=== PATIENT | female | born 1980 | race Caucasian/White ===

== ENCOUNTER 2024-02-18 16:31 | Emergency (ER) | payer OTHER ==
--- OUTSIDE RECORDS SUMMARY | 2024-02-18 16:44 | XMS REPORT | Continuity of Care Document ---
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 TAKE 1 TABLET BY MOUTH IN THE MORNING AND IN THE EVENING [facility] PANTOPRAZOL E 40 mg EC tablet 2022-11 00:00: 00 Yes [id number] 40mg TAKE 1 TABLET BY MOUTH IN THE MORNING AND IN THE EVENING [facility] PANTOPRAZOL E 40 mg EC tablet 2022-11 00:00: 00 Yes [id number] 40mg TAKE 1 TABLET BY MOUTH IN THE MORNING AND IN THE EVENING [facility] PANTOPRAZOL E 40 mg EC tablet 2022-11 00:00: 00 Yes [id number] 40mg TAKE 1 TABLET BY MOUTH IN THE MORNING AND IN THE EVENING [facility] PANTOPRAZOL E 40 mg EC tablet 2022-11 00:00: 00 Yes [id number] 40mg TAKE 1 TABLET BY MOUTH IN THE MORNING AND IN THE EVENING [facility] PANTOPRAZOL E 40 mg EC tablet 2022-11 00:00: 00 Yes [id number] 40mg TAKE 1 TABLET BY MOUTH IN THE MORNING AND IN THE EVENING [facility] PANTOPRAZOL E 40 mg EC tablet 2022-11 00:00: 00 Yes [id number] 40mg TAKE 1 TABLET BY MOUTH IN THE MORNING AND IN THE EVENING [facility] PANTOPRAZOL E 40 mg EC tablet 2022-11 00:00: 00 Yes [id number] 40mg TAKE 1 TABLET BY MOUTH IN THE MORNING AND IN THE EVENING [facility] PANTOPRAZOL E 40 mg EC tablet 2022-11 00:00: 00 Yes [id number] 40mg TAKE 1 TABLET BY MOUTH IN THE MORNING AND IN THE EVENING [facility] PANTOPRAZOL E 40 mg EC tablet 2022-11 00:00: 00 Yes [id number] 40mg TAKE 1 TABLET BY MOUTH IN THE MORNING AND IN THE EVENING [facility] PANTOPRAZOL E 40 mg EC tablet 2022-11 00:00: 00 Yes [id number] 40mg TAKE 1 TABLET BY MOUTH IN THE MORNING AND IN THE EVENING [facility] PANTOPRAZOL E 40 mg EC tablet 2022-11 00:00: 00 Yes [id number] 40mg TAKE 1 TABLET BY MOUTH IN THE MORNING AND IN THE EVENING [facility] PANTOPRAZOL E 40 mg EC tablet 2022-11 00:00: 00 02-16 00:00 :00 No [id number] 40mg TAKE 1 TABLET BY MOUTH IN THE MORNING AND IN THE EVENING [facility] cloNIDine 0.2 mg tablet 2022-11 00:00: 00 Yes TAKE 1 TABLET BY MOUTH EVERY DAY AT NIGHT [facility] cloNIDine 0.2 mg tablet 2022-11 00:00: 00 Yes TAKE 1 TABLET BY MOUTH EVERY DAY AT NIGHT [facility] cloNIDine 0.2 mg tablet 2022-11 00:00: 00 Yes TAKE 1 TABLET BY MOUTH EVERY DAY AT NIGHT [facility] cloNIDine 0.2 mg tablet 2022-11 00:00: 00 Yes TAKE 1 TABLET BY MOUTH EVERY DAY AT NIGHT [facility] cloNIDine 0.2 mg tablet 2022-11 00:00: 00 Yes TAKE 1 TABLET BY MOUTH EVERY DAY AT NIGHT [facility] cloNIDine 0.2 mg tablet 2022-11 00:00: 00 Yes TAKE 1 TABLET BY MOUTH EVERY DAY AT NIGHT [facility] cloNIDine 0.2 mg tablet 2022-11 00:00: 00 Yes TAKE 1 TABLET BY MOUTH EVERY DAY AT NIGHT [facility] cloNIDine 0.2 mg tablet 2022-11 00:00: 00 Yes TAKE 1 TABLET BY MOUTH EVERY DAY AT NIGHT [facility] cloNIDine 0.2 mg tablet 2022-11 00:00: 00 Yes TAKE 1 TABLET BY MOUTH EVERY DAY AT NIGHT [facility] KCL (KLOR-CON M20) tablet 40 mEq 2022-11 15:15: 00 Yes 40meq 40 mEq, Oral, DAILY, First dose on 10/08/23 at 0915, Until Discontinu ed, Routine [facility] KCL (KLOR-CON M20) tablet 40 mEq 2022-11 13:45: 00 10-08 14:41 :00 No 40meq 40 mEq, Oral, ONCE, 1 dose, On 10/08/23 at 0745, Routine [facility] cloNIDine 0.3 mg tablet 2022-11 11:13: 29 10-08 00:00 :00 No 1 tab(s) [facility] proCHLORper azine 10 mg tablet 2022-11 00:00: 00 11-08 05:59 :00 No [id number] 10mg Take 1 tablet by mouth every 6 (six) hours as needed for Nausea and Vomiting (N/V) for up to 30 days. [facility] proCHLORper azine 10 mg tablet 2022-11 00:00: 00 11-08 05:59 :00 No [id number] 10mg Take 1 tablet by mouth every 6 (six) hours as needed for Nausea and Vomiting (N/V) for up to 30 days. [facility] proCHLORper azine 10 mg tablet 2022-11 00:00: 00 11-08 05:59 :00 No [id number] 10mg Take 1 tablet by mouth every 6 (six) hours as needed for Nausea and Vomiting (N/V) for up to 30 days. [facility] proCHLORper azine 10 mg tablet 2022-11 00:00: 00 11-08 05:59 :00 No [id number] 10mg Take 1 tablet by mouth every 6 (six) hours as needed for Nausea and Vomiting (N/V) for up to 30 days. [facility] proCHLORper azine 10 mg tablet 2022-11 00:00: 00 11-08 05:59 :00 No [id number] 10mg Take 1 tablet by mouth every 6 (six) hours as needed for Nausea and Vomiting (N/V) for up to 30 days. [facility] proCHLORper azine 10 mg tablet 2022-11 00:00: 00 11-08 05:59 :00 No [id number] 10mg Take 1 tablet by mouth every 6 (six) hours as needed for Nausea and Vomiting (N/V) for up to 30 days. [facility] tiZANidine (ZANAFLEX) tablet 4 mg 2022-11 17:54: 00 Yes 4mg 4 mg, Oral, BIDPRN, Starting on Tue10/07/23 at 1154, Until Discontinu ed, Routine, Muscle Spasms [facility] KCL (KLOR-CON M20) tablet 40 mEq 2022-11 16:45: 00 10-07 17:18 :00 No 40meq 40 mEq, Oral, ONCE, 1 dose, On Tue10/07/23 at 1045, Routine [facility] peg-electro lyte soln (GOLYTELY) 236-22.74-6 .74 -5.86 gram solution 4,000 mL 2022-11 15:52: 42 Yes 4000mL 4,000 mL, Oral, PRN, Starting on Tue10/07/23 at 0952, Until Discontinu ed, Routine, Constipati on [facility] metoprolol succinate XL (TOPROL XL) tablet 25 mg 2022-11 15:00: 00 Yes 25mg 25 mg, Oral, DAILY, First dose (after last modificati on) on Tue10/07/23 at 0900, Until Discontinu ed, Routine [facility] amLODIPine (NORVASC) tablet 5 mg 2022-11 15:00: 00 Yes 5mg 5 mg, Oral, DAILY, First dose on Tue10/07/23 at 0900, Until Discontinu ed, CARL [facility] lactulose (CEPHULAC) solution 30 mL 2022-11 14:00: 00 10-08 00:42 :00 No 30mL 30 mL, Oral, TID, First dose on Tue10/07/23 at 0800, Until Discontinu ed, Routine [facility] midodrine (PROAMATINE ) tablet 5 mg 2022-11 08:30: 00 10-07 08:05 :00 No 5mg 5 mg, Oral, ONCE, 1 dose, On Tue10/07/23 at 0230, Routine [facility] NaCl 0.9% (NS) bolus infusion 1,000 mL 2022-11 06:00: 00 10-07 05:02 :32 No 1000mL at 999 mL/hr, 1,000 mL, IV Piggyback, ONCE, 1 dose, On Tue10/07/23 at 0000, STAT [facility] hydralAZINE (APRESOLINE ) injection 10 mg 2022-11 05:18: 19 Yes 10mg 10 mg, Slow IV Push, Q6HPRN, Starting on Tue10/06/23 at 2318, Until Discontinu ed, Routine, DBP=>100; SBP=>180 [facility] metoprolol succinate XL (TOPROL XL) tablet 100 mg 2022-11 03:30: 00 10-07 04:52 :53 No 100mg 100 mg, Oral, DAILY, First dose on Tue10/06/23 at 2130, Until Discontinu ed, [facility]ine [facility] mor[facility] (2 mg/mL) injection 4 mg 2022-11 00:30: 00 Yes 4mg 4 mg, Slow IV Push, Q4HPRN, Starting on Tue10/06/23 at 1830, Until Discontinu ed, Routine, Pain (scale 7-10) [facility] proCHLORper azine (COMPAZINE) 10 mg in NaCl 0.9% (NS) piggyback 2022-11 23:50: 42 Yes 10mg 10 mg, IV Piggyback, at 100 mL/hr Administer over 30 Minutes, Q6HPRN, Starting on Tue10/06/23 at 1750, Until Discontinu ed, Routine, Nausea and Vomiting (N/V) [facility] diazePAM (VALIUM) injection 10 mg 2022-11 21:48: 00 Yes 10mg 10 mg, Slow IV Push, TIDPRN, Starting on Tue10/06/23 at 1548, Until Discontinu ed, Routine, Agitation [facility] proCHLORper azine (COMPAZINE) 10 mg in NaCl 0.9% (NS) piggyback 2022-11 21:45: 00 10-06 22:22 :00 No 10mg 10 mg, IV Piggyback, at 100 mL/hr Administer over 30 Minutes, ONCE, 1 dose, On Tue10/06/23 at 1545, Routine [facility] lactulose (CEPHULAC) solution 30 mL 2022-11 21:00: 00 10-06 20:57 :00 No 30mL 30 mL, Oral, ONCE, 1 dose, On Tue10/06/23 at 1500, Routine [facility] butalbital- acetaminoph en-caff (ESGIC) 50-325-40 mg tablet 1 tablet 2022-11 16:42: 47 Yes 1{tbl} 1 tablet, Oral, Q6HPRN, Starting on Tue10/06/23 at 1042, Until Discontinu ed, Routine, for headache [facility] NaCl 0.9% (NS) bolus infusion 500 mL 2022-11 13:47: 00 10-06 13:56 :37 No 500mL at 999 mL/hr, 500 mL, IV Infusion, ONCE, 1 dose, On Tue10/06/23 at 0800, STAT [facility] sodium phosphates (READY-TO-U SE ENEMA) 19-7 gram/118 mL enema 1 Enema 2022-11 23:51: 00 10-06 00:03 :00 No 1{enema } 1 Enema, Rectal, ONCE, 1 dose, On Tue10/05/23 at 1800, Routine [facility] proMETHazin e (PHENERGAN) 25 mg in NaCl 0.9% (NS) 50 mL IV piggyback 2022-11 21:45: 10 10-06 23:51 :59 No 25mg 25 mg, IV Piggyback, at 200 mL/hr Administer over 15 Minutes, Q6HPRN, Starting on Tue10/05/23 at 1545, Until Tue10/06/23 at 1751, Routine, Nausea and Vomiting (N/V) [facility] KCL (KLOR-CON M20) tablet 20 mEq 2022-11 16:30: 00 10-05 16:14 :00 No 20meq 20 mEq, Oral, ONCE, 1 dose, On Tue10/05/23 at 1030, Routine [facility] NaCl 0.9% (NS) bolus infusion 1,000 mL 2022-11 14:00: 00 10-05 15:15 :59 No 1000mL at 999 mL/hr, 1,000 mL, IV Piggyback, ONCE, 1 dose, On Tue10/05/23 at 0800, STAT [facility] midodrine (PROAMATINE ) tablet 5 mg 2022-11 13:45: 00 10-05 12:51 :00 No 5mg 5 mg, Oral, ONCE, 1 dose, On Tue10/05/23 at 0745, Routine [facility] NaCl 0.9% (NS) bolus infusion 1,000 mL 2022-11 11:00: 00 10-05 09:53 :00 No 1000mL at 999 mL/hr, 1,000 mL, IV Piggyback, ONCE, 1 dose, On Tue10/05/23 at 0500, STAT [facility] aspirin tablet 325 mg 2022-11 05:15: 00 10-05 05:08 :00 No 325mg 325 mg, Oral, ONCE, 1 dose, On Tue10/04/23 at 2315, Routine [facility] potassium chloride in water (KCL) 20 mEq/100 mL RTU IVPB 20 mEq 2022-11 05:15: 00 10-05 08:39 :00 No 20meq 20 mEq, IV Piggyback, ONCE, 1 dose, On Tue10/04/23 at 2315, 100 mL [facility] HEPARIN SODIUM (PORCINE) 1,000 UNIT/ML BOLUS ACS ORDER SET 2022-11 04:30: 00 10-05 05:24 :00 No 4000U 4,000 Units, IV Push, ONCE, 1 dose, On Tue10/04/23 at 2230, CARL [facility] heparin 25,000 Units/250 mL (Premixed Bag) in 0.45 % NS 2022-11 04:29: 06 10-05 15:28 :45 No 0U/h 0-2,750 Units/hr (0-27.5 mL/hr), IV Infusion, TITRATE, Parameters in Admin. Instr., Starting on Tue10/04/23 at 2229
In itiate dosing:&nb sp; & nbsp;&nbsp ; -Patient 83 kg or under: 1,000 Units/hr (Calculate d dose at 12 units/kg/h r) &n bsp; &nbs p; -Patient over 83 k,000 units/hr&n bsp;DO NOT Exceed the MAXIMUM 1,000 units/hr for initiation of heparin drip.&nbsp ; CAU TION - If LMWH given in ER, AVOID bolus and start next dose/drip 12 hrs after ER dosage.&nb sp; M ust program rate using programmab le infusion pump.&nbsp ; Karen ck with the ordering provider first prior to any administra tion should the patient be on existing/a dditional anticoagul ant therapy. Rang e, Dosing and Testing: &nbs p;FOR [facility], [facility], AND [facility] ONLY &nbs p; - aPTT < 35: & nbsp;Bolus 5000 units, increase rate 300 units/hr&n bsp; - aPTT 35-44:&nbs p; Mamadou myranda 3000 units, increase rate 200 units/hr&n bsp; - aPTT 45-54:&nbs p; In crease rate 100 units/hr&n bsp; - aPTT 55-85:&nbs p; NO CHANGE&nbs p; - aPTT 86-95:&nbs p; De crease rate 100 units/hr&n bsp; - aPTT 96-120:&nb sp; H old 30 minutes, decrease rate 150 units/hr&n bsp; - aPTT > 120: Hold 60 minutes, decrease rate 200 units/hr&n bsp; Check aPTT 6 hours after initiation , then Q6H after every change, aPTT Q12H once therapeuti c levels are reached.&n bsp; &nbs p; __ &n bsp;FOR [facility] ONLY - aPTT < 40: & nbsp;Bolus 5000 units, increase rate 300 units/hr&n bsp; - aPTT 40-49:&nbs p; Mamadou myranda 3000 units, increase rate 200 units/hr&n bsp; - aPTT 50-59:&nbs p; In crease rate 100 units/hr&n bsp; - aPTT 60-85:&nbs p; NO CHANGE&nbs p; - aPTT 86-95:&nbs p; De crease rate 100 units/hr&n bsp; - aPTT 96-120:&nb sp; H old 30 minutes, decrease rate 150 units/hr&n bsp; - aPTT > 120: Hold 60 minutes, decrease rate 200 units/hr&n bsp; Check aPTT 6 hours after initiation , then Q6H after every change, aPTT Q12H once therapeuti c levels are reached.&n bsp; DO NOT ADJUST INITIAL BOLUS OR INITIAL INFUSION RATE.
[facility] hydralAZINE (APRESOLINE ) injection 10 mg 2022-11 03:15: 00 10-05 02:18 :00 No 10mg 10 mg, Slow IV Push, ONCE, 1 dose, On Tue10/04/23 at 2115, STAT [facility] atorvastati n (LIPITOR) tablet 40 mg 2022-11 03:00: 00 Yes 40mg 40 mg, Oral, QHS, First dose on Tue10/04/23 at 2100, Until Discontinu ed, Routine [facility] hydrALAZINE (APRESOLINE ) tablet 10 mg 2022-11 02:09: 49 10-07 04:19 :56 No 10mg 10 mg, Oral, Q6HPRN, Starting on Tue10/04/23 at 2008, Until Tamie 10/06/23 at 2219, Routine, SBP>160, DBP>100 [facility] morpHINE (2 mg/mL) injection 4 mg 2022-11 02:09: 35 10-07 00:16 :30 No 4mg 4 mg, Slow IV Push, Q6HPRN, Starting on Tue10/04/23 at 2008, Until Tue10/06/23 at 1816, Routine, Pain (scale 7-10) [facility] metoprolol (LOPRESSOR) injection 5 mg 2022-11 00:04: 32 Yes 5mg 5 mg, Slow IV Push, Q8HPRN, Starting on Tue10/04/23 at 1804, Until Discontinu ed, Routine, SYS BP over 170 hold for HR less than 60 [facility] morpHINE (2 mg/mL) injection 2 mg 2022-11 00:03: 39 10-05 02:10 :11 No 2mg 2 mg, Slow IV Push, Q6HPRN, Starting on Tue10/04/23 at 1803, Until Tue10/04/23 at 2010, Routine, Pain (scale 7-10) [facility] bisacodyL (DULCOLAX) suppository 10 mg 2022-11 00:03: 04 Yes 10mg 10 mg, Rectal, QHSPRN, Starting on Tue10/04/23 at 1803, Until Discontinu ed, Routine, Constipati on [facility] enoxaparin (LOVENOX) injection 40 mg 2022-11 23:00: 00 10-05 04:29 :29 No 40mg 40 mg, Subcutaneo us, DAILY, First dose on Tue10/04/23 at 1700, Until Discontinu ed, Routine [facility] diazePAM (VALIUM) tablet 10 mg 2022-11 22:01: 31 10-06 21:50 :05 No 10mg 10 mg, Oral, TIDPRN, Starting on Tue10/04/23 at 1601, Until Tamie 10/06/23 at 1550, Routine, anxiety [facility] labetaloL (NORMODYNE) injection 20 mg 2022-11 21:30: 00 10-04 20:34 :00 No 20mg 20 mg, Slow IV Push, ONCE, 1 dose, On Tue10/04/23 at 1530, Routine [facility] pantoprazol e (PROTONIX) EC tablet 40 mg 2022-11 21:00: 00 Yes 40mg 40 mg, Oral, DAILY, First dose on Tue10/04/23 at 1500, Until Discontinu ed, Routine [facility] NaCl 0.9% (NS) IV infusion 1,000 mL 2022-11 21:00: 00 Yes 1000mL at 125 mL/hr, IV Infusion, CONTINUOUS , Starting on Tue10/04/23 at 1500, Until Discontinu ed, Routine [facility] cloNIDine (CATAPRES) tablet 0.3 mg 2022-11 21:00: 00 10-05 12:45 :21 No .3mg 0.3 mg, Oral, DAILY, First dose on Tue10/04/23 at 1500, Until Discontinu ed, Routine [facility] ondansetron (ZOFRAN (PF)) injection 4 mg 2022-11 20:51: 50 Yes 4mg 4 mg, Slow IV Push, Q6HPRN, Starting on Tue10/04/23 at 1451, Until Discontinu ed, Routine, Nausea and Vomiting (N/V) [facility] traMADoL (ULTRAM) tablet 50 mg 2022-11 20:51: 41 10-06 20:50 :41 No 50mg 50 mg, Oral, Q8HPRN, Starting on Tue10/04/23 at 1451, Until Tamie 10/06/23 at 1450, Routine, Pain (scale 4-6) [facility] acetaminoph en (TYLENOL) tablet 650 mg 2022-11 20:51: 35 Yes 650mg 650 mg, Oral, Q6HPRN, Starting on Tue10/04/23 at 1451, Until Discontinu ed, Routine, Pain (scale 1-3) [facility] metoprolol succinate XL (TOPROL XL) tablet 100 mg 2022-11 20:45: 00 10-05 12:45 :21 No 100mg 100 mg, Oral, DAILY, First dose on Tue10/04/23 at 1445, Until Discontinu ed, Routine [facility] amLODIPine (NORVASC) tablet 5 mg 2022-11 20:45: 00 10-05 12:45 :21 No 5mg 5 mg, Oral, QNOON, First dose on Tue10/04/23 at 1445, Until Discontinu ed, Routine [facility] morpHINE (4 mg/mL) injection 4 mg 2022-11 20:45: 00 10-04 20:32 :00 No 4mg 4 mg, Slow IV Push, ONCE, 1 dose, On Tue10/04/23 at 1445, STAT [facility] cloNIDine 0.3 mg tablet 2022-11 20:37: 17 Yes 1 tab(s) [facility] NaCl 0.9% (NS) bolus infusion 1,000 mL 2022-11 17:15: 00 10-04 16:16 :00 No 1000mL at 999 mL/hr, 1,000 mL, IV Infusion, ONCE, 1 dose, On Tue10/04/23 at 1115, STAT [facility] morpHINE (4 mg/mL) injection 4 mg 2022-11 17:15: 00 10-04 17:04 :00 No 4mg 4 mg, Slow IV Push, ONCE, 1 dose, On Tue10/04/23 at 1115, STAT [facility] NaCl 0.9% (NS) IV infusion 1,000 mL 2022-11 17:00: 00 10-04 18:00 :00 No 1000mL at 999 mL/hr, IV Infusion, ONCE, 1 dose, On Tue10/04/23 at 1100, Routine [facility] ondansetron (ZOFRAN (PF)) injection 4 mg 2022-11 16:15: 00 10-04 16:15 :00 No 4mg 4 mg, Slow IV Push, ONCE, 1 dose, On Tue10/04/23 at 1015, CARL [facility] proMETHazin e (PHENERGAN) 25 mg in NaCl 0.9% (NS) 50 mL IV piggyback 2022-11 16:15: 00 10-04 16:58 :00 No 25mg 25 mg, IV Piggyback, at 200 mL/hr Administer over 15 Minutes, ONCE, 1 dose, On Tue10/04/23 at 1015, [facility] labetaloL (NORMODYNE) injection 20 mg 2022-11 16:15: 00 10-04 16:16 :00 No 20mg 20 mg, Slow IV Push, ONCE, 1 dose, On Tue10/04/23 at 1015, [facility] morpHINE (2 mg/mL) injection 2 mg 2022-11 15:45: 00 10-04 15:01 :00 No 2mg 2 mg, Slow IV Push, ONCE, 1 dose, On Tue10/04/23 at 0945, Routine [facility] NaCl 0.9% (NS) bolus infusion 1,000 mL 2022-11 14:30: 00 10-04 15:00 :00 No 1000mL at 999 mL/hr, 1,000 mL, IV Infusion, ONCE, 1 dose, On Tue10/04/23 at 0830, [facility] ondansetron (ZOFRAN (PF)) injection 4 mg 2022-11 13:45: 00 10-04 14:51 :00 No 4mg 4 mg, Slow IV Push, ONCE, 1 dose, On Tue10/04/23 at 0745, [facility] semaglutide , weight loss, (WEGOVY) 1 mg/0.5 mL PnIj SC injection 2022-11 00:00: 00 Yes [id number] 1mg inject 1 mg under the skin weekly. [facility] semaglutide , weight loss, (WEGOVY) 1 mg/0.5 mL PnIj SC injection 2022-11 00:00: 00 Yes [id number] 1mg inject 1 mg under the skin weekly. [facility] semaglutide , weight loss, (WEGOVY) 1 mg/0.5 mL PnIj SC injection 2022-11 00:00: 00 Yes [id number] 1mg inject 1 mg under the skin weekly. [facility] semaglutide , weight loss, (WEGOVY) 1 mg/0.5 mL PnIj SC injection 2022-11 00:00: 00 Yes [id number] 1mg inject 1 mg under the skin weekly. [facility] semaglutide , weight loss, (WEGOVY) 1 mg/0.5 mL PnIj SC injection 2022-11 00:00: 00 Yes [id number] 1mg inject 1 mg under the skin weekly. [facility] semaglutide , weight loss, (WEGOVY) 1 mg/0.5 mL PnIj SC injection 2022-11 00:00: 00 Yes [id number] 1mg inject 1 mg under the skin weekly. [facility] semaglutide , weight loss, (WEGOVY) 1 mg/0.5 mL PnIj SC injection 2022-11 00:00: 00 Yes [id number] 1mg inject 1 mg under the skin weekly. [facility] semaglutide , weight loss, (WEGOVY) 1 mg/0.5 mL PnIj SC injection 2022-11 00:00: 00 10-08 00:00 :00 No [id number] 1mg inject 1 mg under the skin weekly. [facility] AMLODIPINE 5 mg tablet 2022-11 00:00: 00 Yes [id number] 5mg TAKE 1 TABLET BY MOUTH EVERY DAY AT 1200 (NOON). [facility] AMLODIPINE 5 mg tablet 2022-11 00:00: 00 Yes [id number] 5mg TAKE 1 TABLET BY MOUTH EVERY DAY AT 1200 (NOON). [facility] AMLODIPINE 5 mg tablet 2022-11 00:00: 00 Yes [id number] 5mg TAKE 1 TABLET BY MOUTH EVERY DAY AT 1200 (NOON). [facility] AMLODIPINE 5 mg tablet 2022-11 00:00: 00 Yes [id number] 5mg TAKE 1 TABLET BY MOUTH EVERY DAY AT 1200 (NOON). [facility] AMLODIPINE 5 mg tablet 2022-11 00:00: 00 Yes [id number] 5mg TAKE 1 TABLET BY MOUTH EVERY DAY AT 1200 (NOON). [facility] AMLODIPINE 5 mg tablet 2022-11 00:00: 00 Yes [id number] 5mg TAKE 1 TABLET BY MOUTH EVERY DAY AT 1200 (NOON). [facility] AMLODIPINE 5 mg tablet 2022-11 00:00: 00 Yes [id number] 5mg TAKE 1 TABLET BY MOUTH EVERY DAY AT 1200 (NOON). [facility] AMLODIPINE 5 mg tablet 2022-11 00:00: 00 Yes [id number] 5mg TAKE 1 TABLET BY MOUTH EVERY DAY AT 1200 (NOON). [facility] AMLODIPINE 5 mg tablet 2022-11 00:00: 00 Yes [id number] 5mg TAKE 1 TABLET BY MOUTH EVERY DAY AT 1200 (NOON). [facility] AMLODIPINE 5 mg tablet 2022-11 00:00: 00 Yes [id number] 5mg TAKE 1 TABLET BY MOUTH EVERY DAY AT 1200 (NOON). [facility] AMLODIPINE 5 mg tablet 2022-11 00:00: 00 Yes [id number] 5mg TAKE 1 TABLET BY MOUTH EVERY DAY AT 1200 (NOON). [facility] AMLODIPINE 5 mg tablet 2022-11 00:00: 00 Yes [id number] 5mg TAKE 1 TABLET BY MOUTH EVERY DAY AT 1200 (NOON). [facility] AMLODIPINE 5 mg tablet 2022-11 00:00: 00 Yes [id number] 5mg TAKE 1 TABLET BY MOUTH EVERY DAY AT 1200 (NOON). [facility] AMLODIPINE 5 mg tablet 2022-11 00:00: 00 Yes [id number] 5mg TAKE 1 TABLET BY MOUTH EVERY DAY AT 1200 (NOON). [facility] AMLODIPINE 5 mg tablet 2022-11 00:00: 00 Yes [id number] 5mg TAKE 1 TABLET BY MOUTH EVERY DAY AT 1200 (NOON). [facility] AMLODIPINE 5 mg tablet 2022-11 00:00: 00 Yes [id number] 5mg TAKE 1 TABLET BY MOUTH EVERY DAY AT 1200 (NOON). [facility] ATORVASTATI N 40 mg tablet 2022-11 00:00: 00 Yes [id number] 40mg TAKE 1 TABLET BY MOUTH EVERYDAY AT BEDTIME [facility] ATORVASTATI N 40 mg tablet 2022-11 00:00: 00 Yes [id number] 40mg TAKE 1 TABLET BY MOUTH EVERYDAY AT BEDTIME [facility] ATORVASTATI N 40 mg tablet 2022-11 00:00: 00 Yes [id number] 40mg TAKE 1 TABLET BY MOUTH EVERYDAY AT BEDTIME [facility] ATORVASTATI N 40 mg tablet 2022-11 00:00: 00 Yes [id number] 40mg TAKE 1 TABLET BY MOUTH EVERYDAY AT BEDTIME [facility] ATORVASTATI N 40 mg tablet 2022-11 00:00: 00 Yes [id number] 40mg TAKE 1 TABLET BY MOUTH EVERYDAY AT BEDTIME [facility] ATORVASTATI N 40 mg tablet 2022-11 00:00: 00 Yes [id number] 40mg TAKE 1 TABLET BY MOUTH EVERYDAY AT BEDTIME [facility] ATORVASTATI N 40 mg tablet 2022-11 00:00: 00 Yes [id number] 40mg TAKE 1 TABLET BY MOUTH EVERYDAY AT BEDTIME [facility] ATORVASTATI N 40 mg tablet 2022-11 00:00: 00 Yes [id number] 40mg TAKE 1 TABLET BY MOUTH EVERYDAY AT BEDTIME [facility] ATORVASTATI N 40 mg tablet 2022-11 00:00: 00 Yes [id number] 40mg TAKE 1 TABLET BY MOUTH EVERYDAY AT BEDTIME [facility] ATORVASTATI N 40 mg tablet 2022-11 00:00: 00 Yes [id number] 40mg TAKE 1 TABLET BY MOUTH EVERYDAY AT BEDTIME [facility] ATORVASTATI N 40 mg tablet 2022-11 00:00: 00 Yes [id number] 40mg TAKE 1 TABLET BY MOUTH EVERYDAY AT BEDTIME [facility] ATORVASTATI N 40 mg tablet 2022-11 00:00: 00 Yes [id number] 40mg TAKE 1 TABLET BY MOUTH EVERYDAY AT BEDTIME [facility] ATORVASTATI N 40 mg tablet 2022-11 00:00: 00 Yes [id number] 40mg TAKE 1 TABLET BY MOUTH EVERYDAY AT BEDTIME [facility] ATORVASTATI N 40 mg tablet 2022-11 00:00: 00 Yes [id number] 40mg TAKE 1 TABLET BY MOUTH EVERYDAY AT BEDTIME [facility] ATORVASTATI N 40 mg tablet 2022-11 00:00: 00 Yes [id number] 40mg TAKE 1 TABLET BY MOUTH EVERYDAY AT BEDTIME [facility] ATORVASTATI N 40 mg tablet 2022-11 00:00: 00 Yes [id number] 40mg TAKE 1 TABLET BY MOUTH EVERYDAY AT BEDTIME [facility] ATORVASTATI N 40 mg tablet 2022-11 00:00: 00 Yes [id number] 40mg TAKE 1 TABLET BY MOUTH EVERYDAY AT BEDTIME [facility] ATORVASTATI N 40 mg tablet 2022-11 00:00: 00 Yes [id number] 40mg TAKE 1 TABLET BY MOUTH EVERYDAY AT BEDTIME [facility] ATORVASTATI N 40 mg tablet 2022-11 00:00: 00 Yes [id number] 40mg TAKE 1 TABLET BY MOUTH EVERYDAY AT BEDTIME [facility] ATORVASTATI N 40 mg tablet 2022-11 00:00: 00 Yes [id number] 40mg TAKE 1 TABLET BY MOUTH EVERYDAY AT BEDTIME [facility] proMETHazin e 12.5 mg tablet 2022-11 00:00: 00 Yes [id number] 12.5mg Take 1 tablet by mouth every 6 (six) hours as needed for Nausea and Vomiting (N/V). [facility] ezetimibe 10 mg tablet 2022-11 00:00: 00 Yes [id number] 10mg Take 1 tablet by mouth in the morning. [facility] semaglutide , weight loss, (WEGOVY) 0.5 mg/0.5 mL PnIj SC injection 2022-11 00:00: 00 Yes [id number] .5mg inject 0.5 mg under the skin weekly. [facility] proMETHazin e 12.5 mg tablet 2022-11 0 00:00: 00 Yes [id number] 12.5mg Take 1 tablet by mouth every 6 (six) hours as needed for Nausea and Vomiting (N/V). [facility] ezetimibe 10 mg tablet 2022-11 0 00:00: 00 Yes [id number] 10mg Take 1 tablet by mouth in the morning. [facility] proMETHazin e 12.5 mg tablet 2022-11 00:00: 00 Yes [id number] 12.5mg Take 1 tablet by mouth every 6 (six) hours as needed for Nausea and Vomiting (N/V). [facility] ezetimibe 10 mg tablet 2022-11 00:00: 00 Yes [id number] 10mg Take 1 tablet by mouth in the morning. [facility] proMETHazin e 12.5 mg tablet 2022-11 00:00: 00 Yes [id number] 12.5mg Take 1 tablet by mouth every 6 (six) hours as needed for Nausea and Vomiting (N/V). [facility] ezetimibe 10 mg tablet 2022-11 00:00: 00 Yes [id number] 10mg Take 1 tablet by mouth in the morning. [facility] proMETHazin e 12.5 mg tablet 2022-11 0 00:00: 00 Yes [id number] 12.5mg Take 1 tablet by mouth every 6 (six) hours as needed for Nausea and Vomiting (N/V). [facility] ezetimibe 10 mg tablet 2022-11 0 00:00: 00 Yes [id number] 10mg Take 1 tablet by mouth in the morning. [facility] semaglutide , weight loss, (WEGOVY) 0.5 mg/0.5 mL PnIj SC injection 2022-11 00:00: 00 Yes [id number] .5mg inject 0.5 mg under the skin weekly. [facility] proMETHazin e 12.5 mg tablet 2022-11 0- 00:00: 00 Yes [id number] 12.5mg Take 1 tablet by mouth every 6 (six) hours as needed for Nausea and Vomiting (N/V). [facility] ezetimibe 10 mg tablet 2022-11 0- 00:00: 00 Yes [id number] 10mg Take 1 tablet by mouth in the morning. [facility] semaglutide , weight loss, (WEGOVY) 0.5 mg/0.5 mL PnIj SC injection 2022-11 0 00:00: 00 Yes [id number] .5mg inject 0.5 mg under the skin weekly. [facility] proMETHazin e 12.5 mg tablet 2022-11 00:00: 00 Yes [id number] 12.5mg Take 1 tablet by mouth every 6 (six) hours as needed for Nausea and Vomiting (N/V). [facility] ezetimibe 10 mg tablet 2022-11 00:00: 00 Yes [id number] 10mg Take 1 tablet by mouth in the morning. [facility] semaglutide , weight loss, (WEGOVY) 0.5 mg/0.5 mL PnIj SC injection 2022-11 0 00:00: 00 Yes [id number] .5mg inject 0.5 mg under the skin weekly. [facility] proMETHazin e 12.5 mg tablet 2022-11 0- 00:00: 00 Yes [id number] 12.5mg Take 1 tablet by mouth every 6 (six) hours as needed for Nausea and Vomiting (N/V). [facility] ezetimibe 10 mg tablet 2022-11 0- 00:00: 00 Yes [id number] 10mg Take 1 tablet by mouth in the morning. [facility] proMETHazin e 12.5 mg tablet 2022-11 0- 00:00: 00 Yes [id number] 12.5mg Take 1 tablet by mouth every 6 (six) hours as needed for Nausea and Vomiting (N/V). [facility] ezetimibe 10 mg tablet 2022- 0-17 00:00: 00 Yes [id number] 10mg Take 1 tablet by mouth in the morning. [facility] proMETHazin e 12.5 mg tablet 2022-11 0-17 00:00: 00 Yes [id number] 12.5mg Take 1 tablet by mouth every 6 (six) hours as needed for Nausea and Vomiting (N/V). [facility] ezetimibe 10 mg tablet 2022- 0-17 00:00: 00 Yes [id number] 10mg Take 1 tablet by mouth in the morning. [facility] proMETHazin e 12.5 mg tablet 2022-11 0-17 00:00: 00 Yes [id number] 12.5mg Take 1 tablet by mouth every 6 (six) hours as needed for Nausea and Vomiting (N/V). [facility] ezetimibe 10 mg tablet 2022-11 0-17 00:00: 00 Yes [id number] 10mg Take 1 tablet by mouth in the morning. [facility] proMETHazin e 12.5 mg tablet 2022-11 0-17 00:00: 00 Yes [id number] 12.5mg Take 1 tablet by mouth every 6 (six) hours as needed for Nausea and Vomiting (N/V). [facility] ezetimibe 10 mg tablet 2022-11 0-17 00:00: 00 Yes [id number] 10mg Take 1 tablet by mouth in the morning. [facility] proMETHazin e 12.5 mg tablet 2022-11 0-17 00:00: 00 Yes [id number] 12.5mg Take 1 tablet by mouth every 6 (six) hours as needed for Nausea and Vomiting (N/V). [facility] ezetimibe 10 mg tablet 2022-11 0-17 00:00: 00 Yes [id number] 10mg Take 1 tablet by mouth in the morning. [facility] proMETHazin e 12.5 mg tablet 2022- 0-17 00:00: 00 Yes [id number] 12.5mg Take 1 tablet by mouth every 6 (six) hours as needed for Nausea and Vomiting (N/V). [facility] ezetimibe 10 mg tablet 2022-11 0-17 00:00: 00 Yes [id number] 10mg Take 1 tablet by mouth in the morning. [facility] proMETHazin e 12.5 mg tablet 2022-11 0-17 00:00: 00 Yes [id number] 12.5mg Take 1 tablet by mouth every 6 (six) hours as needed for Nausea and Vomiting (N/V). [facility] ezetimibe 10 mg tablet 2022-11 0-17 00:00: 00 Yes [id number] 10mg Take 1 tablet by mouth in the morning. [facility] proMETHazin e 12.5 mg tablet 2022-11 0- 00:00: 00 Yes [id number] 12.5mg Take 1 tablet by mouth every 6 (six) hours as needed for Nausea and Vomiting (N/V). [facility] ezetimibe 10 mg tablet 2022-11 0- 00:00: 00 Yes [id number] 10mg Take 1 tablet by mouth in the morning. [facility] proMETHazin e 12.5 mg tablet 2022-11 0- 00:00: 00 Yes [id number] 12.5mg Take 1 tablet by mouth every 6 (six) hours as needed for Nausea and Vomiting (N/V). [facility] ezetimibe 10 mg tablet 2022-11 0-17 00:00: 00 Yes [id number] 10mg Take 1 tablet by mouth in the morning. [facility] proMETHazin e 12.5 mg tablet 2022-11 0-17 00:00: 00 Yes [id number] 12.5mg Take 1 tablet by mouth every 6 (six) hours as needed for Nausea and Vomiting (N/V). [facility] ezetimibe 10 mg tablet 2022-11 0-17 00:00: 00 Yes [id number] 10mg Take 1 tablet by mouth in the morning. [facility] proMETHazin e 12.5 mg tablet 2022-11 0-17 00:00: 00 Yes [id number] 12.5mg Take 1 tablet by mouth every 6 (six) hours as needed for Nausea and Vomiting (N/V). [facility] ezetimibe 10 mg tablet 2022-11 0-17 00:00: 00 Yes [id number] 10mg Take 1 tablet by mouth in the morning. [facility] proMETHazin e 12.5 mg tablet 2022-11 0-17 00:00: 00 Yes [id number] 12.5mg Take 1 tablet by mouth every 6 (six) hours as needed for Nausea and Vomiting (N/V). [facility] ezetimibe 10 mg tablet 2022-11 0-17 00:00: 00 Yes [id number] 10mg Take 1 tablet by mouth in the morning. [facility] proMETHazin e 12.5 mg tablet 2022-11 0- 00:00: 00 Yes [id number] 12.5mg Take 1 tablet by mouth every 6 (six) hours as needed for Nausea and Vomiting (N/V). [facility] ezetimibe 10 mg tablet 2022-11 0-17 00:00: 00 Yes [id number] 10mg Take 1 tablet by mouth in the morning. [facility] proMETHazin e 12.5 mg tablet 2022-11 0- 00:00: 00 Yes [id number] 12.5mg Take 1 tablet by mouth every 6 (six) hours as needed for Nausea and Vomiting (N/V). [facility] ezetimibe 10 mg tablet 2022-11 0-17 00:00: 00 Yes [id number] 10mg Take 1 tablet by mouth in the morning. [facility] proMETHazin e 12.5 mg tablet 2022-11 0-17 00:00: 00 Yes [id number] 12.5mg Take 1 tablet by mouth every 6 (six) hours as needed for Nausea and Vomiting (N/V). [facility] ezetimibe 10 mg tablet 2022-11 0-17 00:00: 00 Yes [id number] 10mg Take 1 tablet by mouth in the morning. [facility] proMETHazin e 12.5 mg tablet 2022-11 0-17 00:00: 00 Yes [id number] 12.5mg Take 1 tablet by mouth every 6 (six) hours as needed for Nausea and Vomiting (N/V). [facility] ezetimibe 10 mg tablet 2022-11 0- 00:00: 00 Yes [id number] 10mg Take 1 tablet by mouth in the morning. [facility] ezetimibe 10 mg tablet 2022-11 0 00:00: 00 Yes [id number] 10mg Take 1 tablet by mouth in the morning. [facility] proMETHazin e 12.5 mg tablet 2022-11 0 00:00: 00 02-16 00:00 :00 No [id number] 12.5mg Take 1 tablet by mouth every 6 (six) hours as needed for Nausea and Vomiting (N/V). [facility] semaglutide , weight loss, (WEGOVY) 0.5 mg/0.5 mL PnIj SC injection 2022-11 00:00: 00 10-08 00:00 :00 No [id number] .5mg inject 0.5 mg under the skin weekly. [facility] semaglutide , weight loss, (WEGOVY) 0.5 mg/0.5 mL PnIj SC injection 2022-11 00:00: 00 09-06 00:00 :00 No [id number] .5mg inject 0.5 mg under the skin weekly. [facility] semaglutide , weight loss, (WEGOVY) 0.5 mg/0.5 mL PnIj SC injection 2022-11 0 00:00: 00 09-06 00:00 :00 No [id number] .5mg inject 0.5 mg under the skin weekly. [facility] semaglutide , weight loss, (WEGOVY) 0.5 mg/0.5 mL PnIj SC injection 2022-11 0 00:00: 00 09-06 00:00 :00 No [id number] .5mg inject 0.5 mg under the skin weekly. [facility] pantoprazol e 40 mg EC tablet 08-12 00:00: 00 Yes [id number] 40mg Take 1 tablet by mouth in the morning and 1 tablet in the evening. [facility] pantoprazol e 40 mg EC tablet 2022-0 08-12 00:00: 00 Yes [id number] 40mg Take 1 tablet by mouth in the morning and 1 tablet in the evening. [facility] pantoprazol e 40 mg EC tablet 0 08-12 00:00: 00 Yes [id number] 40mg Take 1 tablet by mouth in the morning and 1 tablet in the evening. [facility] pantoprazol e 40 mg EC tablet 0 08-12 00:00: 00 Yes [id number] 40mg Take 1 tablet by mouth in the morning and 1 tablet in the evening. [facility] pantoprazol e 40 mg EC tablet 2022-0 08-12 00:00: 00 Yes [id number] 40mg Take 1 tablet by mouth in the morning and 1 tablet in the evening. [facility] pantoprazol e 40 mg EC tablet 0 08-12 00:00: 00 Yes [id number] 40mg Take 1 tablet by mouth in the morning and 1 tablet in the evening. [facility] pantoprazol e 40 mg EC tablet 0 08-12 00:00: 00 Yes [id number] 40mg Take 1 tablet by mouth in the morning and 1 tablet in the evening. [facility] pantoprazol e 40 mg EC tablet 0 08-12 00:00: 00 Yes [id number] 40mg Take 1 tablet by mouth in the morning and 1 tablet in the evening. [facility] pantoprazol e 40 mg EC tablet 2022-0 08-12 00:00: 00 Yes [id number] 40mg Take 1 tablet by mouth in the morning and 1 tablet in the evening. [facility] pantoprazol e 40 mg EC tablet 2022-0 08-12 00:00: 00 Yes [id number] 40mg Take 1 tablet by mouth in the morning and 1 tablet in the evening. [facility] pantoprazol e 40 mg EC tablet 0 08-12 00:00: 00 10-18 00:00 :00 No [id number] 40mg Take 1 tablet by mouth in the morning and 1 tablet in the evening. [facility] pantoprazol e 40 mg EC tablet 08-12 00:00: 00 10-18 00:00 :00 No [id number] 40mg Take 1 tablet by mouth in the morning and 1 tablet in the evening. [facility] pantoprazol e 40 mg EC tablet 08-12 00:00: 00 10-18 00:00 :00 No [id number] 40mg Take 1 tablet by mouth in the morning and 1 tablet in the evening. [facility] pantoprazol e 40 mg EC tablet 08-12 00:00: 00 10-18 00:00 :00 No [id number] 40mg Take 1 tablet by mouth in the morning and 1 tablet in the evening. [facility] oxymetazoli ne HCl (AFRIN NASAL) 08-04 09:10: 08 08-04 00:00 :00 No 2 spray(s) [facility] oxymetazoli ne HCl (AFRIN NASAL) 08-04 09:10: 08-04 00:00 :00 No 2 spray(s) [facility] oxymetazoli ne HCl (AFRIN NASAL) 08-04 09:10: 08-04 00:00 :00 No 2 [facility]AFRIN NASAL[facility]-04 09:10: 08 08-04 00:00 :00 No 2 spray[facility]) [facility] loss, (WEGOVY) 0.25 mg/0.5 mL PnIj SC injection 07-26 00:00: 00 Yes [id number] .25mg inject 0.25 mg under the skin weekly. [facility] semaglutide , weight loss, (WEGOVY) 0.25 mg/0.5 mL PnIj SC injection 07-26 00:00: 00 Yes [id number] .25mg inject 0.25 mg under the skin weekly. [facility] semaglutide , weight loss, (WEGOVY) 0.25 mg/0.5 mL PnIj SC injection 07-26 00:00: 00 Yes [id number] .25mg inject 0.25 mg under the skin weekly. [facility] semaglutide , weight loss, (WEGOVY) 0.25 mg/0.5 mL PnIj SC injection 07-26 00:00: 00 Yes [id number] .25mg inject 0.25 mg under the skin weekly. [facility] semaglutide , weight loss, (WEGOVY) 0.25 mg/0.5 mL PnIj SC injection 07-26 00:00: 00 Yes [id number] .25mg inject 0.25 mg under the skin weekly. [facility] semaglutide , weight loss, (WEGOVY) 0.25 mg/0.5 mL PnIj SC injection 07-26 00:00: 00 Yes [id number] .25mg inject 0.25 mg under the skin weekly. [facility] semaglutide , weight loss, (WEGOVY) 0.25 mg/0.5 mL PnIj SC injection 07-26 00:00: 00 Yes [id number] .25mg inject 0.25 mg under the skin weekly. [facility] semaglutide , weight loss, (WEGOVY) 0.25 mg/0.5 mL PnIj SC injection 07-26 00:00: 00 Yes [id number] .25mg inject 0.25 mg under the skin weekly. [facility] semaglutide , weight loss, (WEGOVY) 0.25 mg/0.5 mL PnIj SC injection 07-26 00:00: 00 Yes [id number] .25mg inject 0.25 mg under the skin weekly. [facility] semaglutide , weight loss, (WEGOVY) 0.25 mg/0.5 mL PnIj SC injection 07-26 00:00: 00 Yes [id number] .25mg inject 0.25 mg under the skin weekly. [facility] semaglutide , weight loss, (WEGOVY) 0.25 mg/0.5 mL PnIj SC injection 07-26 00:00: 00 Yes [id number] .25mg inject 0.25 mg under the skin weekly. [facility] semaglutide , weight loss, (WEGOVY) 0.25 mg/0.5 mL PnIj SC injection 07-26 00:00: 00 10-08 00:00 :00 No [id number] .25mg inject 0.25 mg under the skin weekly. [facility] cloNIDine 0.3 mg tablet 07-14 08:10: 23 Yes 1 tab(s) [facility] cloNIDine 0.3 mg tablet 2022-0 07-14 08:10: 23 Yes 1 tab(s) [facility] cloNIDine 0.3 mg tablet 2022-0 07-14 08:10: 23 Yes 1 tab(s) [facility] cloNIDine 0.3 mg tablet 2022-0 07-14 08:10: 23 Yes 1 tab(s) [facility] cloNIDine 0.3 mg tablet 0 07-14 08:10: 23 Yes 1 tab(s) [facility] cloNIDine 0.3 mg tablet 2022-0 07-14 08:10: 23 Yes 1 tab(s) [facility] cloNIDine 0.3 mg tablet 2022-0 07-14 08:10: 23 Yes 1 tab(s) [facility] cloNIDine 0.3 mg tablet 2022-0 24 08:10: 23 Yes 1 tab(s) [facility] cloNIDine 0.3 mg tablet 2022-0 07-14 08:10: 23 Yes 1 tab(s) [facility] cloNIDine 0.3 mg tablet 2022-0 24 08:10: 23 Yes 1 tab(s) [facility] cloNIDine 0.3 mg tablet 2022-0 8-24 08:10: 23 Yes 1 tab(s) [facility] cloNIDine 0.3 mg tablet 2022-0 07-14 08:10: 23 Yes 1 tab(s) [facility] cloNIDine 0.3 mg tablet 2022-0 07-14 08:10: 23 Yes 1 tab(s) [facility] cloNIDine 0.3 mg tablet 2022-0 07-14 08:10: 23 Yes 1 tab(s) [facility] cloNIDine 0.3 mg tablet 2022-0 07-14 08:10: 23 Yes 1 tab(s) [facility] cloNIDine 0.3 mg tablet 2022-0 24 08:10: 23 Yes 1 tab(s) [facility] cloNIDine 0.3 mg tablet 2022-0 07-14 08:10: 23 Yes 1 tab(s) [facility] cloNIDine 0.3 mg tablet 2022-0 07-14 08:10: 23 Yes 1 tab(s) [facility] cloNIDine 0.3 mg tablet 2022-0 07-14 08:10: 23 Yes 1 tab(s) [facility] pantoprazol e 40 mg EC tablet 2022-0 07-14 00:00: 00 Yes [id number] 40mg Take 1 tablet by mouth in the morning and 1 tablet in the evening. [facility] pantoprazol e 40 mg EC tablet 2022-0 07-14 00:00: 00 Yes [id number] 40mg Take 1 tablet by mouth in the morning and 1 tablet in the evening. [facility] pantoprazol e 40 mg EC tablet 2022-0 07-14 00:00: 00 Yes [id number] 40mg Take 1 tablet by mouth in the morning and 1 tablet in the evening. [facility] pantoprazol e 40 mg EC tablet 2022-0 07-14 00:00: 00 Yes [id number] 40mg Take 1 tablet by mouth in the morning and 1 tablet in the evening. [facility] pantoprazol e 40 mg EC tablet 3-0 07-14 00:00: 00 Yes [id number] 40mg Take 1 tablet by mouth in the morning and 1 tablet in the evening. [facility] pantoprazol e 40 mg EC tablet 2022-0 824 00:00: 00 Yes [id number] 40mg Take 1 tablet by mouth in the morning and 1 tablet in the evening. [facility] pantoprazol e 40 mg EC tablet 2022-0 824 00:00: 00 Yes [id number] 40mg Take 1 tablet by mouth in the morning and 1 tablet in the evening. [facility] pantoprazol e 40 mg EC tablet 2022-0 824 00:00: 00 Yes [id number] 40mg Take 1 tablet by mouth in the morning and 1 tablet in the evening. [facility] pantoprazol e 40 mg EC tablet 2022-0 824 00:00: 00 Yes [id number] 40mg Take 1 tablet by mouth in the morning and 1 tablet in the evening. [facility] pantoprazol e 40 mg EC tablet 2022-0 24 00:00: 00 Yes [id number] 40mg Take 1 tablet by mouth in the morning and 1 tablet in the evening. [facility] pantoprazol e 40 mg EC tablet 2022-0 24 00:00: 00 08-12 00:00 :00 No [id number] 40mg Take 1 tablet by mouth in the morning and 1 tablet in the evening. [facility] pantoprazol e 40 mg EC tablet 2022-0 24 00:00: 00 08-12 00:00 :00 No [id number] 40mg Take 1 tablet by mouth in the morning and 1 tablet in the evening. [facility] [facility] PROMETHAZIN E 25 mg tablet 3-0 8-10 00:00: 00 Yes [id number] TAKE 1 TABLET BY MOUTH EVERY 6 HOURS NEEDED FOR NAUSEA AND VOMITING . [facility] PROMETHAZIN E 25 mg tablet 3-0 8-10 00:00: 00 Yes [id number] TAKE 1 TABLET BY MOUTH EVERY 6 HOURS NEEDED FOR NAUSEA AND VOMITING . [facility] PROMETHAZIN E 25 mg tablet 3-0 8-10 00:00: 00 Yes [id number] TAKE 1 TABLET BY MOUTH EVERY 6 HOURS NEEDED FOR NAUSEA AND VOMITING . [facility] PROMETHAZIN E 25 mg tablet 3-0 8-10 00:00: 00 Yes [id number] TAKE 1 TABLET BY MOUTH EVERY 6 HOURS NEEDED FOR NAUSEA AND VOMITING . [facility] mg tablet 3-0 8-10 00:00: 00 Yes [id number] TAKE 1 TABLET BY MOUTH EVERY 6 HOURS NEEDED FOR NAUSEA AND VOMITING . [facility] 25 mg tablet 3-0 8-10 00:00: 00 Yes [id number] TAKE 1 TABLET BY MOUTH EVERY 6 HOURS NEEDED FOR NAUSEA AND VOMITING . [facility] PROMETHAZIN E 25 mg tablet 3-0 8-10 00:00: 00 Yes [id number] TAKE 1 TABLET BY MOUTH EVERY 6 HOURS NEEDED FOR NAUSEA AND VOMITING . [facility] PROMETHAZIN E 25 mg tablet 3-0 8-10 00:00: 00 Yes [id number] TAKE 1 TABLET BY MOUTH EVERY 6 HOURS NEEDED FOR NAUSEA AND VOMITING . [facility] PROMETHAZIN E 25 mg tablet 3-0 8-10 00:00: 00 Yes [id number] TAKE 1 TABLET BY MOUTH EVERY 6 HOURS NEEDED FOR NAUSEA AND VOMITING . [facility] PROMETHAZIN E 25 mg tablet 3-0 8-10 00:00: 00 Yes [id number] TAKE 1 TABLET BY MOUTH EVERY 6 HOURS NEEDED FOR NAUSEA AND VOMITING . [facility] PROMETHAZIN E 25 mg tablet 3-0 8-10 00:00: 00 Yes [id number] TAKE 1 TABLET BY MOUTH EVERY 6 HOURS NEEDED FOR NAUSEA AND VOMITING . [facility] SUCRALFATE 1 gram tablet 3-0 8-10 00:00: 00 Yes [id number] 1g TAKE 1 TABLET BY MOUTH BEFORE MEALS AND AT BEDTIME [facility] PROMETHAZIN E 25 mg tablet 3-0 8-10 00:00: 00 Yes [id number] TAKE 1 TABLET BY MOUTH EVERY 6 HOURS NEEDED FOR NAUSEA AND VOMITING . [facility] PROMETHAZIN E 25 mg tablet 3-0 8-10 00:00: 00 Yes [id number] TAKE 1 TABLET BY MOUTH EVERY 6 HOURS NEEDED FOR NAUSEA AND VOMITING . [facility] PROMETHAZIN E 25 mg tablet 2022-0 8-10 00:00: 00 09-06 00:00 :00 No [id number] TAKE 1 TABLET BY MOUTH EVERY 6 HOURS NEEDED FOR NAUSEA AND VOMITING . [facility] PROMETHAZIN E 25 mg tablet 2022-0 8-10 00:00: 00 09-06 00:00 :00 No [id number] TAKE 1 TABLET BY MOUTH EVERY 6 HOURS NEEDED FOR NAUSEA AND VOMITING . [facility] SUCRALFATE 1 gram tablet 2022-0 8-10 00:00: 00 07-14 00:00 :00 No [id number] 1g TAKE 1 TABLET BY MOUTH BEFORE MEALS AND AT BEDTIME [facility] SUCRALFATE 1 gram tablet 2022-0 8-10 00:00: 00 07-14 00:00 :00 No [id number] 1g TAKE 1 TABLET BY MOUTH BEFORE MEALS AND AT BEDTIME [facility] SUCRALFATE 1 gram tablet 2022-0 8-10 00:00: 00 07-14 00:00 :00 No [id number] 1g TAKE 1 TABLET BY MOUTH BEFORE MEALS AND AT BEDTIME [facility] atorvastati n 40 mg tablet 2022-0 18 00:00: 00 Yes [id number] 40mg Take 1 tablet by mouth at bedtime. [facility] amLODIPine 5 mg tablet 2022-0 18 00:00: 00 Yes [id number] 5mg Take 1 tablet by mouth every day at 1200 (noon). [facility] atorvastati n 40 mg tablet 2022-0 -18 00:00: 00 Yes [id number] 40mg Take 1 tablet by mouth at bedtime. [facility] amLODIPine 5 mg tablet 2022-0 -18 00:00: 00 Yes [id number] 5mg Take 1 tablet by mouth every day at 1200 (noon). [facility] atorvastati n 40 mg tablet 2022-0 7-18 00:00: 00 Yes [id number] 40mg Take 1 tablet by mouth at bedtime. [facility] amLODIPine 5 mg tablet 3-0 7-18 00:00: 00 Yes [id number] 5mg Take 1 tablet by mouth every day at 1200 (noon). [facility] atorvastati n 40 mg tablet 3-0 7-18 00:00: 00 Yes [id number] 40mg Take 1 tablet by mouth at bedtime. [facility] amLODIPine 5 mg tablet 3-0 7-18 00:00: 00 Yes [id number] 5mg Take 1 tablet by mouth every day at 1200 (noon). [facility] atorvastati n 40 mg tablet 3-0 7-18 00:00: 00 Yes [id number] 40mg Take 1 tablet by mouth at bedtime. [facility] amLODIPine 5 mg tablet 3-0 7-18 00:00: 00 Yes [id number] 5mg Take 1 tablet by mouth every day at 1200 (noon). [facility] atorvastati n 40 mg tablet 3-0 7-18 00:00: 00 Yes [id number] 40mg Take 1 tablet by mouth at bedtime. [facility] amLODIPine 5 mg tablet 3-0 7-18 00:00: 00 Yes [id number] 5mg Take 1 tablet by mouth every day at 1200 (noon). [facility] atorvastati n 40 mg tablet 3-0 7-18 00:00: 00 Yes [id number] 40mg Take 1 tablet by mouth at bedtime. [facility] amLODIPine 5 mg tablet 3-0 7-18 00:00: 00 Yes [id number] 5mg Take 1 tablet by mouth every day at 1200 (noon). [facility] atorvastati n 40 mg tablet 3-0 7-18 00:00: 00 Yes [id number] 40mg Take 1 tablet by mouth at bedtime. [facility] amLODIPine 5 mg tablet 2023-0 7-18 00:00: 00 Yes [id number] 5mg Take 1 tablet by mouth every day at 1200 (noon). [facility] atorvastati n 40 mg tablet 2023-0 7-18 00:00: 00 Yes [id number] 40mg Take 1 tablet by mouth at bedtime. [facility] amLODIPine 5 mg tablet 3-0 7-18 00:00: 00 Yes [id number] 5mg Take 1 tablet by mouth every day at 1200 (noon). [facility] atorvastati n 40 mg tablet 3-0 7-18 00:00: 00 Yes [id number] 40mg Take 1 tablet by mouth at bedtime. [facility] amLODIPine 5 mg tablet 3-0 7-18 00:00: 00 Yes [id number] 5mg Take 1 tablet by mouth every day at 1200 (noon). [facility] atorvastati n 40 mg tablet 3-0 7-18 00:00: 00 Yes [id number] 40mg Take 1 tablet by mouth at bedtime. [facility] amLODIPine 5 mg tablet 3-0 7-18 00:00: 00 Yes [id number] 5mg Take 1 tablet by mouth every day at 1200 (noon). [facility] atorvastati n 40 mg tablet 3-0 7-18 00:00: 00 Yes [id number] 40mg Take 1 tablet by mouth at bedtime. [facility] amLODIPine 5 mg tablet 3-0 7-18 00:00: 00 Yes [id number] 5mg Take 1 tablet by mouth every day at 1200 (noon). [facility] atorvastati n 40 mg tablet 3-0 7-18 00:00: 00 Yes [id number] 40mg Take 1 tablet by mouth at bedtime. [facility] amLODIPine 5 mg tablet 3-0 7-18 00:00: 00 Yes [id number] 5mg Take 1 tablet by mouth every day at 1200 (noon). [facility] atorvastati n 40 mg tablet 2023-0 7-18 00:00: 00 Yes [id number] 40mg Take 1 tablet by mouth at bedtime. [facility] amLODIPine 5 mg tablet 2023-0 7-18 00:00: 00 Yes [id number] 5mg Take 1 tablet by mouth every day at 1200 (noon). [facility] atorvastati n 40 mg tablet 3-0 7-18 00:00: 00 Yes [id number] 40mg Take 1 tablet by mouth at bedtime. [facility] amLODIPine 5 mg tablet 2022-0 7-18 00:00: 00 Yes [id number] 5mg Take 1 tablet by mouth every day at 1200 (noon). [facility] amLODIPine 5 mg tablet 3-0 7-18 00:00: 00 Yes [id number] 5mg Take 1 tablet by mouth every day at 1200 (noon). [facility] proMETHazin e 25 mg tablet 2022-0 7-18 00:00: 00 Yes [id number] 25mg Take 1 tablet by mouth every 6 (six) hours as needed for Nausea and Vomiting (N/V). [facility] sucralfate 1 gram tablet 2022-0 7-18 00:00: 00 Yes [id number] 1g Take 1 tablet by mouth before meals and at bedtime. [facility] atorvastati n 40 mg tablet 2022-0 -18 00:00: 00 Yes [id number] 40mg Take 1 tablet by mouth at bedtime. [facility] amLODIPine 5 mg tablet 2022-0 -18 00:00: 00 Yes [id number] 5mg Take 1 tablet by mouth every day at 1200 (noon). [facility] proMETHazin e 25 mg tablet 3-0 7-18 00:00: 00 Yes [id number] 25mg Take 1 tablet by mouth every 6 (six) hours as needed for Nausea and Vomiting (N/V). [facility] sucralfate 1 gram tablet 3-0 7-18 00:00: 00 Yes [id number] 1g Take 1 tablet by mouth before meals and at bedtime. [facility] atorvastati n 40 mg tablet 3-0 7-18 00:00: 00 Yes [id number] 40mg Take 1 tablet by mouth at bedtime. [facility] amLODIPine 5 mg tablet 3-0 7-18 00:00: 00 Yes [id number] 5mg Take 1 tablet by mouth every day at 1200 (noon). [facility] proMETHazin e 25 mg tablet 2022-0 -18 00:00: 00 Yes [id number] 25mg Take 1 tablet by mouth every 6 (six) hours as needed for Nausea and Vomiting (N/V). [facility] sucralfate 1 gram tablet 2022-0 -18 00:00: 00 Yes [id number] 1g Take 1 tablet by mouth before meals and at bedtime. [facility] atorvastati n 40 mg tablet 0 18 00:00: 00 Yes [id number] 40mg Take 1 tablet by mouth at bedtime. [facility] amLODIPine 5 mg tablet 0 18 00:00: 00 Yes [id number] 5mg Take 1 tablet by mouth every day at 1200 (noon). [facility] atorvastati n 40 mg tablet 2022-0 18 00:00: 00 Yes [id number] 40mg Take 1 tablet by mouth at bedtime. [facility] amLODIPine 5 mg tablet 0 18 00:00: 00 Yes [id number] 5mg Take 1 tablet by mouth every day at 1200 (noon). [facility] atorvastati n 40 mg tablet 0 18 00:00: 00 Yes [id number] 40mg Take 1 tablet by mouth at bedtime. [facility] amLODIPine 5 mg tablet 2022-0 18 00:00: 00 Yes [id number] 5mg Take 1 tablet by mouth every day at 1200 (noon). [facility] amLODIPine 5 mg tablet 0 18 00:00: 00 09-29 00:00 :00 No [id number] 5mg Take 1 tablet by mouth every day at 1200 (noon). [facility] atorvastati n 40 mg tablet 2022-0 -18 00:00: 00 09-23 00:00 :00 No [id number] 40mg Take 1 tablet by mouth at bedtime. [facility] proMETHazin e 25 mg tablet 0 7-18 00:00: 00 06-30 00:00 :00 No [id number] 25mg Take 1 tablet by mouth every 6 (six) hours as needed for Nausea and Vomiting (N/V). [facility] sucralfate 1 gram tablet 06-07 00:00: 00 06-30 00:00 :00 No [id number] 1g Take 1 tablet by mouth before meals and at bedtime. [facility] amLODIPine 5 mg tablet 06-07 00:00: 00 06-07 00:00 :00 No [id number] 5mg Take 1 tablet by mouth every day at 1200 (noon). [facility] amLODIPine 5 mg tablet 06-07 00:00: 00 06-07 00:00 :00 No [id number] 5mg Take 1 tablet by mouth every day at 1200 (noon). [facility] ATORVASTATI N 40 mg tablet 05-30 00:00: 00 Yes [id number] TAKE 1 TABLET BY MOUTH EVERYDAY AT BEDTIME [facility] ATORVASTATI N 40 mg tablet 05-30 00:00: 00 06-07 00:00 :00 No [id number] TAKE 1 TABLET BY MOUTH EVERYDAY AT BEDTIME [facility] ATORVASTATI N 40 mg tablet 05-30 00:00: 00 06-07 00:00 :00 No [id number] TAKE 1 TABLET BY MOUTH EVERYDAY AT BEDTIME [facility] cloNIDine (CATAPRES) tablet 0.2 mg 05-28 00:15: 00 05-28 00:14 :00 No .2mg 0.2 mg, Oral, ONCE, 1 dose, On Tue05/27/23 at 1915, STAT [facility] iopamidol (ISOVUE 370-500 mL) injection 50 mL 05-27 23:45: 00 05-27 23:08 :00 No [id number] 50mL 50 mL, Intravenou s, ONCE, 1 dose, On Tue05/27/23 at 1845, Routine [facility] morpHINE (4 mg/mL) injection 4 mg 05-27 23:00: 00 05-27 22:13 :00 No 4mg 4 mg, Slow IV Push, ONCE, 1 dose, On Tue05/27/23 at 1800, [facility] NaCl 0.9% (NS) bolus infusion 1,000 mL 05-27 22:00: 00 05-27 23:45 :00 No 1000mL at 999 mL/hr, 1,000 mL, IV Piggyback, ONCE, 1 dose, On Tue05/27/23 at 1700, [facility] metoclopram kieran HCl (REGLAN) injection 10 mg 05-27 22:00: 00 05-27 22:12 :00 No 10mg 10 mg, Slow IV Push, ONCE, 1 dose, On Tue05/27/23 at 1700, [facility] FENTanyl PF (SUBLIMAZE (PF)) injection 50 mcg 05-27 21:00: 00 05-27 20:43 :00 No 50ug 50 mcg, Slow IV Push, ONCE, 1 dose, On Tue05/27/23 at 1600, [facility] ondansetron (ZOFRAN (PF)) injection 4 mg 05-27 21:00: 00 05-27 20:43 :00 No 4mg 4 mg, Slow IV Push, ONCE, 1 dose, On Tue05/27/23 at 1600, [facility] NaCl 0.9% (NS) bolus infusion 1,000 mL 05-27 20:45: 00 05-27 22:13 :00 No 1000mL at 999 mL/hr, 1,000 mL, IV Piggyback, ONCE, 1 dose, On Tue05/27/23 at 1545, [facility] maalox:diph enhydrAMINE :lidocaine 2 % viscous 1:1:1 (FIRST-MOUT HWASH BLM) oral suspension 15 mL 05-27 20:00: 00 05-27 20:43 :00 No 15mL 15 mL, Oral, ONCE, 1 dose, On Tue05/27/23 at 1500, Routine [facility] pantoprazol e 40 mg EC tablet 05-27 00:00: 00 Yes [id number] 40mg Take 1 tablet by mouth in the morning. [facility] sucralfate 1 gram tablet 05-27 00:00: 00 Yes [id number] 1g Take 1 tablet by mouth before meals and at bedtime. [facility] proMETHazin e 25 mg tablet 05-27 00:00: 00 Yes [id number] 25mg Take 1 tablet by mouth every 6 (six) hours as needed for Nausea and Vomiting (N/V). [facility] pantoprazol e 40 mg EC tablet 05-27 00:00: 00 Yes [id number] 40mg Take 1 tablet by mouth in the morning. [facility] sucralfate 1 gram tablet 05-27 00:00: 00 Yes [id number] 1g Take 1 tablet by mouth before meals and at bedtime. [facility] proMETHazin e 25 mg tablet 05-27 00:00: 00 Yes [id number] 25mg Take 1 tablet by mouth every 6 (six) hours as needed for Nausea and Vomiting (N/V). [facility] pantoprazol e 40 mg EC tablet 05-27 00:00: 00 Yes [id number] 40mg Take 1 tablet by mouth in the morning. [facility] pantoprazol e 40 mg EC tablet 05-27 00:00: 00 Yes [id number] 40mg Take 1 tablet by mouth in the morning. [facility] pantoprazol e 40 mg EC tablet 05-27 00:00: 00 Yes [id number] 40mg Take 1 tablet by mouth in the morning. [facility] pantoprazol e 40 mg EC tablet 05-27 00:00: 00 Yes [id number] 40mg Take 1 tablet by mouth in the morning. [facility] pantoprazol e 40 mg EC tablet 05-27 00:00: 00 07-14 00:00 :00 No [id number] 40mg Take 1 tablet by mouth in the morning. [facility] pantoprazol e 40 mg EC tablet 05-27 00:00: 00 07-14 00:00 :00 No [id number] 40mg Take 1 tablet by mouth in the morning. [facility] pantoprazol e 40 mg EC tablet 05-27 00:00: 00 07-14 00:00 :00 No [id number] 40mg Take 1 tablet by mouth in the morning. [facility] sucralfate 1 gram tablet 05-27 00:00: 00 06-07 00:00 :00 No [id number] 1g Take 1 tablet by mouth before meals and at bedtime. [facility] proMETHazin e 25 mg tablet 05-27 00:00: 00 06-07 00:00 :00 No [id number] 25mg Take 1 tablet by mouth every 6 (six) hours as needed for Nausea and Vomiting (N/V). [facility] sucralfate 1 gram tablet 05-27 00:00: 00 06-07 00:00 :00 No [id number] 1g Take 1 tablet by mouth before meals and at bedtime. [facility] proMETHazin e 25 mg tablet 05-27 00:00: 00 06-07 00:00 :00 No [id number] 25mg Take 1 tablet by mouth every 6 (six) hours as needed for Nausea and Vomiting (N/V). [facility] acetaminoph en-codeine 300-30 mg tablet 05-27 00:00: 00 06-04 04:59 :00 No [id number] 2{tbl} Take 2 tablets by mouth every 4 (four) hours as needed for Pain (scale 1-3) for up to 7 days. Indication s: acute pain [facility] acetaminoph en-codeine 300-30 mg tablet 05-27 00:00: 00 06-04 04:59 :00 No [id number] 2{tbl} Take 2 tablets by mouth every 4 (four) hours as needed for Pain (scale 1-3) for up to 7 days. Indication s: acute pain [facility] fexofenadin e (GABE ALLERGY) 180 mg tablet 05-10 15:05: 09 05-10 00:00 :00 No 1 tab(s) [facility] fexofenadin e (GABE ALLERGY) 180 mg tablet 05-10 15:05: 09 05-10 00:00 :00 No 1 tab(s) [facility] Nitrofurant oin&Nit. Macrocryst (MACROBID) 100 mg capsule 05-10 00:00: 00 Yes [id number] 100mg Take 1 capsule by mouth in the morning and 1 capsule in the evening. [facility] Nitrofurant oin&Nit. Macrocryst (MACROBID) 100 mg capsule 05-10 00:00: 00 Yes [id number] 100mg Take 1 capsule by mouth in the morning and 1 capsule in the evening. [facility] Nitrofurant oin&Nit. Macrocryst (MACROBID) 100 mg capsule 05-10 00:00: 00 Yes [id number] 100mg Take 1 capsule by mouth in the morning and 1 capsule in the evening. [facility] Nitrofurant oin&Nit. Macrocryst (MACROBID) 100 mg capsule 05-10 00:00: 00 Yes [id number] 100mg Take 1 capsule by mouth in the morning and 1 capsule in the evening. [facility] Nitrofurant oin&Nit. Macrocryst (MACROBID) 100 mg capsule 05-10 00:00: 00 Yes [id number] 100mg Take 1 capsule by mouth in the morning and 1 capsule in the evening. [facility] Nitrofurant oin&Nit. Macrocryst (MACROBID) 100 mg capsule 05-10 00:00: 00 Yes [id number] 100mg Take 1 capsule by mouth in the morning and 1 capsule in the evening. [facility] Nitrofurant oin&Nit. Macrocryst (MACROBID) 100 mg capsule 3-0 6-20 00:00: 00 Yes [id number] 100mg Take 1 capsule by mouth in the morning and 1 capsule in the evening. [facility] Nitrofurant oin&Nit. Macrocryst (MACROBID) 100 mg capsule 3-0 6-20 00:00: 00 Yes [id number] 100mg Take 1 capsule by mouth in the morning and 1 capsule in the evening. [facility] Nitrofurant oin&Nit. Macrocryst (MACROBID) 100 mg capsule 3-0 6-20 00:00: 00 Yes [id number] 100mg Take 1 capsule by mouth in the morning and 1 capsule in the evening. [facility] Nitrofurant oin&Nit. Macrocryst (MACROBID) 100 mg capsule 3-0 6-20 00:00: 00 Yes [id number] 100mg Take 1 capsule by mouth in the morning and 1 capsule in the evening. [facility] Nitrofurant oin&Nit. Macrocryst (MACROBID) 100 mg capsule 3-0 6-20 00:00: 00 Yes [id number] 100mg Take 1 capsule by mouth in the morning and 1 capsule in the evening. [facility] Nitrofurant oin&Nit. Macrocryst (MACROBID) 100 mg capsule 3-0 6-20 00:00: 00 Yes [id number] 100mg Take 1 capsule by mouth in the morning and 1 capsule in the evening. [facility] Nitrofurant oin&Nit. Macrocryst (MACROBID) 100 mg capsule 3-0 6-20 00:00: 00 Yes [id number] 100mg Take 1 capsule by mouth in the morning and 1 capsule in the evening. [facility] Nitrofurant oin&Nit. Macrocryst (MACROBID) 100 mg capsule 3-0 6-20 00:00: 00 Yes [id number] 100mg Take 1 capsule by mouth in the morning and 1 capsule in the evening. [facility] Nitrofurant oin&Nit. Macrocryst (MACROBID) 100 mg capsule 2023-0 6-20 00:00: 00 Yes [id number] 100mg Take 1 capsule by mouth in the morning and 1 capsule in the evening. [facility] Nitrofurant oin&Nit. Macrocryst (MACROBID) 100 mg capsule 2022-0 6-20 00:00: 00 Yes [id number] 100mg Take 1 capsule by mouth in the morning and 1 capsule in the evening. [facility] Nitrofurant oin&Nit. Macrocryst (MACROBID) 100 mg capsule 2022-0 6-20 00:00: 00 08-04 00:00 :00 No [id number] 100mg Take 1 capsule by mouth in the morning and 1 capsule in the evening. [facility] Nitrofurant oin&Nit. Macrocryst (MACROBID) 100 mg capsule 2022-0 -20 00:00: 00 08-04 00:00 :00 No [id number] 100mg Take 1 capsule by mouth in the morning and 1 capsule in the evening. [facility] Nitrofurant oin&Nit. Macrocryst (MACROBID) 100 mg capsule 2022-0 6-20 00:00: 00 08-04 00:00 :00 No [id number] 100mg Take 1 capsule by mouth in the morning and 1 capsule in the evening. [facility] Nitrofurant oin&Nit. Macrocryst (MACROBID) 100 mg capsule 2022-0 20 00:00: 00 08-04 00:00 :00 No [id number] 100mg Take 1 capsule by mouth in the morning and 1 capsule in the evening. [facility] atorvastati n 40 mg tablet 2022-0 -15 00:00: 00 Yes [id number] 40mg Take 1 tablet by mouth at bedtime. [facility] ezetimibe 10 mg tablet 2022-0 6-15 00:00: 00 Yes [id number] 10mg Take 1 tablet by mouth in the morning. [facility] atorvastati n 40 mg tablet 2022-0 6-15 00:00: 00 Yes [id number] 40mg Take 1 tablet by mouth at bedtime. [facility] ezetimibe 10 mg tablet 3-0 6-15 00:00: 00 Yes [id number] 10mg Take 1 tablet by mouth in the morning. [facility] atorvastati n 40 mg tablet 3-0 6-15 00:00: 00 Yes [id number] 40mg Take 1 tablet by mouth at bedtime. [facility] ezetimibe 10 mg tablet 3-0 6-15 00:00: 00 Yes [id number] 10mg Take 1 tablet by mouth in the morning. [facility] atorvastati n 40 mg tablet 3-0 6-15 00:00: 00 Yes [id number] 40mg Take 1 tablet by mouth at bedtime. [facility] ezetimibe 10 mg tablet 3-0 6-15 00:00: 00 Yes [id number] 10mg Take 1 tablet by mouth in the morning. [facility] ezetimibe 10 mg tablet 3-0 6-15 00:00: 00 Yes [id number] 10mg Take 1 tablet by mouth in the morning. [facility] ezetimibe 10 mg tablet 3-0 6-15 00:00: 00 06-07 00:00 :00 No [id number] 10mg Take 1 tablet by mouth in the morning. [facility] ezetimibe 10 mg tablet 3-0 6-15 00:00: 00 06-07 00:00 :00 No [id number] 10mg Take 1 tablet by mouth in the morning. [facility] atorvastati n 40 mg tablet 3-0 6-15 00:00: 00 05-30 00:00 :00 No [id number] 40mg Take 1 tablet by mouth at bedtime. [facility] cloNIDine 0.3 mg tablet 2022-0 6-14 10:38: 15 Yes 1 tab(s) [facility] cloNIDine 0.3 mg tablet 2022-0 6-14 10:38: 15 Yes 1 tab(s) [facility] cloNIDine 0.3 mg tablet 2022-0 6-14 10:38: 15 Yes 1 tab(s) [facility] cloNIDine 0.3 mg tablet 05-04 10:38: 15 Yes 1 tab(s) [facility] cloNIDine 0.3 mg tablet 05-04 10:38: 15 Yes 1 tab(s) [facility] cloNIDine 0.3 mg tablet 05-04 10:38: 15 Yes 1 tab(s) [facility] cloNIDine 0.3 mg tablet 05-04 10:38: 15 Yes 1 tab(s) [facility] cloNIDine 0.3 mg tablet 05-04 10:38: 15 Yes 1 tab(s) [facility] cloNIDine 0.3 mg tablet 05-04 10:38: 15 Yes 1 tab(s) [facility] cloNIDine 0.3 mg tablet 05-04 10:38: 15 Yes 1 tab(s) [facility] oxymetazoli ne HCl (AFRIN NASAL) 05-04 10:38: 14 Yes 2 spray(s) [facility] oxymetazoli ne HCl (AFRIN NASAL) 05-04 10:38: 14 Yes 2 [facility] oxymetazoli ne HCl (AFRIN NASAL) 05-04 10:38: 14 Yes 2 spray(s) [facility] oxymetazoli ne HCl (AFRIN NASAL) 05-04 10:38: 14 Yes 2 spray(s) [facility] oxymetazoli ne HCl (AFRIN NASAL) 05-04 10:38: 14 Yes 2 spray(s) [facility] oxymetazoli ne HCl (AFRIN NASAL) 05-04 10:38: 14 Yes 2 spray(s) [facility] oxymetazoli ne HCl (AFRIN NASAL) 05-04 10:38: 14 Yes 2 spray(s) [facility] oxymetazoli ne HCl (AFRIN NASAL) 05-04 10:38: 14 Yes 2 spray(s) [facility] [facility] oxymetazoli ne HCl (AFRIN NASAL) 05-04 10:38: 14 Yes 2 spray(s) [facility]y of [facility] oxymetazoli ne HCl (AFRIN NASAL) 05-04 10:38: 14 Yes 2 spray(s) [facility] s ity of [facility] oxymetazoli ne HCl (AFRIN NASAL) 05-04 10:38: 14 Yes 2 spray(s) [facility] oxymetazoli ne HCl (AFRIN NASAL) 05-04 10:38: 14 Yes 2 spray(s) [facility] of [facility] oxymetazoli ne HCl (AFRIN NASAL) 05-04 10:38: 14 Yes 2 spray(s) [facility] oxymetazoli ne HCl (AFRIN NASAL) 05-04 10:38: 14 Yes 2 spray(s) [facility] of [facility] oxymetazoli ne HCl (AFRIN NASAL) 05-04 10:38: 14 Yes 2 spray(s) [facility] of [facility] oxymetazoli ne HCl (AFRIN NASAL) 05-04 10:38: 14 Yes 2 spray(s) [facility]y of [facility] XANAX ORAL 0 05-02 10:28: 57 05-02 00:00 :00 No None Entered [facility] XANAX ORAL 0 05-02 10:28: 57 05-02 00:00 :00 No None Entered [facility] XANAX ORAL 2022-0 05-02 10:28: 57 05-02 00:00 :00 No None Entered [facility] AMBIEN ORAL 0 05-02 10:28: 51 05-02 00:00 :00 No None Entered [facility] AMBIEN ORAL 0 05-02 10:28: 51 05-02 00:00 :00 No None Entered [facility] AMBIEN ORAL 2022-0 05-02 10:28: 51 05-02 00:00 :00 No None Entered [facility] DEPAKOTE ORAL 2022-0 12 10:28: 48 05-02 00:00 :00 No None Entered [facility] ity [facility] DEPAKOTE ORAL 2022-0 05-02 10:28: 48 05-02 00:00 :00 No None Entered [facility] DEPAKOTE ORAL 2022-0 05-02 10:28: 48 05-02 00:00 :00 No None Entered [facility] amLODIPine 5 mg tablet 2022-0 05-02 00:00: 00 Yes [id number] 5mg Take 1 tablet by mouth every day at 1200 (noon). [facility] amLODIPine 5 mg tablet 3-0 12 00:00: 00 Yes [id number] 5mg Take 1 tablet by mouth every day at 1200 (noon). [facility] amLODIPine 5 mg tablet 3-0 12 00:00: 00 Yes [id number] 5mg Take 1 tablet by mouth every day at 1200 (noon). [facility] amLODIPine 5 mg tablet 3-0 12 00:00: 00 Yes [id number] 5mg Take 1 tablet by mouth every day at 1200 (noon). [facility] amLODIPine 5 mg tablet 2022-0 12 00:00: 00 Yes [id number] 5mg Take 1 tablet by mouth every day at 1200 (noon). [facility] amLODIPine 5 mg tablet 3-0 12 00:00: 00 Yes [id number] 5mg Take 1 tablet by mouth every day at 1200 (noon). [facility] amLODIPine 5 mg tablet 3-0 12 00:00: 00 Yes [id number] 5mg Take 1 tablet by mouth every day at 1200 (noon). [facility] amLODIPine 5 mg tablet 3-0 12 00:00: 00 Yes [id number] 5mg Take 1 tablet by mouth every day at 1200 (noon). [facility] 3-0 6-12 00:00: 00 Yes [id number] 5mg Take 1 tablet by mouth every day at 1200 (noon). [facility] amLODIPine 5 mg tablet 3-0 6-12 00:00: 00 Yes [id number] 5mg Take 1 tablet by mouth every day at 1200 (noon). [facility] amLODIPine 5 mg tablet 3-0 6-12 00:00: 00 Yes [id number] 5mg Take 1 tablet by mouth every day at 1200 (noon). [facility] amLODIPine 5 mg tablet 3-0 6-12 00:00: 00 Yes [id number] 5mg Take 1 tablet by mouth every day at 1200 (noon). [facility] amLODIPine 5 mg tablet 3-0 6-12 00:00: 00 18 00:00 :00 No [id number] 5mg Take 1 tablet by mouth every day at 1200 (noon). [facility] amLODIPine 5 mg tablet 3-0 6-12 00:00: 00 18 00:00 :00 No [id number] 5mg Take 1 tablet by mouth every day at 1200 (noon). [facility] tiZANidine 4 mg tablet 3-0 5-23 00:00: 00 Yes TAKE 1 TABLET BY MOUTH TWICE A DAY NEEDED FOR 90 DAYS [facility] tiZANidine 4 mg tablet 3-0 5-23 00:00: 00 Yes TAKE 1 TABLET BY MOUTH TWICE A DAY NEEDED FOR 90 DAYS [facility] tiZANidine 4 mg tablet 3-0 5-23 00:00: 00 Yes TAKE 1 TABLET BY MOUTH TWICE A DAY NEEDED FOR 90 DAYS [facility] tiZANidine 4 mg tablet 3-0 5-23 00:00: 00 Yes TAKE 1 TABLET BY MOUTH TWICE A DAY NEEDED FOR 90 DAYS [facility] tiZANidine 4 mg tablet 3-0 5-23 00:00: 00 Yes TAKE 1 TABLET BY MOUTH TWICE A DAY NEEDED FOR [address] [facility] tiZANidine 4 mg tablet 3-0 04-12 00:00: 00 Yes TAKE 1 TABLET BY MOUTH TWICE A DAY NEEDED FOR [address] [facility] tiZANidine 4 mg tablet 3-0 04-12 00:00: 00 Yes TAKE 1 TABLET BY MOUTH TWICE A DAY NEEDED FOR 90 DAYS [facility] tiZANidine 4 mg tablet 3-0 04-12 00:00: 00 Yes TAKE 1 TABLET BY MOUTH TWICE A DAY NEEDED FOR 90 DAYS [facility] tiZANidine 4 mg tablet 3-0 04-12 00:00: 00 Yes TAKE 1 TABLET BY MOUTH TWICE A DAY NEEDED FOR 90 DAYS [facility] tiZANidine 4 mg tablet 3-0 04-12 00:00: 00 Yes TAKE 1 TABLET BY MOUTH TWICE A DAY NEEDED FOR 90 DAYS [facility] tiZANidine 4 mg tablet 3-0 04-12 00:00: 00 Yes TAKE 1 TABLET BY MOUTH TWICE A DAY NEEDED FOR 90 DAYS [facility] tiZANidine 4 mg tablet 3-0 04-12 00:00: 00 Yes TAKE 1 TABLET BY MOUTH TWICE A DAY NEEDED FOR 90 DAYS [facility] tiZANidine 4 mg tablet 3-0 04-12 00:00: 00 Yes TAKE 1 TABLET BY MOUTH TWICE A DAY NEEDED FOR [address] [facility] tiZANidine 4 mg tablet 3-0 04-12 00:00: 00 Yes TAKE 1 TABLET BY MOUTH TWICE A DAY NEEDED FOR [address] [facility] tiZANidine 4 mg tablet 3-0 04-12 00:00: 00 Yes TAKE 1 TABLET BY MOUTH TWICE A DAY NEEDED FOR 90 DAYS [facility] tiZANidine 4 mg tablet 3-0 04-12 00:00: 00 Yes TAKE 1 TABLET BY MOUTH TWICE A DAY NEEDED FOR 90 DAYS [facility] tiZANidine 4 mg tablet 3-0 - 00:00: 00 Yes TAKE 1 TABLET BY MOUTH TWICE A DAY NEEDED FOR 90 DAYS [facility] tiZANidine 4 mg tablet 3-0 04-12 00:00: 00 Yes TAKE 1 TABLET BY MOUTH TWICE A DAY NEEDED FOR 90 DAYS [facility] tiZANidine 4 mg tablet 3-0 5 00:00: 00 Yes TAKE 1 TABLET BY MOUTH TWICE A DAY NEEDED FOR 90 DAYS [facility] tiZANidine 4 mg tablet 3-0 04-12 00:00: 00 Yes TAKE 1 TABLET BY MOUTH TWICE A DAY NEEDED FOR 90 DAYS [facility] tiZANidine 4 mg tablet 3-0 04-12 00:00: 00 Yes TAKE 1 TABLET BY MOUTH TWICE A DAY NEEDED FOR 90 DAYS [facility] tiZANidine 4 mg tablet 3-0 04-12 00:00: 00 Yes TAKE 1 TABLET BY MOUTH TWICE A DAY NEEDED FOR 90 DAYS [facility] tiZANidine 4 mg tablet 3-0 04-12 00:00: 00 Yes TAKE 1 TABLET BY MOUTH TWICE A DAY NEEDED FOR 90 DAYS Univers it[facility] tiZANidine 4 mg tablet 3-0 04-12 00:00: 00 Yes TAKE 1 TABLET BY MOUTH TWICE A DAY NEEDED FOR 90 DAYS [facility] tiZANidine 4 mg tablet 3-0 04-12 00:00: 00 Yes TAKE 1 TABLET BY MOUTH TWICE A DAY NEEDED FOR 90 DAYS [facility] tiZANidine 4 mg tablet 3-0 04-12 00:00: 00 Yes TAKE 1 TABLET BY MOUTH TWICE A DAY NEEDED FOR 90 DAYS [facility] tiZANidine 4 mg tablet 3-0 04-12 00:00: 00 Yes TAKE 1 TABLET BY MOUTH TWICE A DAY NEEDED FOR 90 DAYS [facility] tiZANidine 4 mg tablet 3-0 04-12 00:00: 00 Yes TAKE 1 TABLET BY MOUTH TWICE A DAY NEEDED FOR 90 DAYS [facility] tiZANidine 4 mg tablet 3-0 - 00:00: 00 Yes TAKE 1 TABLET BY MOUTH TWICE A DAY NEEDED FOR 90 DAYS Univers it[facility] tiZANidine 4 mg tablet 3-0 04-12 00:00: 00 Yes TAKE 1 TABLET BY MOUTH TWICE A DAY NEEDED FOR [address] [facility] tiZANidine 4 mg tablet 3-0 04-12 00:00: 00 Yes TAKE 1 TABLET BY MOUTH TWICE A DAY NEEDED FOR [address] [facility] tiZANidine 4 mg tablet 3-0 04-12 00:00: 00 Yes TAKE 1 TABLET BY MOUTH TWICE A DAY NEEDED FOR 90 DAYS [facility] tiZANidine 4 mg tablet 3-0 04-12 00:00: 00 Yes TAKE 1 TABLET BY MOUTH TWICE A DAY NEEDED FOR 90 DAYS [facility] tiZANidine 4 mg tablet 3-0 04-12 00:00: 00 Yes TAKE 1 TABLET BY MOUTH TWICE A DAY NEEDED FOR 90 DAYS [facility] tiZANidine 4 mg tablet 3-0 04-12 00:00: 00 Yes TAKE 1 TABLET BY MOUTH TWICE A DAY NEEDED FOR 90 DAYS [facility] tiZANidine 4 mg tablet 3-0 04-12 00:00: 00 Yes TAKE 1 TABLET BY MOUTH TWICE A DAY NEEDED FOR 90 DAYS [facility] tiZANidine 4 mg tablet 3-0 04-12 00:00: 00 Yes TAKE 1 TABLET BY MOUTH TWICE A DAY NEEDED FOR 90 DAYS [facility] tiZANidine 4 mg tablet 3-0 04-12 00:00: 00 Yes TAKE 1 TABLET BY MOUTH TWICE A DAY NEEDED FOR [address] [facility] tiZANidine 4 mg tablet 3-0 04-12 00:00: 00 Yes TAKE 1 TABLET BY MOUTH TWICE A DAY NEEDED FOR [address] [facility] tiZANidine 4 mg tablet 3-0 04-12 00:00: 00 Yes TAKE 1 TABLET BY MOUTH TWICE A DAY NEEDED FOR 90 DAYS [facility] tiZANidine 4 mg tablet 3-0 04-12 00:00: 00 Yes TAKE 1 TABLET BY MOUTH TWICE A DAY NEEDED FOR 90 DAYS [facility] tiZANidine 4 mg tablet 3-0 - 00:00: 00 Yes TAKE 1 TABLET BY MOUTH TWICE A DAY NEEDED FOR 90 DAYS [facility] tiZANidine 4 mg tablet 3-0 5-23 00:00: 00 Yes TAKE 1 TABLET BY MOUTH TWICE A DAY NEEDED FOR 90 DAYS [facility] tiZANidine 4 mg tablet 3-0 5-23 00:00: 00 Yes TAKE 1 TABLET BY MOUTH TWICE A DAY NEEDED FOR 90 DAYS [facility] tiZANidine 4 mg tablet 3-0 5-23 00:00: 00 Yes TAKE 1 TABLET BY MOUTH TWICE A DAY NEEDED FOR 90 DAYS [facility] tiZANidine 4 mg tablet 2022-0 5-23 00:00: 00 Yes TAKE 1 TABLET BY MOUTH TWICE A DAY NEEDED FOR 90 DAYS [facility] tiZANidine 4 mg tablet 2022-0 523 00:00: 00 Yes TAKE 1 TABLET BY MOUTH TWICE A DAY NEEDED FOR 90 DAYS [facility] tiZANidine 4 mg tablet 2022-0 04-12 00:00: 00 02-16 00:00 :00 No TAKE 1 TABLET BY MOUTH TWICE A DAY NEEDED FOR 90 DAYS [facility] ibuprofen 600 mg tablet 2022-0 -20 00:00: 00 05-10 00:00 :00 No 600mg Take 1 tablet by mouth every 6 (six) hours as needed. [facility] ibuprofen 600 mg tablet 2022-0 4-20 00:00: 00 05-10 00:00 :00 No 600mg Take 1 tablet by mouth every 6 (six) hours as needed. [facility] amLODIPine 10 mg tablet 2021-0 8-05 00:00: 00 07-26 04:59 :00 No [id number] 10mg Take 1 tablet by mouth in the morning for 30 days. [facility] amLODIPine 10 mg tablet 2021-0 8-05 00:00: 00 07-26 04:59 :00 No [id number] 10mg Take 1 tablet by mouth in the morning for 30 days. [facility] amLODIPine 10 mg tablet 2021-0 8-05 00:00: 00 07-26 04:59 :00 No [id number] 10mg Take 1 tablet by mouth in the morning for 30 days. [facility] amLODIPine 10 mg tablet 2021-0 8 00:00: 00 07-26 04:59 :00 No [id number] 10mg Take 1 tablet by mouth in the morning for 30 days. [facility] amLODIPine 10 mg tablet 2021-0 805 00:00: 00 07-26 04:59 :00 No [id number] 10mg Take 1 tablet by mouth in the morning for 30 days. [facility] DEPAKOTE ORAL 2-0 8-04 14:16: 54 Yes None Entered [facility] AMBIEN ORAL 2022-0 8-04 14:16: 54 Yes None Entered [facility] XANAX ORAL 2-0 8-04 14:16: 54 Yes None Entered [facility] DEPAKOTE ORAL 2022-0 8-04 14:16: 54 Yes None Entered [facility] AMBIEN ORAL 2022-0 8-04 14:16: 54 Yes None Entered [facility] XANAX ORAL 2022-0 8-04 14:16: 54 Yes None Entered [facility] DEPAKOTE ORAL 2022-0 8-04 14:16: 54 Yes None Entered [facility] AMBIEN ORAL 2-0 8-04 14:16: 54 Yes None Entered [facility] XANAX ORAL 2-0 804 14:16: 54 Yes None Entered [facility] DEPAKOTE ORAL 2022-0 8-04 14:16: 54 Yes None Entered [facility] AMBIEN ORAL 2022-0 8-04 14:16: 54 Yes None Entered [facility] XANAX ORAL 2022-0 8-04 14:16: 54 Yes None Entered [facility] DEPAKOTE ORAL 2022-0 8-04 14:16: 54 Yes None Entered [facility] AMBIEN ORAL 2022-0 8-04 14:16: 54 Yes None Entered [facility] XANAX ORAL 2022-0 8-04 14:16: 54 Yes None Entered [facility] DEPAKOTE ORAL 2022-0 8-04 14:16: 54 Yes None Entered [facility] AMBIEN ORAL 06-24 14:16: 54 Yes None Entered [facility] XANAX ORAL 06-24 14:16: 54 Yes None Entered [facility] famotidine 20 mg tablet 06-24 00:00: 00 07-25 04:59 :00 No [id number] 20mg Take 1 tablet by mouth in the morning and 1 tablet in the evening. Do all this for 30 days. [facility] famotidine 20 mg tablet 06-24 00:00: 00 07-25 04:59 :00 No [id number] 20mg Take 1 tablet by mouth in the morning and 1 tablet in the evening. Do all this for 30 days. [facility] famotidine 20 mg tablet 06-24 00:00: 00 07-25 04:59 :00 No [id number] 20mg Take 1 tablet by mouth in the morning and 1 tablet in the evening. Do all this for 30 days. [facility] famotidine 20 mg tablet 06-24 00:00: 00 07-25 04:59 :00 No [id number] 20mg Take 1 tablet by mouth in the morning and 1 tablet in the evening. Do all this for 30 days. [facility] famotidine 20 mg tablet 06-24 00:00: 00 07-25 04:59 :00 No [id number] 20mg Take 1 tablet by mouth in the morning and 1 tablet in the evening. Do all this for 30 days. [facility] insulin glargine (LANTUS U-100) injection 13 Units 06-23 19:00: 37 Yes .15U/kg /d 13 Units (rounded from 12.825 Units = 0.15 Units/kg/d ay ?85.5 kg), Subcutaneo us, Q24H, First dose on Tue06/23/22 at 1401, Until Discontinu ed, Routine [facility] famotidine (PEPCID AC) tablet 20 mg 06-23 01:00: 00 Yes 20mg 20 mg, Oral, BID, First dose on Tue06/22/22 at 2000, Until Discontinu ed, Routine [facility] morpHINE (2 mg/mL) injection 2 mg 06-22 23:37: 00 06-22 23:41 :00 No 2mg 2 mg, Slow IV Push, ONCE, 1 dose, On Tue06/22/22 at 1845, Routine [facility] Sliding Scale Insulin - lispro (humaLOG) + Fsbg Testing 06-22 21:00: 00 Yes Subcutaneo us, Q4H, First dose on Tue06/22/22 at 1600, Until Discontinu ed, Routine [facility] butalbital- acetaminoph en-caff (ESGIC) 50-325-40 mg tablet 1 tablet 06-22 20:13: 25 Yes 1{tbl} 1 tablet, Oral, Q4HPRN, Starting on Tue06/22/22 at 1513, Until Discontinu ed, Routine, Pain (scale 4-6), Pain (scale 7-10) [facility] ketorolac (TORADOL) injection 15 mg 06-22 18:30: 00 06-22 19:07 :00 No 15mg 15 mg, Slow IV Push, ONCE, 1 dose, On Tue06/22/22 at 1330, Routine [facility] sulfur hexafluorid e microsphr (LUMASON) injection 5 mL 06-22 15:00: 00 06-22 15:00 :00 No [id number] 5mL 5 mL, Intravenou s, ONCE, 1 dose, On Tue06/22/22 at 1000, Routine
body service team member approving Restricted medication : DOMONIQUE KEATING [facility] cloNIDine (CATAPRES) tablet 0.2 mg 06-22 02:00: 00 Yes .2mg 0.2 mg, Oral, QHS, First dose (after last modificati on) on Tue06/21/22 at 2100, Until Discontinu ed, Routine [facility] KCL (POTASSIUM CHLORIDE) 40 mEq in NaCl 0.9% (NS) piggyback 06-22 01:45: 00 06-22 06:07 :00 No 40meq 40 mEq, IV Piggyback, ONCE, 1 dose, On Tue06/21/22 at 2045, 250 mL [facility] diphenhydrA MINE (BENADRYL) tablet 25 mg 06-22 00:51: 10 Yes 25mg 25 mg, Oral, Q6HPRN, Starting on Tue06/21/22 at 1951, Until Discontinu ed, Routine, Congestion /Allergies [facility] morpHINE (2 mg/mL) injection 2 mg 06-21 21:23: 17 06-22 18:50 :05 No 2mg 2 mg, Slow IV Push, Q4HPRN, Starting on Tue06/21/22 at 1623, Until Tue06/22/22 at 1350, Routine, Pain (scale 4-6), Pain (scale 7-10) [facility] amLODIPine (NORVASC) tablet 10 mg 06-21 21:15: 00 Yes 10mg 10 mg, Oral, DAILY, First dose on Tue06/21/22 at 1615, Until Discontinu ed, Routine [facility] metoprolol (LOPRESSOR) injection 5 mg 06-21 19:10: 00 06-21 19:18 :00 No 5mg 5 mg, Slow IV Push, ONCE, 1 dose, On Tue06/21/22 at 1415, Routine [facility] insulin regular human (HUMULIN R) 100 Units in NaCl 0.9% (NS) 100 mL infusion 06-21 16:30: 00 06-23 12:45 :54 No 0U/kg/h 0-0.3 Units/kg/h r ?81.6 kg (0-24.48 mL/hr), IV Infusion, TITRATE, Parameters in Admin. Instr., Follow DKA Insulin Rate Adjustment Protocol, Starting on Tue06/21/22 at 1130
- Follow 'DKA Insulin Rate Adjustment Protocol' - Start insulin infusion at 0.1 units/kg /hr. When adjusting rate, do not increase rate above 0.3 units/kg/h our. - Hold insulin and NHO STAT if potassium is less than 3.3 mEq/L.&nbs p;- NHO STAT if blood glucose less than 100 mg/dL or greater than 600 mg/dL or if blood glucose not decreased by 50 mg/dL in the first hour of insulin infusion.& nbsp;- Once blood glucose is less than or equal to 200 mg/dL in patient with DKA or blood glucose is less than or equal to 300 mg/dL in patient with HHS, change to fluids with dextrose.& amp;nbsp;& nbsp;&nbsp ;- If during insulin infusion and on dextrose fluids blood glucose is less than 150 mg/dL in DKA or less than 200 mg/dL in HHS, NHO for increase in dextrose provided in continuous fluids.&nb sp;- Once AGAP less than 12, blood glucose less than 200 mg/dL, TCO2 greater than 15 x 2 and patient ready to eat, NHO for SubQ glargine order two hours before stopping insulin infusion.< br> [facility] D5W 0.45% NaCl (1/2NS) IV infusion 1,000 mL 06-21 15:57: 12 06-23 12:45 :54 No 1000mL at 200 mL/hr, 1,000 mL, IV Infusion, PRN - SEE INSTRUCTIO NS, Starting on Tue06/21/22 at 1057, Until Tue06/23/22 at 0745, CARL [facility] ondansetron (ZOFRAN (PF)) injection 8 mg 06-21 15:10: 42 Yes 8mg 8 mg, Slow IV Push, Q6HPRN, Starting on Tue06/21/22 at 1010, Until Discontinu ed, Routine, Nausea and Vomiting (N/V) [facility] HYDROmorpho ne (DILAUDID) injection 0.5 mg 06-21 14:00: 05 06-21 21:24 :02 No .5mg 0.5 mg, Slow IV Push, Q4HPRN, Starting on Tue06/21/22 at 0900, Until Tue06/21/22 at 1624, Routine, Pain (scale 4-6), Pain (scale 7-10)
U se approved by (Faculty): [facility] enoxaparin (LOVENOX) injection 40 mg 06-21 14:00: 00 Yes 40mg 40 mg, Subcutaneo us, DAILY, First dose on Tue06/21/22 at 0900, Until Discontinu ed, Routine [facility] fluticasone propionate 50 mcg/actuati on nasal spray 2 [place] 06-21 14:00: 00 Yes 2{spray } 2 [place], Nasal, DAILY, First dose on Tue06/21/22 at 0900, Until Discontinu ed [facility] metoprolol succinate XL (TOPROL XL) tablet 100 mg 06-21 14:00: 00 Yes 100mg 100 mg, Oral, DAILY, First dose on Tue06/21/22 at 0900, Until Discontinu ed, Routine [facility] docusate (COLACE) capsule 100 mg 06-21 13:00: 00 Yes 100mg 100 mg, Oral, BID, First dose on Tue06/21/22 at 0800, Until Discontinu ed, Routine [facility] famotidine (PEPCID (PF)) injection 20 mg 06-21 13:00: 00 06-22 20:23 :24 No 20mg 20 mg, Slow IV Push, Q12H, First dose on Tue06/21/22 at 0800, Until Discontinu ed, Routine [facility] cloNIDine (CATAPRES) tablet 0.2 mg 06-21 13:00: 00 06-21 21:06 :15 No .2mg 0.2 mg, Oral, TID, First dose (after last modificati on) on Tue06/21/22 at 0800, Until Discontinu ed, Routine [facility] potassium chloride 20 mEq/100 mL (KCL) 20 mEq/100 mL RTU IVPB 20 mEq 06-21 09:15: 00 06-21 11:50 :00 No 20meq 20 mEq, IV Piggyback, ONCE, 1 dose, On Tue06/21/22 at 0415, 100 mL [facility] magnesium sulfate in water 2 gram/50 mL (4 %) infusion 2 g 06-21 09:15: 00 06-21 09:19 :00 No 2g 2 g, IV Piggyback, Administer over 60 Minutes, ONCE, 1 dose, On Tue06/21/22 at 0415, Routine [facility] labetaloL (NORMODYNE) 200 mg in NaCl 0.9% (NS) 100 mL infusion 06-21 08:46: 49 06-22 18:03 :22 No .5mg/mi n 0.5-4 mg/min (15-120 mL/hr), IV Infusion, TITRATE, SBP Goal < 180 mmHg, Starting on Tue06/21/22 at 0346
In itiate infusion at 0.5 mg/min.&nb sp; T itrate by 0.5 mg/min every 5 minutes to 15 minutes as needed to achieve and maintain goal blood pressure.& nbsp;&nbsp ;Maximum dose = 4 mg/min. If goal not maintained at maximum allowed dose, contact prescriber .
[facility] lactated ringers IV infusion 1,000 mL 06-21 08:30: 00 06-21 17:03 :57 No 1000mL at 150 mL/hr, 1,000 mL, IV Infusion, CONTINUOUS , Starting on Tue06/21/22 at 0330, Until Tue06/21/22 at 1203, Routine [facility] FENTanyl PF (SUBLIMAZE (PF)) injection 100 mcg 06-21 07:45: 00 06-21 07:01 :00 No 100ug 100 mcg, Slow IV Push, ONCE, 1 dose, On Tue06/21/22 at 0245, Routine [facility] ondansetron (ZOFRAN (PF)) injection 4 mg 06-21 07:23: 15 06-21 13:52 :35 No 4mg 4 mg, Slow IV Push, Q6HPRN, Starting on Tue06/21/22 at 0223, Until Tue06/21/22 at 0852, Routine, Nausea and Vomiting (N/V) [facility] morpHINE (4 mg/mL) injection 4 mg 06-21 07:23: 09 06-21 14:01 :34 No 4mg 4 mg, Slow IV Push, Q4HPRN, Starting on Tue06/21/22 at 0223, Until Tue06/21/22 at 0901, Routine, Pain (scale 7-10) [facility] acetaminoph en (TYLENOL) tablet 650 mg 06-21 07:23: 04 Yes 650mg 650 mg, Oral, Q6HPRN, Starting on Tue06/21/22 at 0223, Until Discontinu ed, Routine, Pain (scale 1-3) [facility] diazePAM (VALIUM) tablet 10 mg 06-21 07:18: 16 Yes 10mg 10 mg, Oral, TIDPRN, Starting on Tue06/21/22 at 0218, Until Discontinu ed, Routine, anxiety [facility] hydralAZINE (APRESOLINE ) injection 10 mg 06-21 06:00: 00 06-21 05:39 :00 No 10mg 10 mg, Slow IV Push, ONCE, 1 dose, On Tue06/21/22 at 0100, STAT [facility] diazePAM (VALIUM) injection 5 mg 06-21 05:45: 00 06-21 06:17 :00 No 5mg 5 mg, Slow IV Push, ONCE, 1 dose, On Tue06/21/22 at 0045, STAT [facility] iopamidol (ISOVUE 370-500 mL) injection 100 mL 06-21 05:45: 00 06-21 05:45 :00 No [id number] 100mL 100 mL, Intravenou s, ONCE, 1 dose, On Tue06/21/22 at 0045, Routine [facility] vancomycin 1,250 mg in NaCl 0.9% (NS) 250 mL VIAL-MATE IV piggyback 06-21 04:45: 00 06-21 07:54 :00 No 15mg/kg 1,250 mg (rounded from 1,224 mg = 15 mg/kg ?81.6 kg), IV Piggyback, ONCE, 1 dose, On 06/20/22 at 2345, Administer over 90 Minutes, 250 mL
Reas on for Anti-Infec tive: Empiric Therapy for Suspected Infection< br>Empiric Therapy Site: Skin / Soft tissue
Duration of therapy: 72 hours [facility] NaCl 0.9% (NS) bolus infusion 1,000 mL 06-21 04:45: 00 06-21 05:20 :00 No 1000mL at 999 mL/hr, 1,000 mL, IV Infusion, ONCE, 1 dose, On Tue06/20/22 at 2345, CARL [facility] morpHINE (4 mg/mL) injection 4 mg 06-21 03:45: 00 06-21 03:49 :00 No 4mg 4 mg, Slow IV Push, ONCE, 1 dose, On Tue06/20/22 at 2245, STAT [facility] piperacilli n-tazobacta m (ZOSYN) 3.375 g in NaCl 0.9% (NS) 50 mL MINI-BAG 06-21 03:45: 00 06-21 05:03 :00 No 3.375g 3.375 g, IV Piggyback, ONCE, 1 dose, On 06/20/22 at 2245, Administer over 30 Minutes, 50 mL
Reas on for Anti-Infec tive: Empiric Therapy for Suspected Infection< br>Empiric Therapy Site: Skin / Soft tissue
Duration of therapy: 72 hours [facility] methylpredn isolone sod succ (SOLU-MEDRO L) injection 125 mg 06-21 03:45: 00 06-21 02:54 :00 No 125mg 125 mg, Intravenou s, ONCE, 1 dose, On Tue06/20/22 at 2245, 2 mL [facility] LORazepam (ATIVAN) injection 1 mg 06-21 03:30: 00 06-21 03:30 :00 No 1mg 1 mg, Slow IV Push, ONCE, 1 dose, On 06/20/22 at 2230, STAT
Is the medication being used for status epilepticu s? No [facility] diphenhydrA MINE (BENADRYL) injection 50 mg 06-21 02:45: 00 06-21 02:53 :00 No 50mg 50 mg, Slow IV Push, ONCE, 1 dose, On 06/20/22 at 2145, STAT [facility] ondansetron (ZOFRAN (PF)) injection 4 mg 06-21 02:45: 00 06-21 02:53 :00 No 4mg 4 mg, Slow IV Push, ONCE, 1 dose, On Tue06/20/22 at 2145, CARL [facility] labetaloL 20 mg/4 mL (5 mg/mL) syringe 06-21 00:00: 00 06-22 04:59 :00 No [id number] 20mg Inject 4 mL as directed once now for 1 dose. [facility] triamcinolo ne 55 mcg nasal inhaler 03-24 00:00: 00 Yes [id number] 1{spray } Use 1 [place] in each nostril 2 (two) times daily. Get over the counter if not covered [facility] azelastine 137 mcg (0.1 %) nasal spray 03-24 00:00: 00 Yes [id number] 1{spray } Use 1 [place] in each nostril 2 (two) times daily. Use in each nostril as directed [facility] triamcinolo ne 55 mcg nasal inhaler 03-24 00:00: 00 Yes [id number] 1{spray } Use 1 [place] in each nostril 2 (two) times daily. Get over the counter if not covered [facility] azelastine 137 mcg (0.1 %) nasal spray 03-24 00:00: 00 Yes [id number] 1{spray } Use 1 [place] in each nostril 2 (two) times daily. Use in each nostril as directed [facility] triamcinolo ne 55 mcg nasal inhaler 03-24 00:00: 00 Yes [id number] 1{spray } Use 1 [place] in each nostril 2 (two) times daily. Get over the counter if not covered [facility] azelastine 137 mcg (0.1 %) nasal spray 03-24 00:00: 00 Yes [id number] 1{spray } Use 1 [place] in each nostril 2 (two) times daily. Use in each nostril as directed [facility] triamcinolo ne 55 mcg nasal inhaler 03-24 00:00: 00 Yes [id number] 1{spray } Use 1 [place] in each nostril 2 (two) times daily. Get over the counter if not covered [facility] azelastine 137 mcg (0.1 %) nasal spray 03-24 00:00: 00 Yes [id number] 1{spray } Use 1 [place] in each nostril 2 (two) times daily. Use in each nostril as directed [facility] triamcinolo ne 55 mcg nasal inhaler 03-24 00:00: 00 Yes [id number] 1{spray } Use 1 [place] in each nostril 2 (two) times daily. Get over the counter if not covered [facility] azelastine 137 mcg (0.1 %) nasal spray 03-24 00:00: 00 Yes [id number] 1{spray } Use 1 [place] in each nostril 2 (two) times daily. Use in each nostril as directed [facility] triamcinolo ne 55 mcg nasal inhaler 03-24 00:00: 00 Yes [id number] 1{spray } Use 1 [place] in each nostril 2 (two) times daily. Get over the counter if not covered [facility] triamcinolo ne 55 mcg nasal inhaler 03-24 00:00: 00 Yes [id number] 1{spray } Use 1 [place] in each nostril 2 (two) times daily. Get over the counter if not covered [facility] 2021-0 5-04 00:00: 00 Yes [id number] 1{spray } Use 1 [place] in each nostril 2 (two) times daily. Get over the counter if not covered [facility] 2021-0 5-04 00:00: 00 Yes [id number] 1{spray } Use 1 [place] in each nostril 2 (two) times daily. Get over the counter if not covered [facility] ne 55 mcg nasal inhaler 2021-0 5-04 00:00: 00 Yes [id number] 1{spray } Use 1 [place] in each nostril 2 (two) times daily. Get over the counter if not covered [facility] ne 55 mcg nasal inhaler 2021-0 5-04 00:00: 00 Yes [id number] 1{spray } Use 1 [place] in each nostril 2 (two) times daily. Get over the counter if not covered [facility] 2021-0 5-04 00:00: 00 Yes [id number] 1{spray } Use 1 [place] in each nostril 2 (two) times daily. Get over the counter if not covered [facility] m[facility] nasal inhaler 2021-0 5-04 00:00: 00 Yes [id number] 1{spray } Use 1 [place] in each nostril 2 (two) times daily. Get over the counter if not covered [facility] mcg nasal inhaler 2-0 5-04 00:00: 00 Yes [id number] 1{spray } Use 1 [place] in each nostril 2 (two) times daily. Get over the counter if not covered [facility] mcg nasal inhaler 2-0 5-04 00:00: 00 Yes [id number] 1{spray } Use 1 [place] in each nostril 2 (two) times daily. Get over the counter if not covered [facility] mcg nasal inhaler 2-0 5-04 00:00: 00 Yes [id number] 1{spray } Use 1 [place] in each nostril 2 (two) times daily. Get over the counter if not covered [facility] mcg nasal inhaler 2021-0 5-04 00:00: 00 Yes [id number] 1{spray } Use 1 [place] in each nostril 2 (two) times daily. Get over the counter if not covered [facility] 2021-0 5-04 00:00: 00 Yes [id number] 1{spray } Use 1 [place] in each nostril 2 (two) times daily. Get over the counter if not covered [facility] ne 55 mcg nasal inhaler 2021-0 5-04 00:00: 00 Yes [id number] 1{spray } Use 1 [place] in each nostril 2 (two) times daily. Get over the counter if not covered [facility] m[facility] nasal inhaler 2021-0 5-04 00:00: 00 Yes [id number] 1{spray } Use 1 [place] in each nostril 2 (two) times daily. Get over the counter if not covered [facility] m[facility] nasal inhaler 2021-0 5-04 00:00: 00 Yes [id number] 1{spray } Use 1 [place] in each nostril 2 (two) times daily. Get over the counter if not covered [facility] mcg nasal inhaler 2-0 5-04 00:00: 00 Yes [id number] 1{spray } Use 1 [place] in each nostril 2 (two) times daily. Get over the counter if not covered [facility] mcg nasal inhaler 2-0 5-04 00:00: 00 Yes [id number] 1{spray } Use 1 [place] in each nostril 2 (two) times daily. Get over the counter if not covered [facility] mcg nasal inhaler 2021-0 03-24 00:00: 00 Yes [id number] 1{spray } Use 1 [place] in each nostril 2 (two) times daily. Get over the counter if not covered [facility] ne 55 mcg nasal inhaler 2021-0 03-24 00:00: 00 Yes [id number] 1{spray } Use 1 [place] in each nostril 2 (two) times daily. Get over the counter if not covered [facility] ne 55 mcg nasal inhaler 2021-03-24 00:00: 00 Yes [id number] 1{spray } Use 1 [place] in each nostril 2 (two) times daily. Get over the counter if not covered [facility] ne 55 mcg nasal inhaler 2021-03-24 00:00: 00 Yes [id number] 1{spray } Use 1 [place] in each nostril 2 (two) times daily. Get over the counter if not covered [facility] ne 55 mcg nasal inhaler 2021-0 03-24 00:00: 00 Yes [id number] 1{spray } Use 1 [place] in each nostril 2 (two) times daily. Get over the counter if not covered [facility] 2021-0 03-24 00:00: 00 Yes [id number] 1{spray } Use 1 [place] in each nostril 2 (two) times daily. Get over the counter if not covered [facility] mcg nasal inhaler 2021-03-24 00:00: 00 Yes [id number] 1{spray } Use 1 [place] in each nostril 2 (two) times daily. Get over the counter if not covered [facility] mcg nasal inhaler 2021-0 03-24 00:00: 00 Yes [id number] 1{spray } Use 1 [place] in each nostril 2 (two) times daily. Get over the counter if not covered [facility]er 2-0 -04 00:00: 00 Yes [id number] 1{spray } Use 1 [place] in each nostril 2 (two) times daily. Get over the counter if not covered [facility] mcg nasal inhaler 03-24 00:00: 00 Yes [id number] 1{spray } Use 1 [place] in each nostril 2 (two) times daily. Get over the counter if not covered [facility] triamcinolo ne 55 mcg nasal inhaler 03-24 00:00: 00 Yes [id number] 1{spray } Use 1 [place] in each nostril 2 (two) times daily. Get over the counter if not covered [facility] 03-24 00:00: 00 Yes [id number] 1{spray } Use 1 [place] in each nostril 2 (two) times daily. Get over the counter if not covered [facility] ne 55 mcg nasal inhaler 03-24 00:00: 00 Yes [id number] 1{spray } Use 1 [place] in each nostril 2 (two) times daily. Get over the counter if not covered [facility] azelastine 137 mcg (0.1 %) nasal spray 03-24 00:00: 00 Yes [id number] 1{spray } Use 1 [place] in each nostril 2 (two) times daily. Use in each nostril as directed [facility] mcg nasal inhaler 03-24 00:00: 00 Yes [id number] 1{spray } Use 1 [place] in each nostril 2 (two) times daily. Get over the counter if not covered [facility] mcg nasal inhaler 03-24 00:00: 00 Yes [id number] 1{spray } Use 1 [place] in each nostril 2 (two) times daily. Get over the counter if not covered [facility] mcg nasal inhaler 04 00:00: 00 Yes [id number] 1{spray } Use 1 [place] in each nostril 2 (two) times daily. Get over the counter if not covered [facility] mcg nasal inhaler 2021-0 04 00:00: 00 Yes [id number] 1{spray } Use 1 [place] in each nostril 2 (two) times daily. Get over the counter if not covered [facility] mcg nasal inhaler 2021-04 00:00: 00 Yes [id number] 1{spray } Use 1 [place] in each nostril 2 (two) times daily. Get over the counter if not covered [facility] azelastine 137 mcg (0.1 %) nasal spray 03-24 00:00: 00 Yes [id number] 1{spray } Use 1 [place] in each nostril 2 (two) times daily. Use in each nostril as directed [facility]er 2021-03-24 00:00: 00 Yes [id number] 1{spray } Use 1 [place] in each nostril 2 (two) times daily. Get over the counter if not covered [facility] azelastine 137 mcg (0.1 %) nasal spray 03-24 00:00: 00 Yes [id number] 1{spray } Use 1 [place] in each nostril 2 (two) times daily. Use in each nostril as directed [facility] m[facility]er 2021-0 03-24 00:00: 00 Yes [id number] 1{spray } Use 1 [place] in each nostril 2 (two) times daily. Get over the counter if not covered [facility] azelastine 137 mcg (0.1 %) nasal spray 04 00:00: 00 Yes [id number] 1{spray } Use 1 [place] in each nostril 2 (two) times daily. Use in each nostril as directed [facility] m[facility]er 2021-0 5-04 00:00: 00 Yes [id number] 1{spray } Use 1 [place] in each nostril 2 (two) times daily. Get over the counter if not covered [facility] azelastine 137 mcg (0.1 %) nasal spray 03-24 00:00: 00 Yes [id number] 1{spray } Use 1 [place] in each nostril 2 (two) times daily. Use in each nostril as directed [facility] mcg nasal inhaler 03-24 00:00: 00 Yes [id number] 1{spray } Use 1 [place] in each nostril 2 (two) times daily. Get over the counter if not covered [facility] azelastine 137 mcg (0.1 %) nasal spray 03-24 00:00: 00 Yes [id number] 1{spray } Use 1 [place] in each nostril 2 (two) times daily. Use in each nostril as directed [facility] mcg nasal inhaler 03-24 00:00: 00 Yes [id number] 1{spray } Use 1 [place] in each nostril 2 (two) times daily. Get over the counter if not covered [facility] azelastine 137 mcg (0.1 %) nasal spray 03-24 00:00: 00 Yes [id number] 1{spray } Use 1 [place] in each nostril 2 (two) times daily. Use in each nostril as directed [facility] mcg nasal inhaler 03-24 00:00: 00 Yes [id number] 1{spray } Use 1 [place] in each nostril 2 (two) times daily. Get over the counter if not covered [facility] azelastine 137 mcg (0.1 %) nasal spray 03-24 00:00: 00 Yes [id number] 1{spray } Use 1 [place] in each nostril 2 (two) times daily. Use in each nostril as directed [facility] triamcinolo ne 55 mcg nasal inhaler 04 00:00: 00 Yes [id number] 1{spray } Use 1 [place] in each nostril 2 (two) times daily. Get over the counter if not covered [facility] azelastine 137 mcg (0.1 %) nasal spray 03-24 00:00: 00 Yes [id number] 1{spray } Use 1 [place] in each nostril 2 (two) times daily. Use in each nostril as directed [facility] triamcinolo ne 55 mcg nasal inhaler 03-24 00:00: 00 Yes [id number] 1{spray } Use 1 [place] in each nostril 2 (two) times daily. Get over the counter if not covered [facility] azelastine 137 mcg (0.1 %) nasal spray 03-24 00:00: 00 Yes [id number] 1{spray } Use 1 [place] in each nostril 2 (two) times daily. Use in each nostril as directed [facility] ne 55 mcg nasal inhaler 03-24 00:00: 00 Yes [id number] 1{spray } Use 1 [place] in each nostril 2 (two) times daily. Get over the counter if not covered [facility] azelastine 137 mcg (0.1 %) nasal spray 03-24 00:00: 00 Yes [id number] 1{spray } Use 1 [place] in each nostril 2 (two) times daily. Use in each nostril as directed [facility] mcg nasal inhaler 03-24 00:00: 00 Yes [id number] 1{spray } Use 1 [place] in each nostril 2 (two) times daily. Get over the counter if not covered [facility] azelastine 137 mcg (0.1 %) nasal spray 03-24 00:00: 00 Yes [id number] 1{spray } Use 1 [place] in each nostril 2 (two) times daily. Use in each nostril as directed [facility] m[facility] nasal inhaler 03-24 00:00: 00 Yes [id number] 1{spray } Use 1 [place] in each nostril 2 (two) times daily. Get over the counter if not covered [facility] azelastine 137 mcg (0.1 %) nasal spray 03-24 00:00: 00 Yes [id number] 1{spray } Use 1 [place] in each nostril 2 (two) times daily. Use in each nostril as directed [facility] triamcinolo ne 55 mcg nasal inhaler 03-24 00:00: 00 Yes [id number] 1{spray } Use 1 [place] in each nostril 2 (two) times daily. Get over the counter if not covered [facility] azelastine 137 mcg (0.1 %) nasal spray 03-24 00:00: 00 Yes [id number] 1{spray } Use 1 [place] in each nostril 2 (two) times daily. Use in each nostril as directed [facility] triamcinolo ne 55 mcg nasal inhaler 03-24 00:00: 00 Yes [id number] 1{spray } Use 1 [place] in each nostril 2 (two) times daily. Get over the counter if not covered [facility] azelastine 137 mcg (0.1 %) nasal spray 03-24 00:00: 00 Yes [id number] 1{spray } Use 1 [place] in each nostril 2 (two) times daily. Use in each nostril as directed [facility] triamcinolo ne 55 mcg nasal inhaler 03-24 00:00: 00 Yes [id number] 1{spray } Use 1 [place] in each nostril 2 (two) times daily. Get over the counter if not covered [facility] azelastine 137 mcg (0.1 %) nasal spray 03-24 00:00: 00 Yes [id number] 1{spray } Use 1 [place] in each nostril 2 (two) times daily. Use in each nostril as directed [facility] triamcinolo ne 55 mcg nasal inhaler 04 00:00: 00 Yes [id number] 1{spray } Use 1 [place] in each nostril 2 (two) times daily. Get over the counter if not covered [facility] azelastine 137 mcg (0.1 %) nasal spray 03-24 00:00: 00 Yes [id number] 1{spray } Use 1 [place] in each nostril 2 (two) times daily. Use in each nostril as directed [facility] triamcinolo ne 55 mcg nasal inhaler 03-24 00:00: 00 Yes [id number] 1{spray } Use 1 [place] in each nostril 2 (two) times daily. Get over the counter if not covered [facility] azelastine 137 mcg (0.1 %) nasal spray 03-24 00:00: 00 Yes [id number] 1{spray } Use 1 [place] in each nostril 2 (two) times daily. Use in each nostril as directed [facility] mcg nasal inhaler 03-24 00:00: 00 Yes [id number] 1{spray } Use 1 [place] in each nostril 2 (two) times daily. Get over the counter if not covered [facility] azelastine 137 mcg (0.1 %) nasal spray 03-24 00:00: 00 Yes [id number] 1{spray } Use 1 [place] in each nostril 2 (two) times daily. Use in each nostril as directed [facility] triamcinolo ne 55 mcg nasal inhaler 03-24 00:00: 00 Yes [id number] 1{spray } Use 1 [place] in each nostril 2 (two) times daily. Get over the counter if not covered [facility] azelastine 137 mcg (0.1 %) nasal spray 03-24 00:00: 00 Yes [id number] 1{spray } Use 1 [place] in each nostril 2 (two) times daily. Use in each nostril as directed [facility] triamcin[place] ne 55 mcg nasal inhaler 04 00:00: 00 Yes [id number] 1{spray } Use 1 [place] in each nostril 2 (two) times daily. Get over the counter if not covered [facility] azelastine 137 mcg (0.1 %) nasal spray 03-24 00:00: 00 Yes [id number] 1{spray } Use 1 [place] in each nostril 2 (two) times daily. Use in each nostril as directed [facility] triamcinolo ne 55 mcg nasal inhaler 03-24 00:00: 00 Yes [id number] 1{spray } Use 1 [place] in each nostril 2 (two) times daily. Get over the counter if not covered [facility] azelastine 137 mcg (0.1 %) nasal spray 03-24 00:00: 00 Yes [id number] 1{spray } Use 1 [place] in each nostril 2 (two) times daily. Use in each nostril as directed [facility] triamcinolo ne 55 mcg nasal inhaler 03-24 00:00: 00 Yes [id number] 1{spray } Use 1 [place] in each nostril 2 (two) times daily. Get over the counter if not covered [facility] azelastine 137 mcg (0.1 %) nasal spray 03-24 00:00: 00 Yes [id number] 1{spray } Use 1 [place] in each nostril 2 (two) times daily. Use in each nostril as directed [facility] mcg nasal inhaler 03-24 00:00: 00 Yes [id number] 1{spray } Use 1 [place] in each nostril 2 (two) times daily. Get over the counter if not covered [facility] azelastine 137 mcg (0.1 %) nasal spray 03-24 00:00: 00 Yes [id number] 1{spray } Use 1 [place] in each nostril 2 (two) times daily. Use in each nostril as directed [facility] triamcinolo ne 55 mcg nasal inhaler 03-24 00:00: 00 Yes [id number] 1{spray } Use 1 [place] in each nostril 2 (two) times daily. Get over the counter if not covered [facility] azelastine 137 mcg (0.1 %) nasal spray 5-04 00:00: 00 Yes [id number] 1{spray } Use 1 [place] in each nostril 2 (two) times daily. Use in each nostril as directed [facility] azelastine 137 mcg (0.1 %) nasal spray 504 00:00: 00 08-04 00:00 :00 No [id number] 1{spray } Use 1 [place] in each nostril 2 (two) times daily. Use in each nostril as directed [facility] azelastine 137 mcg (0.1 %) nasal spray 5 00:00: 00 08-04 00:00 :00 No [id number] 1{spray } Use 1 [place] in each nostril 2 (two) times daily. Use in each nostril as directed [facility] azelastine 137 mcg (0.1 %) nasal spray 03-24 00:00: 00 08-04 00:00 :00 No [id number] 1{spray } Use 1 [place] in each nostril 2 (two) times daily. Use in each nostril as directed [facility] azelastine 137 mcg (0.1 %) nasal spray 03-24 00:00: 00 08-04 00:00 :00 No [id number] 1{spray } Use 1 [place] in each nostril 2 (two) times daily. Use in each nostril as directed [facility] doxycycline hyclate 50 mg capsule 04 00:00: 00 04-15 04:59 :00 No [id number] 50mg Take 1 capsule by mouth 2 (two) times daily for 21 days. Get goodRx coupon if not covered [facility] diazePAM 10 mg tablet 03-09 00:00: 00 Yes TAKE 1 TABLET BY MOUTH THREE TIMES A DAY NEEDED [facility] diazePAM 10 mg tablet 03-09 00:00: 00 Yes TAKE 1 TABLET BY MOUTH THREE TIMES A DAY NEEDED [facility] diazePAM 10 mg tablet 03-09 00:00: 00 Yes TAKE 1 TABLET BY MOUTH THREE TIMES A DAY NEEDED [facility] diazePAM 10 mg tablet 2-0 19 00:00: 00 Yes TAKE 1 TABLET BY MOUTH THREE TIMES A DAY NEEDED [facility] diazePAM 10 mg tablet 2-0 19 00:00: 00 Yes TAKE 1 TABLET BY MOUTH THREE TIMES A DAY NEEDED [facility] diazePAM 10 mg tablet 2-0 19 00:00: 00 Yes TAKE 1 TABLET BY MOUTH THREE TIMES A DAY NEEDED [facility] diazePAM 10 mg tablet 2-0 19 00:00: 00 Yes TAKE 1 TABLET BY MOUTH THREE TIMES A DAY NEEDED [facility] diazePAM 10 mg tablet 2-0 03-09 00:00: 00 Yes TAKE 1 TABLET BY MOUTH THREE TIMES A DAY NEEDED [facility] diazePAM 10 mg tablet 2-0 19 00:00: 00 Yes TAKE 1 TABLET BY MOUTH THREE TIMES A DAY NEEDED [facility] diazePAM 10 mg tablet 2-0 19 00:00: 00 Yes TAKE 1 TABLET BY MOUTH THREE TIMES A DAY NEEDED [facility] diazePAM 10 mg tablet 2-0 19 00:00: 00 Yes TAKE 1 TABLET BY MOUTH THREE TIMES A DAY NEEDED [facility] diazePAM 10 mg tablet 2-0 19 00:00: 00 Yes TAKE 1 TABLET BY MOUTH THREE TIMES A DAY NEEDED [facility] diazePAM 10 mg tablet 2-0 19 00:00: 00 Yes TAKE 1 TABLET BY MOUTH THREE TIMES A DAY NEEDED [facility] diazePAM 10 mg tablet 2-0 19 00:00: 00 Yes TAKE 1 TABLET BY MOUTH THREE TIMES A DAY NEEDED [facility] diazePAM 10 mg tablet 2-0 19 00:00: 00 Yes TAKE 1 TABLET BY MOUTH THREE TIMES A DAY NEEDED [facility] diazePAM 10 mg tablet 2-0 19 00:00: 00 Yes TAKE 1 TABLET BY MOUTH THREE TIMES A DAY NEEDED [facility] diazePAM 10 mg tablet 2-0 19 00:00: 00 Yes TAKE 1 TABLET BY MOUTH THREE TIMES A DAY NEEDED [facility] diazePAM 10 mg tablet 2-0 19 00:00: 00 Yes TAKE 1 TABLET BY MOUTH THREE TIMES A DAY NEEDED [facility] diazePAM 10 mg tablet 2-0 19 00:00: 00 Yes TAKE 1 TABLET BY MOUTH THREE TIMES A DAY NEEDED [facility] diazePAM 10 mg tablet 2-0 19 00:00: 00 Yes TAKE 1 TABLET BY MOUTH THREE TIMES A DAY NEEDED [facility] diazePAM 10 mg tablet 2-0 19 00:00: 00 Yes TAKE 1 TABLET BY MOUTH THREE TIMES A DAY NEEDED [facility] diazePAM 10 mg tablet 2-0 19 00:00: 00 Yes TAKE 1 TABLET BY MOUTH THREE TIMES A DAY NEEDED [facility] diazePAM 10 mg tablet 2-0 19 00:00: 00 Yes TAKE 1 TABLET BY MOUTH THREE TIMES A DAY NEEDED [facility] diazePAM 10 mg tablet 2-0 19 00:00: 00 Yes TAKE 1 TABLET BY MOUTH THREE TIMES A DAY NEEDED [facility] diazePAM 10 mg tablet 2-0 19 00:00: 00 Yes TAKE 1 TABLET BY MOUTH THREE TIMES A DAY NEEDED [facility] diazePAM 10 mg tablet 2-0 19 00:00: 00 Yes TAKE 1 TABLET BY MOUTH THREE TIMES A DAY NEEDED [facility] diazePAM 10 mg tablet 2-0 19 00:00: 00 Yes TAKE 1 TABLET BY MOUTH THREE TIMES A DAY NEEDED [facility] diazePAM 10 mg tablet 2-0 19 00:00: 00 Yes TAKE 1 TABLET BY MOUTH THREE TIMES A DAY NEEDED [facility] diazePAM 10 mg tablet 2-0 19 00:00: 00 Yes TAKE 1 TABLET BY MOUTH THREE TIMES A DAY NEEDED [facility] diazePAM 10 mg tablet 2-0 -19 00:00: 00 Yes TAKE 1 TABLET BY MOUTH THREE TIMES A DAY NEEDED [facility] diazePAM 10 mg tablet 2-0 19 00:00: 00 Yes TAKE 1 TABLET BY MOUTH THREE TIMES A DAY NEEDED [facility] diazePAM 10 mg tablet 2-0 19 00:00: 00 Yes TAKE 1 TABLET BY MOUTH THREE TIMES A DAY NEEDED [facility] diazePAM 10 mg tablet 2-0 19 00:00: 00 Yes TAKE 1 TABLET BY MOUTH THREE TIMES A DAY NEEDED [facility] diazePAM 10 mg tablet 2-0 19 00:00: 00 Yes TAKE 1 TABLET BY MOUTH THREE TIMES A DAY NEEDED [facility] diazePAM 10 mg tablet 2-0 19 00:00: 00 Yes TAKE 1 TABLET BY MOUTH THREE TIMES A DAY NEEDED [facility] diazePAM 10 mg tablet 2-0 19 00:00: 00 Yes TAKE 1 TABLET BY MOUTH THREE TIMES A DAY NEEDED [facility] diazePAM 10 mg tablet 2-0 19 00:00: 00 Yes TAKE 1 TABLET BY MOUTH THREE TIMES A DAY NEEDED [facility] diazePAM 10 mg tablet 2-0 19 00:00: 00 Yes TAKE 1 TABLET BY MOUTH THREE TIMES A DAY NEEDED [facility] diazePAM 10 mg tablet 2-0 19 00:00: 00 Yes TAKE 1 TABLET BY MOUTH THREE TIMES A DAY NEEDED [facility] diazePAM 10 mg tablet 2-0 19 00:00: 00 Yes TAKE 1 TABLET BY MOUTH THREE TIMES A DAY NEEDED [facility] diazePAM 10 mg tablet 2-0 19 00:00: 00 Yes TAKE 1 TABLET BY MOUTH THREE TIMES A DAY NEEDED [facility] diazePAM 10 mg tablet 2-0 19 00:00: 00 Yes TAKE 1 TABLET BY MOUTH THREE TIMES A DAY NEEDED [facility] diazePAM 10 mg tablet 2-0 19 00:00: 00 Yes TAKE 1 TABLET BY MOUTH THREE TIMES A DAY NEEDED [facility] diazePAM 10 mg tablet 2-0 -19 00:00: 00 Yes TAKE 1 TABLET BY MOUTH THREE TIMES A DAY NEEDED [facility] diazePAM 10 mg tablet 2-0 -19 00:00: 00 Yes TAKE 1 TABLET BY MOUTH THREE TIMES A DAY NEEDED [facility] diazePAM 10 mg tablet 2-0 4-19 00:00: 00 Yes TAKE 1 TABLET BY MOUTH THREE TIMES A DAY NEEDED [facility] diazePAM 10 mg tablet 2-0 19 00:00: 00 Yes TAKE 1 TABLET BY MOUTH THREE TIMES A DAY NEEDED [facility] diazePAM 10 mg tablet 2-0 19 00:00: 00 Yes TAKE 1 TABLET BY MOUTH THREE TIMES A DAY NEEDED [facility] diazePAM 10 mg tablet 2-0 19 00:00: 00 Yes TAKE 1 TABLET BY MOUTH THREE TIMES A DAY NEEDED [facility] diazePAM 10 mg tablet 2-0 19 00:00: 00 Yes TAKE 1 TABLET BY MOUTH THREE TIMES A DAY NEEDED [facility] diazePAM 10 mg tablet 2-0 19 00:00: 00 Yes TAKE 1 TABLET BY MOUTH THREE TIMES A DAY NEEDED [facility] diazePAM 10 mg tablet 2-0 19 00:00: 00 Yes TAKE 1 TABLET BY MOUTH THREE TIMES A DAY NEEDED [facility] diazePAM 10 mg tablet 2-0 19 00:00: 00 Yes TAKE 1 TABLET BY MOUTH THREE TIMES A DAY NEEDED [facility] diazePAM 10 mg tablet 2-0 19 00:00: 00 Yes TAKE 1 TABLET BY MOUTH THREE TIMES A DAY NEEDED [facility] diazePAM 10 mg tablet 2-0 19 00:00: 00 Yes TAKE 1 TABLET BY MOUTH THREE TIMES A DAY NEEDED [facility] diazePAM 10 mg tablet 2-0 19 00:00: 00 Yes TAKE 1 TABLET BY MOUTH THREE TIMES A DAY NEEDED [facility] diazePAM 10 mg tablet 2-0 19 00:00: 00 Yes TAKE 1 TABLET BY MOUTH THREE TIMES A DAY NEEDED [facility] diazePAM 10 mg tablet 2-0 19 00:00: 00 Yes TAKE 1 TABLET BY MOUTH THREE TIMES A DAY NEEDED [facility] diazePAM 10 mg tablet 2-0 -19 00:00: 00 Yes TAKE 1 TABLET BY MOUTH THREE TIMES A DAY NEEDED [facility] diazePAM 10 mg tablet 2-0 -19 00:00: 00 Yes TAKE 1 TABLET BY MOUTH THREE TIMES A DAY NEEDED [facility] diazePAM 10 mg tablet 2021-0 4-19 00:00: 00 Yes TAKE 1 TABLET BY MOUTH THREE TIMES A DAY NEEDED [facility] diazePAM 10 mg tablet 2021-0 -19 00:00: 00 Yes TAKE 1 TABLET BY MOUTH THREE TIMES A DAY NEEDED [facility] diazePAM 10 mg tablet 2021-0 -19 00:00: 00 Yes TAKE 1 TABLET BY MOUTH THREE TIMES A DAY NEEDED [facility] diazePAM 10 mg tablet 2021-0 -19 00:00: 00 Yes TAKE 1 TABLET BY MOUTH THREE TIMES A DAY NEEDED [facility] dextroamphe tamine-amph etamine 30 mg tablet 2021-0 -18 00:00: 00 Yes 30mg Take 1 tablet by mouth in the morning and 1 tablet in the evening. [facility] dextroamphe tamine-amph etamine 30 mg tablet 2021-0 18 00:00: 00 Yes 30mg Take 1 tablet by mouth in the morning and 1 tablet in the evening. [facility] dextroamphe tamine-amph etamine 30 mg tablet 2021-0 18 00:00: 00 Yes 30mg Take 1 tablet by mouth in the morning and 1 tablet in the evening. [facility] dextroamphe tamine-amph etamine 30 mg tablet 2021-0 -18 00:00: 00 Yes 30mg Take 1 tablet by mouth in the morning and 1 tablet in the evening. [facility] dextroamphe tamine-amph etamine 30 mg tablet 2021-0 -18 00:00: 00 Yes 30mg Take 1 tablet by mouth in the morning and 1 tablet in the evening. [facility] dextroamphe tamine-amph etamine 30 mg tablet 2021-0 -18 00:00: 00 Yes 30mg Take 1 tablet by mouth in the morning and 1 tablet in the evening. [facility] dextroamphe tamine-amph etamine 30 mg tablet 2-0 4-18 00:00: 00 Yes 30mg Take 1 tablet by mouth in the morning and 1 tablet in the evening. [facility] dextroamphe tamine-amph etamine 30 mg tablet 2-0 4-18 00:00: 00 Yes 30mg Take 1 tablet by mouth in the morning and 1 tablet in the evening. [facility] dextroamphe tamine-amph etamine 30 mg tablet 2-0 4-18 00:00: 00 Yes 30mg Take 1 tablet by mouth in the morning and 1 tablet in the evening. [facility] dextroamphe tamine-amph etamine 30 mg tablet 2-0 4-18 00:00: 00 Yes 30mg Take 1 tablet by mouth in the morning and 1 tablet in the evening. [facility] dextroamphe tamine-amph etamine 30 mg tablet 2-0 4-18 00:00: 00 Yes 30mg Take 1 tablet by mouth in the morning and 1 tablet in the evening. [facility] dextroamphe tamine-amph etamine 30 mg tablet 2-0 4-18 00:00: 00 Yes 30mg Take 1 tablet by mouth in the morning and 1 tablet in the evening. [facility] dextroamphe tamine-amph etamine 30 mg tablet 2-0 4-18 00:00: 00 Yes 30mg Take 1 tablet by mouth in the morning and 1 tablet in the evening. [facility] dextroamphe tamine-amph etamine 30 mg tablet 2-0 4-18 00:00: 00 Yes 30mg Take 1 tablet by mouth in the morning and 1 tablet in the evening. [facility] dextroamphe tamine-amph etamine 30 mg tablet 2-0 4-18 00:00: 00 Yes 30mg Take 1 tablet by mouth in the morning and 1 tablet in the evening. [facility] dextroamphe tamine-amph etamine 30 mg tablet 2-0 4-18 00:00: 00 Yes 30mg Take 1 tablet by mouth in the morning and 1 tablet in the evening. [facility] dextroamphe tamine-amph etamine 30 mg tablet 2-0 4-18 00:00: 00 Yes 30mg Take 1 tablet by mouth in the morning and 1 tablet in the evening. [facility] dextroamphe tamine-amph etamine 30 mg tablet 2-0 4-18 00:00: 00 Yes 30mg Take 1 tablet by mouth in the morning and 1 tablet in the evening. [facility] dextroamphe tamine-amph etamine 30 mg tablet 2-0 4-18 00:00: 00 Yes 30mg Take 1 tablet by mouth in the morning and 1 tablet in the evening. [facility] dextroamphe tamine-amph etamine 30 mg tablet 2-0 4-18 00:00: 00 Yes 30mg Take 1 tablet by mouth in the morning and 1 tablet in the evening. [facility] dextroamphe tamine-amph etamine 30 mg tablet 2-0 4-18 00:00: 00 Yes 30mg Take 1 tablet by mouth in the morning and 1 tablet in the evening. [facility] dextroamphe tamine-amph etamine 30 mg tablet 2-0 4-18 00:00: 00 Yes 30mg Take 1 tablet by mouth in the morning and 1 tablet in the evening. [facility] dextroamphe tamine-amph etamine 30 mg tablet 2-0 4-18 00:00: 00 Yes 30mg Take 1 tablet by mouth in the morning and 1 tablet in the evening. [facility] dextroamphe tamine-amph etamine 30 mg tablet 2-0 4-18 00:00: 00 Yes 30mg Take 1 tablet by mouth in the morning and 1 tablet in the evening. [facility] dextroamphe tamine-amph etamine 30 mg tablet 2-0 4-18 00:00: 00 Yes 30mg Take 1 tablet by mouth in the morning and 1 tablet in the evening. [facility] dextroamphe tamine-amph etamine 30 mg tablet 2-0 4-18 00:00: 00 Yes 30mg Take 1 tablet by mouth in the morning and 1 tablet in the evening. [facility] dextroamphe tamine-amph etamine 30 mg tablet 2-0 4-18 00:00: 00 Yes 30mg Take 1 tablet by mouth in the morning and 1 tablet in the evening. [facility] dextroamphe tamine-amph etamine 30 mg tablet 2-0 4-18 00:00: 00 Yes 30mg Take 1 tablet by mouth in the morning and 1 tablet in the evening. [facility] dextroamphe tamine-amph etamine 30 mg tablet 2-0 4-18 00:00: 00 Yes 30mg Take 1 tablet by mouth in the morning and 1 tablet in the evening. [facility] dextroamphe tamine-amph etamine 30 mg tablet 2021-0 4-18 00:00: 00 Yes 30mg Take 1 tablet by mouth in the morning and 1 tablet in the evening. [facility] dextroamphe tamine-amph etamine 30 mg tablet 2021-0 4-18 00:00: 00 Yes 30mg Take 1 tablet by mouth in the morning and 1 tablet in the evening. [facility] dextroamphe tamine-amph etamine 30 mg tablet 2021-0 4-18 00:00: 00 Yes 30mg Take 1 tablet by mouth in the morning and 1 tablet in the evening. [facility] dextroamphe tamine-amph etamine 30 mg tablet 2021-0 4-18 00:00: 00 Yes 30mg Take 1 tablet by mouth in the morning and 1 tablet in the evening. [facility] dextroamphe tamine-amph etamine 30 mg tablet 2021-0 4-18 00:00: 00 Yes 30mg Take 1 tablet by mouth in the morning and 1 tablet in the evening. [facility] dextroamphe tamine-amph etamine 30 mg tablet 2-0 4-18 00:00: 00 Yes 30mg Take 30 mg by mouth 2 (two) times daily. [facility] dextroamphe tamine-amph etamine 30 mg tablet 2-0 4-18 00:00: 00 Yes 30mg Take 1 tablet by mouth in the morning and 1 tablet in the evening. [facility] dextroamphe tamine-amph etamine 30 mg tablet 2-0 4-18 00:00: 00 Yes 30mg Take 1 tablet by mouth in the morning and 1 tablet in the evening. [facility] dextroamphe tamine-amph etamine 30 mg tablet 2021-0 4-18 00:00: 00 Yes 30mg Take 1 tablet by mouth in the morning and 1 tablet in the evening. [facility] dextroamphe tamine-amph etamine 30 mg tablet 2021-0 4-18 00:00: 00 Yes 30mg Take 1 tablet by mouth in the morning and 1 tablet in the evening. [facility] dextroamphe tamine-amph etamine 30 mg tablet 2021-0 4-18 00:00: 00 Yes 30mg Take 30 mg by mouth 2 (two) times daily. [facility] dextroamphe tamine-amph etamine 30 mg tablet 2021-0 18 00:00: 00 Yes 30mg Take 30 mg by mouth 2 (two) times daily. [facility] dextroamphe tamine-amph etamine 30 mg tablet 2021-0 18 00:00: 00 Yes 30mg Take 30 mg by mouth 2 (two) times daily. [facility] dextroamphe tamine-amph etamine 30 mg tablet 2021-0 18 00:00: 00 Yes 30mg Take 30 mg by mouth 2 (two) times daily. [facility] dextroamphe tamine-amph etamine 30 mg tablet 2021-0 18 00:00: 00 Yes 30mg Take 30 mg by mouth 2 (two) times daily. [facility] dextroamphe tamine-amph etamine 30 mg tablet 2021-0 18 00:00: 00 Yes 30mg Take 30 mg by mouth 2 (two) times daily. [facility] dextroamphe tamine-amph etamine 30 mg tablet 2021-0 4-18 00:00: 00 Yes 30mg Take 30 mg by mouth 2 (two) times daily. [facility] dextroamphe tamine-amph etamine 30 mg tablet 2021-0 4-18 00:00: 00 Yes 30mg Take 30 mg by mouth 2 (two) times daily. [facility] dextroamphe tamine-amph etamine 30 mg tablet 2021-0 4-18 00:00: 00 Yes 30mg Take 30 mg by mouth 2 (two) times daily. [facility] dextroamphe tamine-amph etamine 30 mg tablet 0 18 00:00: 00 Yes 30mg Take 30 mg by mouth 2 (two) times daily. [facility] dextroamphe tamine-amph etamine 30 mg tablet 0 18 00:00: 00 Yes 30mg Take 30 mg by mouth 2 (two) times daily. [facility] dextroamphe tamine-amph etamine 30 mg tablet 0 18 00:00: 00 Yes 30mg Take 30 mg by mouth 2 (two) times daily. [facility] dextroamphe tamine-amph etamine 30 mg tablet 0 18 00:00: 00 Yes 30mg Take 30 mg by mouth 2 (two) times daily. [facility] dextroamphe tamine-amph etamine 30 mg tablet 0 18 00:00: 00 Yes 30mg Take 30 mg by mouth 2 (two) times daily. [facility] dextroamphe tamine-amph etamine 30 mg tablet 2021-0 18 00:00: 00 Yes 30mg Take 30 mg by mouth 2 (two) times daily. [facility] dextroamphe tamine-amph etamine 30 mg tablet 2021-0 18 00:00: 00 Yes 30mg Take 30 mg by mouth 2 (two) times daily. [facility] dextroamphe tamine-amph etamine 30 mg tablet 0 18 00:00: 00 Yes 30mg Take 30 mg by mouth 2 (two) times daily. [facility] dextroamphe tamine-amph etamine 30 mg tablet 0 18 00:00: 00 Yes 30mg Take 30 mg by mouth 2 (two) times daily. [facility] dextroamphe tamine-amph etamine 30 mg tablet 2021-0 18 00:00: 00 Yes 30mg Take 30 mg by mouth 2 (two) times daily. [facility] dextroamphe tamine-amph etamine 30 mg tablet 0 18 00:00: 00 Yes 30mg Take 30 mg by mouth 2 (two) times daily. [facility] dextroamphe tamine-amph etamine 30 mg tablet 0 18 00:00: 00 Yes 30mg Take 30 mg by mouth 2 (two) times daily. [facility] dextroamphe tamine-amph etamine 30 mg tablet 0 18 00:00: 00 Yes 30mg Take 30 mg by mouth 2 (two) times daily. [facility] dextroamphe tamine-amph etamine 30 mg tablet 0 18 00:00: 00 Yes 30mg Take 30 mg by mouth 2 (two) times daily. [facility] dextroamphe tamine-amph etamine 30 mg tablet 0 18 00:00: 00 Yes 30mg Take 1 tablet by mouth in the morning and 1 tablet in the evening. [facility] dextroamphe tamine-amph etamine 30 mg tablet 0 18 00:00: 00 20202-16 00:00 :00 No 30mg Take 1 tablet by mouth in the morning and 1 tablet in the evening. [facility] metoprolol succinate XL 100 mg 24 hr tablet 2021-0 05 00:00: 00 Yes 100mg Take 1 tablet by mouth in the morning. [facility] metoprolol succinate XL 100 mg 24 hr tablet 2021-0 05 00:00: 00 Yes 100mg Take 1 tablet by mouth in the morning. [facility] metoprolol succinate XL 100 mg 24 hr tablet 2021-0 4-05 00:00: 00 Yes 100mg Take 1 tablet by mouth in the morning. [facility] metoprolol succinate XL 100 mg 24 hr tablet 2021-0 4-05 00:00: 00 Yes 100mg Take 1 tablet by mouth in the morning. [facility] metoprolol succinate XL 100 mg 24 hr tablet 2021-0 4-05 00:00: 00 Yes 100mg Take 1 tablet by mouth in the morning. [facility] metoprolol succinate XL 100 mg 24 hr tablet 2021-0 4-05 00:00: 00 Yes 100mg Take 1 tablet by mouth in the morning. [facility] metoprolol succinate XL 100 mg 24 hr tablet 2021-0 4-05 00:00: 00 Yes 100mg Take 1 tablet by mouth in the morning. [facility] metoprolol succinate XL 100 mg 24 hr tablet 2021-0 4-05 00:00: 00 Yes 100mg Take 1 tablet by mouth in the morning. [facility] metoprolol succinate XL 100 mg 24 hr tablet 2021-0 4-05 00:00: 00 Yes 100mg Take 1 tablet by mouth in the morning. [facility] metoprolol succinate XL 100 mg 24 hr tablet 2021-0 05 00:00: 00 Yes 100mg Take 1 tablet by mouth in the morning. [facility] metoprolol succinate XL 100 mg 24 hr tablet 2021-0 02-23 00:00: 00 Yes 100mg Take 1 tablet by mouth in the morning. [facility] metoprolol succinate XL 100 mg 24 hr tablet 2021-0 405 00:00: 00 Yes 100mg Take 1 tablet by mouth in the morning. [facility] metoprolol succinate XL 100 mg 24 hr tablet 2021-0 405 00:00: 00 Yes 100mg Take 1 tablet by mouth in the morning. [facility] metoprolol succinate XL 100 mg 24 hr tablet 2021-0 4-05 00:00: 00 Yes 100mg Take 1 tablet by mouth in the morning. [facility] metoprolol succinate XL 100 mg 24 hr tablet 2021-0 4-05 00:00: 00 Yes 100mg Take 1 tablet by mouth in the morning. [facility] metoprolol succinate XL 100 mg 24 hr tablet 2021-0 4-05 00:00: 00 Yes 100mg Take 1 tablet by mouth in the morning. [facility] metoprolol succinate XL 100 mg 24 hr tablet 2-0 4-05 00:00: 00 Yes 100mg Take 1 tablet by mouth in the morning. [facility] metoprolol succinate XL 100 mg 24 hr tablet 2021-0 405 00:00: 00 Yes 100mg Take 1 tablet by mouth in the morning. [facility] metoprolol succinate XL 100 mg 24 hr tablet 2021-0 405 00:00: 00 Yes 100mg Take 1 tablet by mouth in the morning. [facility] metoprolol succinate XL 100 mg 24 hr tablet 2021-0 405 00:00: 00 Yes 100mg Take 1 tablet by mouth in the morning. [facility] metoprolol succinate XL 100 mg 24 hr tablet 2021-0 4-05 00:00: 00 Yes 100mg Take 1 tablet by mouth in the morning. [facility] metoprolol succinate XL 100 mg 24 hr tablet 2021-0 405 00:00: 00 Yes 100mg Take 1 tablet by mouth in the morning. [facility] metoprolol succinate XL 100 mg 24 hr tablet 2021-0 405 00:00: 00 Yes 100mg Take 1 tablet by mouth in the morning. [facility] metoprolol succinate XL 100 mg 24 hr tablet 2021-0 405 00:00: 00 Yes 100mg Take 1 tablet by mouth in the morning. [facility] metoprolol succinate XL 100 mg 24 hr tablet 2021-0 405 00:00: 00 Yes 100mg Take 1 tablet by mouth in the morning. [facility] metoprolol succinate XL 100 mg 24 hr tablet 2021-0 405 00:00: 00 Yes 100mg Take 1 tablet by mouth in the morning. [facility] metoprolol succinate XL 100 mg 24 hr tablet 2021-0 4-05 00:00: 00 Yes 100mg Take 1 tablet by mouth in the morning. [facility] metoprolol succinate XL 100 mg 24 hr tablet 2021-0 4-05 00:00: 00 Yes 100mg Take 1 tablet by mouth in the morning. [facility] metoprolol succinate XL 100 mg 24 hr tablet 2-0 4-05 00:00: 00 Yes 100mg Take 1 tablet by mouth in the morning. [facility] metoprolol succinate XL 100 mg 24 hr tablet 2021-0 4-05 00:00: 00 Yes 100mg Take 1 tablet by mouth in the morning. [facility] metoprolol succinate XL 100 mg 24 hr tablet 0 02-23 00:00: 00 Yes 100mg Take 1 tablet by mouth in the morning. [facility] metoprolol succinate XL 100 mg 24 hr tablet 0 02-23 00:00: 00 Yes 100mg Take 1 tablet by mouth in the morning. [facility] metoprolol succinate XL 100 mg 24 hr tablet 0 02-23 00:00: 00 Yes 100mg Take 1 tablet by mouth in the morning. [facility] metoprolol succinate XL 100 mg 24 hr tablet 0 02-23 00:00: 00 Yes 100mg Take 1 tablet by mouth in the morning. [facility] metoprolol succinate XL 100 mg 24 hr tablet 2021-0 02-23 00:00: 00 Yes 100mg Take 100 mg by mouth daily. [facility] metoprolol succinate XL 100 mg 24 hr tablet 0 02-23 00:00: 00 Yes 100mg Take 1 tablet by mouth in the morning. [facility] metoprolol succinate XL 100 mg 24 hr tablet 0 02-23 00:00: 00 Yes 100mg Take 1 tablet by mouth in the morning. [facility] metoprolol succinate XL 100 mg 24 hr tablet 0 02-23 00:00: 00 Yes 100mg Take 100 mg by mouth daily. [facility] metoprolol succinate XL 100 mg 24 hr tablet 0 02-23 00:00: 00 Yes 100mg Take 100 mg by mouth daily. [facility] metoprolol succinate XL 100 mg 24 hr tablet 2021-0 02-23 00:00: 00 Yes 100mg Take 100 mg by mouth daily. [facility] metoprolol succinate XL 100 mg 24 hr tablet 0 02-23 00:00: 00 Yes 100mg Take 100 mg by mouth daily. [facility] metoprolol succinate XL 100 mg 24 hr tablet 2021-0 02-23 00:00: 00 Yes 100mg Take 100 mg by mouth daily. [facility] metoprolol succinate XL 100 mg 24 hr tablet 0 02-23 00:00: 00 Yes 100mg Take 100 mg by mouth daily. [facility] metoprolol succinate XL 100 mg 24 hr tablet 02-23 00:00: 00 Yes 100mg Take 100 mg by mouth daily. [facility] metoprolol succinate XL 100 mg 24 hr tablet 02-23 00:00: 00 Yes 100mg Take 100 mg by mouth daily. [facility] metoprolol succinate XL 100 mg 24 hr tablet 02-23 00:00: 00 Yes 100mg Take 100 mg by mouth daily. [facility] metoprolol succinate XL 100 mg 24 hr tablet 02-23 00:00: 00 Yes 100mg Take 100 mg by mouth daily. [facility] metoprolol succinate XL 100 mg 24 hr tablet 02-23 00:00: 00 Yes 100mg Take 100 mg by mouth daily. [facility] metoprolol succinate XL 100 mg 24 hr tablet 02-23 00:00: 00 Yes 100mg Take 100 mg by mouth daily. [facility] metoprolol succinate XL 100 mg 24 hr tablet 02-23 00:00: 00 Yes 100mg Take 100 mg by mouth daily. [facility] metoprolol succinate XL 100 mg 24 hr tablet 02-23 00:00: 00 Yes 100mg Take 100 mg by mouth daily. [facility] metoprolol succinate XL 100 mg 24 hr tablet 02-23 00:00: 00 Yes 100mg Take 100 mg by mouth daily. [facility] metoprolol succinate XL 100 mg 24 hr tablet 02-23 00:00: 00 Yes 100mg Take 100 mg by mouth daily. [facility] metoprolol succinate XL 100 mg 24 hr tablet 02-23 00:00: 00 Yes 100mg Take 100 mg by mouth daily. [facility] metoprolol succinate XL 100 mg 24 hr tablet 02-23 00:00: 00 Yes 100mg Take 100 mg by mouth daily. [facility] metoprolol succinate XL 100 mg 24 hr tablet 0 405 00:00: 00 Yes 100mg Take 100 mg by mouth daily. [facility] metoprolol succinate XL 100 mg 24 hr tablet 0 405 00:00: 00 Yes 100mg Take 100 mg by mouth daily. [facility] metoprolol succinate XL 100 mg 24 hr tablet 0 4 00:00: 00 Yes 100mg Take 100 mg by mouth daily. [facility] metoprolol succinate XL 100 mg 24 hr tablet 0 4 00:00: 00 Yes 100mg Take 100 mg by mouth daily. [facility] metoprolol succinate XL 100 mg 24 hr tablet 02-23 00:00: 00 Yes 100mg Take 100 mg by mouth daily. [facility] metoprolol succinate XL 100 mg 24 hr tablet 0 02-23 00:00: 00 Yes 100mg Take 1 tablet by mouth in the morning. [facility] cloNIDine 0.2 mg tablet 2021-0 17 00:00: 00 Yes TAKE 1 TABLET BY MOUTH EVERY DAY AT NIGHT [facility] cloNIDine 0.2 mg tablet 2021-0 17 00:00: 00 Yes TAKE 1 TABLET BY MOUTH EVERY DAY AT NIGHT [facility] cloNIDine 0.2 mg tablet 2021-0 317 00:00: 00 Yes TAKE 1 TABLET BY MOUTH EVERY DAY AT NIGHT [facility] cloNIDine 0.2 mg tablet 2021-0 17 00:00: 00 Yes TAKE 1 TABLET BY MOUTH EVERY DAY AT NIGHT [facility] cloNIDine 0.2 mg tablet 2021-0 317 00:00: 00 Yes TAKE 1 TABLET BY MOUTH EVERY DAY AT NIGHT [facility] cloNIDine 0.2 mg tablet 2021-0 317 00:00: 00 Yes TAKE 1 TABLET BY MOUTH EVERY DAY AT NIGHT [facility] cloNIDine 0.2 mg tablet 2021-0 317 00:00: 00 Yes TAKE 1 TABLET BY MOUTH EVERY DAY AT NIGHT [facility] cloNIDine 0.2 mg tablet 2022-0 3-17 00:00: 00 Yes TAKE 1 TABLET BY MOUTH EVERY DAY AT NIGHT [facility] cloNIDine 0.2 mg tablet 2021-0 317 00:00: 00 Yes TAKE 1 TABLET BY MOUTH EVERY DAY AT NIGHT [facility] cloNIDine 0.2 mg tablet 2-0 3-17 00:00: 00 Yes TAKE 1 TABLET BY MOUTH EVERY DAY AT NIGHT [facility] cloNIDine 0.2 mg tablet 2021-0 317 00:00: 00 05-04 00:00 :00 No TAKE 1 TABLET BY MOUTH EVERY DAY AT NIGHT [facility] cloNIDine 0.2 mg tablet 2-0 317 00:00: 00 05-04 00:00 :00 No TAKE 1 TABLET BY MOUTH EVERY DAY AT NIGHT [facility] cloNIDine 0.2 mg tablet 2021-0 17 00:00: 00 05-04 00:00 :00 No TAKE 1 TABLET BY MOUTH EVERY DAY AT NIGHT [facility] mirtazapine 45 mg disintegrat ing tablet 2021-0 2-23 00:00: 00 Yes TAKE 1 TABLET BY MOUTH EVERY DAY AT NIGHT [facility] mirtazapine 45 mg disintegrat ing tablet 2021-0 2-23 00:00: 00 Yes TAKE 1 TABLET BY MOUTH EVERY DAY AT NIGHT [facility] mirtazapine 45 mg disintegrat ing tablet 2-0 2-23 00:00: 00 Yes TAKE 1 TABLET BY MOUTH EVERY DAY AT NIGHT [facility] mirtazapine 45 mg disintegrat ing tablet 2-0 2-23 00:00: 00 Yes TAKE 1 TABLET BY MOUTH EVERY DAY AT NIGHT [facility] mirtazapine 45 mg disintegrat ing tablet 2-0 2-23 00:00: 00 Yes TAKE 1 TABLET BY MOUTH EVERY DAY AT NIGHT [facility] mirtazapine 45 mg disintegrat ing tablet 2-0 2-23 00:00: 00 Yes TAKE 1 TABLET BY MOUTH EVERY DAY AT NIGHT [facility] mirtazapine 45 mg disintegrat ing tablet 2-0 2-23 00:00: 00 Yes TAKE 1 TABLET BY MOUTH EVERY DAY AT NIGHT [facility] mirtazapine 45 mg disintegrat ing tablet 2-0 2-23 00:00: 00 Yes TAKE 1 TABLET BY MOUTH EVERY DAY AT NIGHT [facility] mirtazapine 45 mg disintegrat ing tablet 2021-0 2- 00:00: 00 Yes TAKE 1 TABLET BY MOUTH EVERY DAY AT NIGHT [facility] mirtazapine 45 mg disintegrat ing tablet 2-0 2- 00:00: 00 Yes TAKE 1 TABLET BY MOUTH EVERY DAY AT NIGHT [facility] mirtazapine 45 mg disintegrat ing tablet 2021-0 2- 00:00: 00 Yes TAKE 1 TABLET BY MOUTH EVERY DAY AT NIGHT [facility] mirtazapine 45 mg disintegrat ing tablet 2021-0 2- 00:00: 00 Yes TAKE 1 TABLET BY MOUTH EVERY DAY AT NIGHT [facility] mirtazapine 45 mg disintegrat ing tablet 2021-0 2- 00:00: 00 Yes TAKE 1 TABLET BY MOUTH EVERY DAY AT NIGHT [facility] mirtazapine 45 mg disintegrat ing tablet 2021-0 2- 00:00: 00 Yes TAKE 1 TABLET BY MOUTH EVERY DAY AT NIGHT [facility] mirtazapine 45 mg disintegrat ing tablet 2021-0 2- 00:00: 00 Yes TAKE 1 TABLET BY MOUTH EVERY DAY AT NIGHT [facility] mirtazapine 45 mg disintegrat ing tablet 2-0 2- 00:00: 00 Yes TAKE 1 TABLET BY MOUTH EVERY DAY AT NIGHT [facility] mirtazapine 45 mg disintegrat ing tablet 2021-0 2-23 00:00: 00 Yes TAKE 1 TABLET BY MOUTH EVERY DAY AT NIGHT [facility] mirtazapine 45 mg disintegrat ing tablet 2-0 2- 00:00: 00 Yes TAKE 1 TABLET BY MOUTH EVERY DAY AT NIGHT [facility] mirtazapine 45 mg disintegrat ing tablet 2-0 2- 00:00: 00 Yes TAKE 1 TABLET BY MOUTH EVERY DAY AT NIGHT [facility] mirtazapine 45 mg disintegrat ing tablet 2-0 2- 00:00: 00 Yes TAKE 1 TABLET BY MOUTH EVERY DAY AT NIGHT [facility] mirtazapine 45 mg disintegrat ing tablet 2-0 2-23 00:00: 00 Yes TAKE 1 TABLET BY MOUTH EVERY DAY AT NIGHT [facility] mirtazapine 45 mg disintegrat ing tablet 2021-0 2- 00:00: 00 Yes TAKE 1 TABLET BY MOUTH EVERY DAY AT NIGHT [facility] mirtazapine 45 mg disintegrat ing tablet 2021-0 2- 00:00: 00 Yes TAKE 1 TABLET BY MOUTH EVERY DAY AT NIGHT [facility] mirtazapine 45 mg disintegrat ing tablet 2021-0 2 00:00: 00 Yes TAKE 1 TABLET BY MOUTH EVERY DAY AT NIGHT [facility] mirtazapine 45 mg disintegrat ing tablet 2021-0 2 00:00: 00 Yes TAKE 1 TABLET BY MOUTH EVERY DAY AT NIGHT [facility] mirtazapine 45 mg disintegrat ing tablet 2021-0 2- 00:00: 00 Yes TAKE 1 TABLET BY MOUTH EVERY DAY AT NIGHT [facility] mirtazapine 45 mg disintegrat ing tablet 2021-0 2 00:00: 00 Yes TAKE 1 TABLET BY MOUTH EVERY DAY AT NIGHT [facility] mirtazapine 45 mg disintegrat ing tablet 2021-0 2- 00:00: 00 Yes TAKE 1 TABLET BY MOUTH EVERY DAY AT NIGHT [facility] mirtazapine 45 mg disintegrat ing tablet 2021-0 2- 00:00: 00 Yes TAKE 1 TABLET BY MOUTH EVERY DAY AT NIGHT [facility] mirtazapine 45 mg disintegrat ing tablet 2021-0 2- 00:00: 00 Yes TAKE 1 TABLET BY MOUTH EVERY DAY AT NIGHT [facility] mirtazapine 45 mg disintegrat ing tablet 2021-0 2- 00:00: 00 Yes TAKE 1 TABLET BY MOUTH EVERY DAY AT NIGHT [facility] mirtazapine 45 mg disintegrat ing tablet 2-0 2- 00:00: 00 Yes TAKE 1 TABLET BY MOUTH EVERY DAY AT NIGHT [facility] mirtazapine 45 mg disintegrat ing tablet 2022-0 2-23 00:00: 00 Yes TAKE 1 TABLET BY MOUTH EVERY DAY AT NIGHT [facility] mirtazapine 45 mg disintegrat ing tablet 2021-0 2-23 00:00: 00 Yes TAKE 1 TABLET BY MOUTH EVERY DAY AT NIGHT [facility] mirtazapine 45 mg disintegrat ing tablet 2-0 2-23 00:00: 00 Yes TAKE 1 TABLET BY MOUTH EVERY DAY AT NIGHT [facility] mirtazapine 45 mg disintegrat ing tablet 2021-0 2- 00:00: 00 Yes TAKE 1 TABLET BY MOUTH EVERY DAY AT NIGHT [facility] mirtazapine 45 mg disintegrat ing tablet 2-0 2- 00:00: 00 Yes TAKE 1 TABLET BY MOUTH EVERY DAY AT NIGHT [facility] mirtazapine 45 mg disintegrat ing tablet 2-0 2- 00:00: 00 Yes TAKE 1 TABLET BY MOUTH EVERY DAY AT NIGHT [facility] mirtazapine 45 mg disintegrat ing tablet 2021-0 2- 00:00: 00 Yes TAKE 1 TABLET BY MOUTH EVERY DAY AT NIGHT [facility] mirtazapine 45 mg disintegrat ing tablet 2021-0 2 00:00: 00 Yes TAKE 1 TABLET BY MOUTH EVERY DAY AT NIGHT [facility] mirtazapine 45 mg disintegrat ing tablet 2021-0 2- 00:00: 00 Yes TAKE 1 TABLET BY MOUTH EVERY DAY AT NIGHT [facility] mirtazapine 45 mg disintegrat ing tablet 2-0 2-23 00:00: 00 Yes TAKE 1 TABLET BY MOUTH EVERY DAY AT NIGHT [facility] mirtazapine 45 mg disintegrat ing tablet 2-0 2-23 00:00: 00 Yes TAKE 1 TABLET BY MOUTH EVERY DAY AT NIGHT [facility] mirtazapine 45 mg disintegrat ing tablet 2-0 2-23 00:00: 00 Yes TAKE 1 TABLET BY MOUTH EVERY DAY AT NIGHT [facility] mirtazapine 45 mg disintegrat ing tablet 2-0 2-23 00:00: 00 Yes TAKE 1 TABLET BY MOUTH EVERY DAY AT NIGHT [facility] mirtazapine 45 mg disintegrat ing tablet 0 2- 00:00: 00 Yes TAKE 1 TABLET BY MOUTH EVERY DAY AT NIGHT [facility] mirtazapine 45 mg disintegrat ing tablet 0 2- 00:00: 00 Yes TAKE 1 TABLET BY MOUTH EVERY DAY AT NIGHT [facility] mirtazapine 45 mg disintegrat ing tablet 0 2 00:00: 00 Yes TAKE 1 TABLET BY MOUTH EVERY DAY AT NIGHT [facility] mirtazapine 45 mg disintegrat ing tablet 0 01-13 00:00: 00 10-17 00:00 :00 No TAKE 1 TABLET BY MOUTH EVERY DAY AT NIGHT [facility] mirtazapine 45 mg disintegrat ing tablet 0 01-13 00:00: 00 10-17 00:00 :00 No TAKE 1 TABLET BY MOUTH EVERY DAY AT NIGHT [facility] mirtazapine 45 mg disintegrat ing tablet 01-13 00:00: 00 10-17 00:00 :00 No TAKE 1 TABLET BY MOUTH EVERY DAY AT NIGHT [facility] DEPAKOTE ORAL 2006-11 09:24: 56 Yes None Entered [facility] AMBIEN ORAL 2006-11 09:24: 56 Yes None Entered [facility] XANAX ORAL 2006-11 09:24: 56 Yes None Entered [facility] Immunizations Ordered Immunization Name Filled Immunization Name Date Status Comments Source SARS-COV-2 COVID-19 VACCINE - (MODERNA) 2021-05-07 00:00:00 Completed [facility] SARS-COV-2 COVID-19 VACCINE - (MODERNA) 2021-05-07 00:00:00 Completed [facility] SARS-COV-2 COVID-19 VACCINE - (MODERNA) 2021-05-07 00:00:00 Completed [facility] SARS-COV-2 COVID-19 VACCINE - (MODERNA) 2021-05-07 00:00:00 Completed [facility] SARS-COV-2 COVID-19 VACCINE - (MODERNA) 2021-05-07 00:00:00 Completed [facility] SARS-COV-2 COVID-19 VACCINE - (MODERNA) 2021-05-07 00:00:00 Completed [facility] SARS-COV-2 COVID-19 VACCINE - (MODERNA) 2021-05-07 00:00:00 Completed [facility] SARS-COV-2 COVID-19 VACCINE - (MODERNA) 2021-05-07 00:00:00 Completed [facility] SARS-COV-2 COVID-19 VACCINE - (MODERNA) 2021-05-07 00:00:00 Completed [facility] SARS-COV-2 COVID-19 VACCINE - (MODERNA) 2021-05-07 00:00:00 Completed [facility] SARS-COV-2 COVID-19 VACCINE - (MODERNA) 2021-05-07 00:00:00 Completed [facility] SARS-COV-2 COVID-19 VACCINE - (MODERNA) 2021-05-07 00:00:00 Completed [facility] SARS-COV-2 COVID-19 VACCINE - (MODERNA) 2021-05-07 00:00:00 Completed [facility] SARS-COV-2 COVID-19 VACCINE - (MODERNA) 2021-05-07 00:00:00 Completed [facility] SARS-COV-2 COVID-19 VACCINE - (MODERNA) 2021-05-07 00:00:00 Completed [facility] SARS-COV-2 COVID-19 VACCINE - (MODERNA) 2021-05-07 00:00:00 Completed [facility] SARS-COV-2 COVID-19 VACCINE - (MODERNA) 2021-05-07 00:00:00 Completed [facility] SARS-COV-2 COVID-19 VACCINE - (MODERNA) 2021-05-07 00:00:00 Completed [facility] SARS-COV-2 COVID-19 VACCINE - (MODERNA) 2021-05-07 00:00:00 Completed [facility] SARS-COV-2 COVID-19 VACCINE - (MODERNA) 2021-05-07 00:00:00 Completed [facility] SARS-COV-2 COVID-19 VACCINE - (MODERNA) 2021-05-07 00:00:00 Completed [facility] SARS-COV-2 COVID-19 VACCINE - (MODERNA) 2021-05-07 00:00:00 Completed [facility] SARS-COV-2 COVID-19 VACCINE - (MODERNA) 2021-05-07 00:00:00 Completed [facility] SARS-COV-2 COVID-19 VACCINE - (MODERNA) 2021-05-07 00:00:00 Completed [facility] SARS-COV-2 COVID-19 VACCINE - (MODERNA) 2021-04-08 00:00:00 Completed [facility] SARS-COV-2 COVID-19 VACCINE - (MODERNA) 2021-04-08 00:00:00 Completed [facility] SARS-COV-2 COVID-19 VACCINE - (MODERNA) 2021-04-08 00:00:00 Completed [facility] SARS-COV-2 COVID-19 VACCINE - (MODERNA) 2021-04-08 00:00:00 Completed [facility] SARS-COV-2 COVID-19 VACCINE - (MODERNA) 2021-04-08 00:00:00 Completed [facility] SARS-COV-2 COVID-19 VACCINE - (MODERNA) 2021-04-08 00:00:00 Completed [facility] SARS-COV-2 COVID-19 VACCINE - (MODERNA) 2021-04-08 00:00:00 Completed [facility] SARS-COV-2 COVID-19 VACCINE - (MODERNA) 2021-04-08 00:00:00 Completed [facility] SARS-COV-2 COVID-19 VACCINE - (MODERNA) 2021-04-08 00:00:00 Completed [facility] SARS-COV-2 COVID-19 VACCINE - (MODERNA) 2021-04-08 00:00:00 Completed [facility] SARS-COV-2 COVID-19 VACCINE - (MODERNA) 2021-04-08 00:00:00 Completed [facility] SARS-COV-2 COVID-19 VACCINE - (MODERNA) 2021-04-08 00:00:00 Completed [facility] SARS-COV-2 COVID-19 VACCINE - (MODERNA) 2021-04-08 00:00:00 Completed [facility] SARS-COV-2 COVID-19 VACCINE - (MODERNA) 2021-04-08 00:00:00 Completed [facility] SARS-COV-2 COVID-19 VACCINE - (MODERNA) 2021-04-08 00:00:00 Completed [facility] SARS-COV-2 COVID-19 VACCINE - (MODERNA) 2021-04-08 00:00:00 Completed [facility] SARS-COV-2 COVID-19 VACCINE - (MODERNA) 2021-04-08 00:00:00 Completed [facility] SARS-COV-2 COVID-19 VACCINE - (MODERNA) 2021-04-08 00:00:00 Completed [facility] SARS-COV-2 COVID-19 VACCINE - (MODERNA) 2021-04-08 00:00:00 Completed [facility] SARS-COV-2 COVID-19 VACCINE - (MODERNA) 2021-04-08 00:00:00 Completed [facility] SARS-COV-2 COVID-19 VACCINE - (MODERNA) 2021-04-08 00:00:00 Completed [facility] SARS-COV-2 COVID-19 VACCINE - (MODERNA) 2021-04-08 00:00:00 Completed [facility] SARS-COV-2 COVID-19 VACCINE - (MODERNA) 2021-04-08 00:00:00 Completed [facility] SARS-COV-2 COVID-19 VACCINE - (MODERNA) 2021-04-08 00:00:00 Completed [facility] SARS-COV-2 COVID-19 VACCINE - (MODERNA) Unknown Completed [facility] SARS-COV-2 COVID-19 VACCINE - (MODERNA) Unknown Completed [facility] SARS-COV-2 COVID-19 VACCINE - (MODERNA) Unknown Completed [facility] SARS-COV-2 COVID-19 VACCINE - (MODERNA) Unknown Completed [facility] SARS-COV-2 COVID-19 VACCINE - (MODERNA) Unknown Completed [facility] SARS-COV-2 COVID-19 VACCINE - (MODERNA) Unknown Completed [facility] SARS-COV-2 COVID-19 VACCINE - (MODERNA) Unknown Completed [facility] SARS-COV-2 COVID-19 VACCINE - (MODERNA) Unknown Completed [facility] SARS-COV-2 COVID-19 VACCINE - (MODERNA) Unknown Completed [facility] SARS-COV-2 COVID-19 VACCINE - (MODERNA) Unknown Completed [facility] SARS-COV-2 COVID-19 VACCINE - (MODERNA) Unknown Completed [facility] SARS-COV-2 COVID-19 VACCINE - (MODERNA) Unknown Completed [facility] SARS-COV-2 COVID 19 CHERELLE SUCROSE VACCINE 12+, [id number], 0.3 ML (30 MCG), IM PFIZER (RAMIREZ TOP) Unknown Completed [facility] SARS-COV-2 COVID-19 VACCINE - (MODERNA) Unknown Completed [facility] SARS-COV-2 COVID-19 VACCINE - (MODERNA) Unknown Completed [facility] SARS-COV-2 COVID 19 CHERELLE SUCROSE VACCINE 12+, , 0.3 ML (30 MCG), IM PFIZER (RAMIREZ TOP) Unknown Completed [facility] SARS-COV-2 COVID-19 VACCINE - (MODERNA) Unknown Completed [facility] SARS-COV-2 COVID-19 VACCINE - (MODERNA) Unknown Completed [facility] SARS-COV-2 COVID 19 CHERELLE SUCROSE VACCINE 12+, , 0.3 ML (30 MCG), IM PFIZER (RAMIREZ TOP) Unknown Completed [facility] SARS-COV-2 COVID-19 VACCINE - (MODERNA) Unknown Completed [facility] SARS-COV-2 COVID-19 VACCINE - (MODERNA) Unknown Completed [facility] SARS-COV-2 COVID 19 CHERELLE SUCROSE VACCINE 12+, [id number], 0.3 ML (30 MCG), IM PFIZER (RAMIREZ TOP) Unknown Completed [facility] SARS-COV-2 COVID-19 VACCINE - (MODERNA) Unknown Completed [facility] SARS-COV-2 COVID-19 VACCINE - (MODERNA) Unknown Completed [facility] SARS-COV-2 COVID 19 CHERELLE SUCROSE VACCINE 12+, , 0.3 ML (30 MCG), IM PFIZER (RAMIREZ TOP) Unknown Completed [facility] SARS-COV-2 COVID-19 VACCINE - (MODERNA) Unknown Completed [facility] SARS-COV-2 COVID-19 VACCINE - (MODERNA) Unknown Completed [facility] SARS-COV-2 COVID 19 CHERELLE SUCROSE VACCINE 12+, , 0.3 ML (30 MCG), IM PFIZER (RAMIREZ TOP) Unknown Completed [facility] SARS-COV-2 COVID-19 VACCINE - (MODERNA) Unknown Completed [facility] SARS-COV-2 COVID-19 VACCINE - (MODERNA) Unknown Completed [facility] SARS-COV-2 COVID 19 CHERELLE SUCROSE VACCINE +, , 0.3 ML (30 MCG), IM PFIZER (RAMIREZ TOP) Unknown Completed [facility] SARS-COV-2 COVID-19 VACCINE - (MODERNA) Unknown Completed [facility] SARS-COV-2 COVID-19 VACCINE - (MODERNA) Unknown Completed [facility] SARS-COV-2 COVID 19 CHERELLE SUCROSE VACCINE +, , 0.3 ML (30 MCG), IM PFIZER (RAMIREZ TOP) Unknown Completed [facility] SARS-COV-2 COVID-19 VACCINE - (MODERNA) Unknown Completed [facility] SARS-COV-2 COVID-19 VACCINE - (MODERNA) Unknown Completed [facility] SARS-COV-2 COVID 19 CHERELLE SUCROSE VACCINE 12+, , 0.3 ML (30 MCG), IM PFIZER (RAMIREZ TOP) Unknown Completed [facility] SARS-COV-2 COVID-19 VACCINE - (MODERNA) Unknown [facility] [facility] SARS-COV-2 COVID-19 VACCINE - (MODERNA) Unknown Completed [facility] SARS-COV-2 COVID 19 CHERELLE SUCROSE VACCINE 12+, , 0.3 ML (30 MCG), IM PFIZER (RAMIREZ TOP) Unknown Completed [facility] SARS-COV-2 COVID-19 VACCINE - (MODERNA) Unknown Completed [facility] SARS-COV-2 COVID-19 VACCINE - (MODERNA) Unknown Completed [facility] SARS-COV-2 COVID 19 CHERELLE SUCROSE VACCINE 12+, , 0.3 ML (30 MCG), IM PFIZER (RAMIREZ TOP) Unknown Completed [facility] SARS-COV-2 COVID-19 VACCINE - (MODERNA) Unknown Completed [facility] SARS-COV-2 COVID-19 VACCINE - (MODERNA) Unknown Completed [facility] SARS-COV-2 COVID 19 CHERELLE SUCROSE VACCINE 12+, , 0.3 ML (30 MCG), IM PFIZER (RAMIREZ TOP) Unknown Completed [facility] SARS-COV-2 COVID-19 VACCINE - (MODERNA) Unknown Completed [facility] SARS-COV-2 COVID-19 VACCINE - (MODERNA) Unknown Completed [facility] SARS-COV-2 COVID 19 CHERELLE SUCROSE VACCINE +, , 0.3 ML (30 MCG), IM PFIZER (RAMIREZ TOP) Unknown Completed [facility] SARS-COV-2 COVID-19 VACCINE - (MODERNA) Unknown Completed [facility] SARS-COV-2 COVID-19 VACCINE - (MODERNA) Unknown Completed [facility] SARS-COV-2 COVID 19 CHERELLE SUCROSE VACCINE +, , 0.3 ML (30 MCG), IM PFIZER (RAMIREZ TOP) Unknown Completed [facility] SARS-COV-2 COVID-19 VACCINE - (MODERNA) Unknown Completed [facility] SARS-COV-2 COVID-19 VACCINE - (MODERNA) Unknown Completed [facility] SARS-COV-2 COVID 19 CHERELLE SUCROSE VACCINE +, , 0.3 ML (30 MCG), IM PFIZER (RAMIREZ TOP) Unknown Completed [facility] SARS-COV-2 COVID-19 VACCINE - (MODERNA) Unknown Completed [facility] SARS-COV-2 COVID-19 VACCINE - (MODERNA) Unknown Completed [facility] SARS-COV-2 COVID 19 CHERELLE SUCROSE VACCINE 12+, , 0.3 ML (30 MCG), IM PFIZER (RAMIREZ TOP) Unknown Completed [facility] SARS-COV-2 COVID-19 VACCINE - (MODERNA) Unknown Completed [facility] SARS-COV-2 COVID-19 VACCINE - (MODERNA) Unknown Completed [facility] SARS-COV-2 COVID 19 CHERELLE SUCROSE VACCINE 12+, , 0.3 ML (30 MCG), IM PFIZER (RAMIREZ TOP) Unknown Completed [facility] SARS-COV-2 COVID-19 VACCINE - (MODERNA) Unknown Completed [facility] SARS-COV-2 COVID-19 VACCINE - (MODERNA) Unknown Completed [facility] SARS-COV-2 COVID 19 CHERELLE SUCROSE VACCINE 12+, , 0.3 ML (30 MCG), IM PFIZER (RAMIREZ TOP) Unknown Completed [facility] SARS-COV-2 COVID-19 VACCINE - (MODERNA) Unknown Completed [facility] SARS-COV-2 COVID-19 VACCINE - (MODERNA) Unknown Completed [facility] SARS-COV-2 COVID 19 CHERELLE SUCROSE VACCINE +, , 0.3 ML (30 MCG), IM PFIZER (RAMIREZ TOP) Unknown Completed [facility] SARS-COV-2 COVID-19 VACCINE - (MODERNA) Unknown Completed [facility] SARS-COV-2 COVID-19 VACCINE - (MODERNA) Unknown Completed [facility] SARS-COV-2 COVID 19 CHERELLE SUCROSE VACCINE +, , 0.3 ML (30 MCG), IM PFIZER (RAMIREZ TOP) Unknown Completed [facility] SARS-COV-2 COVID-19 VACCINE - (MODERNA) Unknown [facility] VACCINE - (MODERNA) Unknown Completed [facility] SARS-COV-2 COVID 19 CHERELLE SUCROSE VACCINE +, , 0.3 ML (30 MCG), IM PFIZER (RAMIREZ TOP) Unknown Completed [facility] SARS-COV-2 COVID-19 VACCINE - (MODERNA) Unknown Completed [facility] SARS-COV-2 COVID-19 VACCINE - (MODERNA) Unknown Completed [facility] SARS-COV-2 COVID 19 CHERELLE SUCROSE VACCINE 12+, , 0.3 ML (30 MCG), IM PFIZER (RAMIREZ TOP) Unknown Completed [facility] SARS-COV-2 COVID-19 VACCINE - (MODERNA) Unknown Completed [facility] SARS-COV-2 COVID-19 VACCINE - (MODERNA) Unknown Completed [facility] SARS-COV-2 COVID 19 CHERELLE SUCROSE VACCINE , , 0.3 ML (30 MCG), IM PFIZER (ARMIREZ TOP) Unknown Completed [facility] SARS-COV-2 COVID-19 VACCINE - (MODERNA) Unknown Completed [facility] SARS-COV-2 COVID-19 VACCINE - (MODERNA) Unknown Completed [facility] SARS-COV-2 COVID 19 CHERELLE SUCROSE VACCINE +, , 0.3 ML (30 MCG), IM PFIZER (RAMIREZ TOP) Unknown Completed [facility] SARS-COV-2 COVID-19 VACCINE - (MODERNA) Unknown Completed [facility] SARS-COV-2 COVID-19 VACCINE - (MODERNA) Unknown Completed [facility] SARS-COV-2 COVID 19 CHERELLE SUCROSE VACCINE , , 0.3 ML (30 MCG), IM PFIZER (RAMIREZ TOP) Unknown Completed [facility] Vital Signs Vital Name Observation Time Observation Value Comments S ource Systolic blood pressure 2024-02-17 21:30:00 156 mm[Hg] [facility] Diastolic blood pressure 2024-02-17 21:30:00 107 mm[Hg] [facility] Heart rate 2024-02-17 21:30:00 105 /min [facility] Body temperature 2024-02-17 21:30:00 37.11 Nina [facility] Respiratory rate 2024-02-17 21:30:00 16 /min [facility] Oxygen saturation in Arterial blood by Pulse oximetry 2024-02-17 21:30:00 100 /min [facility] Body height 2024-02-14 14:07:00 170.2 cm [facility] Body weight 2024-02-14 14:07:00 95.255 kg [facility] BMI 2024-02-14 14:07:00 32.89 kg/m2 [facility] Systolic blood pressure 2024-01-03 20:22:00 123 mm[Hg] [facility] Diastolic blood pressure 2024-01-03 20:22:00 70 mm[Hg] [facility] Heart rate 2024-01-03 20:20:00 110 /min [facility] Body temperature 2024-01-03 20:20:00 36.61 Nina [facility] Respiratory rate 2024-01-03 20:20:00 20 /min [facility] Body height 2024-01-03 20:20:00 170.2 cm [facility] Body weight 2024-01-03 20:20:00 92.534 kg [facility] BMI 2024-01-03 20:20:00 31.95 kg/m2 [facility] Oxygen saturation in Arterial blood by Pulse oximetry 2024-01-03 20:20:00 97 /min [facility] Systolic blood pressure 2023-10-17 19:05:00 127 mm[Hg] [facility] Diastolic blood pressure 2023-10-17 19:05:00 85 mm[Hg] [facility] Heart rate 2023-10-17 19:05:00 79 /min [facility] Body temperature 2023-10-17 19:05:00 36.67 Nina [facility] Respiratory rate 2023-10-17 19:05:00 18 /min [facility] Body height 2023-10-17 19:05:00 170.2 cm [facility] Body weight 2023-10-17 19:05:00 82.237 kg [facility] BMI 2023-10-17 19:05:00 28.40 kg/m2 [facility] Oxygen saturation in Arterial blood by Pulse oximetry 2023-10-17 19:05:00 98 /min [facility] Systolic blood pressure 2023-10-08 14:44:00 109 mm[Hg] [facility] Diastolic blood pressure 2023-10-08 14:44:00 66 mm[Hg] [facility] Heart rate 2023-10-08 13:14:00 94 /min [facility] Body temperature 2023-10-08 13:14:00 36.83 Nina [facility] Respiratory rate 2023-10-08 13:14:00 18 /min [facility] Oxygen saturation in Arterial blood by Pulse oximetry 2023-10-08 13:14:00 94 /min [facility] Body height 2023-10-04 13:12:00 170.2 cm [facility] Body weight 2023-10-04 13:12:00 84.823 kg [facility] BMI 2023-10-04 13:12:00 29.29 kg/m2 [facility] Systolic blood pressure 2023-09-06 20:00:00 120 mm[Hg] home readings [facility] Diastolic blood pressure 2023-09-06 20:00:00 80 mm[Hg] home readings [facility] Heart rate 2023-09-06 19:24:00 117 /min [facility] Body temperature 2023-09-06 19:24:00 37.56 Nina [facility] Respiratory rate 2023-09-06 19:24:00 18 /min [facility] Body height 2023-09-06 19:24:00 167.6 cm [facility] Body weight 2023-09-06 19:24:00 85.14 kg [facility] BMI 2023-09-06 19:24:00 30.30 kg/m2 [facility] Oxygen saturation in Arterial blood by Pulse oximetry 2023-09-06 19:24:00 98 /min [facility] Systolic blood pressure 2023-07-19 18:56:00 131 mm[Hg] [facility] Diastolic blood pressure 2023-07-19 18:56:00 84 mm[Hg] [facility] Heart rate 2023-07-19 18:56:00 56 /min [facility] Body temperature 2023-07-19 18:56:00 36.22 Nina [facility] Respiratory rate 2023-07-19 18:56:00 18 /min [facility] Body height 2023-07-19 18:56:00 167.6 cm [facility] Body weight 2023-07-19 18:56:00 88.179 kg [facility] BMI 2023-07-19 18:56:00 31.38 kg/m2 [facility] Oxygen saturation in Arterial blood by Pulse oximetry 2023-07-19 18:56:00 99 /min [facility] Systolic blood pressure 2023-07-14 13:09:00 112 mm[Hg] [facility] Diastolic blood pressure 2023-07-14 13:09:00 76 mm[Hg] [facility] Heart rate 2023-07-14 13:09:00 90 /min [facility] Body temperature 2023-07-14 13:09:00 36.39 Nina [facility] Respiratory rate 2023-07-14 13:09:00 18 /min [facility] Body height 2023-07-14 13:09:00 167.6 cm [facility] Body weight 2023-07-14 13:09:00 87.59 kg [facility] BMI 2023-07-14 13:09:00 31.17 kg/m2 [facility] Oxygen saturation in Arterial blood by Pulse oximetry 2023-07-14 13:09:00 97 /min [facility] Systolic blood pressure 2023-06-07 14:47:00 104 mm[Hg] [facility] Diastolic blood pressure 2023-06-07 14:47:00 68 mm[Hg] [facility] Heart rate 2023-06-07 14:47:00 76 /min [facility] Body temperature 2023-06-07 14:47:00 36.17 Nina [facility] Respiratory rate 2023-06-07 14:47:00 12 /min [facility] Body height 2023-06-07 14:47:00 167.6 cm [facility] Body weight 2023-06-07 14:47:00 86.909 kg [facility] BMI 2023-06-07 14:47:00 30.93 kg/m2 [facility] Oxygen saturation in Arterial blood by Pulse oximetry 2023-06-07 14:47:00 97 /min [facility] Systolic blood pressure 2023-05-28 00:39:26 161 mm[Hg] [facility] Diastolic blood pressure 2023-05-28 00:39:26 106 mm[Hg] [facility] Heart rate 2023-05-28 00:39:26 102 /min [facility] Body temperature 2023-05-28 00:39:26 36.67 Nina [facility] Respiratory rate 2023-05-28 00:39:26 16 /min [facility] Oxygen saturation in Arterial blood by Pulse oximetry 2023-05-28 00:39:26 100 /min [facility] Body weight 2023-05-27 19:46:00 87.091 kg [facility] BMI 2023-05-27 19:46:00 30.99 kg/m2 [facility] Systolic blood pressure 2023-05-10 18:23:00 130 mm[Hg] [facility] Diastolic blood pressure 2023-05-10 18:23:00 87 mm[Hg] [facility] Heart rate 2023-05-10 18:23:00 80 /min [facility] Body temperature 2023-05-10 18:23:00 36.78 Nina [facility] Respiratory rate 2023-05-10 18:23:00 18 /min [facility] Body height 2023-05-10 18:23:00 167.6 cm [facility] Body weight 2023-05-10 18:23:00 87.408 kg [facility] BMI 2023-05-10 18:23:00 31.10 kg/m2 [facility] Oxygen saturation in Arterial blood by Pulse oximetry 2023-05-10 18:23:00 98 /min [facility] Systolic blood pressure 2023-05-02 18:12:00 155 mm[Hg] [facility] Diastolic blood pressure 2023-05-02 18:12:00 103 mm[Hg] [facility] Heart rate 2023-05-02 18:08:00 81 /min [facility] Body temperature 2023-05-02 18:08:00 36.33 Nina [facility] Respiratory rate 2023-05-02 18:08:00 16 /min [facility] Body height 2023-05-02 18:08:00 167.6 cm [facility] Body weight 2023-05-02 18:08:00 88.179 kg [facility] BMI 2023-05-02 18:08:00 31.38 kg/m2 [facility] Oxygen saturation in Arterial blood by Pulse oximetry 2023-05-02 18:08:00 98 /min [facility] Systolic blood pressure 2022-06-24 16:30:00 143 mm[Hg] [facility] Diastolic blood pressure 2022-06-24 16:30:00 96 mm[Hg] [facility] Heart rate 2022-06-24 16:30:00 78 /min [facility] Body temperature 2022-06-24 16:30:00 36.61 Nina [facility] Respiratory rate 2022-06-24 16:30:00 18 /min [facility] Oxygen saturation in Arterial blood by Pulse oximetry 2022-06-24 16:30:00 97 /min [facility] Body weight 2022-06-24 08:59:00 65.998 kg [facility] BMI 2022-06-24 08:59:00 23.48 kg/m2 [facility] Body height 2022-06-21 17:12:00 167.6 cm [facility] Systolic blood pressure 2022-04-14 17:48:00 135 mm[Hg] [facility] Diastolic blood pressure 2022-04-14 17:48:00 103 mm[Hg] [facility] Heart rate 2022-04-14 17:48:00 85 /min [facility] Body temperature 2022-04-14 17:46:00 36.17 Nina [facility] Body height 2022-04-14 17:46:00 168.9 cm [facility] Body weight 2022-04-14 17:46:00 86.229 kg [facility] BMI 2022-04-14 17:46:00 30.22 kg/m2 [facility] Oxygen saturation in Arterial blood by Pulse oximetry 2022-04-14 17:46:00 98 /min [facility] Procedures Procedure Date / Time Performed Performing Clinician Source POTASSIUM SERUM 2024-02-17 21:00:00 Fabi Diehl [facility] PHOSPHORUS 2024-02-17 10:36:00 Fabi Diehl [facility] MAGNESIUM 2024-02-17 10:36:00 Fabi Diehl [facility] BASIC METABOLIC PANEL (NA, K, CL, CO2, GLUCOSE, BUN, CREATININE, CA) 2024-02-17 10:36:00 Fabi Diehl [facility] CBC WITH DIFF 2024-02-17 10:36:00 Fabi Diehl [facility] PHOSPHORUS 2024-02-15 07:46:00 Alanna Arenas [facility] MAGNESIUM 2024-02-15 07:46:00 Alanna Arenas [facility] FREE T4 2024-02-15 07:46:00 Alanna Arenas [facility] COMP. METABOLIC PANEL ([id number]) 2024-02-15 07:46:00 Alanna Arenas [facility] CBC WITH DIFF 2024-02-15 07:46:00 Alanna Arenas [facility] SERUM DRUG (IMMUNOASSAY) - COMPREHENSIVE DRUG SCREEN 2024-02-15 01:21:00 Alanna Arenas [facility] BLOOD CULTURE SCREEN 2024-02-14 19:07:00 Cuba Adams [facility] LACTIC ACID WHOLE BLOOD 2024-02-14 18:43:00 Migel Adams [facility] BLOOD CULTURE SCREEN 2024-02-14 18:41:00 Cuba Adams [facility] URINE CULTURE 2024-02-14 18:31:00 Cuba Adams [facility] EXTRA TUBE URINE 2024-02-14 18:31:00 Alanna Arenas [facility] EKG-12 LEAD 2024-02-14 18:21:53 Cuba Adams [facility] CT ABDOMEN PELVIS W CONTRAST 2024-02-14 17:25:50 Cuba Adams [facility] URINALYSIS 2024-02-14 17:06:00 Cuba Adams [facility] EXTRA TUBE URINE CULTURE 2024-02-14 17:06:00 Ebony Adams [facility] LIPASE 2024-02-14 14:40:00 Cuba Adams [facility] TEST, SERUM 2024-02-14 14:40:00 Ed Adams [facility] TROPONIN I 2024-02-14 14:40:00 Cuba Adams [facility] THYROID STIMULATING HORMONE 2024-02-14 14:40:00 Alanna Arenas [facility] COMP. METABOLIC PANEL ([id number]) 2024-02-14 14:40:00 Cuba Adams [facility] IRON PANEL 2024-02-14 14:40:00 Alanna Arenas [facility] ETHANOL 2024-02-14 14:40:00 Alanna Arenas [facility] CBC WITH DIFF 2024-02-14 14:40:00 Cuba Adams [facility] RETICULOCYTES AUTOMATED 2024-02-14 14:40:00 Ashlee Arenas [facility] EXTRA TUBE LT. GREEN 2024-02-14 14:40:00 Cuba Adams [facility] VITAMIN B12, LEVEL 2024-02-10 16:31:00 [facility] 2024-02-10 16:31:00 Alanna Arenas [facility] POCT SARS-COV-2 ANTIGEN (BINAX NOW) 2024-01-03 21:10:00 Antonio [facility] POCT MOLECULAR FLU 2024-01-03 20:59:00 Antonio [facility] MAGNESIUM 2023-10-08 10:06:00 Giovanna Olvera [facility] BASIC METABOLIC PANEL (NA, K, CL, CO2, GLUCOSE, BUN, CREATININE, CA) 2023-10-08 10:06:00 Freddie [facility] XR KUB 2023-10-07 15:30:28 Giovanna Olvera [facility] BASIC METABOLIC PANEL (NA, K, CL, CO2, GLUCOSE, BUN, CREATININE, CA) 2023-10-07 11:57:00 Freddie [facility] CBC WITHOUT DIFF 2023-10-07 11:57:00 [facility] BASIC METABOLIC PANEL (NA, K, CL, CO2, GLUCOSE, BUN, CREATININE, CA) 2023-10-06 11:11:00 Giovanna Olvera [facility] CBC WITHOUT DIFF 2023-10-06 11:11:00 [facility] TROPONIN I 2023-10-05 12:25:00 Freddie [facility] ACTIVATED PARTIAL THRMPLAS LEAH 2023-10-05 12:25:00 Freddie [facility] CBC WITH DIFF 2023-10-05 06:31:00 Inez [facility] BLOOD CULTURE SCREEN 2023-10-05 06:26:00 Inez [facility] MAGNESIUM 2023-10-05 06:25:00 Inez [facility] TROPONIN I 2023-10-05 06:25:00 Freddie [facility] BASIC METABOLIC PANEL (NA, K, CL, CO2, GLUCOSE, BUN, CREATININE, CA) 2023-10-05 06:25:00 Inez [facility] PROTHROMBIN TIME / INR 2023-10-05 06:25:00 John Menendez [facility] ACTIVATED PARTIAL THRMPLAS LEAH 2023-10-05 06:25:00 Freddie [facility] TROPONIN I 2023-10-05 02:45:00 Inez [facility] BASIC METABOLIC PANEL (NA, K, CL, CO2, GLUCOSE, BUN, CREATININE, CA) 2023-10-05 02:45:00 Inez [facility] CT ABDOMEN PELVIS WO CONTRAST 2023-10-04 18:37:39 Edinson Leonard [facility] URINALYSIS 2023-10-04 18:18:00 Edinson Leonard [facility] POCT TEST 2023-10-04 18:08:00 Edinson Leonard [facility] HB ECG ROUTINE & RHYTHM STRIP 2023-10-04 17:30:07 Edinson Leonard [facility] LIPASE 2023-10-04 15:57:00 Edinson Leonard [facility] COMP. METABOLIC PANEL ([id number]) 2023-10-04 15:57:00 Edinson Leonard [facility] TROPONIN I 2023-10-04 14:47:00 Edinson Leonard [facility] CBC WITH DIFF 2023-10-04 14:47:00 Edinson Leonard [facility] SARS-COV-2 COVID 19 CHERELLE SUCROSE VACCINE 12+, , 0.3 ML (30 MCG), IM PFIZER (RAMIREZ TOP) 2023-09-06 20:05:18 Hernán Alvarez [facility] POCT URINALYSIS 2023-07-19 00:00:00 Hernán Alvarez [facility] EXTERNAL PROVIDER RECORDS 2023-06-16 05:01:00 Do ctor Unassigned, [place] [facility] [facility] LACTIC ACID WHOLE BLOOD 2023-05-27 23:57:00 Zay Reed [facility] URINALYSIS 2023-05-27 22:14:00 Karo Reed [facility] TEST, SERUM 2023-05-27 22:13:00 Ivette Reed [facility] URINE DRUG (IMMUNOASSAY) - COMPREHENSIVE DRUG SCREEN 2023-05-27 22:13:00 Karo Reed [facility] LACTIC ACID WHOLE BLOOD 2023-05-27 20:35:00 Zay Reed [facility] LIPASE 2023-05-27 20:34:00 Karo Reed [facility] COMP. METABOLIC PANEL (45467) 2023-05-27 20:34:00 Karo Reed [facility] CBC WITH DIFF 2023-05-27 20:34:00 Kaor Reed [facility] XR CHEST 1 VW 2023-05-27 20:05:00 Karo Reed [facility] THYROID STIMULATING HORMONE 2023-05-04 20:13:00 Antonio [facility] COMP. METABOLIC PANEL (34417) 2023-05-04 20:13:00 Antonio [facility] LIPID PANEL (18913)(TOTAL CHOLESTEROL, TRIGLYCERIDES, HDL) 2023-05-04 20:13:00 Antonio [facility] CBC WITH DIFF 2023-05-04 20:13:00 Antonio [facility] ASSIGNMENT OF BENEFITS 2023-05-02 18:00:24 Docto r Unassigned, [place] [facility] AUTHORIZATION FOR RELEASE OF PHI 2022-12-22 06:01:00 Doctor Unassigned, [place] [facility] INSURANCE CORRESPONDENCE 2022-06-30 05:01:00 Doc tor Unassigned, [place] [facility] POCT GLUCOSE (AUTOMATED) 2022-06-24 16:45:00 Michael dodd [facility] POCT GLUCOSE (AUTOMATED) 2022-06-24 13:08:00 Michael dodd [facility] MAGNESIUM 2022-06-24 09:04:00 Grisel Menendez [facility] BASIC METABOLIC PANEL (NA, K, CL, CO2, GLUCOSE, BUN, CREATININE, CA) 2022-06-24 09:04:00 Grisel Menendez [facility] CBC WITH DIFF 2022-06-24 09:04:00 Grisel Menendez [facility] POCT GLUCOSE (AUTOMATED) 2022-06-24 09:01:00 Terminell deisi [facility] POCT GLUCOSE (AUTOMATED) 2022-06-24 04:55:00 Terminell deisi [facility] POCT GLUCOSE (AUTOMATED) 2022-06-24 02:04:00 Terminell deisi [facility] POCT GLUCOSE (AUTOMATED) 2022-06-23 23:08:00 Michael dodd [facility] POCT GLUCOSE (AUTOMATED) 2022-06-23 17:21:00 Michael dodd [facility] POCT GLUCOSE (AUTOMATED) 2022-06-23 12:53:[address] [facility] MAGNESIUM 2022-06-23 09:14:00 Grisel Menendez [facility] BASIC METABOLIC PANEL (NA, K, CL, CO2, GLUCOSE, BUN, CREATININE, CA) 2022-06-23 09:14:00 Jonah [facility] CBC WITH DIFF 2022-06-23 09:14:00 [facility] POCT GLUCOSE (AUTOMATED) 2022-06-23 09:13:00 Albanne [facility] POCT GLUCOSE (AUTOMATED) 2022-06-23 04:57:00 Eliseo [facility] POCT GLUCOSE (AUTOMATED) 2022-06-23 01:03:00 [facility] PO[facility] (AUTOMATED) 2022-06-22 23:36:[address] [facility] MAGNESIUM 2022-06-22 23:34:00 Jonah Brian [facility] BASIC METABOLIC PANEL (NA, K, CL, CO2, GLUCOSE, BUN, CREATININE, CA) 2022-06-22 23:34:00 Jonah [facility] POCT GLUCOSE (AUTOMATED) 2022-06-22 22:32:00 [facility] POCT GLUCOSE (AUTOMATED) 2022-06-22 20:05:00 Albsumeetami [facility] POCT GLUCOSE (AUTOMATED) 2022-06-22 17:39:00 [facility] POCT GLUCOSE (AUTOMATED) 2022-06-22 16:37:00 [facility] 2022-06-22 15:25:00 [facility] TRANSTHORACIC ECHO (TTE) COMPLETE W/ CONTRAST 2022-06-22 14:41:00 [facility] BASIC METABOLIC PANEL (NA, K, CL, CO2, GLUCOSE, BUN, CREATININE, CA) 2022-06-22 14:17:00 Brian Mckenzie [facility] POCT GLUCOSE (AUTOMATED) 2022-06-22 14:17:00 [facility] ([facility]OMATED) 2022-06-22 12:34:00 Albustami [facility] POCT GLUCOSE (AUTOMATED) 2022-06-22 11:01:[address] [facility] POCT GLUCOSE (AUTOMATED) 2022-06-22 10:01:00 [facility] 2022-06-22 08:59:00 Grisel Menendez [facility] COMP. METABOLIC PANEL (23381) 2022-06-22 08:59:[address] [facility] CBC WITH DIFF 2022-06-22 08:59:00 [facility] POCT GLUCOSE (AUTOMATED) 2022-06-22 08:56:00 Albustami , [facility] POCT GLUCOSE (AUTOMATED) 2022-06-22 07:59:00 [facility]UCOSE ([facility]OMATED) 2022-06-22 06:55:[address] [facility] POCT GLUCOSE (AUTOMATED) 2022-06-22 06:00:00 Albustami , [facility] POCT GLUCOSE (AUTOMATED) 2022-06-22 05:00:00 [facility] BASIC METABOLIC PANEL (NA, K, CL, CO2, GLUCOSE, BUN, CREATININE, CA) 2022-06-22 04:17:[address] [facility] POCT GLUCOSE (AUTOMATED) 2022-06-22 04:01:00 Albustami , [facility] POCT GLUCOSE (AUTOMATED) 2022-06-22 02:51:00 Albustami , [facility] POCT GLUCOSE (AUTOMATED) 2022-06-22 01:37:[address] [facility] BASIC METABOLIC PANEL (NA, K, CL, CO2, GLUCOSE, BUN, CREATININE, CA) 2022-06-22 00:25:[address] [facility] POCT GLUCOSE (AUTOMATED) 2022-06-22 00:24:[address] [facility] POCT GLUCOSE (AUTOMATED) 2022-06-21 22:58:[address] [facility] POCT GLUCOSE (AUTOMATED) 2022-06-21 21:11:[address] [facility] POCT GLUCOSE (AUTOMATED) 2022-06-21 19:58:[address] [facility] BASIC METABOLIC PANEL (NA, K, CL, CO2, GLUCOSE, BUN, CREATININE, CA) 2022-06-21 19:57:[address] [facility] LACTIC ACID WHOLE BLOOD 2022-06-21 19:57:00 Freddie [facility] POCT GLUCOSE (AUTOMATED) 2022-06-21 18:45:[address] [facility] PHOSPHORUS 2022-06-21 17:27:00 Freddie [facility] MAGNESIUM 2022-06-21 17:27:00 Freddie [facility] TROPONIN I 2022-06-21 17:27:00 Eliseo Finesse [facility] BASIC METABOLIC PANEL (NA, K, CL, CO2, GLUCOSE, BUN, CREATININE, CA) 2022-06-21 17:27:[address] [facility] POCT GLUCOSE (AUTOMATED) 2022-06-21 17:27:00 [facility] / MSSA SCREEN BY TONI KHOURY 2022-06-21 17:21:00 [facility] OSMOLALITY, SERUM OR PLASMA 2022-06-21 13:42:[address] [facility] BASIC METABOLIC PANEL (NA, K, CL, CO2, GLUCOSE, BUN, CREATININE, CA) 2022-06-21 13:42:[address] [facility] BETA HYDROXY-BUTYRATE 2022-06-21 11:04:[address] [facility] TROPONIN I 2022-06-21 11:04:00 Finesse [facility] FREE T4 2022-06-21 11:04:00 [facility] 2022-06-21 09:32:38 Leeann [place] LACTIC ACID WHOLE BLOOD 2022-06-21 08:09:00 Leeann [facility] URINALYSIS 2022-06-21 06:01:00 Leeann [facility] URINE CULTURE 2022-06-21 06:00:00 Leeann [place] URINE DRUG (IMMUNOASSAY) - COMPREHENSIVE DRUG SCREEN W/O REFLEX 2022-06-21 05:59:[address] [facility] [address] ABDOMEN PELVIS W CONTRAST 2022-06-21 04:32:[address] [facility] [address] HEAD WO CONTRAST 2022-06-21 04:32:10 Annetta Bradshaw [facility] CT CHEST PULMONARY ANGIOGRAM 2022-06-21 04:30:00 Leeann [facility] PROCALCITONIN 2022-06-21 04:11:00 Leeann [place] LACTIC ACID WHOLE BLOOD 2022-06-21 04:10:00 Leeann [facility] BLOOD CULTURE SCREEN 2022-06-21 04:09:00 Leeann [facility] LIPASE 2022-06-21 03:05:00 [facility] MAGN[facility]UM 2022-06-21 03:05:00 Finesse [facility]omes [facility] TROPONIN I 2022-06-21 03:05:00 Leeann [facility] THYROID STIMULATING HORMONE 2022-06-21 03:05:00 Leeann [facility] COMP. METABOLIC PANEL (47666) 2022-06-21 03:05:00 Leeann [facility] LIPID PANEL (56564)(TOTAL CHOLESTEROL, TRIGLYCERIDES, HDL) 2022-06-21 03:05:[address] [facility] CBC WITH DIFF 2022-06-21 03:05:00 [facility] GLYCOS[facility] HEMOGLOBIN (A1C) 2022-06-21 03:05:[address] [facility] N-TERMINAL PRO-BNP 2022-06-21 03:05:00 Leeann [facility] COVID-19 (ID NOW RAPID TESTING) 2022-06-21 03:05:00 [facility] ONLY COVID INTERPRETATION 2022-06-21 03:05:00 Leeann [facility] XR CHEST 1 VW 2022-06-21 02:56:00 [facility]-20 05:01:00 Doctor Un assigned, [place] [facility] Plan of Care Planned Activity Planned Date Details Comments Source Encounters Start Date/Time End Date/Time Encounter Type Admission Type Attending Clinicians Care Facility Care Department Encounter ID Source 2023-10-05 15:17:49 Outpatient RYLAND SPARKS [facility] [id number] [facility] 2023-05-23 06:05:30 Outpatient [facility] [id number] [facility] 2024-02-14 09:10:00 2024-02-17 17:51:00 Inpatient Fernie JASMINA [facility] [id number] [facility] 2024-02-14 09:10:00 2024-02-17 17:51:00 Hospital Encounter Cuba Adams Rachel Mougouris [facility] ([facility] 1.2.840.114 350.1.13.10 4.2.7.2.686 [id number] [facility] 2024-02-14 00:00:00 2024-02-14 00:00:00 Transition of Care Bhupinder Gomez RAGHU ACOSTA 1.2.840.114 350.1.13.10 4.2.7.2.686 [id number] [facility] 2024-02-08 18:21:00 2024-02-13 11:22:00 Inpatient X FRANCIE HERNANDEZ ATUL [facility] JONATHAN [id number] [facility] 2024-02-10 08:07:00 2024-02-10 23:59:00 Hospital Encounter Isabel Dung MEL[facility]EL[facility] 1.2.840.114 350.1.13.10 4.2.7.2.686 [id number] [facility] 2024-01-03 14:30:00 2024-01-03 15:00:00 Office Visit Hernán Alvarez [facility] 1.2.840.114 350.1.13.10 4.2.7.2.686 [id number] [facility] 2024-01-03 14:30:00 2024-01-03 14:30:00 Outpatient R HERNÁN ALVAREZ [facility] [id number] [facility] 2023-12-09 00:00:00 2023-12-09 00:00:00 Refill Hernán Alvarez [facility] [place] 1.2.840.114 350.1.13.10 4.2.7.2.686 [id number] [facility] 2023-11-29 00:00:00 2023-11-29 00:00:00 Letter (Out) [facility] 1.2.840.114 350.1.13.10 4.2.7.2.686 [id number] [facility] 2023-11-28 00:00:00 2023-11-28 00:00:00 Telephone Hernán Alvarez [facility] [place] 1.2.840.114 350.1.13.10 4.2.7.2.686 [id number] [facility] 2023-11-17 00:00:00 2023-11-17 00:00:00 Patient Secure Msg Doctor Unassigned, [place] [facility] [place] 1.2.840.114 350.1.13.10 4.2.7.2.686 [id number] [facility] 2023-10-26 00:00:00 2023-10-26 00:00:00 Letter (Out) [facility] 1.2.840.114 350.1.13.10 4.2.7.2.686 [id number] [facility] 2023-10-17 13:00:00 2023-10-17 13:30:00 Office Visit Hernán Alvarez [facility] [place] 1.2840.114 350.1.13.10 4.2.7.2.686 [id number] [facility] 2023-10-17 13:00:00 2023-10-17 13:00:00 Outpatient R HERNÁN ALVAREZ [facility] [id number] [facility] 2023-10-11 00:00:00 2023-10-11 00:00:00 Patient Secure Msg Doctor Unassigned, [place] [facility] 1.2.840.114 350.1.13.10 4.2.7.2.686 [id number] [facility] 2023-10-10 00:00:00 2023-10-10 00:00:00 Transition of Care Bhupinder Gomez 1.2.840.114 350.1.13.10 4.2.7.2.686 [id number] [facility] 2023-10-10 00:00:00 2023-10-10 00:00:00 Patient Secure Msg Doctor Unassigned, [place] [facility] 1.2.840.114 350.1.13.10 4.2.7.2.686 [id number] [facility] 2023-10-04 07:16:00 2023-10-08 14:20:00 Inpatient X GIOVANNA OLVERA STEVEN [facility] [id number] [facility] 2023-10-04 07:16:00 2023-10-08 14:20:00 Hospital Encounter Edinson Leonard Giovanna [facility] 1.2.840.114 350.1.13.10 4.2.7.2.686 [id number] [facility] 2023-10-06 00:00:00 2023-10-06 00:00:00 Patient Secure Msg Doctor Unassigned, [place] [facility] 1.2.840.114 350.1.13.10 4.2.7.2.686 [id number] [facility] 2023-10-05 00:00:00 2023-10-05 00:00:00 Telephone Rocael salazar [facility] MEDICAL OFFICE BUILDING 1.2.840.114 350.1.13.10 4.2.7.2.686 [id number] [facility] 2023-09-29 00:00:00 2023-09-29 00:00:00 Refill Hernán Alvarez [facility] 1.2.840.114 350.1.13.10 4.2.7.2.686 [id number] [facility] 2023-09-23 00:00:00 2023-09-23 00:00:00 Refill Hernán Alvarez [facility] 1.2.840.114 350.1.13.10 4.2.7.2.686 [id number] [facility] 2023-09-10 00:00:00 2023-09-10 00:00:00 Refill Diego, [facility] 1.2.840.114 350.1.13.10 4.2.7.2.686 [id number] [facility] 2023-09-06 14:30:00 2023-09-06 15:00:00 Office Visit Hernán Alvarez [facility] 1.2.840.114 350.1.13.10 4.2.7.2.686 [id number] [facility] 2023-09-06 14:30:00 2023-09-06 14:30:00 Outpatient R HERNÁN ALVAREZ [facility] [id number] [facility] 2023-09-06 00:00:00 2023-09-06 00:00:00 Telephone Antonio, Hernán [facility] 1.2.840.114 350.1.13.10 4.2.7.2.686 [id number] [facility] 2023-09-06 00:00:00 2023-09-06 00:00:00 Telephone Hernán Alvarez [facility] 1.2.840.114 350.1.13.10 4.2.7.2.686 [id number] [facility] 2023-08-12 00:00:00 2023-08-12 00:00:00 Liana Diego [facility] 1.2.840.114 350.1.13.10 4.2.7.2.686 [id number] [facility] 2023-07-28 00:00:00 2023-07-28 00:00:00 Patient Secure Msg Doctor Unassigned, [place] [facility] 1.2.840.114 350.1.13.10 4.2.7.2.686 [id number] [facility] 2023-07-27 00:00:00 2023-07-27 00:00:00 Telephone Hernán Alvarez [facility] 1.2840.114 350.1.13.10 4.2.7.2.686 [id number] [facility] 2023-07-22 00:00:00 2023-07-22 00:00:00 Patient Secure Msg Doctor Unassigned, [place] [facility] 1.2840.114 350.1.13.10 4.2.7.2.686 [id number] [facility] 2023-07-20 13:30:00 2023-07-20 13:45:00 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, [facility] AntonioHernán [facility] 1.2840.114 350.1.13.10 4.2.7.2.686 [id number] [facility] 2023-07-20 13:30:00 2023-07-20 13:30:00 Outpatient R HERNÁN ALVAREZ [facility] [id number] [facility] 2023-07-19 14:00:00 2023-07-19 14:30:00 Office Visit Hernán Alvarez [facility] 1.2840.114 350.1.13.10 4.2.7.2.686 [id number] [facility] 2023-07-19 14:00:00 2023-07-19 14:00:00 Outpatient Rivas HERNÁN ALVAREZ [facility] [id number] [facility] 2023-07-19 00:00:00 2023-07-19 00:00:00 Patient Secure Msg Doctor Unassigned, [place] [facility] 1.2840.114 350.1.13.10 4.2.7.2.686 [id number] [facility] 2023-07-14 08:30:00 2023-07-14 09:00:00 Office Visit Deion Cortez Joseph Marc [facility] 1.2.840.114 350.1.13.10 4.2.7.2.686 [id number] [facility] 2023-07-14 08:30:00 2023-07-14 08:30:00 Outpatient R CHANTELLLITO [facility] [id number] [facility] 2023-06-29 00:00:00 2023-06-29 00:00:00 Refill AntonioHernán [facility] 1.2840.114 350.1.13.10 4.2.7.2.686 [id number] [facility] 2023-06-16 00:00:00 2023-06-16 00:00:00 Orders Only Doctor Unassigned, [place] [facility] 1.2840.114 350.1.13.10 4.2.7.2.686 [id number] [facility] 2023-06-13 15:00:00 2023-06-13 15:00:00 Outpatient R MONSTER OLMOS [facility] [id number] [facility] 2023-06-07 10:00:00 2023-06-07 10:30:00 Office Visit AntonioHernán [facility] 1.2.840.114 350.1.13.10 4.2.7.2.686 [id number] [facility] 2023-06-07 10:00:00 2023-06-07 10:00:00 Outpatient R ANTONIOHERNÁN [facility] [id number] [facility] 2023-05-29 00:00:00 2023-05-29 00:00:00 Liana LiunHernán [facility] 1.2840.114 350.1.13.10 4.2.7.2.686 [id number] [facility] 2023-05-27 14:48:00 2023-05-27 19:42:00 Emergency X KARO REED [facility] ERT [id number] [facility] 2023-05-27 14:48:00 2023-05-27 19:42:00 Emergency Karo Reed [facility] 1.2840.114 350.1.13.10 4.2.7.2.686 [id number] [facility] 2023-05-20 01:37:00 2023-05-24 08:37:00 Inpatient JUD [id number] [facility] 2023-05-24 00:00:00 2023-05-24 00:00:00 Hernán Link [facility] 1.2.840.114 350.1.13.10 4.2.7.2.686 [id number] [facility] 2023-05-21 11:00:00 2023-05-21 11:00:00 Outpatient [facility] [id number] [facility] 2023-05-19 00:00:00 2023-05-19 00:00:00 Patient Secure Msg Doctor Unassigned, [place] [facility] 1.2840.114 350.1.13.10 4.2.7.2.686 [id number] [facility] 2023-05-10 13:30:00 2023-05-10 14:00:00 Office Visit Hernán Alvarez [facility] 1.2.840.114 350.1.13.10 4.2.7.2.686 [id number] [facility] 2023-05-10 13:30:00 2023-05-10 13:30:00 Outpatient HERNÁN WRIGHT [facility] [id number] [facility] 2023-05-06 00:00:00 2023-05-06 00:00:00 Patient Secure Msg Doctor Unassigned, [place] [facility] 1.2840.114 350.1.13.10 4.2.7.2.686 [id number] [facility] 2023-05-04 15:00:00 2023-05-04 15:15:00 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, [facility] Hernán Alvarez [facility] 1.2840.114 350.1.13.10 4.2.7.2.686 [id number] [facility] 2023-05-04 15:00:00 2023-05-04 15:00:00 Outpatient R HERNÁN ALVAERZ [facility] [id number] [facility] 2023-05-04 00:00:00 2023-05-04 00:00:00 Telephone Hernán Alvarez [facility] 1.2.840.114 350.1.13.10 4.2.7.2.686 [id number] [facility] 2023-05-03 10:15:00 2023-05-03 10:15:00 Outpatient HERNÁN WRIGHT [facility] [id number] [facility] 2023-05-02 13:00:00 2023-05-02 13:30:00 Office Visit Hernán Alvarez [facility] 1.2840.114 350.1.13.10 4.2.7.2.686 [id number] [facility] 2023-05-02 13:00:00 2023-05-02 13:00:00 Outpatient R HERNÁN ALVAREZ [facility] [id number] [facility] 2023-05-02 00:00:00 2023-05-02 00:00:00 Orders Only Doctor Unassigned, [place] [facility] 1.2840.114 350.1.13.10 4.2.7.2.686 [id number] [facility] 2022-12-22 00:00:00 2022-12-22 00:00:00 Orders Only Doctor Unassigned, [place] [facility] 1.2.840.114 350.1.13.10 4.2.7.2.686 [id number] [facility] 2022-07-08 20:00:00 2022-07-08 22:30:00 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, [facility] Kashif Hampton [facility] 1.840.114 350.1.13.10 4.2.7.2.686 [id number] [facility] 2022-07-08 20:00:00 2022-07-08 20:00:00 [facility] [id number] [facility] 2022-07-08 20:00:00 2022-07-08 20:00:00 [facility] [id number] [facility] 2022-07-06 15:00:00 2022-07-06 15:15:00 Laboratory Only Only, Lcc Test Domenic Felixh Vincenzo [facility] 1.840.114 350.1.13.10 4.2.7.2.686 [id number] [facility] 2022-07-06 15:00:00 2022-07-06 15:00:00 Outpatient R [facility] [id number] [facility] 2022-07-06 15:00:00 2022-07-06 15:00:00 Outpatient R [facility] [id number] [facility] 2022-06-30 00:00:00 2022-06-30 00:00:00 Orders Only Doctor Unassigned, [place] [facility] 1.2840.114 350.1.13.10 4.2.7.2.686 [id number] [facility] 2022-06-25 00:00:00 2022-06-25 00:00:00 Transition of Care Aliyah Crawford 1.840.114 350.1.13.10 4.2.7.2.686 [id number] [facility] 2022-06-20 21:07:00 2022-06-24 14:16:00 Inpatient X GONZALO VAZQUEZ [facility] JONATHAN [id number] [facility] 2022-06-20 21:07:00 2022-06-24 14:16:00 Hospital Encounter Juan Bradshaw, Finesse Mckenzie, Gonzalo Dominguez [facility] 1.0.114 350.1.13.10 4.2.7.2.686 [id number] [facility] 2022-04-14 13:00:00 2022-04-14 13:30:00 Office Visit Kashif Hampton [facility] 1..114 350.1.13.10 4.2.7.2.686 [id number] [facility] 2022-04-14 13:00:00 2022-04-14 13:00:00 Outpatient R KASHIF [facility] [id number] [facility] 2022-04-12 00:00:00 2022-04-12 00:00:00 RefAmira Sifuentes [facility] 1.0.114 350.1.13.10 4.2.7.2.686 [id number] [facility] 2022-04-05 00:00:00 2022-04-05 00:00:00 Patient Secure Msg Doctor Unassigned, [place] [facility] 1.840.114 350.1.13.10 4.2.7.2.686 [id number] [facility] 2022-03-29 14:59:30 2022-03-29 23:59:00 [id number] 2022-03-29 14:59:30 2022-03-29 23:59:00 Hospital Encounter [facility] 1.2.840.114 350.1.13.10 4.2.7.2.686 [id number] [facility] 2022-03-24 16:30:00 2022-03-24 16:45:00 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 Operator Visit [facility] 1.2840.114 350.1.13.10 4.2.7.2.686 [id number] [facility] 2022-03-24 16:30:00 2022-03-24 16:30:00 Outpatient R [facility] [id number] [facility] 2022-03-24 14:15:00 2022-03-24 14:30:00 Office Visit [facility] ALEJANDRA ACOSTA 1.2840.114 350.1.13.10 4.2.7.2.686 [id number] [facility] 2022-03-24 14:15:00 2022-03-24 14:15:00 Outpatient R [facility] [id number] [facility] 2022-03-24 00:00:00 2022-03-24 00:00:00 Orders Only Doctor Unassigned, [place] [facility] [id number] 350.1.13.10 4.2.7.2.686 [id number] [facility] Results Test Description Test Time Test Comments Results Resul t Comments Source Ethanol 2024-03-2 7 00:32:29 ALCOHOL<10mg/dL 7:32 PM [facility] Greater than or equal to 80 mg/dL. NOTE: Whole blood values are approximately 10% to 15% lower than serum and plasma. [facility] AtlantaReticulocytes Woklidlda2550-83-17 21:49:29* Test Item Value Reference Range Interpretation Comme nts RETIC Count Automated (test code = 6422834197) 3.62 % 0.51-1.90 H RETIC Absolute Count (test c ode = 6434917364) 0.1687 0.0230-0.0950 H IRF % (test code = 8216602772) 30.00 % 2.10-12.60 H RETIC-HE (test code = 7806173539) 27.7 pg 28.1-35.8 L Lab Interpretation (test cod e = 99406-1) Abnormal [facility] WorthThyroid Stimulating Uljzbyr0731-96-64 21:46:28 * Test Item Value Reference Range Interpretation Comme nts TSH (test code = 5388735639) 0.82 0.45-4.70 Lab Interpretation (test cod e = 26405-8) Normal [facility] WorthFolate2024-03-26 21:30:42* Test Item Value Reference Range Interpretation Comme nts FOLATE SER (test code = 9668159999) 3.5 ng/mL 3.0-20.0 Biotin has been reported to cause a positive bias, interpret results relative to patient's use of biotin. Lab Interpretation (test code = 63155-7) Normal [facility] WorthIron [id number] 21:22:43* Test Item Value Reference Range Interpretation Comme nts IRON (test code = 4493027833) 31 ug/dL 50-160 L TIBC (test code = 8797984783) 492 ug/dL 250-410 H % FE SAT (test code = 3910108580) 6 % 20-50 L Lab Interpretation (test cod e = 46094-9) Abnormal [facility] WorthLactic Acid Whole Owgve1069-01-14 18:53:31* Test Item Value Reference Range Interpretation Comme nts LACTIC ACID (test code = 5782193779) 1.21 mmol/L 0.50-2.20 Lab Interpretation (test cod e = 06880-1) Normal [facility] WorthCT ABDOMEN PELVIS W [id number] 17:54:36EXAM: CT ABDOMEN PELVIS W CONTRAST HISTORY: 43 years -old Female with LLQ abdominal pain COMPARISON: CT abdomen pelvis 02/14/2024. TECHNIQUE: Contiguous axial imaging from the level of the lung basesthrough the proximal thighs was performed after intravenous contrastadministration. Coronal and sagittal reconstructions were obtained. ? FINDINGS: LOWER THORAX: The lung bases are essentially clear. No cardiomegaly..Bilateral breast implants noted. LIVER: No focal hepatic lesions. Normal contour. GALLBLADDER AND BILIARY TREE: No intra or extrahepatic biliary ductaldilation. SPLEEN: Unremarkable. PANCREAS: No ductal dilatation or masses ADRENAL GLANDS: No adrenal lesions. KIDNEYS: Multiple hypodense lesions are noted in the left kidney measuringup to 1.1 cm, consistent with renal cysts. A 1 cm left parapelvic cyst isalso noted. Lateral extrarenal pelvis. No hydronephrosis, stones, ormasses. Homogeneous and symmetrical enhancement. GI TRACT: No dilation or bowel wall thickening.The appendix is normal(series #3, image #80). PERITONEUM AND RETROPERITONEUM: No free air or fluid collection. LYMPH NODES: No intra-abdominal or pelvic lymph node enlargement. PELVIS/BLADDER: Bladder is fully distended with no wall thickening. Theuterus is normal. Small nabothian cysts noted in the cervix. The ovariesare normal. VESSELS: Unremarkable. BONES AND SOFT TISSUES: Tiny fat- containing umbilical hernia. No suspiciouslytic or sclerotic bony lesions. Lateral breast implants are notedUnCHRISTUS [facility]phur SpringsTROPONIN I 2024-02-14 17:53:42* Test Item Value Reference Range Interpretation Comme nts TROPONIN I (test code = 6524573162) 0.011 ng/mL <=0.034 RENEE (test code = RENEE) Reference (Normal) Range (defined by the 99th percentile reference limit): <= 0.034 ng/mL Note: Cardiac troponin begins to rise 3-4 hours after the onset of ischemia. Repeat in 4-6 hours if the sample was drawn within 3-4 hours of the onset of the symptom and found normal. Diagnosis of myocardial injury is made with acute changes in cTn concentrations with at least one serial sample above the 99th percentile upper reference limit (URL), taken together with the patient's clinical presentation. Biotin has been reported to cause a negative bias, interpret results relative to patient's use of biotin. Lab Interpretation (test code = 84767-6) Normal [facility] WorthLIPASE2024-03-26 15:08:44* Test Item Value Reference Range Interpretation Comme nts LIPASE (test code = 6162566725) 70 U/L 0-220 Lab Interpretation (test cod e = 52254-1) Normal [facility] WorthCOMP. METABOLIC PANEL (36666)2024-02-14 15:08:43* Test Item Value Reference Range Interpretation Comme nts NA (test code = 6990297778) 138 mmol/L 135-145 K (test code = 0725151755) 3.8 mmol/L 3.5-5.0 CL (test code = 5010208047) 101 mmol/L 98-108 CO2 TOTAL (test code = 5732210144) 23 mmol/L 23-31 AGAP (test code = 4306170556) 14 2-16 BUN (test code = 3300358994) 13 mg/dL 7-23 GLUCOSE (test code = 7030989280) 120 mg/dL 70-110 H CREATININE (test code = 2160-0) 0.65 mg/dL 0.50-1.04 TOTAL BILI (test code = 4331190910) 0.7 mg/dL 0.1-1.1 CALCIUM (test code = 4110719191) 9.6 mg/dL 8.6-10.6 T PROTEIN (test code = 9473701524) 7.5 g/dL 6.3-8.2 ALBUMIN (test code = 9678943130) 4.7 g/dL 3.5-5.0 ALK PHOS (test code = 9323230880) 93 U/L 34-122 ALTv (test code = 1742-6) 49 U/L 5-35 H AST(SGOT) (test code = 4926026896) 44 U/L 13-40 H eGFR (test code = 72826-1) 110.8 mL/min/1.73m2 CKD-EPI eGFR (2020). Assuming creatinine has been stable day-to-day for at least three months, the eGFR indicates Category G1 (>= 90 mL/min/1.73 m2) Lab Interpretation (test code = 17714-2) Abnormal [facility] WorthPREGNANCY TEST, [id number] 15:05:20* Test Item Value Reference Range Interpretation Comme nts PREG SERUM (test code = 6063335186) Negative RENEE (test code = RENEE) Less than 10 IU/L. ?If low titer or ectopic is suspected, resubmit specimen in 48-72 hours. [facility] WorthCB WITH [id number] 14:51:38* Test Item Value Reference Range Interpretation Comme nts WBC (test code = 6690-2) 12.83 4.30-11.10 H RBC (test code = 789-8) 4.64 3.93-5.25 HGB (test code = 718-7) 10.5 g/dL 11.6-15.0 L HCT (test code = 4544-3) 35.0 % 35.7-45.2 L MCV (test code = 787-2) 75.4 fL 80.6-95.5 L MCH (test code = 785-6) 22.6 pg 25.9-32.8 L MCHC (test code = 786-4) 30.0 g/dL 31.6-35.1 L RDW-SD (test code = 04117-6) 48.5 fL 39.0-49.9 RDW-CV (test code = 788-0) 20.1 % 12.0-15.5 H PLT (test code = 777-3) 547 166-358 H MPV (test code = 18669-6) 8.9 fL 9.5-12.9 L NRBC/100 WBC (test code = 2768474153) 0.0 0.0-10.0 NRBC x10^3 (test code = 7974667970) See_Comment [Automated messa ge] The system which generated this result transmitted reference range: 10*3/?L. The reference range was not used to interpret this result as normal/abnormal. GRAN MAT (NEUT) % (test code = 770-8) 77.8 % IMM GRAN % (test code = 4951483893) 0.90 % LYMPH % (test code = 736-9) 13.3 % MONO % (test code = 5905-5) 7.5 % EOS % (test code = 713-8) 0.2 % BASO % (test code = 706-2) 0.3 % GRAN MAT x10^3(ANC) (test code = 8302838299) 9.99 10*3/uL 1.88-7.09 H IMM GRAN x10^3 (test code = 8200487426) 0.11 10*3/uL 0.00-0.06 H LYMPH x10^3 (test code = 731-0) 1.71 10*3/uL 1.32-3.29 MONO x10^3 (test code = 742-7) 0.96 10*3/uL 0.33-0.92 H EOS x10^3 (test code = 711-2) 0.03-0.39 L BASO x10^3 (test code = 704-7) 0.04 10*3/uL 0.01-0.07 Lab Interpretation (test code = 89045-5) Abnormal [facility] Molecular [id number] 21:10:55* Test Item Value Reference Range Interpretation Comme nts POCT Molecular FluA (test co de = 00635-7) Negative Negative POCT Molecular FluB (test co de = 70204-3) Negative Negative Lab Interpretation (test cod e = 00727-8) Normal [facility] Molecular Ged8200-66-15 21:10:55* Test Item Value Reference Range Interpretation Comme nts POCT Molecular FluA (test co de = 52470-7) Negative Negative POCT Molecular FluB (test co de = 63172-8) Negative Negative Lab Interpretation (test cod e = 48048-6) Normal [facility] SARS-COV-2 ANTIGEN (BINAX NOW)2024-01-03 21:10:00* Test Item Value Reference Range Interpretation Comme nts POCT SARS-COV-2 ANTIGEN (moraima t code = 83631-2) Not Detected Not Detected On board controls acceptable with C Line (test code = 3574) Yes [facility] SARS-COV-2 ANTIGEN (BINAX NOW)2024-01-03 21:10:00* Test Item Value Reference Range Interpretation Comme nts POCT SARS-COV-2 ANTIGEN (moraima t code = 48266-2) Not Detected Not Detected On board controls acceptable with C Line (test code = 3574) Yes [facility] WorthMAGNESIUM2023-11-18 15:48:54* Test Item Value Reference Range Interpretation Comme nts MAGNESIUM (test code = 8459555852) 2.0 mg/dL 1.7-2.4 Lab Interpretation (test cod e = 28020-7) Normal [facility] METABOLIC PANEL (NA, K, CL, CO2, GLUCOSE, BUN, CREATININE, CA)2023-10-08 10:44:09* Test Item Value Reference Range Interpretation Comme nts NA (test code = 4733290681) 141 mmol/L 135-145 K (test code = 2508238842) 3.0 mmol/L 3.5-5.0 L CL (test code = 9228006471) 105 mmol/L 98-108 CO2 TOTAL (test code = 4207380032) 22 mmol/L 23-31 L AGAP (test code = 7989669735) 14 2-16 BUN (test code = 3729991656) 4 mg/dL 7-23 L GLUCOSE (test code = 1033382284) 88 mg/dL 70-110 CREATININE (test code = 0071861368) 0.67 mg/dL 0.50-1.04 CALCIUM (test code = 3885641330) 8.9 mg/dL 8.6-10.6 eGFR (test code = 81315-1) 110.7 mL/min/1.73m2 CKD-EPI eGFR (2020). Assuming creatinine has been stable day-to-day for at least three months, the eGFR indicates Category G1 (>= 90 mL/min/1.73 m2) Lab Interpretation (test code = 01473-3) Abnormal [facility] METABOLIC PANEL (NA, K, CL, CO2, GLUCOSE, BUN, CREATININE, CA)2023-10-06 12:12:41* Test Item Value Reference Range Interpretation Comme nts NA (test code = 7558791003) 137 mmol/L 135-145 K (test code = 8890820823) 3.3 mmol/L 3.5-5.0 L Slight hemolysis CL (test code = 7905443011) 112 mmol/L 98-108 H CO2 TOTAL (test code = 3123539522) 21 mmol/L 23-31 L AGAP (test code = 8644130222) 4 2-16 BUN (test code = 2019668004) 10 mg/dL 7-23 Slight hemolysis GLUCOSE (test code = 3242683859) 100 mg/dL 70-110 CREATININE (test code = 2269023720) 0.68 mg/dL 0.50-1.04 CALCIUM (test code = 8137763599) 7.6 mg/dL 8.6-10.6 L eGFR (test code = 98858-8) 110.3 mL/min/1.73m2 CKD-EPI eGFR (2020). Assuming creatinine has been stable day-to-day for at least three months, the eGFR indicates Category G1 (>= 90 mL/min/1.73 m2) Lab Interpretation (test code = 00021-8) Abnormal [facility] Without [id number] 11:54:39* Test Item Value Reference Range Interpretation Comme nts WBC (test code = 6690-2) 8.34 See_Comment [Automated message] The system which generated this result transmitted reference range: 4.30 - 11.10 10*3/?L. The reference range was not used to interpret this result as normal/abnormal. RBC (test code = 789-8) 3.28 See_Comment L [Automated message] The system which generated this result transmitted reference range: 3.93 - 5.25 10*6/?L. The reference range was not used to interpret this result as normal/abnormal. HGB (test code = 718-7) 8.0 g/dL 11.6-15.0 L HCT (test code = 4544-3) 25.7 % 35.7-45.2 L MCH (test code = 785-6) 24.4 pg 25.9-32.8 L MCV (test code = 787-2) 78.4 fL 80.6-95.5 L MCHC (test code = 786-4) 31.1 g/dL 31.6-35.1 L PLT (test code = 777-3) 274 See_Comment [Automated message] The system which generated this result transmitted reference range: 166 - 358 10*3/?L. The reference range was not used to interpret this result as normal/abnormal. MPV (test code = 48780-3) 10.3 fL 9.5-12.9 RDW-CV (test code = 788-0) 18.1 % 12.0-15.5 H RDW-SD (test code = 73692-3) 50.8 fL 39.0-49.9 H NRBC x10^3 (test code = 3471203771) See_Comment [Automated [employer]] The system which generated this result transmitted reference range: 10*3/?L. The reference range was not used to interpret this result as normal/abnormal. NRBC/100 WBC (test code = 5989649523) 0.0 See_Comment [Automated [employer]] The system which generated this result transmitted reference range: 0.0 - 10.0 /100 WBCs. The reference range was not used to interpret this result as normal/abnormal. IPF % (test code = 2343216091) Lab Interpretation (test code = 95454-8) Abnormal [facility] WorthaPTT2023-11-15 13:20:10* Test Item Value Reference Range Interpretation Comme nts APTT Patient (test code = 3173-2) See_Comment HH [Automated [employer]] The system which generated this result transmitted reference range: 26 - 36 Seconds. The reference range was not used to interpret this result as normal/abnormal. Lab Interpretation (test code = 32083-9) Abnormal [facility] WorthTROPONIN [id number] 13:12:33* Test Item Value Reference Range Interpretation Comme nts TROPONIN I (test code = 5476129297) 0.073 ng/mL <=0.034 H RENEE (test code = RENEE) Reference (Normal) Range (defined by the 99th percentile reference limit): <= 0.034 ng/mL Note: Cardiac troponin begins to rise 3-4 hours after the onset of ischemia. Repeat in 4-6 hours if the sample was drawn within 3-4 hours of the onset of the symptom and found normal. Diagnosis of myocardial injury is made with acute changes in cTn concentrations with at least one serial sample above the 99th percentile upper reference limit (URL), taken together with the patient's clinical presentation. Biotin has been reported to cause a negative bias, interpret results relative to patient's use of biotin. Lab Interpretation (test code = 73503-1) Abnormal [facility] WorthTROPONIN [id number] 11:35:05* Test Item Value Reference Range Interpretation Comme nts TROPONIN I (test code = 6146424898) 0.110 ng/mL <=0.034 H RENEE (test code = RENEE) Reference (Normal) Range (defined by the 99th percentile reference limit): <= 0.034 ng/mL Note: Cardiac troponin begins to rise 3-4 hours after the onset of ischemia. Repeat in 4-6 hours if the sample was drawn within 3-4 hours of the onset of the symptom and found normal. Diagnosis of myocardial injury is made with acute changes in cTn concentrations with at least one serial sample above the 99th percentile upper reference limit (URL), taken together with the patient's clinical presentation. Biotin has been reported to cause a negative bias, interpret results relative to patient's use of biotin. Lab Interpretation (test code = 15367-0) Abnormal [facility] WorthCBC with Aqxycgvfapnk8793-92-00 08:02:44* Test Item Value Reference Range Interpretation Comme nts WBC (test code = 6690-2) 20.41 See_Comment H [Automated message] The system which generated this result transmitted reference range: 4.30 - 11.10 10*3/?L. The reference range was not used to interpret this result as normal/abnormal. RBC (test code = 789-8) 4.33 See_Comment [Automated message] The system which generated this result transmitted reference range: 3.93 - 5.25 10*6/?L. The reference range was not used to interpret this result as normal/abnormal. HGB (test code = 718-7) 10.6 g/dL 11.6-15.0 L HCT (test code = 4544-3) 33.0 % 35.7-45.2 L MCV (test code = 787-2) 76.2 fL 80.6-95.5 L MCH (test code = 785-6) 24.5 pg 25.9-32.8 L MCHC (test code = 786-4) 32.1 g/dL 31.6-35.1 RDW-SD (test code = 68655-3) 47.3 fL 39.0-49.9 RDW-CV (test code = 788-0) 17.4 % 12.0-15.5 H PLT (test code = 777-3) 463 See_Comment H [Automated message] The system which generated this result transmitted reference range: 166 - 358 10*3/?L. The reference range was not used to interpret this result as normal/abnormal. MPV (test code = 33406-9) 9.8 fL 9.5-12.9 NRBC/100 WBC (test code = 9322237300) 0.0 See_Comment [Automated message] The system which generated this result transmitted reference range: 0.0 - 10.0 /100 WBCs. The reference range was not used to interpret this result as normal/abnormal. NRBC x10^3 (test code = 3511668854) See_Comment [Automated message] The system which generated this result transmitted reference range: 10*3/?L. The reference range was not used to interpret this result as normal/abnormal. GRAN MAT (NEUT) % (test code = 770-8) 76.6 % IMM GRAN % (test code = 9148270650) 0.80 % LYMPH % (test code = 736-9) 10.8 % MONO % (test code = 5905-5) 11.7 % EOS % (test code = 713-8) 0.0 % BASO % (test code = 706-2) 0.1 % GRAN MAT x10^3(ANC) (test code = 7631776965) 15.62 10*3/uL 1.88-7.09 H IMM GRAN x10^3 (test code = 5223197364) 0.16 10*3/uL 0.00-0.06 H LYMPH x10^3 (test code = 731-0) 2.21 10*3/uL 1.32-3.29 MONO x10^3 (test code = 742-7) 2.39 10*3/uL 0.33-0.92 H EOS x10^3 (test code = 711-2) 0.03-0.39 L BASO x10^3 (test code = 704-7) 0.03 10*3/uL 0.01-0.07 Lab Interpretation (test code = 74396-6) Abnormal [facility] WorthMagnesium Uqygz4988-78-84 07:16:35* Test Item Value Reference Range Interpretation Comme nts MAGNESIUM (test code = 4627172466) 2.0 mg/dL 1.7-2.4 Lab Interpretation (test cod e = 35519-9) Normal [facility] (NA, K, CL, CO2, GLUCOSE, BUN, CREATININE, CA)2023-10-05 07:16:35* Test Item Value Reference Range Interpretation Comme nts NA (test code = 7285390474) 144 mmol/L 135-145 K (test code = 2218935091) 3.2 mmol/L 3.5-5.0 L CL (test code = 5702726035) 112 mmol/L 98-108 H CO2 TOTAL (test code = 3209328022) 19 mmol/L 23-31 L AGAP (test code = 5500594090) 13 2-16 BUN (test code = 6600710511) 9 mg/dL 7-23 GLUCOSE (test code = 3494969457) 110 mg/dL 70-110 CREATININE (test code = 0248709628) 0.64 mg/dL 0.50-1.04 CALCIUM (test code = 2569955301) 9.0 mg/dL 8.6-10.6 eGFR (test code = 98148-2) 111.9 mL/min/1.73m2 CKD-EPI eGFR (2020). Assuming creatinine has been stable day-to-day for at least three months, the eGFR indicates Category G1 (>= 90 mL/min/1.73 m2) Lab Interpretation (test code = 63041-8) Abnormal [facility] WorthaPTT2023-11-15 06:58:12* Test Item Value Reference Range Interpretation Comme nts APTT Patient (test code = 3173-2) 95 See_Comment H [Automated [employer]alla ge] The system which generated this result transmitted reference range: 26 - 36 Seconds. The reference range was not used to interpret this result as normal/abnormal. Lab Interpretation (test code = 60110-9) Abnormal [facility] WorthProthrombin Time (PT) / [id number] 06:58:12 * Test Item Value Reference Range Interpretation Comme [facility] PROTIME PATIENT (test code = 5964-2) 13.5 See_Comment H [Automated CrowdHalla ge] The system which generated this result transmitted reference range: 10.1 - 12.6 Seconds. The reference range was not used to interpret this result as normal/abnormal. INR (test code = 6301-6) 1.2 Normal INR <1.1; Warfarin Therapeutic range 2.0 to 3.0 or 2.5 to 3.5, depending upon the indications. Lab Interpretation (test code = 50509-2) Abnormal [facility] WorthPOCT [id number] 18:08:00* Test Item Value Reference Range Interpretation Comme [facility] POCT PREG (test code = 1605) Negative On board controls acceptable with C Line (test code = 3574) Yes POCT PREG LOT # (test code = 3575) [id number] POCT PREG TEST DATE ( test code = 3576) 11/23/2024 Lab Interpretation (test cod e = 97082-0) Normal [facility]. METABOLIC PANEL (83957)2023-10-04 16:46:54* Test Item Value Reference Range Interpretation Comme [facility] NA (test code = 3977123379) 144 mmol/L 135-145 K (test code = 7933543569) 4.8 mmol/L 3.5-5.0 Slight hemolysis CL (test code = 7588005529) 120 mmol/L 98-108 H CO2 TOTAL (test code = 1670632593) 6 mmol/L 23-31 L AGAP (test code = 8955289067) 18 2-16 H BUN (test code = 4691287379) 6 mg/dL 7-23 L Slight hemolysis GLUCOSE (test code = 7810080621) 135 mg/dL 70-110 H CREATININE (test code = 6286469507) 0.56 mg/dL 0.50-1.04 TOTAL BILI (test code = 0507700109) 1.0 mg/dL 0.1-1.1 CALCIUM (test code = 7230117962) 8.3 mg/dL 8.6-10.6 L T PROTEIN (test code = 8696101176) 8.7 g/dL 6.3-8.2 H ALBUMIN (test code = 8598525244) 4.8 g/dL 3.5-5.0 ALK PHOS (test code = 3085181791) 98 U/L 34-122 Slight hemolysis ALTv (test code = 1742-6) 45 U/L 5-35 H AST(SGOT) (test code = 1390595044) 44 U/L 13-40 H Slight hemolysis eGFR (test code = 70969-1) 115.6 mL/min/1.73m2 CKD-EPI eGFR (2020). Assuming creatinine has been stable day-to-day for at least three months, the eGFR indicates Category G1 (>= 90 mL/min/1.73 m2) Lab Interpretation (test code = 53732-7) Abnormal [facility] WorthLIPASE2023-11-14 16:40:13* Test Item Value Reference Range Interpretation Comme nts LIPASE (test code = 5716036450) 25 U/L 0-220 Lab Interpretation (test cod e = 94961-1) Normal [facility] URINALYSIS W SPECIFIC [id number] 19:40:00* Test Item Value Reference Range Interpretation Comme nts POCT U SP GRAV (test code = 3255) 1.010 mg/dl 1.005-1.025 POCT PH U (test code = 3254) 6 mg/dl 5-8 POCT U LEUK EST (test code = 3263) trace Negative - Negative POCT U NIT (test code = 3262) negative Negative - Negati ve POCT U PROT (test code = 3259) 30 Negative - Negative POCT U GLU (test code = 3256) normal Negative - Negati ve POCT U KETONE (test code = 3258) negative Negative - Negative POCT U UROBILI (test code = 3260) normal 0.2-1 POCT U BILI (test code = 3261) negative Negative - Negative POCT U BLD (test code = 3257) 250 Negative - Negati ve POCT U COLOR (test code = 3266) red POCT U APPEAR (test code = 3267) cloudy [facility] URINALYSIS W SPECIFIC [id number] 19:40:00* Test Item Value Reference Range Interpretation Comme nts POCT U SP GRAV (test code = 3255) 1.010 mg/dl 1.005-1.025 POCT PH U (test code = 3254) 6 mg/dl 5-8 POCT U LEUK EST (test code = 3263) trace Negative - Negative POCT U NIT (test code = 3262) negative Negative - Negati ve POCT U PROT (test code = 3259) 30 Negative - Negative POCT U GLU (test code = 3256) normal Negative - Negati ve POCT U KETONE (test code = 3258) negative Negative - Negative POCT U UROBILI (test code = 3260) normal 0.2-1 POCT U BILI (test code = 3261) negative Negative - Negative POCT U BLD (test code = 3257) 250 Negative - Negati ve POCT U COLOR (test code = 3266) red POCT U APPEAR (test code = 3267) [facility] W SPECIFIC [id number] 19:40:00* Test Item Value Reference Range Interpretation Comme nts POCT U SP GRAV (test code = 3255) 1.010 mg/dl 1.005-1.025 POCT PH U (test code = 3254) 6 mg/dl 5-8 POCT U LEUK EST (test code = 3263) trace Negative - Negative POCT U NIT (test code = 3262) negative Negative - Negati ve POCT U PROT (test code = 3259) 30 Negative - Negative POCT U GLU (test code = 3256) normal Negative - Negati ve POCT U KETONE (test code = 3258) negative Negative - Negative POCT U UROBILI (test code = 3260) normal 0.2-1 POCT U BILI (test code = 3261) negative Negative - Negative POCT U BLD (test code = 3257) 250 Negative - Negati ve POCT U COLOR (test code = 3266) red POCT U APPEAR (test code = 3267) [facility] CenterLan[facility] Whole [id number] 00:37:10* Test Item Value Reference Range Interpretation Comme nts LACTIC ACID (test code = 1720340006) 1.34 mmol/L 0.50-2.20 Lab Interpretation (test cod e = 70853-9) [facility], [id number] 22:43:49* Test Item Value Reference Range Interpretation Comme nts PREG SERUM (test code = 0154992953) Negative RENEE (test code = RENEE) Less than 10 IU/L. ?If low titer or ectopic is suspected, resubmit specimen in 48-72 hours. [facility] WITH [id number] 21:16:16* Test Item Value Reference Range Interpretation Comme nts WBC (test code = 6690-2) 15.33 See_Comment H [Automated message] The system which generated this result transmitted reference range: 4.30 - 11.10 10*3/?L. The reference range was not used to interpret this result as normal/abnormal. RBC (test code = 789-8) 5.11 See_Comment [Automated message] The system which generated this result transmitted reference range: 3.93 - 5.25 10*6/?L. The reference range was not used to interpret this result as normal/abnormal. HGB (test code = 718-7) 14.2 g/dL 11.6-15.0 HCT (test code = 4544-3) 43.0 % 35.7-45.2 MCV (test code = 787-2) 84.1 fL 80.6-95.5 MCH (test code = 785-6) 27.8 pg 25.9-32.8 MCHC (test code = 786-4) 33.0 g/dL 31.6-35.1 RDW-SD (test code = 35774-7) 45.9 fL 39.0-49.9 RDW-CV (test code = 788-0) 15.4 % 12.0-15.5 PLT (test code = 777-3) 468 See_Comment H [Automated message] The system which generated this result transmitted reference range: 166 - 358 10*3/?L. The reference range was not used to interpret this result as normal/abnormal. MPV (test code = 64852-2) 9.5 fL 9.5-12.9 NRBC/100 WBC (test code = 8108491344) 0.0 See_Comment [Automated message] The system which generated this result transmitted reference range: 0.0 - 10.0 /100 WBCs. The reference range was not used to interpret this result as normal/abnormal. NRBC x10^3 (test code = 7597864273) See_Comment [Automated message] The system which generated this result transmitted reference range: 10*3/?L. The reference range was not used to interpret this result as normal/abnormal. GRAN MAT (NEUT) % (test code = 770-8) 79.3 % IMM GRAN % (test code = 2212339546) 0.70 % LYMPH % (test code = 736-9) 12.5 % MONO % (test code = 5905-5) 7.1 % EOS % (test code = 713-8) 0.1 % BASO % (test code = 706-2) 0.3 % GRAN MAT x10^3(ANC) (test code = 7593712293) 12.11 10*3/uL 1.88-7.09 H IMM GRAN x10^3 (test code = 2221275994) 0.10 10*3/uL 0.00-0.06 H LYMPH x10^3 (test code = 731-0) 1.91 10*3/uL 1.32-3.29 MONO x10^3 (test code = 742-7) 1.08 10*3/uL 0.33-0.92 H EOS x10^3 (test code = 711-2) 0.03-0.39 L BASO x10^3 (test code = 704-7) 0.05 10*3/uL 0.01-0.07 Lab Interpretation (test code = 07735-7) Abnormal [facility]. METABOLIC PANEL ([id number])2023-05-27 21:00:52* Test Item Value Reference Range Interpretation Comme nts NA (test code = 6635210767) 137 mmol/L 135-145 K (test code = 1734690728) 3.7 mmol/L 3.5-5.0 CL (test code = 1046928866) 96 mmol/L 98-108 L CO2 TOTAL (test code = 1613203997) 26 mmol/L 23-31 AGAP (test code = 9666514603) 15 2-16 BUN (test code = 6118804782) 13 mg/dL 7-23 GLUCOSE (test code = 0268359872) 101 mg/dL 70-110 CREATININE (test code = 3532947758) 0.70 mg/dL 0.50-1.04 TOTAL BILI (test code = 9855857406) 0.9 mg/dL 0.1-1.1 CALCIUM (test code = 4832029093) 10.0 mg/dL 8.6-10.6 T PROTEIN (test code = 6171913310) 8.9 g/dL 6.3-8.2 H ALBUMIN (test code = 8368138542) 4.9 g/dL 3.5-5.0 ALK PHOS (test code = 5065632455) 85 U/L 34-122 ALTv (test code = 1742-6) 37 U/L 5-35 H AST(SGOT) (test code = 9674050515) 46 U/L 13-40 H eGFR (test code = 9058982538) 90.9 mL/min/1.73m2 RENEE (test code = RENEE) Association of Glomerular Filtration Rate (GFR) and Staging of Kidney Disease* + --+ --+ ------+| GFR (mL/min/1.73 m2) ?| With Kidney Damage ?| ?Without Kidney Damage+ --------+ --------+ +| ?>90 ?| ?Stage one ?| ? Normal ?+ ---+ ---+ -------+| ?60-89 ?| ?Stage two ?| ? Decreased GFR ? + --+ --+ ------+| ?30-59 ?| ?Stage three ?| ? Stage three ? + --+ --+ ------+| ?15-29 ?| ?Stage four ? | ? Stage four ?+ ---+ ---+ -------+| ?<15 (or dialysis) ? ?| ?Stage five ? | ? Stage five ?+ ---+ ---+ -------+ *Each stage assumes the associated GFR level has been in effect for at least three months. ?Stages 1 to 5, with or without kidney disease, indicate chronic kidney disease. Notes: Determination of stages one and two (with eGFR >59mL/min/1.73 m2) requires estimation of kidney damage for at least three months as defined by structural or functional abnormalities of the kidney, manifested by either:Pathological abnormalities or Markers of kidney damage (including abnormalities in the composition of the blood or urine or abnormalities in imaging tests). Lab Interpretation (test code = 23539-9) [facility]normal [facility]2023[facility] 21:00:52* Test Item Value Reference Range Interpretation Comme nts LIPASE (test code = 2276813607) 124 U/L 0-220 Lab Interpretation (test cod e = 40358-4) Normal [facility] WorthLanmic Acid Whole [id number] 20:39:10* Test Item Value Reference Range Interpretation Comme nts LACTIC ACID (test code = 8788056776) 2.91 mmol/L 0.50-2.20 H Lab Interpretation (test cod e = 17193-8) Abnormal [facility] GLUCOSE (AUTOMATED)2022-06-24 16:49:01* Test Item Value Reference Range Interpretation Comme nts POCT GLU (test code = 2207697825) 115 mg/dL 70-110 H Notified Provide r Lab Interpretation (test code = 75777-7) Abnormal [facility] GLUCOSE (AUTOMATED)2022-06-24 13:14:04* Test Item Value Reference Range Interpretation Comme nts POCT GLU (test code = 2722911021) 89 mg/dL 70-110 Notified Provide r Lab Interpretation (test code = 89790-7) Normal [facility] METABOLIC PANEL (NA, K, CL, CO2, GLUCOSE, BUN, CREATININE, CA)2022-06-24 10:13:52* Test Item Value Reference Range Interpretation Comme nts NA (test code = 6178270206) 135 mmol/L 135-145 K (test code = 3155466602) 4.0 mmol/L 3.5-5 Slight hemolysis CL (test code = 0819054257) 105 mmol/L 98-108 CO2 TOTAL (test code = 7720910996) 23 mmol/L 23-31 AGAP (test code = 1851244667) 2-16 BUN (test code = 7623017883) 19 mg/dL 7-23 Slight hemolysis GLUCOSE (test code = 8073157543) 93 mg/dL 70-110 CREATININE (test code = 7769497230) 0.94 mg/dL 0.5-1.04 CALCIUM (test code = 6951179526) 8.6 mg/dL 8.6-10.6 eGFR (test code = 9831034742) mL/min/1.73m2 RENEE (test code = RENEE) Association of Glomerular Filtration Rate (GFR) and Staging of Kidney Disease* + ----+ ------+ +| GFR (mL/min/1.73 m2) ?| With Kidney Damage ?| ?Without Kidney Damage+ +--------- +------- +| ?>90 ?| ?Stage one ?| ? Normal ?+ -----+ -------+ +| ?60-89 ?| ?Stage two ?| ? Decreased GFR ? + ----+ ------+ +| ?30-59 ?| ?Stage three ?| ? Stage three ? + ----+ ------+ +| ?15-29 ?| ?Stage four ? | ? Stage four ?+ -----+ -------+ +| ?<15 (or dialysis) ? ?| ?Stage five ? | ? Stage five ?+ -----+ -------+ + *Each stage assumes the associated GFR level has been in effect for at least three months. ?Stages 1 to 5, with or without kidney disease, indicate chronic kidney disease. Notes: Determination of stages one and two (with eGFR >59mL/min/1.73 m2) requires estimation of kidney damage for at least three months as defined by structural or functional abnormalities of the kidney, manifested by either:Pathological abnormalities or Markers of kidney damage (including abnormalities in the composition of the blood or urine or abnormalities in imaging tests). [facility]2022-[facility]-04 10:13:52* Test Item Value Reference Range Interpretation Comme nts MAGNESIUM (test code = 2562417009) 2.3 mg/dL 1.7-2.4 Lab Interpretation (test cod e = 31985-3) Normal [facility] Worth[facility] WITH [id number] 09:20:23* Test Item Value Reference Range Interpretation Comme nts WBC (test code = 6690-2) See_Comment [Automated [employer]] The system which generated this result transmitted reference range: 4.30 - 11.10 10*3/?L. The reference range was not used to interpret this result as normal/abnormal. RBC (test code = 789-8) See_Comment L [Automated messa ge] The system which generated this result transmitted reference range: 3.93 - 5.25 10*6/?L. The reference range was not used to interpret this result as normal/abnormal. HGB (test code = 718-7) 10.4 g/dL 11.6-15 L HCT (test code = 4544-3) 31.0 % 35.7-45.2 L MCV (test code = 787-2) 81.8 fL 80.6-95.5 MCH (test code = 785-6) 27.4 pg 25.9-32.8 MCHC (test code = 786-4) 33.5 g/dL 31.6-35.1 RDW-SD (test code = 93829-6) 47.5 fL 39-49.9 RDW-CV (test code = 788-0) 15.9 % 12-15.5 H PLT (test code = 777-3) See_Comment [Automated messa ge] The system which generated this result transmitted reference range: 166 - 358 10*3/?L. The reference range was not used to interpret this result as normal/abnormal. MPV (test code = 91053-4) 9.8 fL 9.5-12.9 NRBC/100 WBC (test code = 2595900404) See_Comment [Automated [place] ssage] The system which generated this result transmitted reference range: 0.0 - 10.0 /100 WBCs. The reference range was not used to interpret this result as normal/abnormal. NRBC x10^3 (test code = 6581287262) See_Comment [Automated messa ge] The system which generated this result transmitted reference range: 10*3/?L. The reference range was not used to interpret this result as normal/abnormal. GRAN MAT (NEUT) % (test code = 770-8) 55.2 % IMM GRAN % (test code = 9784705582) 0.40 % LYMPH % (test code = 736-9) 34.0 % MONO % (test code = 5905-5) 8.2 % EOS % (test code = 713-8) 1.9 % BASO % (test code = 706-2) 0.3 % GRAN MAT x10^3(ANC) (test code = 1167963390) 3.98 10*3/uL 1.88-7.09 IMM GRAN x10^3 (test code = 0073264526) 0.03 10*3/uL 0-0.06 LYMPH x10^3 (test code = 731-0) 2.45 10*3/uL 1.32-3.29 MONO x10^3 (test code = 742-7) 0.59 10*3/uL 0.33-0.92 EOS x10^3 (test code = 711-2) 0.14 10*3/uL 0.03-0.39 BASO x10^3 (test code = 704-7) 0.01-0.07 Lab Interpretation (test code = 76985-4) Abnormal [facility] GLUCOSE (AUTOMATED)2022-06-24 09:02:53* Test Item Value Reference Range Interpretation Comme nts POCT GLU (test code = 0418455795) 90 mg/dL 70-110 Lab Interpretation (test cod e = 88141-1) Normal [facility] GLUCOSE (AUTOMATED)2022-06-24 04:56:48* Test Item Value Reference Range Interpretation Comme nts POCT GLU (test code = 4593869029) 85 mg/dL 70-110 Lab Interpretation (test cod e = 57477-2) Normal [facility] GLUCOSE (AUTOMATED)2022-06-24 02:05:56* Test Item Value Reference Range Interpretation Comme nts POCT GLU (test code = 4248877504) 100 mg/dL 70-110 Lab Interpretation (test cod e = 91992-4) Normal [facility] GLUCOSE (AUTOMATED)2022-06-23 23:12:36* Test Item Value Reference Range Interpretation Comme nts POCT GLU (test code = 7545909939) 99 mg/dL 70-110 Notified Provide r Lab Interpretation (test code = 48561-2) Normal [facility] GLUCOSE (AUTOMATED)2022-06-23 17:31:06* Test Item Value Reference Range Interpretation Comme nts POCT GLU (test code = 5656134773) 86 mg/dL 70-110 Notified Provide r Lab Interpretation (test code = 79250-3) Normal [facility] GLUCOSE (AUTOMATED)2022-06-23 12:57:16* Test Item Value Reference Range Interpretation Comme nts POCT GLU (test code = 2415277336) 90 mg/dL 70-110 Lab Interpretation (test cod e = 11666-3) Normal [facility] METABOLIC PANEL (NA, K, CL, CO2, GLUCOSE, BUN, CREATININE, CA)2022-06-23 09:54:05* Test Item Value Reference Range Interpretation Comme nts NA (test code = 3464645521) 138 mmol/L 135-145 K (test code = 6864603179) 3.9 mmol/L 3.5-5 CL (test code = 2917768745) 105 mmol/L 98-108 CO2 TOTAL (test code = 0822756534) 22 mmol/L 23-31 L AGAP (test code = 9815382267) 2-16 BUN (test code = 8600924979) 11 mg/dL 7-23 GLUCOSE (test code = 3344228064) 97 mg/dL 70-110 CREATININE (test code = 7402052260) 0.77 mg/dL 0.5-1.04 CALCIUM (test code = 6970351385) 8.8 mg/dL 8.6-10.6 eGFR (test code = 0841011728) mL/min/1.73m2 RENEE (test code = RENEE) Association of Glomerular Filtration Rate (GFR) and Staging of Kidney Disease* + --+ --+ ------+| GFR (mL/min/1.73 m2) ?| With Kidney Damage ?| ?Without Kidney Damage+ --------+ --------+ +| ?>90 ?| ?Stage one ?| ? Normal ?+ ---+ ---+ -------+| ?60-89 ?| ?Stage two ?| ? Decreased GFR ? + --+ --+ ------+| ?30-59 ?| ?Stage three ?| ? Stage three ? + --+ --+ ------+| ?15-29 ?| ?Stage four ? | ? Stage four ?+ ---+ ---+ -------+| ?<15 (or dialysis) ? ?| ?Stage five ? | ? Stage five ?+ ---+ ---+ -------+ *Each stage assumes the associated GFR level has been in effect for at least three months. ?Stages 1 to 5, with or without kidney disease, indicate chronic kidney disease. Notes: Determination of stages one and two (with eGFR >59mL/min/1.73 m2) requires estimation of kidney damage for at least three months as defined by structural or functional abnormalities of the kidney, manifested by either:Pathological abnormalities or Markers of kidney damage (including abnormalities in the composition of the blood or urine or abnormalities in imaging tests). Lab Interpretation (test code = 49135-8) [facility]normal [facility]2022-[facility]-03 09:54:05* Test Item Value Reference Range Interpretation Comme nts MAGNESIUM (test code = 1859030971) 2.2 mg/dL 1.7-2.4 Lab Interpretation (test cod e = 43219-5) Normal [facility] WITH [id number] 09:25:45* Test Item Value Reference Range Interpretation Comme nts WBC (test code = 6690-2) See_Comment [Automated [employer]] The system which generated this result transmitted reference range: 4.30 - 11.10 10*3/?L. The reference range was not used to interpret this result as normal/abnormal. RBC (test code = 789-8) See_Comment [Automated [employer]] The system which generated this result transmitted reference range: 3.93 - 5.25 10*6/?L. The reference range was not used to interpret this result as normal/abnormal. HGB (test code = 718-7) 11.5 g/dL 11.6-15 L HCT (test code = 4544-3) 34.2 % 35.7-45.2 L MCV (test code = 787-2) 82.6 fL 80.6-95.5 MCH (test code = 785-6) 27.8 pg 25.9-32.8 MCHC (test code = 786-4) 33.6 g/dL 31.6-35.1 RDW-SD (test code = 79839-0) 49.5 fL 39-49.9 RDW-CV (test code = 788-0) 16.4 % 12-15.5 H PLT (test code = 777-3) See_Comment [Automated [employer]] The system which generated this result transmitted reference range: 166 - 358 10*3/?L. The reference range was not used to interpret this result as normal/abnormal. MPV (test code = 30189-7) 9.7 fL 9.5-12.9 NRBC/100 WBC (test code = 4003092435) See_Comment [Automated me ssage] The system which generated this result transmitted reference range: 0.0 - 10.0 /100 WBCs. The reference range was not used to interpret this result as normal/abnormal. NRBC x10^3 (test code = 5287272862) See_Comment [Automated messa ge] The system which generated this result transmitted reference range: 10*3/?L. The reference range was not used to interpret this result as normal/abnormal. GRAN MAT (NEUT) % (test code = 770-8) 67.4 % IMM GRAN % (test code = 3353841323) 0.30 % LYMPH % (test code = 736-9) 23.0 % MONO % (test code = 5905-5) 8.5 % EOS % (test code = 713-8) 0.4 % BASO % (test code = 706-2) 0.4 % GRAN MAT x10^3(ANC) (test code = 2433749263) 6.66 10*3/uL 1.88-7.09 IMM GRAN x10^3 (test code = 9826776124) 0.03 10*3/uL 0-0.06 LYMPH x10^3 (test code = 731-0) 2.27 10*3/uL 1.32-3.29 MONO x10^3 (test code = 742-7) 0.84 10*3/uL 0.33-0.92 EOS x10^3 (test code = 711-2) 0.04 10*3/uL 0.03-0.39 BASO x10^3 (test code = 704-7) 0.04 10*3/uL 0.01-0.07 Lab Interpretation (test code = 04408-7) Abnormal [facility] GLUCOSE (AUTOMATED)2022-06-23 09:14:23* Test Item Value Reference Range Interpretation Comme nts POCT GLU (test code = 5942231137) 88 mg/dL 70-110 Lab Interpretation (test cod e = 79586-7) Normal [facility] GLUCOSE (AUTOMATED)2022-06-23 04:58:21* Test Item Value Reference Range Interpretation Comme nts POCT GLU (test code = 3663643716) 91 mg/dL 70-110 Lab Interpretation (test cod e = 84629-4) Normal [facility] GLUCOSE (AUTOMATED)2022-06-23 01:22:12* Test Item Value Reference Range Interpretation Comme nts POCT GLU (test code = 6090834239) 82 mg/dL 70-110 Lab Interpretation (test cod e = 56074-9) Normal [facility] GLUCOSE (AUTOMATED)2022-06-22 23:36:56* Test Item Value Reference Range Interpretation Comme nts POCT GLU (test code = 3080490251) 93 mg/dL 70-110 Lab Interpretation (test cod e = 08814-0) Normal [facility] GLUCOSE (AUTOMATED)2022-06-22 22:33:50* Test Item Value Reference Range Interpretation Comme nts POCT GLU (test code = 4793537913) 106 mg/dL 70-110 Lab Interpretation (test cod e = 14427-8) Normal [facility] GLUCOSE (AUTOMATED)2022-06-22 20:07:16* Test Item Value Reference Range Interpretation Comme nts POCT GLU (test code = 8886665275) 125 mg/dL 70-110 H Lab Interpretation (test cod e = 80709-9) Abnormal [facility] GLUCOSE (AUTOMATED)2022-06-22 17:41:06* Test Item Value Reference Range Interpretation Comme nts POCT GLU (test code = 9990008945) 125 mg/dL 70-110 H Lab Interpretation (test cod e = 21875-2) [facility]normal [facility] WorthTran[facility]hor[facility] (TTE)2022-06-22 16:49:15* Test Item Value Reference Range Interpretation Comme nts Height (test code = 1498207112) in Weight (test code = 1335972680) lbs Systolic BP (test code = 8105658441) mmHg Diastolic BP (test code = 2127015221) mmHg Heart Rate (test code = 1890495380) bpm LVIDD (test code = 4913050778) 3.70 cm Interventricular Septum Diastolic Thickness by 2D (test code = 5235245) 1.01 cm PW (test code = 9697559660) 1.08 cm 0.6-1.1 LVIDS (test code = 4166760200) 2.36 cm LA volume (BP) (test code = 3016395464) 28.8 mL LA size (test code = 7267633826) 3.5 cm LVPWD (test code = 9986450802) 1.08 cm AV LVOT peak gradient (test code = 0148871019) mmHg E/A ratio (test code = 1530015858) ratio E wave decelartion time (test code = 7955666407) 0.17 s LVOT diameter (test code = 8486309217) 2.05 cm LVOT peak VTI (test code = 6682835141) 24.9 cm LVOT stroke volume (test code = 7233696564) 82.40 cm3 MV Peak E Fátima (test code = 2672208829) 106.2 cm/s MV Peak A Fátima (test code = 3425881812) 82.5 cm/s LA Volume Index (BP) (test code = 9600675377) 14.8 mL/m2 IVS (test code = 6452510696) 1.01 cm Aortic root (test code = 5454994709) 3.1 cm Tapse (test code = 0600570113) 2.22 cm EF - 2D (test code = 62754753) 66.60 % Ao root annulus (test code = 6103151589) 3.1 cm FS (test code = 2246845428) 36 % LVOT mn grad (test code = 6537672931) mmHg LVOT peak fátima (test code = 1935227434) 125.5 cm/s BSA (test code = 1895464205) 1.95 m2 Ao root diam (test code = 8990391362) 3.10 cm EF(Teich) (test code = 1474040535) 66.60 % LAV(MOD-sp2) (test code = 2493343411) 22.00 mL LAV(MOD-sp4) (test code = 4884007345) 30.10 mL LV V1 mean (test code = 3369942073) 80.40 cm/s MV Prop V (test code = 2888736030) 63.00 cm/s Radiology Study observation (narrative) (test code = 10075-0) RENEE (test code = RENEE) Formatting of this result is different from the original. ?Left?Ventricle: Left ventricle size is normal. Normal wall thickness. Normal wall motion. Normal systolic function with a visually estimated EF of 60 - 65%. ?Right?Ventricle: Right ventricle size is normal. Normal systolic function. ?Tricuspid?Valve: Insufficient tricuspid regurgitation jet to estimate RVSP. ?Aorta: Sinus of Valsalva is normal in size. ?Pericardium: No pericardial effusion. Left VentricleLeft ventricle size is normal. Normal wall thickness. Normal wall motion. Normal systolic function with a visually estimated EF of 60 - 65%. Diastolic dysfunction of indeterminate grade.Right VentricleRight ventricle size is normal. Normal systolic function.Left AtriumLeft atrium size is normal.Right AtriumRight atrium size is normal.IVC/SVCIVC was not visualized.Mitral ValveMitral valve structure is normal.Tricuspid ValveTricuspid valve structure is normal. Insufficient tricuspid regurgitation jet to estimate RVSP.Aortic ValveAortic valve structure is normal.Pulmonic ValvePulmonic valve is normal in structure and function.Ascending AortaSinus of Valsalva is normal in size.PericardiumThe pericardium is normal. No pericardial effusion.Study DetailsA complete echocardiogram was performed using 2D, color flow Doppler and spectral Doppler. 5 mL of Lumason ultrasound enhancing agent used. [facility] GLUCOSE (AUTOMATED)2022-06-22 16:38:25* Test Item Value Reference Range Interpretation Comme nts POCT GLU (test code = 7747497750) 125 mg/dL 70-110 H Lab Interpretation (test cod e = 59518-5) Abnormal [facility] GLUCOSE (AUTOMATED)2022-06-22 15:28:09* Test Item Value Reference Range Interpretation Comme nts POCT GLU (test code = 5489373057) 101 mg/dL 70-110 Lab Interpretation (test cod e = 31086-3) Normal [facility] GLUCOSE (AUTOMATED)2022-06-22 14:31:03* Test Item Value Reference Range Interpretation Comme nts POCT GLU (test code = 5491955204) 126 mg/dL 70-110 H Lab Interpretation (test cod e = 46312-4) Abnormal [facility] GLUCOSE (AUTOMATED)2022-06-22 12:36:24* Test Item Value Reference Range Interpretation Comme [facility] POCT GLU (test code = 6984650002) 133 mg/dL 70-110 H Lab Interpretation (test cod e = 55435-9) Abnormal [facility] GLUCOSE (AUTOMATED)2022-06-22 11:02:27* Test Item Value Reference Range Interpretation Comme [facility] POCT GLU (test code = 2959604768) 129 mg/dL 70-110 H Lab Interpretation (test cod e = 30713-5) Abnormal [facility]. METABOLIC PANEL ([id number])2022-06-22 10:53:30* Test Item Value Reference Range Interpretation Comme [facility] NA (test code = 9214952228) 137 mmol/L 135-145 K (test code = 9792870472) 3.6 mmol/L 3.5-5 CL (test code = 9513859501) 108 mmol/L 98-108 CO2 TOTAL (test code = 3520443229) 21 mmol/L 23-31 L AGAP (test code = 2265904543) 2-16 BUN (test code = 9416514099) 3 mg/dL 7-23 L GLUCOSE (test code = 4408982213) 125 mg/dL 70-110 H CREATININE (test code = 3633292441) 0.66 mg/dL 0.5-1.04 TOTAL BILI (test code = 7397208904) 0.5 mg/dL 0.1-1.1 CALCIUM (test code = 6738129211) 7.6 mg/dL 8.6-10.6 L T PROTEIN (test code = 0704229326) 6.3 g/dL 6.3-8.2 ALBUMIN (test code = 8319670477) 3.5 g/dL 3.5-5 ALK PHOS (test code = 9032861227) 61 U/L 34-122 ALTv (test code = 1742-6) 25 U/L 5-35 AST(SGOT) (test code = 6924359606) 44 U/L 13-40 H eGFR (test code = 0985815583) mL/min/1.73m2 RENEE (test code = RENEE) Association of Glomerular Filtration Rate (GFR) and Staging of Kidney Disease* + --+ --+ ------+| GFR (mL/min/1.73 m2) ?| With Kidney Damage ?| ?Without Kidney Damage+ --------+ --------+ +| ?>90 ?| ?Stage one ?| ? Normal ?+ ---+ ---+ -------+| ?60-89 ?| ?Stage two ?| ? Decreased GFR ? + --+ --+ ------+| ?30-59 ?| ?Stage three ?| ? Stage three ? + --+ --+ ------+| ?15-29 ?| ?Stage four ? | ? Stage four ?+ ---+ ---+ -------+| ?<15 (or dialysis) ? ?| ?Stage five ? | ? Stage five ?+ ---+ ---+ -------+ *Each stage assumes the associated GFR level has been in effect for at least three months. ?Stages 1 to 5, with or without kidney disease, indicate chronic kidney disease. Notes: Determination of stages one and two (with eGFR >59mL/min/1.73 m2) requires estimation of kidney damage for at least three months as defined by structural or functional abnormalities of the kidney, manifested by either:Pathological abnormalities or Markers of kidney damage (including abnormalities in the composition of the blood or urine or abnormalities in imaging tests). Lab Interpretation (test code = 10482-3) [facility] 10:53:30* Test Item Value Reference Range Interpretation Comme nts MAGNESIUM (test code = 3149027279) 2.4 mg/dL 1.7-2.4 Lab Interpretation (test cod e = 12253-2) Normal [facility] [place]2022-[facility]-22 10:03:10* Test Item Value Reference Range Interpretation Comme nts POCT GLU (test code = 2184588954) 120 mg/dL 70-110 H Lab Interpretation (test cod e = 37573-6) Abnormal [facility] WITH [id number] 09:38:43* Test Item Value Reference Range Interpretation Comme nts WBC (test code = 6690-2) See_Comment H [Automated message] The system which generated this result transmitted reference range: 4.30 - 11.10 10*3/?L. The reference range was not used to interpret this result as normal/abnormal. RBC (test code = 789-8) See_Comment L [Automated message] The system which generated this result transmitted reference range: 3.93 - 5.25 10*6/?L. The reference range was not used to interpret this result as normal/abnormal. HGB (test code = 718-7) 10.0 g/dL 11.6-15 L HCT (test code = 4544-3) 30.7 % 35.7-45.2 L MCV (test code = 787-2) 83.2 fL 80.6-95.5 MCH (test code = 785-6) 27.1 pg 25.9-32.8 MCHC (test code = 786-4) 32.6 g/dL 31.6-35.1 RDW-SD (test code = 99047-0) 49.3 fL 39-49.9 RDW-CV (test code = 788-0) 16.4 % 12-15.5 H PLT (test code = 777-3) See_Comment [Automated message] The system which generated this result transmitted reference range: 166 - 358 10*3/?L. The reference range was not used to interpret this result as normal/abnormal. MPV (test code = 08822-6) 9.5 fL 9.5-12.9 NRBC/100 WBC (test code = 0209413741) See_Comment [Automated message] The system which generated this result transmitted reference range: 0.0 - 10.0 /100 WBCs. The reference range was not used to interpret this result as normal/abnormal. NRBC x10^3 (test code = 5540548875) See_Comment [Automated message] The system which generated this result transmitted reference range: 10*3/?L. The reference range was not used to interpret this result as normal/abnormal. GRAN MAT (NEUT) % (test code = 770-8) 74.8 % IMM GRAN % (test code = 2682720764) 0.40 % LYMPH % (test code = 736-9) 16.4 % MONO % (test code = 5905-5) 8.3 % EOS % (test code = 713-8) 0.0 % BASO % (test code = 706-2) 0.1 % GRAN MAT x10^3(ANC) (test code = 3084256677) 10.01 10*3/uL 1.88-7.09 H IMM GRAN x10^3 (test code = 5102458293) 0.06 10*3/uL 0-0.06 LYMPH x10^3 (test code = 731-0) 2.19 10*3/uL 1.32-3.29 MONO x10^3 (test code = 742-7) 1.11 10*3/uL 0.33-0.92 H EOS x10^3 (test code = 711-2) 0.03-0.39 L BASO x10^3 (test code = 704-7) 0.01-0.07 Lab Interpretation (test code = 75076-6) Abnormal [facility] GLUCOSE (AUTOMATED)2022-06-22 08:57:26* Test Item Value Reference Range Interpretation Comme nts POCT GLU (test code = 0750210010) 123 mg/dL 70-110 H Lab Interpretation (test cod e = 43185-4) Abnormal [facility] GLUCOSE (AUTOMATED)2022-06-22 07:59:58* Test Item Value Reference Range Interpretation Comme nts POCT GLU (test code = 4174527217) 126 mg/dL 70-110 H Lab Interpretation (test cod e = 03143-0) Abnormal [facility] GLUCOSE (AUTOMATED)2022-06-22 06:56:43* Test Item Value Reference Range Interpretation Comme nts POCT GLU (test code = 7539656920) 129 mg/dL 70-110 H Lab Interpretation (test cod e = 59111-7) Abnormal [facility] GLUCOSE (AUTOMATED)2022-06-22 06:01:01* Test Item Value Reference Range Interpretation Comme nts POCT GLU (test code = 3921999919) 78 mg/dL 70-110 Lab Interpretation (test cod e = 12630-5) Normal [facility] GLUCOSE (AUTOMATED)2022-06-22 05:01:40* Test Item Value Reference Range Interpretation Comme nts POCT GLU (test code = 1738269679) 102 mg/dL 70-110 Lab Interpretation (test cod e = 18981-2) Normal [facility] Metabolic Panel (Na, K, Cl, CO2, Glucose, BUN, Creatinine, Ca)2022-06-22 04:53:30* Test Item Value Reference Range Interpretation Comme nts NA (test code = 8523413798) 138 mmol/L 135-145 K (test code = 5215681289) 3.8 mmol/L 3.5-5 CL (test code = 7330477824) 107 mmol/L 98-108 CO2 TOTAL (test code = 9195157770) 23 mmol/L 23-31 AGAP (test code = 5041019848) 2-16 BUN (test code = 5115024268) 5 mg/dL 7-23 L GLUCOSE (test code = 9380248279) 121 mg/dL 70-110 H CREATININE (test code = 0861432760) 0.69 mg/dL 0.5-1.04 CALCIUM (test code = 0863119434) 7.7 mg/dL 8.6-10.6 L eGFR (test code = 2625239278) mL/min/1.73m2 RENEE (test code = RENEE) Association of Glomerular Filtration Rate (GFR) and Staging of Kidney Disease* + --+ --+ ------+| GFR (mL/min/1.73 m2) ?| With Kidney Damage ?| ?Without Kidney Damage+ --------+ --------+ +| ?>90 ?| ?Stage one ?| ? Normal ?+ ---+ ---+ -------+| ?60-89 ?| ?Stage two ?| ? Decreased GFR ? + --+ --+ ------+| ?30-59 ?| ?Stage three ?| ? Stage three ? + --+ --+ ------+| ?15-29 ?| ?Stage four ? | ? Stage four ?+ ---+ ---+ -------+| ?<15 (or dialysis) ? ?| ?Stage five ? | ? Stage five ?+ ---+ ---+ -------+ *Each stage assumes the associated GFR level has been in effect for at least three months. ?Stages 1 to 5, with or without kidney disease, indicate chronic kidney disease. Notes: Determination of stages one and two (with eGFR >59mL/min/1.73 m2) requires estimation of kidney damage for at least three months as defined by structural or functional abnormalities of the kidney, manifested by either:Pathological abnormalities or Markers of kidney damage (including abnormalities in the composition of the blood or urine or abnormalities in imaging tests). Lab Interpretation (test code = 14670-9) Abnormal [facility] GLUCOSE (AUTOMATED)2022-06-22 04:02:22* Test Item Value Reference Range Interpretation Comme nts POCT GLU (test code = 2625478547) 99 mg/dL 70-110 Lab Interpretation (test cod e = 44919-2) Normal [facility] GLUCOSE (AUTOMATED)2022-06-22 02:52:45* Test Item Value Reference Range Interpretation Comme nts POCT GLU (test code = 3945904196) 111 mg/dL 70-110 H Lab Interpretation (test cod e = 84289-0) Abnormal [facility] GLUCOSE (AUTOMATED)2022-06-22 01:39:10* Test Item Value Reference Range Interpretation Comme nts POCT GLU (test code = 7428099851) 89 mg/dL 70-110 Lab Interpretation (test cod e = 31130-6) Normal [facility] GLUCOSE (AUTOMATED)2022-06-22 00:25:45* Test Item Value Reference Range Interpretation Comme nts POCT GLU (test code = 5021065686) 102 mg/dL 70-110 Lab Interpretation (test cod e = 25834-3) Normal [facility] GLUCOSE (AUTOMATED)2022-06-21 23:10:01* Test Item Value Reference Range Interpretation Comme nts POCT GLU (test code = 3218566095) 106 mg/dL 70-110 Lab Interpretation (test cod e = 74632-5) Normal [facility] GLUCOSE (AUTOMATED)2022-06-21 21:12:57* Test Item Value Reference Range Interpretation Comme nts POCT GLU (test code = 0318085960) 127 mg/dL 70-110 H Lab Interpretation (test cod e = 50618-6) [facility]normal [facility] WorthLan[facility] Acid Whole [id number] 20:14:30* Test Item Value Reference Range Interpretation Comme nts LACTIC ACID (test code = 3919196939) 2.28 mmol/L 0.5-2.2 H Lab Interpretation (test cod e = 36409-8) Abnormal [facility] GLUCOSE (AUTOMATED)2022-06-21 20:10:46* Test Item Value Reference Range Interpretation Comme nts POCT GLU (test code = 6635268899) 141 mg/dL 70-110 H Lab Interpretation (test cod e = 05505-4) Abnormal [facility] WorthBETA [id number] 19:49:22* Test Item Value Reference Range Interpretation Comme nts BOH (test code = 8542478691) 0.6 mmol/L RENEE (test code = RENEE) Normal Ranges: ? ? Nonfasting ? Less than 0.1 mmol/L ? ? Overnight Fast ? ? ? Less than 0.4 mmol/L ? ? Fasting (1-2 weeks) ?6-8 mmol/L Test developed and characteristics determined by [facility] Laboratory Services. [facility] GLUCOSE (AUTOMATED)2022-06-21 18:45:58* Test Item Value Reference Range Interpretation Comme nts POCT GLU (test code = 3620722582) 135 mg/dL 70-110 H Lab Interpretation (test cod e = 52850-7) Abnormal [facility] GLUCOSE (AUTOMATED)2022-06-21 17:47:32* Test Item Value Reference Range Interpretation Comme nts POCT GLU (test code = 0339855767) 120 mg/dL 70-110 H Lab Interpretation (test cod e = 02940-0) Abnormal [facility] WorthPROCALCITONIN2022-08-01 16:49:58* Test Item Value Reference Range Interpretation Comments Procalcitonin (test code = 7040196722) 0.05 ng/mL See_Comment [Automated message] The system which generated this result transmitted reference range: <=0.07. The reference range was not used to interpret this result as normal/abnormal . RENEE (test code = RENEE) INTERPRETATION OF PROCALCITONIN RESULTS IN ADULTS >= 18 YEARS OF AGE Initiation and discontinuation of antibiotics on patients with suspected or confirmed Lower Respiratory Tract Infection in Adults >= 18 years of age. + +------ + ----+ +|Procalcit onin |Interpretation ?|Antibiotic ? ? |Considerations ? |ng/mL ? | ?|recommendation | ? + +------ + ----+ +| <0.1 ? | Bacterial ? ? ?| Strongly ? ? ?| ? | ?| infection very | discouraged ? | Overruling: ? | ?| unlikely ? ? ? | ? | ? Clinically unstable ? ? ? + +------ + ----+ ? High risk for adverse ? ? | <0.25 ?| Bacterial ? ? ?| Discouraged ? | ? outcome ? | ?| infection ? ? ?| ? | ? SEE IMPORTANT NOTE ?| ?| unlikely ? ? ? | ? | ? + +------ + ----+ +| >=0.25 ? ? ? | Bacterial ? ? ?| Encouraged ? ?| ? | ?| infection ? ? ?| ? | ? | ?| likely ? | ? | Consider treatment failure ?+ +----- + -----+ if levels does not decrease | >0.5 ? | Bacterial ? ? ?| Strongly ? ? ?| appropriately ? | ?| infection very | encouraged ? ?| ? | ?| likely ? | ? | ? + +------ + ----+ + Discontinuation of antibiotics in high-acuity patients with suspected or confirmed sepsis in Adults >= 18 years of age. + +------ + ----+ +|Procalcit onin |Interpretation ?|Antibiotic ? ? |Considerations ? |ng/mL ? | ?|recommendation | ? + +------ + ----+ +| <0.25 ?| Bacterial ? ? ?| Strongly ? ? ?| ? | ?| infection very | discouraged ? | Overruling: ? | ?| unlikely ? ? ? | ? | ? Clinically unstable ? ? ? + +------ + ----+ ? High risk for adverse ? ? | <0.5 or drop | Bacterial ? ? ?| Discouraged ? | ? outcome ? | >80% from ? ?| infection ? ? ?| ? | ? SEE IMPORTANT NOTE ?| highest PCT ?| unlikely ? ? ? | ? | ? | level ?| ?| ? | ? + +------ + ----+ +| >=0.5 ?| Bacterial ? ? ?| Encouraged ? ?| ? | ?| infection ? ? ?| ? | ? | ?| likely ? | ? | Consider treatment failure ?+ +----- + -----+ if levels does not decrease | >1.0 ? | Bacterial ? ? ?| Strongly ? ? ?| appropriately ? | ?| infection very | encouraged ? ?| ? | ?| likely ? | ? | ? + +------ + ----+ + Percentage of drop of Procalcitonin calculation for Discontinuation of antibiotics in high-acuity patients with suspected or confirmed sepsis in Adults >= 18 years of age. ? Procalcitonin highest{}-Procalcitoni n current{}Delta Procalcitonin = ___ x100% ? Procalcitonin current {} IMPORTANT NOTE: Procalcitonin may be elevated without bacterial infection by physiologic stress related to trauma, benavidez, chronic dialysis, metastatic cancer, surgery in the past seven days, malaria, some fungal infections, and some forms of vasculitis. The interpretation algorithm may not apply to patients with immunosuppression (equivalent of >10 mg of prednisone daily), HIV with CD4 cell count < 350 cells/mm3, active malignancy on systemic chemotherapy, solid organ transplant or hematopoietic stem cell transplantation, or hospital acquired pneumonia. Additionally, some clinical trials of procalcitonin have excluded patients with shock requiring vasopressor use, acute respiratory failure requiring mechanical ventilation, or those with known lung abscess/empyema. For further information please refer to:[email or web address] Lab Interpretation (test code = 29505-9) Normal [facility] WorthFREE [id number] 16:30:41* Test Item Value Reference Range Interpretation Comme nts FREE T4 (test code = 7529432921) See_Comment [Automated [employer]] The system which generated this result transmitted reference range: 0.78 - 2.20 ng/dL:. The reference range was not used to interpret this result as normal/abnormal. Lab Interpretation (test code = 55658-9) Normal [facility] WorthOsmolality [id number] 16:14:18* Test Item Value Reference Range Interpretation Comme nts OSMOLALITY (test code = 2692-2) See_Comment [Automated [employer]] The system which generated this result transmitted reference range: 278 - 305 mOsm/kg. The reference range was not used to interpret this result as normal/abnormal. Lab Interpretation (test code = 73029-0) Normal [facility] METABOLIC PANEL (NA, K, CL, CO2, GLUCOSE, BUN, CREATININE, CA)2022-06-21 14:45:32* Test Item Value Reference Range Interpretation Comme [facility] NA (test code = 5108318528) 142 mmol/L 135-145 K (test code = 8837056087) 4.3 mmol/L 3.5-5 CL (test code = 6397673210) 108 mmol/L 98-108 CO2 TOTAL (test code = 8224013044) 18 mmol/L 23-31 L AGAP (test code = 4480421743) 2-16 BUN (test code = 4371580401) 8 mg/dL 7-23 GLUCOSE (test code = 1067747766) 174 mg/dL 70-110 H CREATININE (test code = 0625924467) 0.76 mg/dL 0.5-1.04 CALCIUM (test code = 3480137108) 8.9 mg/dL 8.6-10.6 eGFR (test code = 2879403728) mL/min/1.73m2 RENEE (test code = RENEE) Association of Glomerular Filtration Rate (GFR) and Staging of Kidney Disease* + --+ --+ ------+| GFR (mL/min/1.73 m2) ?| With Kidney Damage ?| ?Without Kidney Damage+ --------+ --------+ +| ?>90 ?| ?Stage one ?| ? Normal ?+ ---+ ---+ -------+| ?60-89 ?| ?Stage two ?| ? Decreased GFR ? + --+ --+ ------+| ?30-59 ?| ?Stage three ?| ? Stage three ? + --+ --+ ------+| ?15-29 ?| ?Stage four ? | ? Stage four ?+ ---+ ---+ -------+| ?<15 (or dialysis) ? ?| ?Stage five ? | ? Stage five ?+ ---+ ---+ -------+ *Each stage assumes the associated GFR level has been in effect for at least three months. ?Stages 1 to 5, with or without kidney disease, indicate chronic kidney disease. Notes: Determination of stages one and two (with eGFR >59mL/min/1.73 m2) requires estimation of kidney damage for at least three months as defined by structural or functional abnormalities of the kidney, manifested by either:Pathological abnormalities or Markers of kidney damage (including abnormalities in the composition of the blood or urine or abnormalities in imaging tests). Lab Interpretation (test code = 36830-5) Abnormal [facility] WorthTRANMED HEALTH WOM[facility] & CHILDREN'[facility] HOSPITALNIN [id number] 11:51:22* Test Item Value Reference Range Interpretation Comments TROPONIN I (test code = 4771208228) 0.030 ng/mL See_Comment [Automated message] The system which generated this result transmitted reference range: <=0.034. The reference range was not used to interpret this result as normal/abnormal. RENEE (test code = RENEE) Reference (Normal) Range (defined by the 99th percentile reference limit): <= 0.034 ng/mL Note: Cardiac troponin begins to rise 3-4 hours after the onset of ischemia. Repeat in 4-6 hours if the sample was drawn within 3-4 hours of the onset of the symptom and found normal. Diagnosis of myocardial injury is made with acute changes in cTn concentrations with at least one serial sample above the 99th percentile upper reference limit (URL), taken together with the patient's clinical presentation. Biotin has been reported to cause a negative bias, interpret results relative to patient's use of biotin. Lab Interpretation (test code = 37245-1) Normal [facility] WorthGLYCOSYLATED HEMOGLOBIN (A1C)2022-06-21 08:43:44* Test Item Value Reference Range Interpretation Comme nts HGB A1C (test code = 4548-4) 5.4 % 4-5.7 RENEE (test code = RENEE) Reference RangesNormal: <5.7%Prediabetes: 5.7 - 6.4%Diabetes: > 6.5% Lab Interpretation (test code = 22924-9) Normal [facility] WorthLIPID PANEL (71751)(TOTAL CHOLESTEROL, TRIGLYCERIDES, HDL)2022-06-21 08:35:47* Test Item Value Reference Range Interpretation Comme nts CHOL (test code = 6610707123) 354 mg/dL 120-200 H HDL (test code = 1305213036) 52 mg/dL See_Comment [Automated [employer]] The system which generated this result transmitted reference range: >=50. The reference range was not used to interpret this result as normal/abnormal. HDLC RATIO (test code = 3400606121) See_Comment H [Automated [employer]] The system which generated this result transmitted reference range: <=4.5. The reference range was not used to interpret this result as normal/abnormal. TRIG (test code = 9264461304) 129 mg/dL 30-170 LDL CHOL (test code = 25359-2) 276 mg/dL See_Comment H [Automated [employer]] The system which generated this result transmitted reference range: <=160. The reference range was not used to interpret this result as normal/abnormal. VLDL (test code = 6212264012) 26 mg/dL 5-60 Lab Interpretation (test code = 14702-9) Abnormal [facility] WorthLactic Acid Whole [id number] 08:15:40* Test Item Value Reference Range Interpretation Comme nts LACTIC ACID (test code = 3166518661) 3.91 mmol/L 0.5-2.2 H Lab Interpretation (test cod e = 64118-1) [facility]normal [facility] WorthMAGNESIUM2022-08-01 08:06:48* Test Item Value Reference Range Interpretation Comme nts MAGNESIUM (test code = 9927966201) 2.1 mg/dL 1.7-2.4 Lab Interpretation (test cod e = 29042-1) Normal [facility] WorthTHYROID STIMULATING [id number] 06:22:03 * Test Item Value Reference Range Interpretation Comme nts TSH (test code = 0816587174) See_Comment Biotin has been reported to cause a negative bias, interpret results relative to patient's use of biotin. [Automated message] The system which generated this result transmitted reference range: 0.45 - 4.70 mIU/L. The reference range was not used to interpret this result as normal/abnormal. Lab Interpretation (test code = 42078-8) Normal [facility] WorthLactic Acid Whole [id number] 04:41:28* Test Item Value Reference Range Interpretation Comme nts LACTIC ACID (test code = 1511313167) 5.21 mmol/L 0.5-2.2 H Lab Interpretation (test cod e = 60554-5) Abnormal [facility] WorthTROPONIN [id number] 04:20:31* Test Item Value Reference Range Interpretation Comments TROPONIN I (test code = 4306328526) 0.005 ng/mL See_Comment [Automated message] The system which generated this result transmitted reference range: <=0.034. The reference range was not used to interpret this result as normal/abnormal. RENEE (test code = RENEE) Reference (Normal) Range (defined by the 99th percentile reference limit): <= 0.034 ng/mL Note: Cardiac troponin begins to rise 3-4 hours after the onset of ischemia. Repeat in 4-6 hours if the sample was drawn within 3-4 hours of the onset of the symptom and found normal. Diagnosis of myocardial injury is made with acute changes in cTn concentrations with at least one serial sample above the 99th percentile upper reference limit (URL), taken together with the patient's clinical presentation. Biotin has been reported to cause a negative bias, interpret results relative to patient's use of biotin. Lab Interpretation (test code = 26415-3) Normal [facility] WorthN-TERMINAL [id number] 04:20:31* Test Item Value Reference Range Interpretation Comme nts NT-proBNP (test code = 8859892325) 158 pg/mL See_Comment H [Automated message] The system which generated this result transmitted reference range: <=125. The reference range was not used to interpret this result as normal/abnormal. RENEE (test code = RENEE) Biotin has been reported to cause a negative bias, interpret results relative to patient's use of biotin. Lab Interpretation (test code = 90032-8) Abnormal [facility]. METABOLIC PANEL (62728)2022-06-21 04:08:54* Test Item Value Reference Range Interpretation Comme nts NA (test code = 8279707503) 141 mmol/L 135-145 K (test code = 4703480920) 3.7 mmol/L 3.5-5 CL (test code = 4436670660) 106 mmol/L 98-108 CO2 TOTAL (test code = 0274862805) 15 mmol/L 23-31 L AGAP (test code = 3999005297) 2-16 H BUN (test code = 1176733720) 11 mg/dL 7-23 GLUCOSE (test code = 8178795926) 126 mg/dL 70-110 H CREATININE (test code = 2936716547) 0.82 mg/dL 0.5-1.04 TOTAL BILI (test code = 7849471746) 0.8 mg/dL 0.1-1.1 CALCIUM (test code = 8520628305) 10.0 mg/dL 8.6-10.6 T PROTEIN (test code = 2751148345) 9.1 g/dL 6.3-8.2 H ALBUMIN (test code = 6772045520) 5.4 g/dL 3.5-5 H ALK PHOS (test code = 5251546051) 124 U/L 34-122 H ALTv (test code = 1742-6) 48 U/L 5-35 H AST(SGOT) (test code = 9783056924) 44 U/L 13-40 H eGFR (test code = 6092325640) mL/min/1.73m2 ERNEE (test code = RENEE) Association of Glomerular Filtration Rate (GFR) and Staging of Kidney Disease* + --+ --+ ------+| GFR (mL/min/1.73 m2) ?| With Kidney Damage ?| ?Without Kidney Damage+ --------+ --------+ +| ?>90 ?| ?Stage one ?| ? Normal ?+ ---+ ---+ -------+| ?60-89 ?| ?Stage two ?| ? Decreased GFR ? + --+ --+ ------+| ?30-59 ?| ?Stage three ?| ? Stage three ? + --+ --+ ------+| ?15-29 ?| ?Stage four ? | ? Stage four ?+ ---+ ---+ -------+| ?<15 (or dialysis) ? ?| ?Stage five ? | ? Stage five ?+ ---+ ---+ -------+ *Each stage assumes the associated GFR level has been in effect for at least three months. ?Stages 1 to 5, with or without kidney disease, indicate chronic kidney disease. Notes: Determination of stages one and two (with eGFR >59mL/min/1.73 m2) requires estimation of kidney damage for at least three months as defined by structural or functional abnormalities of the kidney, manifested by either:Pathological abnormalities or Markers of kidney damage (including abnormalities in the composition of the blood or urine or abnormalities in imaging tests). Lab Interpretation (test code = 87999-5) [facility] WorthLIPASE2022-08-01 04:08:54* Test Item Value Reference Range Interpretation Comme nts LIPASE (test code = 3416804942) 73 U/L 0-220 Lab Interpretation (test cod e = 33159-0) Normal [facility] WITH [id number] 03:42:54* Test Item Value Reference Range Interpretation Comme nts WBC (test code = 6690-2) See_Comment H [Automated message] The system which generated this result transmitted reference range: 4.30 - 11.10 10*3/?L. The reference range was not used to interpret this result as normal/abnormal. RBC (test code = 789-8) See_Comment H [Automated message] The system which generated this result transmitted reference range: 3.93 - 5.25 10*6/?L. The reference range was not used to interpret this result as normal/abnormal. HGB (test code = 718-7) 14.2 g/dL 11.6-15 HCT (test code = 4544-3) 42.7 % 35.7-45.2 MCV (test code = 787-2) 80.0 fL 80.6-95.5 L MCH (test code = 785-6) 26.6 pg 25.9-32.8 MCHC (test code = 786-4) 33.3 g/dL 31.6-35.1 RDW-SD (test code = 49829-7) 43.6 fL 39-49.9 RDW-CV (test code = 788-0) 15.4 % 12-15.5 PLT (test code = 777-3) See_Comment H [Automated message] The system which generated this result transmitted reference range: 166 - 358 10*3/?L. The reference range was not used to interpret this result as normal/abnormal. MPV (test code = 58324-9) 10.1 fL 9.5-12.9 NRBC/100 WBC (test code = 9382651278) See_Comment [Automated message] The system which generated this result transmitted reference range: 0.0 - 10.0 /100 WBCs. The reference range was not used to interpret this result as normal/abnormal. NRBC x10^3 (test code = [id number]) See_Comment [Automated message] The system which generated this result transmitted reference range: 10*3/?L. The reference range was not used to interpret this result as normal/abnormal. GRAN MAT (NEUT) % (test code = 770-8) 86.5 % IMM GRAN % (test code = 6718193163) 0.40 % LYMPH % (test code = 736-9) 10.2 % MONO % (test code = 5905-5) 2.7 % EOS % (test code = 713-8) 0.0 % BASO % (test code = 706-2) 0.2 % GRAN MAT x10^3(ANC) (test code = 8719834870) 13.58 10*3/uL 1.88-7.09 H IMM GRAN x10^3 (test code = 7490940401) 0.07 10*3/uL 0-0.06 H LYMPH x10^3 (test code = 731-0) 1.60 10*3/uL 1.32-3.29 MONO x10^3 (test code = 742-7) 0.43 10*3/uL 0.33-0.92 EOS x10^3 (test code = 711-2) 0.03-0.39 L BASO x10^3 (test code = 704-7) 0.03 10*3/uL 0.01-0.07 Lab Interpretation (test code = 19100-6) Abnormal [facility] Consult Notes Date/Time Note Provider Source 2024-02-15 10:57:10 [id number] ds4+ iIwXZ+nmYSdrqEhfjU4n1330-22-80I13:57:10Assoc iated Order(s): CONSULT GASTROENTEROLOGY Images from the original note were not included.Department of Gastroenterology & Hepatology Consult NoteRequesting Physician: LUKAS Araizaervice: JONATHAN- Cristopher for Consultation: abdominal painDate of Service: 4CHIEF COMPLAINT:Nausea and VomitingHistory of Present Aaddhkn26/F PMH GERD with LA D esophagitis seen on EGD 05/2023 on PPI BID (seen in clinic 06/2023), HTN, ADHD (amphetamines), Anxiety (Valium) who presented again for intractable nausea vomiting after being discharged after recent hospitalization from 02/09/2024 to 02/13/2024 for nausea vomiting.Things for her began when she went to [facility] a year ago 05/2023 for N/V and questionable hematemesis where in underwent EGD showing LA D esophagitis and a hiatal hernia. Discharged on Protonix and sucralfateSoon thereafter presented to [facility] ED 05/2023 with similar symptoms and underwent CT that showed no acute process in the abdomen hiatal hernia normal small bowel without obstruction and normal colon discharged from the ED.Admitted [facility] 10/04/23-10/08/23 for n/V. This was attributed to Wegovy dose increase, increased stool burden in the proximal colon. She was treated symptomatically with suppositories and antiemetics and improvement in symptoms.She was admitted to [facility] 02/08-02/12 for flu like symptoms (tested negative for influenza and COVID) thought to be secondary to benzo withdrawal and N/V that improved with antiemetics. Underwent ultrasound and CT abdomen without any pancreaticobiliary or luminal issues. She was discharged on with p.o. phenargan despite clear GI recs to provide po compazine on dcShe mentions having vomiting and episodes right after discharge and unable to tolerate any p.o. diet. She also mentions having a questionable coffee-ground emesis right after discharge.Upon arrival, she is tired but not in distress, able to answer questions. Labs significant for WBC 9K, hemoglobin 9.0 (baseline 9-10), platelet 430, bicarb 22, creatinine 1.51, BUN 9, UDS with presumptive benzo positive, AST 59, ALT 46, ALP 80.Underwent CT abdomen with IV contrast without any bowel wall thickening or dilation or free air in the peritoneum.While in the hospital she has been maintained on her home medications and as needed Reglan and this afternoon was able to eat at least more than half of her lunch.PAST MEDICAL HISTORYPast Medical History:Diagnosis DateAllergic rhinitisAnxietyHypertensionSleep apneaPAST SURGICAL HISTORYPast Surgical History:Procedure Laterality DateADENOIDECTOMYTONSILLECTOMYFAMILY HISTORYNo family history on file.ALLERGIESAllergiesAllergen ReactionsCodeine Nausea and/or VomitingZofran [Ondansetron Hcl] Unknown - See commentsPer patientHydrocodone Itching and Nausea and/or VomitingMEDICATIONSReviewedSOCIAL HISTORYSocial HistorySocioeconomic HistoryMarital status: SingleSpouse name: Not on fileNumber of children: Not on fileYears of education: Not on fileHighest education level: Not on fileOccupational HistoryOccupation: mental health disabilityTobacco UseSmoking status: FormerTypes: CigarettesPassive exposure: PastSmokeless tobacco: CurrentSubstance and Sexual ActivityAlcohol use: Not on fileDrug use: NeverSexual activity: Not on fileOther Topics ConcernNot on fileSocial History NarrativeOn disability for ptsd and anxietySocial Determinants of HealthFinancial Resource Strain: Low Risk (02/14/2024)Overall Financial Resource Strain (CARDIA)Difficulty of Paying Living Expenses: Not hard at allFood Insecurity: No Food Insecurity (02/14/2024)Hunger Vital SignWorried About Running Out of Food in the Last Year: Never trueRan Out of Food in the Last Year: Never trueTransportation Needs: No Transportation Needs (02/14/2024)PRAPARE - TransportationLack of Transportation (Medical): NoLack of Transportation (Non-Medical): NoPhysical Activity: Sufficiently Active (10/05/2023)Exercise Vital SignDays of Exercise per Week: 5 daysMinutes of Exercise per Session: 30 minStress: Stress Concern Present (05/08/2023)[place] [employer] - Occupational Stress QuestionnaireFeeling of Stress : To some extentSocial Connections: Socially Isolated (02/14/2024)Social Connection and Isolation Panel [NHANES]Frequency of Communication with Friends and Family: More than three times a weekFrequency of Social Gatherings with Friends and Family: Once a weekAttends Pentecostalism Services: NeverActive Member of Clubs or Organizations: NoAttends Club or Organization Meetings: NeverMarital Status: Never marriedIntimate Partner Violence: Not on fileHousing Stability: Low Risk (02/14/2024)Housing Stability Vital SignUnable to Pay for Housing in the Last Year: NoNumber of Places Lived in the Last Year: 1Unstable Housing in the Last Year: NoROS:Constitutional: (-) fever, (-) chills, (-) weight changeEENT: (-) headache, (-) vision changes (-) sore throatResp: (-) cough, (-) shortness of breathCardio: (-) chest pain, (-) palpitationsGI: Abdominal pain, vomiting,: (-) dysuria, (-) increased urinary frequencyNeuro: (-) numbness, (-) weaknessMSS: (-) muscle pain, (-) joint painSkin: (-) rash, (-) lesionHeme: (-) bleeding disorderPsych: (-) anxiety , (-) depressionPHYSICAL EXAM:BP (!) 146/88 | Pulse 104 | Temp 37.1 ?C (98.8 ?F) | Resp 18 | Ht 5' 7" (1.702 m) | Wt 210 lb (95.3 kg) | SpO2 95% | BMI 32.89 kg/m?Constitutional: comfortable and in no acute distressEENT: no scleral icterus, no conjunctival pallorCardiovascular: RRRRespiratory: non-laboredGastrointestinal: Distended (body habitus), nontenderMSK: MAEWSkin: no rashNeurologic: grossly non-focalPsychiatric: normal affectLABORATORYHGB (g/dL)Date Value02/15/2024 9.0 (L)02/14/2024 10.5 (L)02/13/2024 9.1 (L)PLT (10*3/?L)Date Value02/15/2024 430 (H)02/14/2024 547 (H)02/13/2024 481 (H)INR (no units)Date Value10/05/2023 1.2Hepatic Function PanelALBUMIN (g/dL)Date Value02/15/2024 4.8T PROTEIN (g/dL)Date Value02/15/2024 8.0TOTAL BILI (mg/dL)Date Value02/15/2024 0.8BILI UNCON (mg/dL)Date Value02/10/2024 0.4BILI CONJ (mg/dL)Date Value02/10/2024 0.0ALTv (U/L)Date Value02/15/2024 46 (H)AST(SGOT) (U/L)Date Value02/15/2024 59 (H)ALK PHOS (U/L)Date Value02/15/2024 80BMPNA (mmol/L)Date Value02/15/2024 138K (mmol/L)Date Value02/15/2024 3.4 (L)CALCIUM (mg/dL)Date Value02/15/2024 9.0CL (mmol/L)Date Value02/15/2024 103BUN (mg/dL)Date Value02/15/2024 9CREATININE (mg/dL)Date Value02/15/2024 0.51GLUCOSE (mg/dL)Date Value02/15/2024 108CO2 TOTAL (mmol/L)Date Value02/15/2024 22 (L)RADIOLOGY:CT abdomen IV contrast 02/14/2024GI TRACT: No dilation or bowel wall thickening.The appendix is normal(series #3, image #80).PERITONEUM AND RETROPERITONEUM: No free air or fluid collection.LYMPH NODES: No intra-abdominal or pelvic lymph node enlargement.PELVIS/BLADDER: Bladder is fully distended with no wall thickening. Theuterus is normal. Small nabothian cysts noted in the cervix. The ovariesare normal.VESSELS: Unremarkable.BONES AND SOFT TISSUES: Tiny fat-containing umbilical hernia. No suspiciouslytic or sclerotic bony lesions. Lateral breast implants are notedIMPRESSIONNo acute intra-abdominal or pelvic findings.US GB 02/09/24IMPRESSIONNo cholelithiasis or sonographic evidence of acute cholecystitis.Gallbladder adenomyomatosis.CT abd pelvis 02/09/2438JPUHLIKUSG2. Mild urothelial enhancement of the urinary bladder, correlation with urinalysis is recommended to rule out acute cystitis. A Jimenez catheter is in place.2. Nabothian cysts are seen in the cervix. A 2.6 cm cystic focus in the right ovary is likely a developing follicle. Distended gallbladder and suspected cholelithiasis. Bilateral breast implants.PREVIOUS ENDOSCOPY:EGD 05/21/23LA grade D esophagitisColonoscopy 2 years ago-BRBPR needing ICU admission. Double done then.ASSESSMENT and PLAN43/F PMH GERD with LA D esophagitis seen on EGD 05/2023 on PPI BID (seen in clinic 06/2023), HTN, ADHD (amphetamines), Anxiety (Valium)# Intractable nausea, vomiting-Suspect gastroparesis 2/2 meds (BZDs, tizanidine) which will have to be worked up outpatient. Gastric emptying study while inpatient would be hard to interpret.-Will continue treatment for esophagitis with PPI and sucralfate-Continue symptomatic treatment with-PO PPI BID-clear liquid diet after Mn-prn compazine and phenargan, stagger to have a medication available-hold metoclopramide for now, can reassess to start that tomorrow if no relief-will re assess tomorrow to ascertain need for any inpatient endoscopic intervention. Please keep on clear liquidsPatient was seen and discussed with Dr. Calvin. GI will continue to follow. Please call with any questions.Deion Cortez MDPGY-4 Gastroenterology and hepatologyContact information available through [facility] ssociated attestation - Albert Phan MD - 02/15/2024 3:26 PM CDT I personally examined the patient on 02/15/[address] Cortez's note as written . I actively participated in the decision-making process. Please see the fellow's note for additional details.Cristobal Conner ProfessorDivision of Gastroenterology & [id number] [id number]-Dptfj, [id number]- WzuebCdzkpUI1779-80-73Z31:26:14Consult [id number]| [id number] for patient ezew13421-6Owxiqye noteLNNARRATIVEFormatted C-CDA narrative textUTUNION COUNTY GENERAL [facility] - [address] X[id number] MZRDMNTBRJZMWB0518-07-63X51:26:141.2.840.114 350.1.72.3.15|[id number]. [id number] [facility] - Health History and Physical Notes Date/Time Note Provider Source 2024-02-14 14:17:05 [id number] F 6RbDrnajMP7CxHjx5d/bOTU8939-43-21Q69:17:0 5 XpertMD History & PhysicalDATE: 02/14/2024SERVICE: Internal MedicineCHIEF COMPLAINT: Nausea and VomitingHISTORY OF PRESENT ILLNESSChgarrett Sigala is a 43 year old female with a PMH as below. Patient presents to [facility] on 02/14/2024 with nausea, vomiting, abdominal pain.Per chart review the patient presented on 02/08 with the same symptoms. She was admitted to the ICU out of concern for benzodiazepine withdrawal. At that time CT abdomen pelvis with no acute changes and nothing to explain her nausea vomiting and diarrhea. She was noted to be tachycardic nearly the entire admission.Patient released yesterday from the hospital. She reports her vomitting, pain, and HTN returned immediately upon discharge so she came backOn admission, BP 160/110 with HR 119, WBC 12, hgb 10.5, platelets 547. Negative troponins, BMp, and lactic acidPMH: GERD, PUD, HTNMeds:: amlodpine, metoprolol, diezpam TID Adryan is allergic to zofran [ondansetron hcl] and hydrocodone.MEDICATIONSCurrent Facility-Administered Medications:acetaminophen (TYLENOL) tablet 650 mg, 650 mg, Oral, Q6HPRN, Alanna Arenas MD[START ON 02/15/2024] enoxaparin (LOVENOX) injection 40 mg, 40 mg, Subcutaneous, DAILY, Alanna Arenas MDHYDROcodone-acetaminophen (NORCO 5) 5-325 mg tablet 1 tablet, 1 tablet, Oral, Q6HPRN, Alanna Arenas MDlevoFLOXacin in D5W (LEVAQUIN) 500 mg/100 mL Piggyback 500 mg, 500 mg, IV Piggyback, ONCE, Cuba Adams MD, Last Rate: 100 mL/hr at 02/14/24 1412, 500 mg at 02/14/24 1412morpHINE (2 mg/mL) injection 4 mg, 4 mg, Slow IV Push, Q4HPRN, Alanna Arenas MDNaCl 0.9% (NS) bolus infusion 1,000 mL, 1,000 mL, IV Infusion, ONCE, Cuba Adams MDondansetron (ZOFRAN (PF)) injection 4 mg, 4 mg, Slow IV Push, Q6HPRN, Alanna Arenas MD[START ON 02/15/2024] sennosides-docusate sodium (SENOKOT-S) 8.6-50 mg per tablet 1 tablet, 1 tablet, Oral, DAILY, Alanna Arenas MDCurrent Outpatient Medications:amLODIPine 10 mg tablet, Take 1 tablet by mouth every day at 1200 (noon)., Disp: 30 tablet, Rfl: 1metoprolol succinate XL 100 mg 24 hr tablet, Take 1 tablet by mouth in the morning., Disp: 30 tablet, Rfl: 1sucralfate 1 gram tablet, Take 1 tablet by mouth in the morning and 1 tablet in the evening., Disp: 60 tablet, Rfl: 1tiZANidine 4 mg tablet, Take 1 tablet by mouth every 8 (eight) hours., Disp: 60 tablet, Rfl: 0diphenhydrAMINE (BENADRYL) 25 mg capsule, Take 1 capsule by mouth every 4 (four) hours as needed for Allergies or Itching., Disp: , Rfl:feullbjfejlqqup-lsipovckufimwbn-EG (BROMFED DM) 2-30-10 mg/5 mL syrup, Take 5 mL by mouth 4 (four) times daily as needed for Cough or Congestion/Allergies., Disp: 118 mL, Rfl: 0fexofenadine (GABE ALLERGY) 180 mg tablet, 1 tab(s) orally once a day, Disp: , Rfl:GAVILYTE-G 236-22.74-6.74 -5.86 gram solution, PLEASE SEE ATTACHED FOR DETAILED DIRECTIONS, Disp: , Rfl:mirtazapine 45 mg tablet, 1 tab(s) orally once a day (at bedtime) for 30 day(s), Disp: , Rfl:oxymetazoline (AFRIN, OXYMETAZOLINE,) 0.05 % nasal spray, 2 spray(s) in each nostril 2 times a day, Disp: , Rfl:PANTOPRAZOLE 40 mg EC tablet, TAKE 1 TABLET BY MOUTH IN THE MORNING AND IN THE EVENING, Disp: 180 tablet, Rfl: 1ATORVASTATIN 40 mg tablet, TAKE 1 TABLET BY MOUTH EVERYDAY AT BEDTIME, Disp: 90 tablet, Rfl: 0ezetimibe 10 mg tablet, Take 1 tablet by mouth in the morning., Disp: 90 tablet, Rfl: 1proMETHazine 12.5 mg tablet, Take 1 tablet by mouth every 6 (six) hours as needed for Nausea and Vomiting (N/V)., Disp: 30 tablet, Rfl: 0tiZANidine 4 mg tablet, TAKE 1 TABLET BY MOUTH TWICE A DAY NEEDED FOR 90 DAYS, Disp: , Rfl:dextroamphetamine-amphetamine 30 mg tablet, Take 1 tablet by mouth in the morning and 1 tablet in the evening., Disp: , Rfl:diazePAM 10 mg tablet, TAKE 1 TABLET BY MOUTH THREE TIMES A DAY NEEDED, Disp: , Rfl:triamcinolone 55 mcg nasal inhaler, Use 1 [place] in each nostril 2 (two) times daily. Get over the counter if not covered, Disp: 16.9 g, Rfl: 11Patient's MedicationsSTART taking these medicationsNo medications on fileCONTINUE taking these medications which have NOT CHANGEDAMLODIPINE 10 MG TABLET Take 1 tablet by mouth every day at 1200 (noon).ATORVASTATIN 40 MG TABLET TAKE 1 TABLET BY MOUTH EVERYDAY AT NAZYQOIITGBISZKEDRXILO-VLQVWOZTYUETAFV-BU (BROMFED DM) 2-30-10 MG/5 ML SYRUP Take 5 mL by mouth 4 (four) times daily as needed for Cough or Congestion/Allergies.DEXTROAMPHETAMINE-AM PHETAMINE 30 MG TABLET Take 1 tablet by mouth in the morning and 1 tablet in the evening.DIAZEPAM 10 MG TABLET TAKE 1 TABLET BY MOUTH THREE TIMES A DAY NEEDEDDIPHENHYDRAMINE (BENADRYL) 25 MG CAPSULE Take 1 capsule by mouth every 4 (four) hours as needed for Allergies or Itching.EZETIMIBE 10 MG TABLET Take 1 tablet by mouth in the morning.FEXOFENADINE (GABE ALLERGY) 180 MG TABLET 1 tab(s) orally once a dayGAVILYTE-G 236-22.74-6.74 -5.86 GRAM SOLUTION PLEASE SEE ATTACHED FOR DETAILED DIRECTIONSMETOPROLOL SUCCINATE XL 100 MG 24 HR TABLET Take 1 tablet by mouth in the morning.MIRTAZAPINE 45 MG TABLET 1 tab(s) orally once a day (at bedtime) for 30 day(s)OXYMETAZOLINE (AFRIN, OXYMETAZOLINE,) 0.05 % NASAL SPRAY 2 spray(s) in each nostril 2 times a dayPANTOPRAZOLE 40 MG EC TABLET TAKE 1 TABLET BY MOUTH IN THE MORNING AND IN THE EVENINGPROMETHAZINE 12.5 MG TABLET Take 1 tablet by mouth every 6 (six) hours as needed for Nausea and Vomiting (N/V).SUCRALFATE 1 GRAM TABLET Take 1 tablet by mouth in the morning and 1 tablet in the evening.TIZANIDINE 4 MG TABLET TAKE 1 TABLET BY MOUTH TWICE A DAY NEEDED FOR 90 DAYSTIZANIDINE 4 MG TABLET Take 1 tablet by mouth every 8 (eight) hours.TRIAMCINOLONE 55 MCG NASAL INHALER Use 1 [place] in each nostril 2 (two) times daily. Get over the counter if not coveredSTART taking Modified Medications as PrescribedNo medications on fileSTOP taking these medicationsNo medications on filePAST MEDICAL HISTORYPast Medical History:Diagnosis DateAllergic rhinitisAnxietyHypertensionSleep apneaPAST SURGICAL HISTORYPast Surgical History:Procedure Laterality DateADENOIDECTOMYTONSILLECTOMYPAST SOCIAL HISTORYSocial HistorySocioeconomic HistoryMarital status: SingleOccupational HistoryOccupation: mental health disabilityTobacco UseSmoking status: FormerTypes: CigarettesPassive exposure: PastSmokeless tobacco: CurrentSubstance and Sexual ActivityDrug use: NeverSocial History NarrativeOn disability for ptsd and anxietySocial Determinants of HealthFinancial Resource Strain: Low Risk (02/14/2024)Overall Financial Resource Strain (CARDIA)Difficulty of Paying Living Expenses: Not hard at allFood Insecurity: No Food Insecurity (02/14/2024)Hunger Vital SignWorried About Running Out of Food in the Last Year: Never trueRan Out of Food in the Last Year: Never trueTransportation Needs: No Transportation Needs (02/14/2024)PRAPARE - TransportationLack of Transportation (Medical): NoLack of Transportation (Non-Medical): NoPhysical Activity: Sufficiently Active (10/05/2023)Exercise Vital SignDays of Exercise per Week: 5 daysMinutes of Exercise per Session: 30 minStress: Stress Concern Present (05/08/2023)[place] [employer] - Occupational Stress QuestionnaireFeeling of Stress : To some extentSocial Connections: Socially Isolated (02/14/2024)Social Connection and Isolation Panel [NHANES]Frequency of Communication with Friends and Family: More than three times a weekFrequency of Social Gatherings with Friends and Family: Once a weekAttends Pentecostalism Services: NeverActive Member of Clubs or Organizations: NoAttends Club or Organization Meetings: NeverMarital Status: Never marriedHousing Stability: Low Risk (02/14/2024)Housing Stability Vital SignUnable to Pay for Housing in the Last Year: NoNumber of Places Lived in the Last Year: 1Unstable Housing in the Last Year: NoPAST FAMILY HISTORYNo family history on file.REVIEW OF SYSTEMSPatient denies any headaches or dizziness, no fevers or chills, no nausea or vomiting, denies any neck pain or stiffness, denies any chest pain or chest pressure or palpitations, denies any shortness of breath, denies any abdominal pain or any changes in bowel or bladder habits, denies any lower extremity swelling, denies any focal motor or sensory deficits, denies any anxiety or depression, and all other systems have been reviewed and are negative except as listed above.PHYSICAL EXAMINATIONVitals:02/14/24 0907 02/14/24 0940 02/14/24 1305 02/14/24 1400BP: (!) 160/110 (!) 160/110 (!) 167/106 (!) 167/106Pulse: 119 119 124 125Resp: 20 20 20 20Temp: 36.8 ?C (98.3 ?F) 36.8 ?C (98.2 ?F)TempSrc: OralSpO2: 100% 100% 100%Weight: 95.3 kg (210 lb)Height: 1.702 m (5' 7")General: Lying comfortably in no signs of any acute distressHEENT: Normocephalic atraumatic, extraocular muscles appear intact, mucosa moist, neck suppleHeart: S1-S2 RRR, no murmurs, rubs or clicksLungs: Clear to auscultation bilaterally, no rhonchi rales or wheezes notedGI: Soft, nontender, nondistended, positive bowel sounds ? quadrantsExtremities: No clubbing, cyanosis or edema notedNeurologic: Cranial nerves II through XII appear grossly intact, no focal motor or sensory deficits notedPsychiatric: No anxiety or depression notedLABS AND IMAGINGRecent Results (from the past 24 hour(s))CBC WITH DIFFCollection Time: 02/14/24 9:40 AMResult Value Ref RangeWBC 12.83 (H) 4.30 - 11.10 10*3/?LRBC 4.64 3.93 - 5.25 10*6/?LHGB 10.5 (L) 11.6 - 15.0 g/dLHCT 35.0 (L) 35.7 - 45.2 %MCV 75.4 (L) 80.6 - 95.5 fLMCH 22.6 (L) 25.9 - 32.8 pgMCHC 30.0 (L) 31.6 - 35.1 g/dLRDW-SD 48.5 39.0 - 49.9 fLRDW-CV 20.1 (H) 12.0 - 15.5 %PLT 547 (H) 166 - 358 10*3/?LMPV 8.9 (L) 9.5 - 12.9 fLNRBC/100 WBC 0.0 0.0 - 10.0 /100 WBCsNRBC x10^3 <0.01 10*3/?LGRAN MAT (NEUT) % 77.8 %IMM GRAN % 0.90 %LYMPH % 13.3 %MONO % 7.5 %EOS % 0.2 %BASO % 0.3 %GRAN MAT x10^3(ANC) 9.99 (H) 1.88 - 7.09 10*3/uLIMM GRAN x10^3 0.11 (H) 0.00 - 0.06 10*3/uLLYMPH x10^3 1.71 1.32 - 3.29 10*3/uLMONO x10^3 0.96 (H) 0.33 - 0.92 10*3/uLEOS x10^3 <0.03 (L) 0.03 - 0.39 10*3/uLBASO x10^3 0.04 0.01 - 0.07 10*3/uLCOMP. METABOLIC PANEL ([id number])Collection Time: 02/14/24 9:40 AMResult Value Ref RangeNA 138 135 - 145 mmol/LK 3.8 3.5 - 5.0 mmol/LCL 101 98 - 108 mmol/LCO2 TOTAL 23 23 - 31 mmol/LAGAP 14 2 - 16BUN 13 7 - 23 mg/dLGLUCOSE 120 (H) 70 - 110 mg/dLCREATININE 0.65 0.50 - 1.04 mg/dLTOTAL BILI 0.7 0.1 - 1.1 mg/dLCALCIUM 9.6 8.6 - 10.6 mg/Ibrahima PROTEIN 7.5 6.3 - 8.2 g/dLALBUMIN 4.7 3.5 - 5.0 g/dLALK PHOS 93 34 - 122 U/LALTv 49 (H) 5 - 35 U/LAST(SGOT) 44 (H) 13 - 40 U/LeGFR 110.8 mL/min/1.35i9FCJCFOSnmmaucrey Time: 02/14/24 9:40 AMResult Value Ref RangeLIPASE 70 0 - 220 U/LPREGNANCY TEST, SERUMCollection Time: 02/14/24 9:40 AMResult Value Ref RangePREG SERUM NegativeTROPONIN ICollection Time: 02/14/24 9:40 AMResult Value Ref RangeTROPONIN I 0.011 <=0.034 ng/mLURINALYSISCollection Time: 02/14/24 12:06 PMResult Value Ref RangeAPPEARANCE Hazy (A) ClearCOLOR Yellow YellowPH 5.0 4.8 - 8.0SP GRAVITY 1.019 1.003 - 1.030GLU U QUAL 50 mg/dL (A) NormalBLOOD 1+ (A) NegativeKETONES 80 mg/dL (A) NegativePROTEIN 30 mg/dL (A) NegativeUROBILIN Normal NormalBILIRUBIN Negative NegativeNITRITE Negative NegativeLEUK BOBBI 250/uL (A) NegativeRBC/HPF 16 (H) 0 - 3 HPFWBC/HPF 93 (H) 0 - 5 HPFBACTERIA Few (A) NegativeMUCOUS Slight (A) Negative LPFSQ EPITH 1 <=2 HPFLactic Acid Whole BloodCollection Time: 02/14/24 1:43 PMResult Value Ref RangeLACTIC ACID 1.21 0.50 - 2.20 mmol/LRadiologyCT ABDOMEN PELVIS W CONTRASTResult Date: 02/14/2024No acute intra-abdominal or pelvic findings. Preliminary Report Dictated by Resident: Galo Barron MD., have reviewed this study and agree with the above report.ASSESSMENT AND PLANChristina Neeta Sigala is a 43 year old female who presents with:Acute abdominal painNausea vomitingSinus tachycardiaChronic benzodiazepine usePTSDPanic attacks and anxietyHistory of gastritisHistory of gastroparesisLeukocytosis02/14/2024-Abdomi nal pain with nausea vomiting-Has a history of gastritis and gastroparesis-Resume Protonix and sucralfate-Minimize opioids to reduce constipation-CT abdomen pelvis this admission negative for acute findings-Chronic benzo use 2/2 PTSD with panic attacks and anxiety-Resume home diazepam 5 mg 3 times daily as needed-Sinus tachycardia-This was present during last admission as well-Continue metoprolol 100 xjddg-Dpqzzbwbxymn-Ynygspue amlodipine and metoprololanemia with thrombocytosis-Send iron omyyj-Wyxmfenpjtds-Azplft reactive in the setting of nausea vomiting-Negative lactic acid-Start fluids and repeat CBC in the a.m.-If patient has infectious symptoms start-Consult painmanagement- Events, notes, labs, and vital signs during the past 24 hours reviewed.-discussed patient case in morning rounds with nursing staff and nurse outreach case manager-- Meds per above- Check a.m. labs, replete electrolytes if needed. Monitor kidney function. Transfuse PRBC if hemoglobin less than 7.- As needed pain and nausea medications.DVT ppx: LovenoxGI ppx: PPICode status: FullDiscussed the case with:[ x ] retail client solutions consultant [x ] nursing staff and animal care attendant[x ] patient/familyRakarenl MD Dagoberto [id number] and physical jklwAT4309-31-09W58:58:23History and physical [id number] 79|[id number] for patient agyh83328-6Yetolqa and physical noteLNNARRATIVEFormatted C-CDA narrative textIM-INTERNAL MEDICINE STAFFIM-INTERNAL MEDICINE STAFF[address] Ro[id number] DHVTCUMEOYPUAYIBT2068-23-80F41:58:231.2.8 40.327488.1.72.3.15|1.2.840.952903.1.13.1 04.2.7.2.727879_[id number] IM-INTERNAL MEDICINE STAFF [facility] Notes Date/Time Note Provider Source 2024-02-17 17:32:17 +7mKpNxmab5tyqNLoKYPMH0rXN16ww4z12A3qZZF SaNLnUOyV/573iVS5SWTEs4329-30-93K75:32:17F ormatting of this note might be different from the original.Problem: PainGoal: Control of pain at or below patient's documented comfort goalOutcome: Adequate for dischargeGoal: Reduction in pain sensationOutcome: Adequate for dischargeProblem: Discharge PlanningGoal: Adequate for dischargeOutcome: Adequate for dischargeGoal: Effective communicationOutcome: Adequate for dischargeProblem: Nausea/VomitingGoal: Absence of nausea/vomitingOutcome: Adequate for discharge 67728-7Chtp of care pkbeUO7089-16-61E05:32:20Plan of care noteTXT1.2.840.031916.1.13.104.2.7.2.19208 9|[id number] for patient pmcj32221-0VqnqBBAPABQNPAZJfjwqyqhx C-CDA narrative [id number] McKimmy RN[address] Xnz[id number] PCVPVETTZCQITGCF8195-53-83D53:32:201.2.840 .504020.1.72.3.15|1.2.840.377994.1.13.104. 2.7.2.727879_[id number] Shikha Dodge RN [facility] 2024-02-16 07:24:55 sSqWeAVn2XEXIt00z6NuQqu1DTD543+Pf+eJVFx9 8K U+5PSbdynygPjqV5fjmdr10539-22-76W09:24:55F ormatting of this note might be different from the original.Problem: PainGoal: Control of pain at or below patient's documented comfort goal02/16/2024 0724 by Chelsea Lopez RNOutcome: Progressing as expectedGoal: Reduction in pain sensation02/16/2024 07 by Chelsea Lopez RNOutcome: Progressing as expectedProblem: Discharge PlanningGoal: Adequate for discharge02/16/2024 07 by Chelsea Lopez RNOutcome: Progressing as expectedGoal: Effective communication02/16/2024723 by Chelsea Lopez RNOutcome: Progressing as expectedProblem: Nausea/VomitingGoal: Absence of nausea/vomitingOutcome: Progressing as expected 09444-3Kbwn of care gkogIO4459-68-49F61:25:21Plan of care noteTXT1.2.840.910658.1.13.104.2.7.2.56191 9|[id number] for patient ebnn21205-4AjkfAMAIKWUKYPVCurefxpgx C-CDA narrative [id number] Mobarak RN[address] PpitM[id number] IAOBDGLFIEGZWRYX8364-29-65F39:25:211.2.840 .655687.1.72.3.15|1.2.840.728057.1.13.104. 2.7.2.727879_[id number] Chelsea Lopez RN [facility] 2024-02-15 18:00:00 6GEM34/V4jqfjkF3U+ebWZLi2Aj9wVGrPib78rWj qa QNC4POqtFrr+1NTwbaleYo1648-68-93P87:00:00F ormatting of this note might be different from the original.Pt called me in room to tell me that she is in pain and that she needs a narcotic pain medication. She states that she received dilaudid last night and that's the only thing that is helping her. Pt stated that if she doesn't get pain medication, she will "get loud." 60247-1Nqkle KckfXT1361-60-57M63:46:21Nurse NoteTXT1.2.840.713274.1.13.104.2.7.2.87762 9|[id number] for patient lrlq66903-7Iuyvn NoteLNNARRATIVEFormatted C-CDA narrative [id number] S Khan RNUT[address] [id number] RAUVHGEPYXOOGDKE3326-74-45E76:46:211.2.840 .699577.1.72.3.15|1.2.840.585470.1.13.104. 2.7.2.727879_[id number] Nicolette Cuenca RN [facility] 2024-02-15 10:27:32 WXLqc2TU04VUwxYy+hWXwd3x6lldX91lrouTEh9f ID +bwfJL6zshRR+lkEmxriZp8724-40-09T46:27:32F ormatting of this note might be different from the original.Problem: PainGoal: Control of pain at or below patient's documented comfort goalOutcome: Progressing as expectedGoal: Reduction in pain sensationOutcome: Progressing as expectedProblem: Discharge PlanningGoal: Adequate for dischargeOutcome: Progressing as expectedGoal: Effective communicationOutcome: Progressing as expected 26519-1Ghxd of care nthsCL8642-64-73H12:27:37Plan of care noteTXT1.2.840.655566.1.13.104.2.7.2.76899 9|[id number] for patient zlie34319-0JsrrJBFDCNKIKLQMtyqopkmt C-CDA narrative text[address] [id number] PKFLXDWWRENLKMFK8350-44-60C97:27:371.2.840 .752809.1.72.3.15|1.2.840.899491.1.13.104. 2.7.2.727879_[id number] [facility] 2024-02-14 18:49:44 JqtKbgKUgkq4mNt8K5fQVrukuc08AVhXHwZl9Oxm Vr sYl8UBStlwO0qKMuZIKq8O2240-89-27L49:49:44F ormatting of this note might be different from the original.Problem: PainGoal: Control of pain at or below patient's documented comfort goalOutcome: Progressing as expectedGoal: Reduction in pain sensationOutcome: Progressing as expectedProblem: Discharge PlanningGoal: Adequate for dischargeOutcome: Progressing as expectedGoal: Effective communicationOutcome: Progressing as expected 93078-7Ywiy of care kvpqIV7717-58-32T00:49:47Plan of care noteTXT1.2.840.494025.1.13.104.2.7.2.29738 9|[id number] for patient ajxx76670-3ZtlwVZGIHLMFCTZTlpjhkimc C-CDA narrative nmql565736535Jxgbcd L Morales RN[address] FfvoSnpjxigabQefsvilymGVNC0379072441KKENYF VVFWNJKCXDAZZCUE4764-01-06X63:49:471.2.840 .284224.1.72.3.15|1.2.840.863704.1.13.104. 2.7.2.727879_[id number] Jeaneth Hickey RN [facility] 2024-02-14 15:05:18 6WPFfTPoaWFV3rtH8HKM/huknmRINHcicLmQ8K+4 6Z To69ICFgWVOIkBnTDeffCo6079-29-67L74:05:18F ormatting of this note might be different from the original.Pt awaken from rest by visitors at and now c/o 10/10 abdominal pain and nausea. Pt is refusing [place] and zofran. Pt is requesting to have phenergan only. Pt states "the zofran is just going to cause more vomiting, the phenergan and that other stuff doesn't do that to me." Pt also reports that she is allergic to codeine and will not take the norco either. Warm blankets, pillows and comfort measures provided.Restarted ABX. Pt reports that she had gone to the bathroom earlier and requested to be disconnected. Advised pt that the ABX is on a pole that can roll into the restroom with her without interrupting her IVF or ABX. Pt verbalized understanding. 92282-5Dotqcfdgj department GshdLA4998-63-08E81:14:24Emergen department NoteTXT1.2.840.785941.1.13.104.2.7.2.97848 9|[id number] for patient ezwr89781-6NevsKHPDFXOTJSDHlpqdiefa C-CDA narrative textUT[address] Do[id number] QRDOZAWDKKFSPAVG8674-45-53N38:14:241.2.840 .008688.1.72.3.15|1.2.840.172314.1.13.104. 2.7.2.727879_[id number] [facility] 2024-02-14 14:25:00 z/VGsflgjoM81aiqqTGlzULeIRne88VDSnrP+kdI yg nfPiB1v8+FAQhp7ZGcM6T99716-10-66T15:25:00F ormatting of this note might be different from the original.Nurse ReportReport given to JON Winchester. Chief complaint, assessment findings, infusion verify and orders reviewed. Plan of care discussed at bedside with patient and both nurses. Patient/[place] [address]-3Huoidycqd department WckwLG2804-61-04K00:31:22[facility] department NoteTXT1.2.840.309289.1.13.104.2.7.2.85882 9|[id number] for patient yhpv51887-2PpahGKFTHTJPSQTWjcbtoeum C-CDA narrative juyq822721186Rxxaadpj J Ford RN[address] JtwyZqnixpkytUcekjpbbdOIFO4124214589QTKPHG XEYJRGGUEUSXYQZB4339-00-10C23:31:221.2.840 .841627.1.72.3.15|1.2.840.944072.1.13.104. 2.7.2.727879_[id number] Jud Vee RN [facility] 2024-02-14 14:20:26 TFjfqEUCGiBBUxUufB8mGglEFx1EXRT0M8Ga0g7j PHL5hHURbAyEe906J0hTcm7766-76-88G91:20:26F ormatting of this note is different from the original.TRANSITIONAL CARE MANAGEMENT ASSESSMENT4Cjayesh Sigala924133QChrlan Sigala is a 43 year old /White female was admitted on 02/08/24 to [facility] ICU/ACUITY ADPT F2. She was discharged on 02/13/24 with discharge disposition of HR- Routine Discharge.Admitting Physician: Kojo Menendez Diagnosis: #Substance Withdrawal#Sinus Tachycardia-improved#HTN#Hypophosphatemia- resolved#Hypokalemia#History of Gastritis#History of Gastroparesis#Abdominal Pain-resolved#Chronic PainNo linked episodesTCM Pol-dzds-ij-face outreach documentation:Discharge AssessmentChart Assessed: 02/14/24Chart Reviewed - Post Discharge Call Deferred due to Change in Discharge Status.: (Pt is currently admitted to [facility]TCM Outreach Completed: 02/14/24Future Appointments:Future AppointmentsProvider Department Dept Phone02/20/2024 10:00 AM Hernán Alvarez, JOANNE [facility], [facility] [phone] signed by Bhupinder Gomez, RN at 02/14/2024 2:21 PM NOS63346-6Ygiprydak encounter DhyiBA0759-10-42T09:21:12Telephone encounter NoteTXT1.2.840.689616.1.13.104.2.7.2.97224 9|[id number] for patient mukj96983-5ZaopADOYHKMSJQZLshhjwfxg C-CDA narrative yttr861147652Iepjzgy A Gaudet RN[id number] BWKESZRBDLRWFREG3408-48-35M14:21:121.2.840 .416436.1.72.3.15|1.2.840.254802.1.13.104. 2.7.2.727879_[id number] Bhupinder Gomez RN [facility] 2024-02-14 12:22:21 tkvRVX9mVsBYdKI6OW9C9ajEitKIKWnImO1/ZUZ1 S3 EJa7X2gmpuhgtfoB38QtXx9063-55-50U68:22:21F ormatting of this note might be different from the original.Pt to CT [place] [address]-6Shqhefwxy department UkomIX3687-49-52P20:23:25Emergency department NoteTXT1.2.840.014546.1.13.104.2.7.2.58454 9|[id number] for patient bfqv73808-0TxdrLPIYJBLJAJVZdxwjgszh C-CDA narrative text[id number] MPRSFLRQKUTPRDDC7231-25-56A37:23:251.2.840 .184593.1.72.3.15|1.2.840.863392.1.13.104. 2.7.2.727879_[id number] [facility] 2024-02-14 12:19:35 Ghu9v+SkxG2urjOhdbhqxh96i6ZYqLcyp3hjEyXf x2 f9BIdhwH/ncZJQFWi8gdXT9784-81-94O60:19:35F ormatting of this note might be different from the original.Pt to CT via wheelchair. NAD noted. 47436-5Agvtakqpo department KvmeRL4208-55-18S04:19:47Emergency department NoteTXT1.2.840.283604.1.13.104.2.7.2.43818 9|[id number] for patient dnfu03569-4GjjiWQOMXLXNZSBUnrakaprg C-CDA narrative gywj213884000Npvkytm Mendoza RN[address] UwcmEnrhyoclnLhojkwcxkWIMO7842211434OIAUQU GMSCCGCLSGTZEGSI6899-64-25Q82:19:471.2.840 .645773.1.72.3.15|1.2.840.777229.1.13.104. 2.7.2.727879_[id number] Riley Ulrich RN [facility] 2024-02-14 09:44:54 HyuzPrT2J7yB8i53z94G4rvtk+NibieI5uv3wC7J n1 S+5yXCZFbXGNpmcV7HRYtZ8729-69-69Q66:44:54F ormatting of this note might be different from the original.Dr. Adams at bedside 25415-6Fjpisgqwn department DypoDZ8210-60-13T80:45:10[facility] department NoteTXT1.2.840.175102.1.13.104.2.7.2.20560 9|[id number] for patient rvnx17063-6MzydIWEBSKLKJKWCsftdrwvq C-CDA narrative [id number] VVMZCQZWTGUDAWIP0713-71-13L81:45:101.2.840 .269903.1.72.3.15|1.2.840.866035.1.13.104. 2.7.2.727879_[id number] [facility] 2024-02-14 09:15:00 pZ9B85ZKkqvIJrls1Is++KbaWTfQRvek0n4c8C+U QK OFiR6oWFqXS788ApCEAi3r5961-80-18E62:15:00F ormatting of this note might be different from the original.Socorro Sigala is a 43 year old female presenting to the ED today via EMS with c/o severe abdominal pain with nausea and vomiting. Patient reports being discharged from [facility] ICU yesterday at 3pm. Patient reports she has been vomiting and having severe abdominal pain ever since.VSS, AOX4, equal chest rise and fall [address]-9Hjgdcloat[address] JjxzKQ4681-21-20G38:50:29[facility] NoteTXT1.2.840.412833.1.13.104.2.7.2.43227 9|[id number] for patient ihox91257-0VjjdWOBXEQXUPYXUlrhngdtl C-CDA narrative [id number] PACIFIC COMMUNITIES HOSPITALYSLCQVCXTZPBBJHA2511-46-29N26:50:291.2.840 .036687.1.72.3.15|1.2.840.128216.1.13.104. 2.7.2.727879_[id number] [facility] 2024-02-14 09:07:46 FsFbwWu2YSm+0OJWAVisFYsuorE+J48k0mVegPFs Ni WOlbLv2DQDtj2DvoVXGtia2745-35-00U16:07:46F ormatting of this note might be different from the original.Pt to er via ems for eval of nausea, vomiting, abd pain starting yesterday. Reports that she was discharged yesterday from hospital after being admitted for the same thing. Today began experiencing more vomiting. Hx of htn. 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 66634-8Qrylxetcm department Triage wusqTN6470-95-16B11:09:29[facility] department Triage noteTXT1.2.840.398734.1.13.104.2.7.2.49661 9|[id number] for patient ogve18557-7Ddeswpykg department NoteLNNARRATIVEFormatted C-CDA narrative [id number] Alonso RN[address] VqswYendxtkmtStkvfrzliDWYE4529419751BFMKOS GIVQEZKYWDBYKHAL4885-63-80M69:09:291.2.840 .061105.1.72.3.15|1.2.840.601782.1.13.104. 2.7.2.727879_[id number] Luis Alonso RN [facility] 2024-02-14 09:04:00 0gxCwL0EaEatDG0rKRcPbagfTG/J+fNitI8r6u7H UO 9Rgxy1QAnDoa2gVgxsSMVL8364-03-07I33:04:00A ssociated Order(s): EKG-12 Lead ROUTINE ONCEPre-Procedure Diagnose(s): Chest pain, unspecified typePost-Procedure Diagnose(s): Chest pain, unspecified type [facility] Emergency Department NotePatient Name: Socorro Grijalva of : 1980 43 year old femaleTreatment Room: Room/bed info not foundMedical Record Number: [id number] Care Physician: Hernán Olivera Escorted by: Self [9]Mode of Arrival: [facility] [place] [32]EMS Treatment Prior to ED Arrival: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 (+) loose stools. Reports blood streaks in both. Non-focal abdominal pain, constant, aggravated with emesis, no relieving factors. No dysuria. No fever. Feels similar to symptoms prompting recent hospitalization.Recent encounters:1. 02/08/24 to 02/13/24. [facility]. Intractable vomiting. Non-focal abdominal pain. Gastroparesis. Benzodiazepine withdrawal (PDMP diazepam 10mg, 90 tablets/month, long-term; Dr Wilfrido Pierce in [place], [place]). CT Abd/Pel: (1) Mild urothelial enhancement of the urinary bladder, correlation with urinalysis is recommended to rule out acute cystitis. A Jimenez catheter is in place. (2) Nabothian cysts are seen in the cervix. A 2.6 cm cystic focus in the right ovary is likely a developing follicle. Distended gallbladder and suspected cholelithiasis. Bilateral breast implants.History provided by: Patient and medical recordsPast Medical History/Immunizations:Past Medical History:Diagnosis DateAllergic rhinitisAnxietyHypertensionSleep apneaTetanus received in last 5 years: YesAllergies:AllergiesAllergen ReactionsZofran [Ondansetron Hcl] Unknown - See commentsPer patientHydrocodone Itching and Nausea and/or VomitingPast Social History:Tobacco UseFormer; Types: CigarettesPassive Exposure: PastSmokeless Tobacco: Current user of smokeless tobacco.Drug UseNever.Past Surgical History:Past Surgical History:Procedure Laterality DateADENOIDECTOMYTONSILLECTOMYReview of Systems:Review of SystemsConstitutional: Negative.HENT: Negative.Eyes: Negative.Respiratory: Negative.Cardiovascular: Negative.Gastrointestinal: Positive for abdominal pain, blood in stool, diarrhea, nausea and vomiting.Genitourinary: Negative.Musculoskeletal: Negative.Skin: Negative.Neurological: Negative.Psychiatric/Behavioral: Negative.Physical Exam:ED Triage Vitals [02/14/24 0907]Weight 95.3 kg (210 lb)Actual or estimatedHeight 1.702 m (5' 7")BP (!) 160/110Pulse 119Resp 20Temp 36.8 ?C (98.3 ?F)Temp source OralSpO2 100 %Measured on Room airPhysical ExamVitals and nursing note reviewed.Constitutional:Appearance: Normal appearance. She is not diaphoretic.Comments: restlessHENT:Head: Normocephalic and atraumatic.Right Ear: External ear normal.Left Ear: External ear normal.Nose: Nose normal.Mouth/Throat:Mouth: Mucous membranes are moist.Eyes:Extraocular Movements: Extraocular movements intact.Conjunctiva/sclera: Conjunctivae normal.Cardiovascular:Rate and Rhythm: Regular rhythm. Tachycardia present.Pulmonary:Effort: Pulmonary effort is normal. No respiratory distress.Breath sounds: Normal breath sounds. No wheezing, rhonchi or rales.Abdominal:General: There is no distension.Palpations: Abdomen is soft.Tenderness: There is abdominal tenderness (non-focal). There is no right CVA tenderness or left CVA tenderness.Musculoskeletal:General: Normal range of motion.Cervical back: Normal range of motion.Skin:General: Skin is warm and dry.Neurological:General: No focal deficit present.Mental Status: She is alert.Radiology:CT ABDOMEN PELVIS W CONTRASTFinal ResultEXAM: CT ABDOMEN PELVIS W CONTRASTHISTORY: 43 years -old Female with LLQ abdominal painCOMPARISON: CT abdomen pelvis 02/14/2024.TECHNIQUE: Contiguous axial imaging from the level of the lung basesthrough the proximal thighs was performed after intravenous contrastadministration. Coronal and sagittal reconstructions were obtained.FINDINGS:LOWER THORAX: The lung bases are essentially clear. No cardiomegaly..Bilateral breast implants noted.LIVER: No focal hepatic lesions. Normal contour.GALLBLADDER AND BILIARY TREE: No intra or extrahepatic biliary ductaldilation.SPLEEN: Unremarkable.PANCREAS: No ductal dilatation or massesADRENAL GLANDS: No adrenal lesions.KIDNEYS: Multiple hypodense lesions are noted in the left kidney measuringup to 1.1 cm, consistent with renal cysts. A 1 cm left parapelvic cyst isalso noted. Lateral extrarenal pelvis. No hydronephrosis, stones, ormasses. Homogeneous and symmetrical enhancement.GI TRACT: No dilation or bowel wall thickening.The appendix is normal(series #3, image #80).PERITONEUM AND RETROPERITONEUM: No free air or fluid collection.LYMPH NODES: No intra-abdominal or pelvic lymph node enlargement.PELVIS/BLADDER: Bladder is fully distended with no wall thickening. Theuterus is normal. Small nabothian cysts noted in the cervix. The ovariesare normal.VESSELS: Unremarkable.BONES AND SOFT TISSUES: Tiny fat-containing umbilical hernia. Nosuspiciouslytic or sclerotic bony lesions. Lateral breast implants are notedIMPRESSIONNo acute intra-abdominal or pelvic findings.Preliminary Report Dictated by Resident: Galo Delgadillo MD., have reviewed this study and agree withthe above report.Lab Results:Lab ResultsCBC WITH DIFF - AbnormalResult Value Ref RangeWBC 12.83 (*) 4.30 - 11.10 10*3/?LRBC 4.64 3.93 - 5.25 10*6/?LHGB 10.5 (*) 11.6 - 15.0 g/dLHCT 35.0 (*) 35.7 - 45.2 %MCV 75.4 (*) 80.6 - 95.5 fLMCH 22.6 (*) 25.9 - 32.8 pgMCHC 30.0 (*) 31.6 - 35.1 g/dLRDW-SD 48.5 39.0 - 49.9 fLRDW-CV 20.1 (*) 12.0 - 15.5 %PLT 547 (*) 166 - 358 10*3/?LMPV 8.9 (*) 9.5 - 12.9 fLNRBC/100 WBC 0.0 0.0 - 10.0 /100 WBCsNRBC x10^3 <0.01 10*3/?LGRAN MAT (NEUT) % 77.8 %IMM GRAN % 0.90 %LYMPH % 13.3 %MONO % 7.5 %EOS % 0.2 %BASO % 0.3 %GRAN MAT x10^3(ANC) 9.99 (*) 1.88 - 7.09 10*3/uLIMM GRAN x10^3 0.11 (*) 0.00 - 0.06 10*3/uLLYMPH x10^3 1.71 1.32 - 3.29 10*3/uLMONO x10^3 0.96 (*) 0.33 - 0.92 10*3/uLEOS x10^3 <0.03 (*) 0.03 - 0.39 10*3/uLBASO x10^3 0.04 0.01 - 0.07 10*3/uLCOMP. METABOLIC PANEL (47708) - AbnormalNA 138 135 - 145 mmol/LK 3.8 3.5 - 5.0 mmol/LCL 101 98 - 108 mmol/LCO2 TOTAL 23 23 - 31 mmol/LAGAP 14 2 - 16BUN 13 7 - 23 mg/dLGLUCOSE 120 (*) 70 - 110 mg/dLCREATININE 0.65 0.50 - 1.04 mg/dLTOTAL BILI 0.7 0.1 - 1.1 mg/dLCALCIUM 9.6 8.6 - 10.6 mg/Ibrahima PROTEIN 7.5 6.3 - 8.2 g/dLALBUMIN 4.7 3.5 - 5.0 g/dLALK PHOS 93 34 - 122 U/LALTv 49 (*) 5 - 35 U/LAST(SGOT) 44 (*) 13 - 40 U/LeGFR 110.8 mL/min/1.27q6EGIYRKACPJ - AbnormalAPPEARANCE Hazy (*) ClearCOLOR Yellow YellowPH 5.0 4.8 - 8.0SP GRAVITY 1.019 1.003 - 1.030GLU U QUAL 50 mg/dL (*) NormalBLOOD 1+ (*) NegativeKETONES 80 mg/dL (*) NegativePROTEIN 30 mg/dL (*) NegativeUROBILIN Normal NormalBILIRUBIN Negative NegativeNITRITE Negative NegativeLEUK BOBBI 250/uL (*) NegativeRBC/HPF 16 (*) 0 - 3 HPFWBC/HPF 93 (*) 0 - 5 HPFBACTERIA Few (*) NegativeMUCOUS Slight (*) Negative LPFSQ EPITH 1 <=2 HPFLIPASE - NormalLIPASE 70 0 - 220 U/LTROPONIN I - NormalTROPONIN I 0.011 <=0.034 ng/mLPREGNANCY TEST, SERUMPREG SERUM NegativeURINE CULTUREBLOOD CULTURE SCREENBLOOD CULTURE SCREENLACTIC ACID WHOLE BLOODEXTRA TUBE LT. GREENEKG:If EKG completed, see Procedure Note.Orders and Treatments:Orders Placed This EncounterProceduresCT ABDOMEN PELVIS W CONTRASTCBC WITH DIFFCOMP. METABOLIC PANEL (81072)LIPASEPREGNANCY TEST, SERUMURINALYSISTROPONIN IURINE CULTUREBLOOD CULTURE SCREENBLOOD CULTURE SCREENLactic Acid Whole BloodLactic Acid Whole BloodOrders Placed This EncounterMedicationsNaCl 0.9% (NS) bolus infusion 1,000 mLfamotidine (PEPCID (PF)) injection 20 mgproMETHazine (PHENERGAN) 12.5 mg in NaCl 0.9% (NS) 50 mL IV piggybackmorpHINE (4 mg/mL) injection 4 mgmorpHINE (4 mg/mL) injection 4 mgmetoclopramide HCl (REGLAN) injection 10 mgmorpHINE (4 mg/mL) injection 4 mgiopamidol (ISOVUE 370-500 mL) injection 100 mLlevoFLOXacin in D5W (LEVAQUIN) 500 mg/100 mL Piggyback 500 mgNaCl 0.9% (NS) bolus infusion 1,000 mLFirst Provider Eval:ED EventsDate/Time Event User Zuupgqpt05/26/24 09 Medical Screening Begins CUBA ADAMS MD --02/14/24 09 First Provider Evaluation CUBA ADAMS MD --AdmissionCareGuideline: Vomiting - OBS, ObservationBased on the indications selected for the patient, the bed status of Observation was determined to be METThe following indications were selected as present at the time of evaluation of the patient:- Vomiting that persists despite emergency department care- Pain (eg, abdominal) with insufficient response to emergency department careAdmissionCare documentation entered by: Cuba Romeo [facility] [employer], 27th edition, Copyright ? 2022 [facility] All Rights Reserved.[id number]:17:53-05:00ED COURSEED Course as of 02/14/24 1321Tue Feb [address] history. Most recent CTs of Abd/Pel are 02/09/24, 10/04/23, 05/27/23, 06/20/22. Due to relative infrequency of CT studies and recurrent/persistent pain in context of recent hospitalization, will repeat CT x1 to assess for interval changes / complications. Patient updated [RK]1141 Reassess. Persistent nausea. Unchanged. Abdominal pain, improved not resolved. Less restless. She is OK with straight cath for urine sample. Hesitant to go to bathroom with current symptoms. [RK]ED Course User Index[RK] Cuba Adams, MDDiagnosis/Impression as of 02/14/24 1321Nausea and vomiting, unspecified vomiting typeAbdominal pain, unspecified abdominal locationGastroparesisChest pain, unspecified typeAcute cystitis without hematuriaIntractable nausea and vomitingProcedures:EKG-12 Lead ROUTINE ONCEDate/Time: 02/14/2024 1:14 PMPerformed by: Cuba Adams MDAuthorized by: Cuba Adams MDECG interpreted by ED Physician in the absence of a thermal engineer: yesPrevious ECG:Previous ECG: Compared to currentComparison ECG info: Compared to EKG of 02/08/2024 no significant changesInterpretation:Interpretation: non-specificRate:ECG rate: 122ECG rate assessment: tachycardicRhythm:Rhythm: sinus rhythmEctopy:Ectopy: noneQRS:QRS axis: Normal (-17)ST segments:ST segments: Non-specificT waves:T waves: non-specificComments:Qtc 456MDM:Medical Decision MakingPrimary impression: intractable nausea with vomitingSecondary impression: acute cystitis, abdominal pain, history of gastroparesis, chest pain without critical exam findingsDifferential Diagnoses, including but not limited to: electrolyte / glucose abnl, anemia, CA, cystitis, gastroparesis exacerbationProblems Addressed:Abdominal pain, unspecified abdominal location: acute illness or injuryAcute cystitis without hematuria: acute illness or injuryChest pain, unspecified type: self-limited or minor problemDetails: With emesisGastroparesis: chronic illness or injuryIntractable nausea and vomiting: acute illness or injuryNausea and vomiting, unspecified vomiting type: acute illness or injuryAmount and/or Complexity of Data ReviewedIndependent Historian:Details: selfExternal Data Reviewed: radiology.Details: Recent encounters:1. 02/08/24 to 02/13/24. [facility]. Intractable vomiting. Non-focal abdominal pain. Gastroparesis. Benzodiazepine withdrawal (PDMP diazepam 10mg, 90 tablets/month, long-term; Dr Wilfrido Pierce in [place], [place]). CT Abd/Pel: (1) Mild urothelial enhancement of the urinary bladder, correlation with urinalysis is recommended to rule out acute cystitis. A Jimenez catheter is in place. (2) Nabothian cysts are seen in the cervix. A 2.6 cm cystic focus in the right ovary is likely a developing follicle. Distended gallbladder and suspected cholelithiasis. Bilateral breast implants.Labs: ordered. Decision-making details documented in ED Course.Radiology: ordered.Details: Reviewed CT Abd/Pel from 02/09/2024.ECG/medicine tests:Details: selfDiscussion of management or test interpretation with external provider(s): 1. Case discussed with Hospitalist including presentation, exam, findings, plan. Will eval and treat in hospitalRiskPrescription drug management.Parenteral controlled substances.Risk Details: Nominal improvement of symptoms while in ED. Will benefit from further evaluation and treatment in hospital today. Meets AdmissionCare OBS criteria.Flowsheet Documentation:Scoring Tools:No data recordedDisposition/Condition:ED DispositionED DispositionAdmit - ObservationConditionStableComment--Dischar ge Medications:Patient's MedicationsSTART taking these medicationsNo medications on fileCONTINUE taking these medications which have NOT CHANGEDAMLODIPINE 10 MG TABLET Take 1 tablet by mouth every day at 1200 (noon).ATORVASTATIN 40 MG TABLET TAKE 1 TABLET BY MOUTH EVERYDAY AT OQVIPBNTFKNBEFLBJRCSDZ-LUNSDQYUCGVQYDO-ER (BROMFED DM) 2-30-10 MG/5 ML SYRUP Take 5 mL by mouth 4 (four) times daily as needed for Cough or Congestion/Allergies.DEXTROAMPHETAMINE-AMP HETAMINE 30 MG TABLET Take 1 tablet by mouth in the morning and 1 tablet in the evening.DIAZEPAM 10 MG TABLET TAKE 1 TABLET BY MOUTH THREE TIMES A DAY NEEDEDDIPHENHYDRAMINE (BENADRYL) 25 MG CAPSULE Take 1 capsule by mouth every 4 (four) hours as needed for Allergies or Itching.EZETIMIBE 10 MG TABLET Take 1 tablet by mouth in the morning.FEXOFENADINE (GABE ALLERGY) 180 MG TABLET 1 tab(s) orally once a dayGAVILYTE-G 236-22.74-6.74 -5.86 GRAM SOLUTION PLEASE SEE ATTACHED FOR DETAILED DIRECTIONSMETOPROLOL SUCCINATE XL 100 MG 24 HR TABLET Take 1 tablet by mouth in the morning.MIRTAZAPINE 45 MG TABLET 1 tab(s) orally once a day (at bedtime) for 30 day(s)OXYMETAZOLINE (AFRIN, OXYMETAZOLINE,) 0.05 % NASAL SPRAY 2 spray(s) in each nostril 2 times a dayPANTOPRAZOLE 40 MG EC TABLET TAKE 1 TABLET BY MOUTH IN THE MORNING AND IN THE EVENINGPROMETHAZINE 12.5 MG TABLET Take 1 tablet by mouth every 6 (six) hours as needed for Nausea and Vomiting (N/V).SUCRALFATE 1 GRAM TABLET Take 1 tablet by mouth in the morning and 1 tablet in the evening.TIZANIDINE 4 MG TABLET TAKE 1 TABLET BY MOUTH TWICE A DAY NEEDED FOR 90 DAYSTIZANIDINE 4 MG TABLET Take 1 tablet by mouth every 8 (eight) hours.TRIAMCINOLONE 55 MCG NASAL INHALER Use 1 [place] in each nostril 2 (two) times daily. Get over the counter if not coveredSTART taking Modified Medications as PrescribedNo medications on fileSTOP taking these medicationsNo medications on fileFollow-up:N/aElectronically signed by:Cuba Adams MD02/14/24 1321 13349-1Bcylegjcy Emergency department DastJK8383-27-32R21:21:52Physician Emergency department NoteTXT1.2.840.592008.1.13.104.2.7.2.94545 9|[id number] for patient fkja24261-9Wigrvhnog department NoteLNNARRATIVEFormatted C-CDA narrative text[id number] FMLTVAYZGWFRSCBP5131-42-30N40:21:521.2.840 .244615.1.72.3.15|1.2.840.203397.1.13.104. 2.7.2.727879_[id number] [facility] 2024-02-14 09:04:00 oRjSJid5Hqhny/036XYwKen5kXAvzZ8cvsEm8T0t Pq L7gf4v8LuPfe8ysQGb+YWH3763-72-03C38:04:00F ormatting of this note might be different from the original.AdmissionCareGuideline: Vomiting - OBS, ObservationBased on the indications selected for the patient, the bed status of Observation was determined to be METThe following indications were selected as present at the time of evaluation of the patient:- Vomiting that persists despite emergency department care- Pain (eg, abdominal) with insufficient response to emergency department careAdmissionCare documentation entered by: Cuba Romeo [facility], 27th edition, Copyright ? 2022 [facility] All Rights Reserved.4117-74-12E90:17:53-05:00Electron ically signed by Cuba Adams MD at 02/14/2024 1:17 PM [id number] Admission Criteria1.2.840.424116.1.13.104.2.7.4.7378 80.99264047-53-86P54:17:54EC Admission CriteriaTXT1.2.840.431075.1.13.104.2.7.2.7 30240|[id number] for patient niat48320-8WaczINITBYDBGTVIlohndyhd C-CDA narrative text[id number] HARPERIPYHOAEXANZAKKRE0208-26-75E77:17:541.2.840 .882409.1.72.3.15|1.2.840.393751.1.13.104. 2.7.2.727879_[id number] [facility] 2023-11-28 16:23:20 oEydxaL7PqY8R/tKpAM3j89zgkzgDgP6qahQvYkK /x ot7xsWzxDHfdepAaH3rBKm4848-03-22L00:23:20F ormatting of this note might be different from the original.Referral placed and faxed 78076-9Awbqrxlgm encounter KboeRL5049-49-80W06:24:38Telephone encounter NoteTXT1.2.840.031387.1.13.104.2.7.2.55256 9|[id number] for patient wosm20643-0XydhWESEOYBSIWHTldjocllf C-CDA narrative text[address] Lp[id number] UUWDXKVIBHEQPRUC1802-31-14Z69:24:381.2.840 .753383.1.72.3.15|1.2.840.043117.1.13.104. 2.7.2.727879_[id number] [facility] 2023-11-28 10:46:58 ksCO4Hyruwi1FQ8g8zEJtHtuplCBjpnGgGHZ4Yc+ g/ vhJqpA2e6YSW5TyLOSSo8i8485-80-65T08:46:58F ormatting of this note might be different from the original.Pt calling back to give information for sending referralDrGino Mendiola at Your CenterFAX: [phone] signed by Tuyet Mahoney at 11/28/2023 10:48 AM CAA86067-0Rpjzwftvv encounter YflfZD2434-68-17X40:48:52Telephone encounter NoteTXT1.2.840.000697.1.13.104.2.7.2.57384 9|[id number] for patient btxc24907-1NgslCREZSOLLPRLFytwyzbkm C-CDA narrative [id number] A [id number] ZIBXAGOLCZCMJQEV4533-67-93S11:48:521.2.840 .267054.1.72.3.15|1.2.840.891049.1.13.104. 2.7.2.727879_[id number] Tuyet Dodd [facility] 2023-11-28 10:23:51 eeWdo4X/fgiwbpqZZmtcEqlHc7xtdl+WTtqw+OwZ /l LDOc/23uoEEw8uywyDlJ5I8674-28-19J97:23:51F ormatting of this note might be different from the original.Per JARRELL Adent seen for GI issuesNeeds to see GISpoke with the ptShe states they facilities she's called is a 2 month wait listAdvised can change the referral to CARL and can send to GI of the pts choosingAdvised pt to reach out to insurance to obtain list of in network providers and get back with the clinic to send the referralPended referral below 69986-4Igislhafx encounter WeoqJU5002-88-22Z00:27:45Telephone encounter NoteTXT1.2.840.940800.1.13.104.2.7.2.35372 9|[id number] for patient akbc94369-7NlfrUVDQEFHKVATOtcwlcszz C-CDA narrative text[id number] FMRBSFYRAAWYGGPL6162-85-06M98:27:451.2.840 .380134.1.72.3.15|1.2.840.594321.1.13.104. 2.7.2.727879_[id number] [facility] 2023-07-27 11:53:[address]VlSVLtGku6Jf Dr FinleyUHXFChh/VtBHPaTXnS1621-97-68N03:53:58F ormatting of this note might be different from the original.Hello, The Wegovy was not approved by insurance. Per insurance, weight loss medications are plan exclusion and not covered. I did call and let Ms. Sigala know. She is still interested in getting the medication. I let her know of the supplier shortage and that we could call her as soon as we get the medication in. Please let me know if there are any questions or concerns. Thank you 98895-4Xtoitbtdi encounter HbypKR6239-16-67K84:56:32Telephone encounter NoteTXT1.2.840.096265.1.13.104.2.7.2.54432 9|[id number] for patient kjtd33920-6LglhRS753223452Imxcqs [address] Kj[id number] VINRXRGTQYHGSFXL9445-21-08B35:56:321.2.840 .314947.1.72.3.15|1.2.840.289697.1.13.104. 2.7.2.727879_[id number] Maryann Mckeon [facility] 2023-07-22 15:07:17 vmG3ghB2fTOIo0uEN+0Coea4741uz9MV0HYjZtHp aM CnEGiYann0xDzgr9+Ikta57291-88-44X07:07:17F ormatting of this note might be different from the original.Please review patient message. 74856-8Lfqwilaxt encounter OmjyLF9239-34-64E64:08:12Telephone encounter NoteTXT1.2.840.072293.1.13.104.2.7.2.62114 9|[id number] for patient [id number] Rocha MA[address] Ox[id number] CQBTVUTPGUWLPOTK3776-32-02T60:08:121.2.840 .667168.1.72.3.15|1.2.840.816488.1.13.104. 2.7.2.727879_[id number] Bess Lombardo MA [facility] 2023-07-20 13:30:00 iX/Bw6fACeeRXu6HrWKBA0JsCyfqS+EKvfQVewJt 2w xNe+LEarQ0nOMBJr/Q7xg73117-20-03Q49:30:00F ormatting of this note is different from the original.Images from the original note were not included.Venipuncture collection performed by clean technique on the back of left hand. Total of 1 attempts were made. Slight pressure and a bandage/dressing were applied to the site(s). The patient experienced no complications. The following specimens were processed according to instructions and sent to [facility] laboratories per lab order on 07/20/23: LT BLUE SST 1 RED LAV 2 PPT DK GREEN (LiHep) DK GREEN (SodH) RAMIREZ DK BLUE (K2) DK BLUE (S) ACD Blood Culture NIPT/NTD 42392-0Rhubt NmkbTL7387-32-36F08:45:42Nurse NoteTXT1.2.840.296893.1.13.104.2.7.2.83253 9|[id number] for patient zlcs11135-7Ensai NoteLN[id number] WIMVECWKBMAVDWMD5825-12-59B93:45:421.2.840 .632477.1.72.3.15|1.2.840.067149.1.13.104. 2.7.2.727879_[id number] [facility] 2023-07-19 14:00:00 EW0z2fDgFuljao5f07oOf/nWGgPbWkIWn3+ZDl31 w8 cYVU04J9uoL+U9KaP1Q4xQ8540-87-74L60:00:00 Addended by: HERNÁN ALVAREZ NP on: 07/26/2023 12:15 PM Modules accepted: Orders 68616-5Zvtjnsgv GijlssrzFZ4139-97-23S93:15:36Addendum DocumentTXT1.2.840.376734.1.13.104.2.7.2.7 87530|[id number] for patient htxu33925-7WuuhTNQYYJPMLZ[id number] GZWKSKLIQKMAVMHS1421-39-01A91:15:361.2.840 .115057.1.72.3.15|1.2.840.075248.1.13.104. 2.7.2.727879_[id number] [facility] 2023-06-30 11:30:24 cXHVYtOTNaDwIbywjLYhD5MhPx/bWGm3YNW03Kh2 3B YtZ18xWoqxm6mGiAKscGjk3740-31-36Y33:30:24F ormatting of this note is different from the original.Last ov 06/07/23Noted to follow up in 3 monthsFuture Appointments Date Time Provider Department Center 07/14/2023 8:30 AM Deion Cortez MB[facility] 09/06/2023 1:00 PM Hernán Alvarez, JOANNE [facility] She is supposed to see GI on 07/14/23Do you want to refill the meds or have her get these meds managed by GI? 33231-7Pzngwtqma encounter KxntDO2884-42-21B65:34:59Telephone encounter NoteTXT1.2.840.294675.1.13.104.2.7.2.13938 9|[id number] for patient oozu09544-1RbooEJFUUIGNCP[address] EdrxUasahgrljJqwhftsemWXKL9286815851QKQRWK RZYPXKTXPXMEBFDS4489-08-35O33:34:591.2.840 .633630.1.72.3.15|1.2.840.932923.1.13.104. 2.7.2.727879_[id number] [facility]
[2024-02-18] MEDS ORDERED: ONDANSETRON 4 MG/2 ML VIAL ONE (17:14)
[2024-02-18] MEDS ORDERED: PANTOPRAZOLE 40 MG INJ ONE (17:15)
[2024-02-18] MEDS ORDERED: NA CHLORIDE 0.9% 1,000 ML ONE ×2 (17:15→19:31)
--- NOTE | 2024-02-18 18:07 | RAD REPORT ---
EXAM DESCRIPTION: Darya Single View02/18/2024 5:40 pm CLINICAL HISTORY: Chest pain COMPARISON: 2009 FINDINGS: The lungs appear clear of acute infiltrate. The heart is normal size IMPRESSION: No acute abnormalities displayed
[2024-02-18] MEDS ORDERED: KETOROLAC 30 MG/ML INJ ONE (18:17)
[2024-02-18 18:30] LABS: Absolute Basophils 0.1 K/uL (0-0.5); Absolute Lymphocytes (CBC) 1.1 K/uL (0.7-4.9); Absolute Monocytes 0.5 K/uL (0.1-1.3); Absolute Neutrophil 12.6 K/uL (1.8-8.0); Basophils % 0.8 % (0-1.3); Hematocrit 32.1 % (36.0-45.0); Lymphocytes % 7.5 % (15.3-44.8); MCH 22.6 pg (27.0-35.0); MCHC 31.1 g/dL (32.0-36.0); MCV 72.6 fL (80-100); MPV 7.5 fL (7.6-11.3); Monocytes % 3.7 % (3.3-12.3); Platelets 572 thou/uL (152-406); RBC Red Blood Cell Count 4.43 M/uL (3.86-4.86); Red Cell Distribution Width 19.3 % (12.1-15.2)
[2024-02-18 18:36] LABS: Specific Gravity 1.012 (1.005-1.030); Sqamous Epithelial <5 /HPF (None Seen); Urine Bacteria None Seen /HPF (<20); Urine Bilirubin NEGATIVE (Negative); Urine Blood Negative (Negative); Urine Clarity Turbid (Clear); Urine Color Light-Yellow (Yellow); Urine Culture Reflex Order NOT NEEDED; Urine Glucose 2+ (Negative); Urine Ketones 2+ (Negative); Urine Micro Reflex YN NO BILL MICROSCOPIC; Urine Mucus 1+ /HPF (None Seen); Urine Nitrite NEGATIVE (Negative); Urine Protein NEGATIVE (Negative); Urine RBC <5 /HPF (None Seen); Urine Urobilinogen Normal (Normal); Urine WBC <5 /HPF (<5); Urine Yeast (Budding) Few /HPF (None Seen); Urine pH 7.5 (5.0-7.0)
[2024-02-18 18:37] LABS: Specific Gravity 1.012 (1.005-1.030)
[2024-02-18 18:40] LABS: PT Prothrombin Time 11.9 SECONDS (9.5-12.5); Protime INR 1.08
[2024-02-18 18:43] LABS: Barbiturates NEGATIVE (NEGATIVE); Benzodiazepines POSITIVE (NEGATIVE); Cocaine NEGATIVE (NEGATIVE); METHAMPHETAM NEGATIVE (NEGATIVE); Methadone NEGATIVE (NEGATIVE); Opiates NEGATIVE (NEGATIVE); Phencyclidine NEGATIVE (NEGATIVE); THC Cannibis NEGATIVE (NEGATIVE)
[2024-02-18 18:50] LABS: Albumin 4.2 g/dL (3.4-5.0); Anion Gap 11.4 mEq/L (5.0-15.0); Bilirubin Direct 0.1 mg/dL (0-0.2); Bilirubin Indirect, Calculated 0.3 mg/dL (0.2-0.8); Bilirubin Total 0.4 mg/dL (0.2-1.0); Globulin 4.4 g/dL (2.3-3.5); Protein, Total 8.6 g/dL (6.4-8.2); Troponin High Sensitivity 4.3 pg/mL (<58.9)
[2024-02-18] MEDS ORDERED: LABETALOL 20 MG/4ML SYRINGE IV ONE (18:52)
[2024-02-18 18:54] LABS: Magnesium 2.1 mg/dL (1.6-2.4); Potassium 3.4 mEq/L (3.5-5.1)
[2024-02-18] MEDS ORDERED: MORPHINE 4 MG/ML SYR ONE (19:03)
[2024-02-18] MEDS ORDERED: PROMETHAZINE INJ 25 MG/ML AMP ONE (19:30)
--- NOTE | 2024-02-18 20:29 | RAD REPORT ---
EXAM DESCRIPTION: CT - Chest Abdomen Pelvis W Cont - 02/18/2024 7:36 pm CLINICAL HISTORY: Chest and abdominal pain COMPARISON: none TECHNIQUE: Computed axial tomography of the chest, abdomen and pelvis was obtained. 100 cc Isovue-30 0 was administered intravenously. Oral contrast was not requested. This limits evaluation of bowel. All CT scans are performed using dose optimization technique as appropriate and may include automated exposure control or mA/KV adjustment according to patient size. FINDINGS: The lungs are clear 4.1 centimeter mass abuts the inferior posterior left lobe thyroid gland. It is heterogeneous contain ing low and intermediate density areas. No hilar lymphadenopathy Bilateral breast implants Small hiatal hernia No pleural effusion. No pericardial effusion. Liver, spleen, pancreas, adrenals are unremarkable 2.4 centimeter isodense structure mid to lower pole right kidney. Small left renal cysts No evidence of diverticulitis Normal appendix. No adnexal mass Tiny umbilical hernia IMPRESSION: 4.1 centimeter mass extends inferiorly from the posteroinferior aspect of the left lobe of the thyroid gland. 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 2.4 centimeter isodense structure right kidney almost certainly represents a lobulation rather than a mass. It is recommended that the patient have a nonemergent thyroid and renal ultrasound for further evalua tion
[2024-02-18] MEDS ORDERED: HYDRALAZINE HCL 20 MG/ML VIAL ONE (20:51)
[2024-02-18] MEDS ORDERED: LORazepam 2 MG/ML VIAL ONE (20:51)
--- NOTE | 2024-02-18 22:11 | ER ---
Nurse's Notes [facility] Name: Socorro Sigala Age: 43 yrs Sex: Female : 1980 Arrival Date: 02/18/2024 Time: 16:31 Bed 7 Private MD: Diagnosis: Hypertensive heart disease without heart failure;Nausea with vomiting, unspecified;Chest pain, unspecified;Abdominal pain, unspecified Presentation: 02/17 17:10 Chief complaint: Patient states: n/v abdominal pain, chest pain. Coronavirus screen: At as6 this time, the client does not indicate any symptoms associated with coronavirus-19. Ebola Screen: No symptoms or risks identified at this time. Initial Sepsis Screen: Does the patient meet any 2 criteria? HR > 90 bpm. Does the patient have a suspected source of infection? No. Patient's initial sepsis screen is negative. Risk Assessment: Do you want to hurt yourself or someone else? Patient reports no desire to harm self or others. Onset of symptoms was February 18, 2024. 17:10 Acuity: TOMY 2 as6 17:10 Method Of Arrival: Ambulatory as6 Triage Assessment: 17:10 General: Appears uncomfortable, Behavior is cooperative, restless. Pain: Complains of as6 pain in chest and abdomen. 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 - Social history:: Smoking status: Reported history of juuling and/or vaping. Screenin:19 [facility] ED Fall Risk Assessment (Adult) History of falling in the last 3 months, mb9 including since admission No falls in past 3 months (0 pts) Confusion or Disorientation No (0 pts) Intoxicated or Sedated No (0 pts) Impaired Gait No (0 pts) Mobility Assist Device Used No (0 pt) Altered Elimination No (0 pt) Score/Fall Risk Level 0 - 2 = Low Risk Oriented to surroundings, Maintained a safe environment, Educated pt \\T\\ family on fall prevention, incl call for assistance when getting out of bed. Abuse screen: Denies threats or abuse. Nutritional screening: No deficits noted. Tuberculosis screening: No symptoms or risk factors identified. Assessment: 17:36 General: Appears uncomfortable, Behavior is anxious, crying. Pain: Complains of pain in mb9 chest and abdomen Pain does not radiate. Pain currently is 10 out of 10 on a pain scale. Quality of pain is described as throbbing. Neuro: Arrieta Agitation-Sedation Scale (RASS): 0 - Alert and Calm Level of Consciousness is awake, alert, obeys commands, Oriented to person, place, time, situation, Appropriate for age. Cardiovascular: Reports chest pain, Heart tones S1 S2 present Patient's skin is warm and dry. Respiratory: Airway is patent Respiratory effort is even, unlabored, Respiratory pattern is regular, symmetrical, Breath sounds are clear bilaterally. GI: Abdomen is round non-distended, Bowel sounds present X 4 quads. Abd is soft and non tender X 4 quads. Reports intolerance of fluids, intolerance of food, nausea. : No signs and/or symptoms were reported regarding the genitourinary system. EENT: No signs and/or symptoms were reported regarding the EENT system. Derm: Skin is pink, warm \\T\\ dry. Musculoskeletal: Range of motion: intact in all extremities. 18:12 Reassessment: NOTIFIED PROVIDER Cassie CABRAL PATIENT REQUESTS PAIN MEDICATION. SEE MAR. db 18:22 Reassessment: Patient appears in no apparent distress at this time. Patient and/or db family updated on plan of care and expected duration. Pain level reassessed. Patient is alert, oriented x 3, equal unlabored respirations, skin warm/dry/pink. General: Appears in no apparent distress. comfortable, Behavior is calm, cooperative. GI:. 19:04 Reassessment: No changes from previously documented assessment. Patient and/or family mb9 updated on plan of care and expected duration. Pain level reassessed. Patient is alert, oriented x 3, equal unlabored respirations, skin warm/dry/pink. 20:11 Reassessment: pt states, "I need a catheter. I can't pee and my bladder feels full." mb9 ERP notified. 20:35 Reassessment: No changes from previously documented assessment. Patient and/or family mb9 updated on plan of care and expected duration. Pain level reassessed. Patient is alert, oriented x 3, equal unlabored respirations, skin warm/dry/pink. Vital Signs: 17:08 BP 180 / 123; Pulse 107; Resp 20 S; Temp 98.6(O); Pulse Ox 100% on R/A; Weight 86.18 kg as6 (R); Height 5 ft. 7 in. (R); Pain 10/10; 17:57 BP 177 / 100; Pulse 102; Resp 18; Pulse Ox 100% on R/A; mb9 18:38 BP 168 / 86; Pulse 98; Resp 18; Pulse Ox 100% on R/A; mb9 19:04 BP 180 / 113; Pulse 112; Resp 18; Pulse Ox 100% on R/A; mb9 20:11 BP 173 / 123; Pulse 108; Resp 28; Pulse Ox 100% on R/A; mb9 20:56 BP 184 / 128; Pulse 108; Resp 18; Pulse Ox 100% on R/A; mb9 21:34 BP 180 / 104; Pulse 117; Pulse Ox 100% ; tm6 21:38 BP 165 / 99; Pulse 116; Pulse Ox 100% ; tm6 21:46 BP 165 / 99; Pulse 102; Resp 18; Pulse Ox 100% on R/A; mb9 22:16 BP 123 / 81; Pulse 109; Resp 18; Pulse Ox 100% on R/A; cm10 17:08 Body Mass Index 29.76 (86.18 kg, 170.18 cm) as6 17:08 Pain Scale: Adult as6 ED Course: 16:35 Patient arrived in ED. ra3 17:03 Rick Cabral PA is PHCP. cp 17:03 Ayad Yates DO is Attending Physician. cp 17:08 Arm band placed on. as6 17:10 Triage completed. as6 17:15 Ledy Thacker, JON is Primary Nurse. mb9 17:19 Placed in gown. Bed in low position. Call light in reach. Side rails up X 1. Provided mb9 Education on: press call light if needing anything. Client placed on continuous cardiac and pulse oximetry monitoring. NIBP monitoring applied. electronic device monitor on. Door closed. Noise minimized. Warm blanket given. 17:36 No provider procedures requiring assistance completed. EKG done, by ED staff, reviewed mb9 by Rick CLAUDIO. Missed attempt(s): 22 gauge in left antecubital area. Bleeding controlled, band aid applied, catheter tip intact. 17:37 Patient requests pain medication. mb9 17:42 XRAY Chest (1 view) In Process Unspecified. EDMS 17:55 Missed attempt(s): 22 gauge in right wrist. Bleeding controlled, band aid applied, db catheter tip intact. 17:57 Missed attempt(s): 20 gauge in left forearm. Bleeding controlled, band aid applied, mb9 catheter tip intact. 18:15 Inserted saline lock: 20 gauge in left upper arm, using aseptic technique. Blood mb9 collected. 18:37 IV discontinued, intact, bleeding controlled, No redness/swelling at site. Pressure mb9 dressing applied. 18:40 UDS Sent. mb9 19:05 Assisted to bathroom. kmf 19:38 CT Chest, Abdomen, Pelvis - W/Contrast In Process Unspecified. EDMS 20:14 Assisted to bedside commode. tm6 22:01 Report given to JON Manzo. tm6 22:09 Obdulio Mendiola MD is Referral Physician. cp Administered Medications: 18:12 Drug: NS 0.9% IV 1000 ml IV at 1 bolus Per protocol; 1000 mL bolus Route: IV; Rate: 1 db bolus; Site: left upper arm; 18:32 Follow up: IV Status: Completed infusion mb9 19:56 Follow up: IV Status: Completed infusion; IV Intake: 1000ml tm6 18:12 Drug: Pantoprazole IVP 40 mg IVP once Route: IVP; Site: left upper arm; db 20:56 Follow up: Response: No adverse reaction mb9 18:12 Drug: Ondansetron IVP 4 mg IVP once; over 2 minutes Route: IVP; Site: left upper arm; db 18:33 Follow up: Response: No adverse reaction mb9 18:18 Drug: Ketorolac IVP 15 mg IVP once Route: IVP; Site: left upper arm; mb9 18:33 Follow up: Response: No adverse reaction mb9 19:00 Drug: Labetalol IV 10 mg IV at calculated rate once Route: IV; Rate: calculated rate; mb9 Site: left antecubital; 20:29 Follow up: Response: No adverse reaction; IV Status: Completed infusion mb9 19:04 Drug: morphine IVP or IV 4 mg IVP once over 4 mins Route: IVP; Infused Over: 4 mins; mb9 Site: left antecubital; 20:29 Follow up: Response: No adverse reaction mb9 19:56 Drug: Promethazine IVP 25 mg IVP once Route: IVP; Site: left antecubital; tm6 20:56 Follow up: Response: No adverse reaction mb9 19:56 Drug: NS 0.9% IV 1000 ml IV at 150 ml/hr Per protocol; 1000 mL bolus Route: IV; Rate: tm6 150 ml/hr; Site: left antecubital; 22:27 Follow up: Response: No adverse reaction; IV Status: Order to discontinue infusion; IV cm10 Intake: 300ml 20:55 Drug: Ativan IVP 1 mg IVP once Route: IVP; Site: left antecubital; tm6 22:16 Follow up: Response: No adverse reaction cm10 20:55 Drug: hydrALAZINE IVP 10 mg IVP once Route: IVP; Site: left antecubital; tm6 22:16 Follow up: Response: No adverse reaction cm10 22:17 Not Given (Physician Discretion): sfevagkssd79 mg PO once cp 22:24 Drug: Potassium PO Effervescent Tablet 25 mEq PO once; dissolve in 4 ounces of water or cm10 juice Route: PO; 22:27 Follow up: Response: No adverse reaction cm10 Medication: 17:19 VIS not applicable for this client. mb9 Intake: 19:56 IV: 1000ml; Total: 1000ml. tm6 22:27 IV: 300ml; Total: 1300ml. cm10 Outcome: 22:11 Discharge ordered by MD. cp 22:27 Discharged to home via wheelchair, with family, cm10 22:27 Condition: good 22:27 Discharge instructions given to patient, family, Instructed on discharge instructions, follow up and referral plans. medication usage, Demonstrated understanding of instructions, follow-up care, medications, Prescriptions given X 2, 22:28 Patient left the ED. cm10 Signatures: Dispatcher [employer] EDMS Rick Cabral PA PA cp Slawson, Ashby, RN RN as6 Aiyana Canchola RN RN db Breneman, Mary Beth, RN RN mb9 Dorothy Fernandez RN RN cm10 Jaylene Adams [facility] Swathi Rios RN RN tm6 Aurora Knapp ra3 Corrections: (The following items were deleted from the chart) 18:37 18:37 BP 138 / ???; mb9 mb9 19:32 18:10 Reassessment: discharge pending ride home mb9 mb9 19:32 18:37 Condition: stable mb9 mb9 19:32 18:37 Discharged to home via wheelchair, with family, 9 mb9 :32 18:37 Discharge instructions given to patient, family, Instructed on discharge mb9 instructions, follow up and referral plans. Demonstrated understanding of instructions, follow-up care, 9
--- NOTE | 2024-02-18 22:11 | EDPHYS ---
Physician Documentation [facility] Name: Socorro Sigala Age: 43 yrs Sex: Female : 1980 Arrival Date: 02/18/2024 Time: 16:31 Bed 7 Private MD: ED Physician Ayad Yates HPI: 02/17 17:15 This 43 yrs old Female presents to ER via Ambulatory with complaints of cp Nausea/Vomiting/Diarrhea, Heart palp. 17:15 The patient presents to the emergency department with nausea, with "dry heaves", cp vomiting, that is continuous, described as bilious. Onset: The symptoms/episode began/occurred 5 day(s) ago. Possible causes: unknown. 17:15 Associated signs and symptoms: Pertinent positives: anorexia, chest pain, Pertinent cp negatives: constipation, diarrhea, fever, GI bleeding. Severity of symptoms: in the emergency department the symptoms are unchanged despite home interventions. Patient reports recent hospitalization for high blood pressure and continuous vomiting 5 days ago. Patient reports she was discharged 3 days later after ICU stay. 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 - Social history:: Smoking status: Reported history of juuling and/or vaping. ROS: 17:20 Constitutional: Negative for fever, cp 17:20 Abdomen/GI: Positive for abdominal pain, nausea and vomiting, 17:20 Cardiovascular: Positive for palpitations, cp 17:20 Eyes: Negative for injury, pain, redness, and discharge, cp 17:20 ENT: Negative for drainage from ear(s), ear pain, sore throat, difficulty swallowing, difficulty handling secretions, 17:20 Respiratory: Negative for cough, shortness of breath, wheezing, 17:20 Back: Negative for pain at rest, pain with movement, 17:20 Neuro: Positive for dizziness, weakness, Negative for altered mental status, headache, Exam: 18:21 ECG was reviewed by the Attending Physician. cp 18:30 Head/Face: Normocephalic, atraumatic. cp 18:30 Constitutional: The patient appears alert, awake, non-diaphoretic, non-toxic, well developed, well nourished, obese, in obvious distress, mildly distressed, uncomfortable, 18:30 Eyes: Periorbital structures: appear normal, Pupils: equal, round, and reactive to light and accomodation, Extraocular movements: intact throughout, Conjunctiva: normal, no exudate, no injection, Sclera: no appreciated abnormality, Lids and lashes: appear normal, bilaterally, 18:30 ENT: External ear(s): are unremarkable, Nose: is normal, Mouth: Lips: moist, Oral mucosa: pink and intact, moist, Posterior pharynx: Airway: no evidence of obstruction, patent, swelling, is not appreciated, erythema, is not appreciated, 18:30 Neck: ROM/movement: is normal, is supple, without pain, no range of motions limitations, no meningismus, no nuchal rigidity, 18:30 Chest/axilla: Inspection: normal, Palpation: tenderness, of the xiphoid area, that partially reproduces the patient's complaints, 18:30 Cardiovascular: Rate: tachycardic, Rhythm: regular, Edema: is not appreciated, JVD: is not appreciated, 18:30 Respiratory: the patient does not display signs of respiratory distress, Respirations: normal, no use of accessory muscles, no retractions, labored breathing, is not present, Breath sounds: are clear throughout, no decreased breath sounds, no stridor, no wheezing, 18:30 Abdomen/GI: Inspection: abdomen appears normal, Bowel sounds: active, all quadrants, Palpation: soft, in all quadrants, severe abdominal tenderness, in the abdomen diffusely, rebound tenderness, is not appreciated, involuntary guarding, is not appreciated, 18:30 Back: CVA tenderness, is absent, 18:30 Neuro: Orientation: to person, place \\T\\ time. Mentation: is normal, Motor: moves all fours, strength is normal, Sensation: no obvious gross deficits, Vital Signs: 17:08 BP 180 / 123; Pulse 107; Resp 20 S; Temp 98.6(O); Pulse Ox 100% on R/A; Weight 86.18 kg as6 (R); Height 5 ft. 7 in. (R); Pain 10/10; 17:57 BP 177 / 100; Pulse 102; Resp 18; Pulse Ox 100% on R/A; mb9 18:38 BP 168 / 86; Pulse 98; Resp 18; Pulse Ox 100% on R/A; mb9 19:04 BP 180 / 113; Pulse 112; Resp 18; Pulse Ox 100% on R/A; mb9 20:11 BP 173 / 123; Pulse 108; Resp 28; Pulse Ox 100% on R/A; mb9 20:56 BP 184 / 128; Pulse 108; Resp 18; Pulse Ox 100% on R/A; mb9 21:34 BP 180 / 104; Pulse 117; Pulse Ox 100% ; tm6 21:38 BP 165 / 99; Pulse 116; Pulse Ox 100% ; tm6 21:46 BP 165 / 99; Pulse 102; Resp 18; Pulse Ox 100% on R/A; mb9 22:16 BP 123 / 81; Pulse 109; Resp 18; Pulse Ox 100% on R/A; cm10 17:08 Body Mass Index 29.76 (86.18 kg, 170.18 cm) as6 17:08 Pain Scale: Adult as6 MDM: 17:26 Patient medically screened. cp 02/17 17:11 Order name: Basic Metabolic Panel; Complete Time: 18:58 cp 02/17 18:58 Interpretation: Normal except: K 3.4; GLUC 137; GFR 75. cp 02/17 17:11 Order name: CBC with Diff; Complete Time: 18:44 cp 02/17 18:45 Interpretation: Normal except: WBC 14.30; HGB 10.0; HCT 32.1; MCV 72.6; MCH 22.6; MCHC cp 31.1; PLT 572; RDW 19.3; MPV 7.5; IRAIDA% 88.0; NEUT A 12.6. 02/17 17:11 Order name: LFT's; Complete Time: 18:58 cp 02/17 18:59 Interpretation: Normal except: TP 8.6; GLOB 4.4; A/G 1.0. cp 02/17 17:11 Order name: Magnesium; Complete Time: 18:58 cp 02/17 17:11 Order name: NT PRO-BNP; Complete Time: 18:58 cp 02/17 18:59 Interpretation: Abnormal: NT PRO-BNP 182. cp 02/17 17:11 Order name: PT-INR; Complete Time: 18:44 cp 02/17 17:11 Order name: Troponin HS; Complete Time: 18:58 cp 02/17 21:54 Interpretation: Reviewed. cp 02/17 17:11 Order name: Lipase; Complete Time: 18:58 cp 02/17 18:13 Order name: UDS; Complete Time: 18:44 cp 02/17 18:13 Order name: Urinalysis W/Microscopic; Complete Time: 18:44 cp 02/17 18:13 Order name: PREGU; Complete Time: 18:44 cp 02/17 17:11 Order name: XRAY Chest (1 view); Complete Time: 18:13 cp 02/17 19:01 Order name: CT Chest, Abdomen, Pelvis - W/Contrast; Complete Time: 20:44 cp 02/17 17:11 Order name: Cardiac monitoring; Complete Time: 17:16 cp 02/17 17:11 Order name: EKG - Nurse/Tech; Complete Time: 17:57 cp 02/17 17:11 Order name: IV Saline Lock; Complete Time: 18:40 cp 02/17 17:11 Order name: Labs collected and sent; Complete Time: 18:40 cp 02/17 17:11 Order name: O2 Per Protocol; Complete Time: 17:16 cp 02/17 17:11 Order name: O2 Sat Monitoring; Complete Time: 17:16 cp EC:21 Rate is 107 beats/min. Rhythm is regular. NM interval is normal. QRS interval is cp normal. QT interval is normal. T waves are Inverted in lead aVR. Interpreted by me. Reviewed by me. Administered Medications: 18:12 Drug: NS 0.9% IV 1000 ml IV at 1 bolus Per protocol; 1000 mL bolus Route: IV; Rate: 1 db bolus; Site: left upper arm; 18:32 Follow up: IV Status: Completed infusion mb9 19:56 Follow up: IV Status: Completed infusion; IV Intake: 1000ml tm6 18:12 Drug: Pantoprazole IVP 40 mg IVP once Route: IVP; Site: left upper arm; db 20:56 Follow up: Response: No adverse reaction mb9 18:12 Drug: Ondansetron IVP 4 mg IVP once; over 2 minutes Route: IVP; Site: left upper arm; db 18:33 Follow up: Response: No adverse reaction mb9 18:18 Drug: Ketorolac IVP 15 mg IVP once Route: IVP; Site: left upper arm; mb9 18:33 Follow up: Response: No adverse reaction mb9 19:00 Drug: Labetalol IV 10 mg IV at calculated rate once Route: IV; Rate: calculated rate; mb9 Site: left antecubital; 20:29 Follow up: Response: No adverse reaction; IV Status: Completed infusion mb9 19:04 Drug: morphine IVP or IV 4 mg IVP once over 4 mins Route: IVP; Infused Over: 4 mins; mb9 Site: left antecubital; 20:29 Follow up: Response: No adverse reaction mb9 19:56 Drug: Promethazine IVP 25 mg IVP once Route: IVP; Site: left antecubital; tm6 20:56 Follow up: Response: No adverse reaction mb9 19:56 Drug: NS 0.9% IV 1000 ml IV at 150 ml/hr Per protocol; 1000 mL bolus Route: IV; Rate: tm6 150 ml/hr; Site: left antecubital; 22:27 Follow up: Response: No adverse reaction; IV Status: Order to discontinue infusion; IV cm10 Intake: 300ml 20:55 Drug: Ativan IVP 1 mg IVP once Route: IVP; Site: left antecubital; tm6 22:16 Follow up: Response: No adverse reaction cm10 20:55 Drug: hydrALAZINE IVP 10 mg IVP once Route: IVP; Site: left antecubital; tm6 22:16 Follow up: Response: No adverse reaction cm10 22:17 Not Given (Physician Discretion): [id number] mg PO once cp 22:24 Drug: Potassium PO Effervescent Tablet 25 mEq PO once; dissolve in 4 ounces of water or cm10 juice Route: PO; 22:27 Follow up: Response: No adverse reaction cm10 Disposition: 18:45 I was immediately available on-site in the Emergency Department for consultation in the ms3 care of the patient. Disposition Summary: 02/18/24 22:11 Discharge Ordered Notes: Location: Home cp Problem: new cp Symptoms: have improved cp Condition: Stable cp Diagnosis - Hypertensive heart disease without heart failure cp - Nausea with vomiting, unspecified cp - Chest pain, unspecified cp - Abdominal pain, unspecified cp Followup: cp - With: Obdulio Mendiola MD - When: 2 - 3 days - Reason: Recheck today's complaints Discharge Instructions: - Discharge Summary Sheet cp - Abdominal Pain, Adult cp - Nonspecific Chest Pain, Adult cp - Hypertension, Adult cp - Nausea and Vomiting, Adult cp - Form - Blood Pressure Record Sheet cp - How to Take Your Blood Pressure cp Forms: - Medication Reconciliation Form cp - Thank You Letter cp - Antibiotic Education cp - Prescription Opioid Use cp - Patient Portal Instructions cp - Leadership Thank You Letter cp Prescriptions: - promethazine 50 mg Rectal suppository - insert 1 suppository RECTAL route every 6 hours; 15 suppository; Refills: 0, cp Product Selection Permitted - Reglan 10 mg Oral Tablet - take 1 tablet ORAL route every 6 hours take 30 minutes before meals and at cp bedtime; 20 tablet; Refills: 0, Product Selection Permitted Signatures: Dispatcher [employer] EDMS Rick Cabral PA PA cp Ayad Yates, DO ms3 Edmond Jackson RN RN as6 Aiyana Canchola RN RN db Ledy Thacker RN RN mb9 Dorothy Fernandez RN RN cm10 Swathi Rios RN RN tm6 Corrections: (The following items were deleted from the chart) 17:11 17:11 BASIC METABOLIC PANEL+C.LAB.BRZ ordered. EDMS EDMS 17:11 17:11 CBC+H.LAB.BRZ ordered. EDMS EDMS 17:11 17:11 HEPATIC FUNCTION+C.LAB.BRZ ordered. EDMS EDMS 17:11 17:11 MAGNESIUM+C.LAB.BRZ ordered. EDMS EDMS 17:11 17:11 PROBNP+C.LAB.BRZ ordered. EDMS EDMS 17:11 17:11 PROTIME (+INR)+COAG.LAB.BRZ ordered. EDMS EDMS 17:11 17:11 Troponin High Sensitivity+C.LAB.BRZ ordered. EDMS EDMS 17:11 17:11 LIPASE+C.LAB.BRZ ordered. EDMS EDMS 17:12 17:12 Chest Single View+RAD.RAD.BRZ ordered. EDMS EDMS 21:53 21:52 Fluid Challenge ordered. cp cp
[2024-02-18] MEDS ORDERED: POTASSIUM 25 MEQ EFFERV TAB ONE (22:22)
[2024-02-19 02:59] VITALS: BP 123/81; TEMP 98.6; O2SAT 100
--- NOTE | 2024-02-20 13:44 | EKG ---
Test Date: 2024-02-18 Test Time: 17:13:25 Chlorobutadiene Scrubber Operator: MB MEASUREMENT RESULTS: Intervals: Rate: 107 MO: 136 QRSD: 74 QT: 346 QTc: 461 [place]: P: 33 MO: 136 QRS: 14 T: 59 INTERPRETIVE STATEMENTS: Sinus tachycardia Otherwise normal ECG No previous ECG available for comparison Electronically Signed On 02-20-24 13:37:39 CDT by Weston Collins
== END 2024-02-18 22:28 | disposition home or self-care (01) ==
LOC: ER 16:31
DX: I11.9 Hypertensive heart disease without heart failure (principal); R07.9 Chest pain, unspecified; R10.9 Unspecified abdominal pain; I10 Essential (primary) hypertension; Z88.5 Allergy status to narcotic agent
CPT/HCPCS: 93005; 85025; 81001; 80048; 36415; 83735; 81025; 85610; 80076; 84484; 83690; 83880; 80307; 71260; 74177; 71045; 99285; Q9967; J2550; J0360; C9113; J2405; J7030 ×2

== ENCOUNTER 2024-02-19 21:13 | Emergency (ER) | payer OTHER ==
--- OUTSIDE RECORDS SUMMARY | 2024-02-19 21:27 | XMS REPORT | Continuity of Care Document ---
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 IN THE EVENING [facility] PANTOPRAZOL E 40 mg EC tablet 2022-11 00:00: 00 Yes [id number] 40mg TAKE 1 TABLET BY MOUTH IN THE MORNING AND IN THE EVENING [facility] PANTOPRAZOL E 40 mg EC tablet 2022-11 00:00: 00 Yes [id number] 40mg TAKE 1 TABLET BY MOUTH IN THE MORNING AND IN THE EVENING [facility] PANTOPRAZOL E 40 mg EC tablet 2022-11 00:00: 00 Yes [id number] 40mg TAKE 1 TABLET BY MOUTH IN THE MORNING AND IN THE EVENING [facility] PANTOPRAZOL E 40 mg EC tablet 2022-11 00:00: 00 Yes [id number] 40mg TAKE 1 TABLET BY MOUTH IN THE MORNING AND IN THE EVENING [facility] PANTOPRAZOL E 40 mg EC tablet 2022-11 00:00: 00 Yes [id number] 40mg TAKE 1 TABLET BY MOUTH IN THE MORNING AND IN THE EVENING [facility] PANTOPRAZOL E 40 mg EC tablet 2022-11 00:00: 00 Yes [id number] 40mg TAKE 1 TABLET BY MOUTH IN THE MORNING AND IN THE EVENING [facility] PANTOPRAZOL E 40 mg EC tablet 2022-11 00:00: 00 02-16 00:00 :00 No [id number] 40mg TAKE 1 TABLET BY MOUTH IN THE MORNING AND IN THE EVENING [facility] cloNIDine 0.2 mg tablet 2022-11 00:00: 00 Yes TAKE 1 TABLET BY MOUTH EVERY DAY AT NIGHT [facility] cloNIDine 0.2 mg tablet 2022-11 00:00: 00 Yes TAKE 1 TABLET BY MOUTH EVERY DAY AT NIGHT [facility] cloNIDine 0.2 mg tablet 2022-11 00:00: 00 Yes TAKE 1 TABLET BY MOUTH EVERY DAY AT NIGHT [facility] cloNIDine 0.2 mg tablet 2022-11 00:00: 00 Yes TAKE 1 TABLET BY MOUTH EVERY DAY AT NIGHT [facility] cloNIDine 0.2 mg tablet 2022-11 00:00: 00 Yes TAKE 1 TABLET BY MOUTH EVERY DAY AT NIGHT [facility] cloNIDine 0.2 mg tablet 2022-11 00:00: 00 Yes TAKE 1 TABLET BY MOUTH EVERY DAY AT NIGHT [facility] cloNIDine 0.2 mg tablet 2022-11 00:00: 00 Yes TAKE 1 TABLET BY MOUTH EVERY DAY AT NIGHT [facility] cloNIDine 0.2 mg tablet 2022-11 00:00: 00 Yes TAKE 1 TABLET BY MOUTH EVERY DAY AT NIGHT [facility] cloNIDine 0.2 mg tablet 2022-11 00:00: 00 Yes TAKE 1 TABLET BY MOUTH EVERY DAY AT NIGHT [facility] KCL (KLOR-CON M20) tablet 40 mEq 2022-11 15:15: 00 Yes 40meq 40 mEq, Oral, DAILY, First dose on 10/08/23 at 0915, Until Discontinu ed, Routine [facility] KCL (KLOR-CON M20) tablet 40 mEq 2022-11 13:45: 00 10-08 14:41 :00 No 40meq 40 mEq, Oral, ONCE, 1 dose, On 10/08/23 at 0745, Routine [facility] cloNIDine 0.3 mg tablet 2022-11 11:13: 29 10-08 00:00 :00 No 1 tab(s) [facility] proCHLORper azine 10 mg tablet 2022-11 00:00: 00 11-08 05:59 :00 No [id number] 10mg Take 1 tablet by mouth every 6 (six) hours as needed for Nausea and Vomiting (N/V) for up to 30 days. [facility] proCHLORper azine 10 mg tablet 2022-11 00:00: 00 11-08 05:59 :00 No [id number] 10mg Take 1 tablet by mouth every 6 (six) hours as needed for Nausea and Vomiting (N/V) for up to 30 days. [facility] proCHLORper azine 10 mg tablet 2022-11 00:00: 00 11-08 05:59 :00 No [id number] 10mg Take 1 tablet by mouth every 6 (six) hours as needed for Nausea and Vomiting (N/V) for up to 30 days. [facility] proCHLORper azine 10 mg tablet 2022-11 00:00: 00 11-08 05:59 :00 No [id number] 10mg Take 1 tablet by mouth every 6 (six) hours as needed for Nausea and Vomiting (N/V) for up to 30 days. [facility] proCHLORper azine 10 mg tablet 2022-11 00:00: 00 11-08 05:59 :00 No [id number] 10mg Take 1 tablet by mouth every 6 (six) hours as needed for Nausea and Vomiting (N/V) for up to 30 days. [facility] proCHLORper azine 10 mg tablet 2022-11 00:00: 00 11-08 05:59 :00 No [id number] 10mg Take 1 tablet by mouth every 6 (six) hours as needed for Nausea and Vomiting (N/V) for up to 30 days. [facility] tiZANidine (ZANAFLEX) tablet 4 mg 2022-11 17:54: 00 Yes 4mg 4 mg, Oral, BIDPRN, Starting on Tue10/07/23 at 1154, Until Discontinu ed, Routine, Muscle Spasms [facility] KCL (KLOR-CON M20) tablet 40 mEq 2022-11 16:45: 00 10-07 17:18 :00 No 40meq 40 mEq, Oral, ONCE, 1 dose, On Tue10/07/23 at 1045, Routine [facility] peg-electro lyte soln (GOLYTELY) 236-22.74-6 .74 -5.86 gram solution 4,000 mL 2022-11 15:52: 42 Yes 4000mL 4,000 mL, Oral, PRN, Starting on Tue10/07/23 at 0952, Until Discontinu ed, Routine, Constipati on [facility] metoprolol succinate XL (TOPROL XL) tablet 25 mg 2022-11 15:00: 00 Yes 25mg 25 mg, Oral, DAILY, First dose (after last modificati on) on Tue10/07/23 at 0900, Until Discontinu ed, Routine [facility] amLODIPine (NORVASC) tablet 5 mg 2022-11 15:00: 00 Yes 5mg 5 mg, Oral, DAILY, First dose on Tue10/07/23 at 0900, Until Discontinu ed, CARL [facility] lactulose (CEPHULAC) solution 30 mL 2022-11 14:00: 00 10-08 00:42 :00 No 30mL 30 mL, Oral, TID, First dose on Tue10/07/23 at 0800, Until Discontinu ed, Routine [facility] midodrine (PROAMATINE ) tablet 5 mg 2022-11 08:30: 00 10-07 08:05 :00 No 5mg 5 mg, Oral, ONCE, 1 dose, On Tue10/07/23 at 0230, Routine [facility] NaCl 0.9% (NS) bolus infusion 1,000 mL 2022-11 06:00: 00 10-07 05:02 :32 No 1000mL at 999 mL/hr, 1,000 mL, IV Piggyback, ONCE, 1 dose, On Tue10/07/23 at 0000, STAT [facility] hydralAZINE (APRESOLINE ) injection 10 mg 2022-11 05:18: 19 Yes 10mg 10 mg, Slow IV Push, Q6HPRN, Starting on Tue10/06/23 at 2318, Until Discontinu ed, Routine, DBP=>100; SBP=>180 [facility] metoprolol succinate XL (TOPROL XL) tablet 100 mg 2022-11 03:30: 00 10-07 04:52 :53 No 100mg 100 mg, Oral, DAILY, First dose on Tue10/06/23 at 2130, Until Discontinu ed, Routine [facility] morpHINE (2 mg/mL) injection 4 mg 2022-11 00:30: 00 Yes 4mg 4 mg, Slow IV Push, Q4HPRN, Starting on Tue10/06/23 at 1830, Until Discontinu ed, Routine, Pain (scale 7-10) [facility] proCHLORper azine (COMPAZINE) 10 mg in NaCl 0.9% (NS) piggyback 2022-11 23:50: 42 Yes 10mg 10 mg, IV Piggyback, at 100 mL/hr Administer over 30 Minutes, Q6HPRN, Starting on Tue10/06/23 at 1750, Until Discontinu ed, Routine, Nausea and Vomiting (N/V) [facility] diazePAM (VALIUM) injection 10 mg 2022-11 21:48: 00 Yes 10mg 10 mg, Slow IV Push, TIDPRN, Starting on Tue10/06/23 at 1548, Until Discontinu ed, Routine, Agitation [facility] proCHLORper azine (COMPAZINE) 10 mg in NaCl 0.9% (NS) piggyback 2022-11 21:45: 00 10-06 22:22 :00 No 10mg 10 mg, IV Piggyback, at 100 mL/hr Administer over 30 Minutes, ONCE, 1 dose, On Tue10/06/23 at 1545, Routine [facility] lactulose (CEPHULAC) solution 30 mL 2022-11 21:00: 00 10-06 20:57 :00 No 30mL 30 mL, Oral, ONCE, 1 dose, On Tue10/06/23 at 1500, Routine [facility] butalbital- acetaminoph en-caff (ESGIC) 50-325-40 mg tablet 1 tablet 2022-11 16:42: 47 Yes 1{tbl} 1 tablet, Oral, Q6HPRN, Starting on Tue10/06/23 at 1042, Until Discontinu ed, Routine, for headache [facility] NaCl 0.9% (NS) bolus infusion 500 mL 2022-11 13:47: 00 10-06 13:56 :37 No 500mL at 999 mL/hr, 500 mL, IV Infusion, ONCE, 1 dose, On Tue10/06/23 at 0800, STAT [facility] sodium phosphates (READY-TO-U SE ENEMA) 19-7 gram/118 mL enema 1 Enema 2022-11 23:51: 00 10-06 00:03 :00 No 1{enema } 1 Enema, Rectal, ONCE, 1 dose, On Tue10/05/23 at 1800, Routine [facility] proMETHazin e (PHENERGAN) 25 mg in NaCl 0.9% (NS) 50 mL IV piggyback 2022-11 21:45: 10 10-06 23:51 :59 No 25mg 25 mg, IV Piggyback, at 200 mL/hr Administer over 15 Minutes, Q6HPRN, Starting on Tue10/05/23 at 1545, Until Tue10/06/23 at 1751, Routine, Nausea and Vomiting (N/V) [facility] KCL (KLOR-CON M20) tablet 20 mEq 2022-11 16:30: 00 10-05 16:14 :00 No 20meq 20 mEq, Oral, ONCE, 1 dose, On Tue10/05/23 at 1030, Routine [facility] NaCl 0.9% (NS) bolus infusion 1,000 mL 2022-11 14:00: 00 10-05 15:15 :59 No 1000mL at 999 mL/hr, 1,000 mL, IV Piggyback, ONCE, 1 dose, On Tue10/05/23 at 0800, STAT [facility] midodrine (PROAMATINE ) tablet 5 mg 2022-11 13:45: 00 10-05 12:51 :00 No 5mg 5 mg, Oral, ONCE, 1 dose, On Tue10/05/23 at 0745, Routine [facility] NaCl 0.9% (NS) bolus infusion 1,000 mL 2022-11 11:00: 00 10-05 09:53 :00 No 1000mL at 999 mL/hr, 1,000 mL, IV Piggyback, ONCE, 1 dose, On Tue10/05/23 at 0500, STAT [facility] aspirin tablet 325 mg 2022-11 05:15: 00 10-05 05:08 :00 No 325mg 325 mg, Oral, ONCE, 1 dose, On Tue10/04/23 at 2315, Routine [facility] potassium chloride in water (KCL) 20 mEq/100 mL RTU IVPB 20 mEq 2022-11 05:15: 00 10-05 08:39 :00 No 20meq 20 mEq, IV Piggyback, ONCE, 1 dose, On Tue10/04/23 at 2315, 100 mL [facility] HEPARIN SODIUM (PORCINE) 1,000 UNIT/ML BOLUS ACS ORDER SET 2022-11 04:30: 00 10-05 05:24 :00 No 4000U 4,000 Units, IV Push, ONCE, 1 dose, On Tue10/04/23 at 2230, CARL [facility] heparin 25,000 Units/250 mL (Premixed Bag) [...] Rang e, Dosing and Testing: &nbs p;FOR [facility], [facility], AND [facility] ONLY &nbs p; - aPTT < [...] ADJUST INITIAL BOLUS OR INITIAL INFUSION RATE.
[facility] hydralAZINE (APRESOLINE ) injection 10 mg 2022-11 03:15: 00 10-05 02:18 :00 No 10mg 10 mg, Slow IV Push, ONCE, 1 dose, On Tue10/04/23 at 2115, STAT [facility] atorvastati n (LIPITOR) tablet 40 mg 2022-11 03:00: 00 Yes 40mg 40 mg, Oral, QHS, First dose on Tue10/04/23 at 2100, Until Discontinu ed, Routine [facility] hydrALAZINE (APRESOLINE ) tablet 10 mg 2022-11 02:09: 49 10-07 04:19 :56 No 10mg 10 mg, Oral, Q6HPRN, Starting on Tue10/04/23 at 2008, Until Tue10/06/23 at 2219, Routine, SBP>160, DBP>100 [facility] morpHINE (2 mg/mL) injection 4 mg 2022-11 02:09: 35 10-07 00:16 :30 No 4mg 4 mg, Slow IV Push, Q6HPRN, Starting on Tue10/04/23 at 2008, Until Tue10/06/23 at 1816, Routine, Pain (scale 7-10) [facility] metoprolol (LOPRESSOR) injection 5 mg 2022-11 00:04: 32 Yes 5mg 5 mg, Slow IV Push, Q8HPRN, Starting on Tue10/04/23 at 1804, Until Discontinu ed, Routine, SYS BP over 170 hold for HR less than 60 [facility] morpHINE (2 mg/mL) injection 2 mg 2022-11 00:03: 39 10-05 02:10 :11 No 2mg 2 mg, Slow IV Push, Q6HPRN, Starting on Tue10/04/23 at 1803, Until Tue10/04/23 at 2010, Routine, Pain (scale 7-10) [facility] bisacodyL (DULCOLAX) suppository 10 mg 2022-11 00:03: 04 Yes 10mg 10 mg, Rectal, QHSPRN, Starting on Tue10/04/23 at 1803, Until Discontinu ed, Routine, Constipati on [facility] enoxaparin (LOVENOX) injection 40 mg 2022-11 23:00: 00 10-05 04:29 :29 No 40mg 40 mg, Subcutaneo us, DAILY, First dose on Tue10/04/23 at 1700, Until Discontinu ed, Routine [facility] diazePAM (VALIUM) tablet 10 mg 2022-11 22:01: 31 10-06 21:50 :05 No 10mg 10 mg, Oral, TIDPRN, Starting on Tue10/04/23 at 1601, Until Tamie 10/06/23 at 1550, Routine, anxiety [facility] labetaloL (NORMODYNE) injection 20 mg 2022-11 21:30: 00 10-04 20:34 :00 No 20mg 20 mg, Slow IV Push, ONCE, 1 dose, On Tue10/04/23 at 1530, Routine [facility] pantoprazol e (PROTONIX) EC tablet 40 mg 2022-11 21:00: 00 Yes 40mg 40 mg, Oral, DAILY, First dose on Tue10/04/23 at 1500, Until Discontinu ed, Routine [facility] NaCl 0.9% (NS) IV infusion 1,000 mL 2022-11 21:00: 00 Yes 1000mL at 125 mL/hr, IV Infusion, CONTINUOUS , Starting on Tue10/04/23 at 1500, Until Discontinu ed, [facility]ine [facility] (CATAPRES) tablet 0.3 mg 2022-11 21:00: 00 10-05 12:45 :21 No .3mg 0.3 mg, Oral, DAILY, First dose on Tue10/04/23 at 1500, Until Discontinu ed, Routine [facility] ondansetron (ZOFRAN (PF)) injection 4 mg 2022-11 20:51: 50 Yes 4mg 4 mg, Slow IV Push, Q6HPRN, Starting on Tue10/04/23 at 1451, Until Discontinu ed, Routine, Nausea and Vomiting (N/V) [facility] traMADoL (ULTRAM) tablet 50 mg 2022-11 20:51: 41 10-06 20:50 :41 No 50mg 50 mg, Oral, Q8HPRN, Starting on Tue10/04/23 at 1451, Until Tamie 10/06/23 at 1450, Routine, Pain (scale 4-6) [facility] acetaminoph en (TYLENOL) tablet 650 mg 2022-11 20:51: 35 Yes 650mg 650 mg, Oral, Q6HPRN, Starting on Tue10/04/23 at 1451, Until Discontinu ed, Routine, Pain (scale 1-3) [facility] metoprolol succinate XL (TOPROL XL) tablet 100 mg 2022-11 20:45: 00 10-05 12:45 :21 No 100mg 100 mg, Oral, DAILY, First dose on Tue10/04/23 at 1445, Until Discontinu ed, Routine [facility] amLODIPine (NORVASC) tablet 5 mg 2022-11 20:45: 00 10-05 12:45 :21 No 5mg 5 mg, Oral, QNOON, First dose on Tue10/04/23 at 1445, Until Discontinu ed, Routine [facility] morpHINE (4 mg/mL) injection 4 mg 2022-11 20:45: 00 10-04 20:32 :00 No 4mg 4 mg, Slow IV Push, ONCE, 1 dose, On Tue10/04/23 at 1445, STAT [facility] cloNIDine 0.3 mg tablet 2022-11 20:37: 17 Yes 1 tab(s) [facility] NaCl 0.9% (NS) bolus infusion 1,000 mL 2022-11 17:15: 00 10-04 16:16 :00 No 1000mL at 999 mL/hr, 1,000 mL, IV Infusion, ONCE, 1 dose, On Tue10/04/23 at 1115, STAT [facility] morpHINE (4 mg/mL) injection 4 mg 2022-11 17:15: 00 10-04 17:04 :00 No 4mg 4 mg, Slow IV Push, ONCE, 1 dose, On Tue10/04/23 at 1115, STAT [facility] NaCl 0.9% (NS) IV infusion 1,000 mL 2022-11 17:00: 00 10-04 18:00 :00 No 1000mL at 999 mL/hr, IV Infusion, ONCE, 1 dose, On Tue10/04/23 at 1100, Routine [facility] ondansetron (ZOFRAN (PF)) injection 4 mg 2022-11 16:15: 00 10-04 16:15 :00 No 4mg 4 mg, Slow IV Push, ONCE, 1 dose, On Tue10/04/23 at 1015, CARL [facility] proMETHazin e (PHENERGAN) 25 mg in NaCl 0.9% (NS) 50 mL IV piggyback 2022-11 16:15: 00 10-04 16:58 :00 No 25mg 25 mg, IV Piggyback, at 200 mL/hr Administer over 15 Minutes, ONCE, 1 dose, On Tue10/04/23 at 1015, CARL [facility] labetaloL (NORMODYNE) injection 20 mg 2022-11 16:15: 00 10-04 16:16 :00 No 20mg 20 mg, Slow IV Push, ONCE, 1 dose, [facility]/04/23 [facility] 1015[facility] 2 mg 2022-11 15:45: 00 10-04 15:01 :00 No 2mg 2 mg, Slow IV Push, ONCE, 1 dose, On Tue10/04/23 at 0945, Routine [facility] NaCl 0.9% (NS) bolus infusion 1,000 mL 2022-11 14:30: 00 10-04 15:00 :00 No 1000mL at 999 mL/hr, 1,000 mL, IV Infusion, ONCE, 1 dose, On Tue10/04/23 at 0830, [facility] ondansetron (ZOFRAN (PF)) injection 4 mg 2022-11 13:45: 00 10-04 14:51 :00 No 4mg 4 mg, Slow IV Push, ONCE, 1 dose, On Tue10/04/23 at 0745, [facility] semaglutide , weight loss, (WEGOVY) 1 mg/0.5 mL PnIj SC injection 2022-11 00:00: 00 Yes [id number] 1mg inject 1 mg under the skin weekly. [facility] semaglutide , weight loss, (WEGOVY) 1 mg/0.5 mL PnIj SC injection 2022-11 00:00: 00 Yes [id number] 1mg inject 1 mg under the skin weekly. [facility] semaglutide , weight loss, (WEGOVY) 1 mg/0.5 mL PnIj SC injection 2022-11 00:00: 00 Yes [id number] 1mg inject 1 mg under the skin weekly. [facility] semaglutide , weight loss, (WEGOVY) 1 mg/0.5 mL PnIj SC injection 2022-11 00:00: 00 Yes [id number] 1mg inject 1 mg under the skin weekly. [facility] semaglutide , weight loss, (WEGOVY) 1 mg/0.5 mL PnIj SC injection 2022-11 00:00: 00 Yes [id number] 1mg inject 1 mg under the skin weekly. [facility] semaglutide , weight loss, (WEGOVY) 1 mg/0.5 mL PnIj SC injection 2022-11 00:00: 00 Yes [id number] 1mg inject 1 mg under the skin weekly. [facility] semaglutide , weight loss, (WEGOVY) 1 mg/0.5 mL PnIj SC injection 2022-11 00:00: 00 Yes [id number] 1mg inject 1 mg under the skin weekly. [facility] semaglutide , weight loss, (WEGOVY) 1 mg/0.5 mL PnIj SC injection 2022-11 00:00: 00 10-08 00:00 :00 No [id number] 1mg inject 1 mg under the skin weekly. [facility] AMLODIPINE 5 mg tablet 2022-11 00:00: 00 Yes [id number] 5mg TAKE 1 TABLET BY MOUTH EVERY DAY AT 1200 (NOON). [facility] AMLODIPINE 5 mg tablet 2022-11 00:00: 00 Yes [id number] 5mg TAKE 1 TABLET BY MOUTH EVERY DAY AT 1200 (NOON). [facility] AMLODIPINE 5 mg tablet 2022-11 00:00: 00 Yes [id number] 5mg TAKE 1 TABLET BY MOUTH EVERY DAY AT 1200 (NOON). [facility] AMLODIPINE 5 mg tablet 2022-11 00:00: 00 Yes [id number] 5mg TAKE 1 TABLET BY MOUTH EVERY DAY AT 1200 (NOON). [facility] AMLODIPINE 5 mg tablet 2022-11 00:00: 00 Yes [id number] 5mg TAKE 1 TABLET BY MOUTH EVERY DAY AT 1200 (NOON). [facility] AMLODIPINE 5 mg tablet 2022-11 00:00: 00 Yes [id number] 5mg TAKE 1 TABLET BY MOUTH EVERY DAY AT 1200 (NOON). [facility] AMLODIPINE 5 mg tablet 2022-11 00:00: 00 Yes [id number] 5mg TAKE 1 TABLET BY MOUTH EVERY DAY AT 1200 (NOON). [facility] AMLODIPINE 5 mg tablet 2022-11 00:00: 00 Yes [id number] 5mg TAKE 1 TABLET BY MOUTH EVERY DAY AT 1200 (NOON). [facility] AMLODIPINE 5 mg tablet 2022-11 00:00: 00 Yes [id number] 5mg TAKE 1 TABLET BY MOUTH EVERY DAY AT 1200 (NOON). [facility] AMLODIPINE 5 mg tablet 2022-11 00:00: 00 Yes [id number] 5mg TAKE 1 TABLET BY MOUTH EVERY DAY AT 1200 (NOON). [facility] AMLODIPINE 5 mg tablet 2022-11 00:00: 00 Yes [id number] 5mg TAKE 1 TABLET BY MOUTH EVERY DAY AT 1200 (NOON). [facility] AMLODIPINE 5 mg tablet 2022-11 00:00: 00 Yes [id number] 5mg TAKE 1 TABLET BY MOUTH EVERY DAY AT 1200 (NOON). [facility] AMLODIPINE 5 mg tablet 2022-11 00:00: 00 Yes [id number] 5mg TAKE 1 TABLET BY MOUTH EVERY DAY AT 1200 (NOON). [facility] AMLODIPINE 5 mg tablet 2022-11 00:00: 00 Yes [id number] 5mg TAKE 1 TABLET BY MOUTH EVERY DAY AT 1200 (NOON). [facility] AMLODIPINE 5 mg tablet 2022-11 00:00: 00 Yes [id number] 5mg TAKE 1 TABLET BY MOUTH EVERY DAY AT 1200 (NOON). [facility] AMLODIPINE 5 mg tablet 2022-11 00:00: 00 Yes [id number] 5mg TAKE 1 TABLET BY MOUTH EVERY DAY AT 1200 (NOON). [facility] ATORVASTATI N 40 mg tablet 2022-11 00:00: 00 Yes [id number] 40mg TAKE 1 TABLET BY MOUTH EVERYDAY AT BEDTIME [facility] ATORVASTATI N 40 mg tablet 2022-11 00:00: 00 Yes [id number] 40mg TAKE 1 TABLET BY MOUTH EVERYDAY AT BEDTIME [facility] ATORVASTATI N 40 mg tablet 2022-11 00:00: 00 Yes [id number] 40mg TAKE 1 TABLET BY MOUTH EVERYDAY AT BEDTIME [facility] ATORVASTATI N 40 mg tablet 2022-11 00:00: 00 Yes [id number] 40mg TAKE 1 TABLET BY MOUTH EVERYDAY AT BEDTIME [facility] ATORVASTATI N 40 mg tablet 2022-11 00:00: 00 Yes [id number] 40mg TAKE 1 TABLET BY MOUTH EVERYDAY AT BEDTIME [facility] ATORVASTATI N 40 mg tablet 2022-11 00:00: 00 Yes [id number] 40mg TAKE 1 TABLET BY MOUTH EVERYDAY AT BEDTIME [facility] ATORVASTATI N 40 mg tablet 2022-11 00:00: 00 Yes [id number] 40mg TAKE 1 TABLET BY MOUTH EVERYDAY AT BEDTIME [facility] ATORVASTATI N 40 mg tablet 2022-11 00:00: 00 Yes [id number] 40mg TAKE 1 TABLET BY MOUTH EVERYDAY AT BEDTIME [facility] ATORVASTATI N 40 mg tablet 2022-11 00:00: 00 Yes [id number] 40mg TAKE 1 TABLET BY MOUTH EVERYDAY AT BEDTIME [facility] ATORVASTATI N 40 mg tablet 2022-11 00:00: 00 Yes [id number] 40mg TAKE 1 TABLET BY MOUTH EVERYDAY AT BEDTIME [facility] ATORVASTATI N 40 mg tablet 2022-11 00:00: 00 Yes [id number] 40mg TAKE 1 TABLET BY MOUTH EVERYDAY AT BEDTIME [facility] ATORVASTATI N 40 mg tablet 2022-11 00:00: 00 Yes [id number] 40mg TAKE 1 TABLET BY MOUTH EVERYDAY AT BEDTIME [facility] ATORVASTATI N 40 mg tablet 2022-11 00:00: 00 Yes [id number] 40mg TAKE 1 TABLET BY MOUTH EVERYDAY AT BEDTIME [facility] ATORVASTATI N 40 mg tablet 2022-11 00:00: 00 Yes [id number] 40mg TAKE 1 TABLET BY MOUTH EVERYDAY AT BEDTIME [facility] ATORVASTATI N 40 mg tablet 2022-11 00:00: 00 Yes [id number] 40mg TAKE 1 TABLET BY MOUTH EVERYDAY AT BEDTIME [facility] ATORVASTATI N 40 mg tablet 2022-11 00:00: 00 Yes [id number] 40mg TAKE 1 TABLET BY MOUTH EVERYDAY AT BEDTIME [facility] AT[facility]VASTATI N 40 mg tablet 2022-11 00:00: 00 Yes [id number] 40mg TAKE 1 TABLET BY MOUTH EVERYDAY AT BEDTIME [facility] ATORVASTATI N 40 mg tablet 2022-11 00:00: 00 Yes [id number] 40mg TAKE 1 TABLET BY MOUTH EVERYDAY AT BEDTIME [facility] ATORVASTATI N 40 mg tablet 2022-11 00:00: 00 Yes [id number] 40mg TAKE 1 TABLET BY MOUTH EVERYDAY AT BEDTIME [facility] [facility] AT[facility]VASTAT[facility] 40 mg tablet 2022-11 00:00: 00 Yes [id number] 40mg TAKE 1 TABLET BY MOUTH EVERYDAY AT BEDTIME [facility] proMETHazin e 12.5 mg tablet 2022-11 00:00: 00 Yes [id number] 12.5mg Take 1 tablet by mouth every 6 (six) hours as needed for Nausea and Vomiting (N/V). [facility] ezetimibe 10 mg tablet 2022-11 00:00: 00 Yes [id number] 10mg Take 1 tablet by mouth in the morning. [facility] semaglutide , weight loss, (WEGOVY) 0.5 mg/0.5 mL PnIj SC injection 2022-11 00:00: 00 Yes [id number] .5mg inject 0.5 mg under the skin weekly. [facility] proMETHazin e 12.5 mg tablet 2022-11 00:00: 00 Yes [id number] 12.5mg Take 1 tablet by mouth every 6 (six) hours as needed for Nausea and Vomiting (N/V). [facility] ezetimibe 10 mg tablet 2022-11 0 00:00: 00 Yes [id number] 10mg Take 1 tablet by mouth in the morning. [facility] proMETHazin e 12.5 mg tablet 2022-11 00:00: 00 Yes [id number] 12.5mg Take 1 tablet by mouth every 6 (six) hours as needed for Nausea and Vomiting (N/V). [facility] ezetimibe 10 mg tablet 2022-11 00:00: 00 Yes [id number] 10mg Take 1 tablet by mouth in the morning. [facility] proMETHazin e 12.5 mg tablet 2022-11 00:00: 00 Yes [id number] 12.5mg Take 1 tablet by mouth every 6 (six) hours as needed for Nausea and Vomiting (N/V). [facility] ezetimibe 10 mg tablet 2022-11 00:00: 00 Yes [id number] 10mg Take 1 tablet by mouth in the morning. [facility] proMETHazin e 12.5 mg tablet 2022-11 00:00: 00 Yes [id number] 12.5mg Take 1 tablet by mouth every 6 (six) hours as needed for Nausea and Vomiting (N/V). [facility] ezetimibe 10 mg tablet 2022-11 00:00: 00 Yes [id number] 10mg Take 1 tablet by mouth in the morning. [facility] semaglutide , weight loss, (WEGOVY) 0.5 mg/0.5 mL PnIj SC injection 2022-11 00:00: 00 Yes [id number] .5mg inject 0.5 mg under the skin weekly. [facility] proMETHazin e 12.5 mg tablet 2022-11 00:00: 00 Yes [id number] 12.5mg Take 1 tablet by mouth every 6 (six) hours as needed for Nausea and Vomiting (N/V). [facility] ezetimibe 10 mg tablet 2022-11 0-17 00:00: 00 Yes [id number] 10mg Take 1 tablet by mouth in the morning. [facility] semaglutide , weight loss, (WEGOVY) 0.5 mg/0.5 mL PnIj SC injection 2022-11 0 00:00: 00 Yes [id number] .5mg inject 0.5 mg under the skin weekly. [facility] proMETHazin e 12.5 mg tablet 2022-11 0 00:00: 00 Yes [id number] 12.5mg Take 1 tablet by mouth every 6 (six) hours as needed for Nausea and Vomiting (N/V). [facility] ezetimibe 10 mg tablet 2022-11 0 00:00: 00 Yes [id number] 10mg Take 1 tablet by mouth in the morning. [facility] semaglutide , weight loss, (WEGOVY) 0.5 mg/0.5 mL PnIj SC injection 2022-11 0 00:00: 00 Yes [id number] .5mg inject 0.5 mg under the skin weekly. [facility] proMETHazin e 12.5 mg tablet 2022-11 0 00:00: 00 Yes [id number] 12.5mg Take 1 tablet by mouth every 6 (six) hours as needed for Nausea and Vomiting (N/V). [facility] ezetimibe 10 mg tablet 2022-11 0- 00:00: 00 Yes [id number] 10mg Take 1 tablet by mouth in the morning. [facility] proMETHazin e 12.5 mg tablet 2022-11 0- 00:00: 00 Yes [id number] 12.5mg Take 1 tablet by mouth every 6 (six) hours as needed for Nausea and Vomiting (N/V). [facility] ezetimibe 10 mg tablet 2022-11 0- 00:00: 00 Yes [id number] 10mg Take 1 tablet by mouth in the morning. [facility] proMETHazin e 12.5 mg tablet 2022-11 0-17 00:00: 00 Yes [id number] 12.5mg Take 1 tablet by mouth every 6 (six) hours as needed for Nausea and Vomiting (N/V). [facility] ezetimibe 10 mg tablet 2022-11 0-17 00:00: 00 Yes [id number] 10mg Take 1 tablet by mouth in the morning. [facility] proMETHazin e 12.5 mg tablet 2022-11 0- 00:00: 00 Yes [id number] 12.5mg Take 1 tablet by mouth every 6 (six) hours as needed for Nausea and Vomiting (N/V). [facility] ezetimibe 10 mg tablet 2022-11 0- 00:00: 00 Yes [id number] 10mg Take 1 tablet by mouth in the morning. [facility] proMETHazin e 12.5 mg tablet 2022-11 0- 00:00: 00 Yes [id number] 12.5mg Take 1 tablet by mouth every 6 (six) hours as needed for Nausea and Vomiting (N/V). [facility] ezetimibe 10 mg tablet 2022-11 0- 00:00: 00 Yes [id number] 10mg Take 1 tablet by mouth in the morning. [facility] proMETHazin e 12.5 mg tablet 2022-11 0- 00:00: 00 Yes [id number] 12.5mg Take 1 tablet by mouth every 6 (six) hours as needed for Nausea and Vomiting (N/V). [facility] ezetimibe 10 mg tablet 2022-11 0-17 00:00: 00 Yes [id number] 10mg Take 1 tablet by mouth in the morning. [facility] proMETHazin e 12.5 mg tablet 2022-11 0- 00:00: 00 Yes [id number] 12.5mg Take 1 tablet by mouth every 6 (six) hours as needed for Nausea and Vomiting (N/V). [facility] ezetimibe 10 mg tablet 2022-11 0-17 00:00: 00 Yes [id number] 10mg Take 1 tablet by mouth in the morning. [facility] proMETHazin e 12.5 mg tablet 2022-11 0-17 00:00: 00 Yes [id number] 12.5mg Take 1 tablet by mouth every 6 (six) hours as needed for Nausea and Vomiting (N/V). [facility] ezetimibe 10 mg tablet 2022- 0-17 00:00: 00 Yes [id number] 10mg Take 1 tablet by mouth in the morning. [facility] proMETHazin e 12.5 mg tablet 2022-11 0-17 00:00: 00 Yes [id number] 12.5mg Take 1 tablet by mouth every 6 (six) hours as needed for Nausea and Vomiting (N/V). [facility] ezetimibe 10 mg tablet 2022-11 0-17 00:00: 00 Yes [id number] 10mg Take 1 tablet by mouth in the morning. [facility] proMETHazin e 12.5 mg tablet 2022-11 0- 00:00: 00 Yes [id number] 12.5mg Take 1 tablet by mouth every 6 (six) hours as needed for Nausea and Vomiting (N/V). [facility] ezetimibe 10 mg tablet 2022-11 0-17 00:00: 00 Yes [id number] 10mg Take 1 tablet by mouth in the morning. [facility] proMETHazin e 12.5 mg tablet 2022-11 0-17 00:00: 00 Yes [id number] 12.5mg Take 1 tablet by mouth every 6 (six) hours as needed for Nausea and Vomiting (N/V). [facility] ezetimibe 10 mg tablet 2022-11 0-17 00:00: 00 Yes [id number] 10mg Take 1 tablet by mouth in the morning. [facility] proMETHazin e 12.5 mg tablet 2022-11 0-17 00:00: 00 Yes [id number] 12.5mg Take 1 tablet by mouth every 6 (six) hours as needed for Nausea and Vomiting (N/V). [facility] ezetimibe 10 mg tablet 2022- 0-17 00:00: 00 Yes [id number] 10mg Take 1 tablet by mouth in the morning. [facility] proMETHazin e 12.5 mg tablet 2022-11 0-17 00:00: 00 Yes [id number] 12.5mg Take 1 tablet by mouth every 6 (six) hours as needed for Nausea and Vomiting (N/V). [facility] ezetimibe 10 mg tablet 2022-11 0-17 00:00: 00 Yes [id number] 10mg Take 1 tablet by mouth in the morning. [facility] proMETHazin e 12.5 mg tablet 2022-11 0-17 00:00: 00 Yes [id number] 12.5mg Take 1 tablet by mouth every 6 (six) hours as needed for Nausea and Vomiting (N/V). [facility] ezetimibe 10 mg tablet 2022-11 0- 00:00: 00 Yes [id number] 10mg Take 1 tablet by mouth in the morning. [facility] proMETHazin e 12.5 mg tablet 2022-11 0- 00:00: 00 Yes [id number] 12.5mg Take 1 tablet by mouth every 6 (six) hours as needed for Nausea and Vomiting (N/V). [facility] ezetimibe 10 mg tablet 2022-11 0-17 00:00: 00 Yes [id number] 10mg Take 1 tablet by mouth in the morning. [facility] proMETHazin e 12.5 mg tablet 2022-11 0-17 00:00: 00 Yes [id number] 12.5mg Take 1 tablet by mouth every 6 (six) hours as needed for Nausea and Vomiting (N/V). [facility] ezetimibe 10 mg tablet 2022-11 0-17 00:00: 00 Yes [id number] 10mg Take 1 tablet by mouth in the morning. [facility] proMETHazin e 12.5 mg tablet 2022-11 0-17 00:00: 00 Yes [id number] 12.5mg Take 1 tablet by mouth every 6 (six) hours as needed for Nausea and Vomiting (N/V). [facility] ezetimibe 10 mg tablet 2022- 0-17 00:00: 00 Yes [id number] 10mg Take 1 tablet by mouth in the morning. [facility] ezetimibe 10 mg tablet 2022-11 0 00:00: 00 Yes [id number] 10mg Take 1 tablet by mouth in the morning. [facility] proMETHazin e 12.5 mg tablet 2022-11 0 00:00: 00 02-16 00:00 :00 No [id number] 12.5mg Take 1 tablet by mouth every 6 (six) hours as needed for Nausea and Vomiting (N/V). [facility] semaglutide , weight loss, (WEGOVY) 0.5 mg/0.5 mL PnIj SC injection 2022-11 00:00: 00 10-08 00:00 :00 No [id number] .5mg inject 0.5 mg under the skin weekly. [facility] semaglutide , weight loss, (WEGOVY) 0.5 mg/0.5 mL PnIj SC injection 2022-11 0 00:00: 00 09-06 00:00 :00 No [id number] .5mg inject 0.5 mg under the skin weekly. [facility] semaglutide , weight loss, (WEGOVY) 0.5 mg/0.5 mL PnIj SC injection 2022-11 0 00:00: 00 09-06 00:00 :00 No [id number] .5mg inject 0.5 mg under the skin weekly. [facility] semaglutide , weight loss, (WEGOVY) 0.5 mg/0.5 mL PnIj SC injection 2022-11 0 00:00: 00 09-06 00:00 :00 No [id number] .5mg inject 0.5 mg under the skin weekly. [facility] pantoprazol e 40 mg EC tablet 08-12 00:00: 00 Yes [id number] 40mg Take 1 tablet by mouth in the morning and 1 tablet in the evening. [facility] pantoprazol e 40 mg EC tablet 08-12 00:00: 00 Yes [id number] 40mg Take 1 tablet by mouth in the morning and 1 tablet in the evening. [facility] pantoprazol e 40 mg EC tablet 0 08-12 00:00: 00 Yes [id number] 40mg Take 1 tablet by mouth in the morning and 1 tablet in the evening. [facility] pantoprazol e 40 mg EC tablet 2022-0 08-12 00:00: 00 Yes [id number] 40mg Take 1 tablet by mouth in the morning and 1 tablet in the evening. [facility] pantoprazol e 40 mg EC tablet 0 08-12 00:00: 00 Yes [id number] 40mg Take 1 tablet by mouth in the morning and 1 tablet in the evening. [facility] pantoprazol e 40 mg EC tablet 0 08-12 00:00: 00 Yes [id number] 40mg Take 1 tablet by mouth in the morning and 1 tablet in the evening. [facility] pantoprazol e 40 mg EC tablet 0 08-12 00:00: 00 Yes [id number] 40mg Take 1 tablet by mouth in the morning and 1 tablet in the evening. [facility] pantoprazol e 40 mg EC tablet 0 08-12 00:00: 00 Yes [id number] 40mg Take 1 tablet by mouth in the morning and 1 tablet in the evening. [facility] pantoprazol e 40 mg EC tablet 0 08-12 00:00: 00 Yes [id number] 40mg Take 1 tablet by mouth in the morning and 1 tablet in the evening. [facility] pantoprazol e 40 mg EC tablet 2022-0 08-12 00:00: 00 Yes [id number] 40mg Take 1 tablet by mouth in the morning and 1 tablet in the evening. [facility] pantoprazol e 40 mg EC tablet 2022-0 08-12 00:00: 00 10-18 00:00 :00 No [id number] 40mg Take 1 tablet by mouth in the morning and 1 tablet in the evening. [facility] pantoprazol e 40 mg EC tablet 2022-0 08-12 00:00: 10-18 00:00 :00 No [id number] 40mg Take 1 tablet by mouth in the morning and 1 tablet in the evening. [facility] pantoprazol e 40 mg EC tablet 08-12 00:00: 00 10-18 00:00 :00 No [id number] 40mg Take 1 tablet by mouth in the morning and 1 tablet in the evening. [facility] pantoprazol e 40 mg EC tablet 08-12 00:00: 00 10-18 00:00 :00 No [id number] 40mg Take 1 tablet by mouth in the morning and 1 tablet in the evening. [facility] oxymetazoli ne HCl (AFRIN NASAL) 08-04 09:10: 08-04 00:00 :00 No 2 spray(s) [facility] oxymetazoli ne HCl (AFRIN NASAL) 08-04 09:10: 08-04 00:00 :00 No 2 spray(s) [facility] oxymetazoli ne HCl (AFRIN NASAL) 08-04 09:10: 08-04 00:00 :00 No 2 spray(s) [facility] oxymetazoli ne HCl (AFRIN NASAL) 08-04 09:10: 08-04 00:00 :00 No 2 [facility], (WEGOVY) 0.25 mg/0.5 mL PnIj SC injection 07-26 00:00: 00 Yes [id number] .25mg inject 0.25 mg under the skin weekly. [facility] semaglutide , weight loss, (WEGOVY) 0.25 mg/0.5 mL PnIj SC injection 07-26 00:00: 00 Yes [id number] .25mg inject 0.25 mg under the skin weekly. [facility] semaglutide , weight loss, (WEGOVY) 0.25 mg/0.5 mL PnIj SC injection 07-26 00:00: 00 Yes [id number] .25mg inject 0.25 mg under the skin weekly. [facility] semaglutide , weight loss, (WEGOVY) 0.25 mg/0.5 mL PnIj SC injection 07-26 00:00: 00 Yes [id number] .25mg inject 0.25 mg under the skin weekly. [facility] semaglutide , weight loss, (WEGOVY) 0.25 mg/0.5 mL PnIj SC injection 07-26 00:00: 00 Yes [id number] .25mg inject 0.25 mg under the skin weekly. [facility] semaglutide , weight loss, (WEGOVY) 0.25 mg/0.5 mL PnIj SC injection 07-26 00:00: 00 Yes [id number] .25mg inject 0.25 mg under the skin weekly. [facility] semaglutide , weight loss, (WEGOVY) 0.25 mg/0.5 mL PnIj SC injection 07-26 00:00: 00 Yes [id number] .25mg inject 0.25 mg under the skin weekly. [facility] semaglutide , weight loss, (WEGOVY) 0.25 mg/0.5 mL PnIj SC injection 07-26 00:00: 00 Yes [id number] .25mg inject 0.25 mg under the skin weekly. [facility] semaglutide , weight loss, (WEGOVY) 0.25 mg/0.5 mL PnIj SC injection 07-26 00:00: 00 Yes [id number] .25mg inject 0.25 mg under the skin weekly. [facility] semaglutide , weight loss, (WEGOVY) 0.25 mg/0.5 mL PnIj SC injection 07-26 00:00: 00 Yes [id number] .25mg inject 0.25 mg under the skin weekly. [facility] semaglutide , weight loss, (WEGOVY) 0.25 mg/0.5 mL PnIj SC injection 905 00:00: 00 Yes [id number] .25mg inject 0.25 mg under the skin weekly. [facility] semaglutide , weight loss, (WEGOVY) 0.25 mg/0.5 mL PnIj SC injection 05 00:00: 00 10-08 00:00 :00 No [id number] .25mg inject 0.25 mg under the skin weekly. [facility] cloNIDine 0.3 mg tablet 0 07-14 08:10: 23 Yes 1 tab(s) [facility] cloNIDine 0.3 mg tablet 0 07-14 08:10: 23 Yes 1 tab(s) [facility] cloNIDine 0.3 mg tablet 0 07-14 08:10: 23 Yes 1 tab(s) [facility] cloNIDine 0.3 mg tablet 2022-0 07-14 08:10: 23 Yes 1 tab(s) [facility] cloNIDine 0.3 mg tablet 0 07-14 08:10: 23 Yes 1 tab(s) [facility] cloNIDine 0.3 mg tablet 2022-0 07-14 08:10: 23 Yes 1 tab(s) [facility] cloNIDine 0.3 mg tablet 0 07-14 08:10: 23 Yes 1 tab(s) [facility] cloNIDine 0.3 mg tablet 2022-0 07-14 08:10: 23 Yes 1 tab(s) [facility] cloNIDine 0.3 mg tablet 2022-0 07-14 08:10: 23 Yes 1 tab(s) [facility] cloNIDine 0.3 mg tablet 2022-0 07-14 08:10: 23 Yes 1 tab(s) [facility] cloNIDine 0.3 mg tablet 0 07-14 08:10: 23 Yes 1 tab(s) [facility] cloNIDine 0.3 mg tablet 2022-0 24 08:10: 23 Yes 1 tab(s) [facility] cloNIDine 0.3 mg tablet 0 24 08:10: 23 Yes 1 tab(s) [facility] cloNIDine 0.3 mg tablet 2022-0 24 08:10: 23 Yes 1 tab(s) [facility] cloNIDine 0.3 mg tablet 2022-0 24 08:10: 23 Yes 1 tab(s) [facility] cloNIDine 0.3 mg tablet 2022-0 24 08:10: 23 Yes 1 tab(s) [facility] cloNIDine 0.3 mg tablet 2022-0 24 08:10: 23 Yes 1 tab(s) [facility] cloNIDine 0.3 mg tablet 2022-0 24 08:10: 23 Yes 1 tab(s) [facility] cloNIDine 0.3 mg tablet 2022-0 07-14 08:10: 23 Yes 1 tab(s) [facility] pantoprazol e 40 mg EC tablet 2022-0 07-14 00:00: 00 Yes [id number] 40mg Take 1 tablet by mouth in the morning and 1 tablet in the evening. [facility] pantoprazol e 40 mg EC tablet 2022-0 07-14 00:00: 00 Yes [id number] 40mg Take 1 tablet by mouth in the morning and 1 tablet in the evening. [facility] pantoprazol e 40 mg EC tablet 2022-0 07-14 00:00: 00 Yes [id number] 40mg Take 1 tablet by mouth in the morning and 1 tablet in the evening. [facility] pantoprazol e 40 mg EC tablet 2022-0 07-14 00:00: 00 Yes [id number] 40mg Take 1 tablet by mouth in the morning and 1 tablet in the evening. [facility] pantoprazol e 40 mg EC tablet 2022-0 24 00:00: 00 Yes [id number] 40mg Take 1 tablet by mouth in the morning and 1 tablet in the evening. [facility] pantoprazol e 40 mg EC tablet 3-0 24 00:00: 00 Yes [id number] 40mg Take 1 tablet by mouth in the morning and 1 tablet in the evening. [facility] pantoprazol e 40 mg EC tablet 2022-0 824 00:00: 00 Yes [id number] 40mg Take 1 tablet by mouth in the morning and 1 tablet in the evening. [facility] pantoprazol e 40 mg EC tablet 2022-0 824 00:00: 00 Yes [id number] 40mg Take 1 tablet by mouth in the morning and 1 tablet in the evening. [facility] pantoprazol e 40 mg EC tablet 2022-0 824 00:00: 00 Yes [id number] 40mg Take 1 tablet by mouth in the morning and 1 tablet in the evening. [facility] pantoprazol e 40 mg EC tablet 2022-0 824 00:00: 00 Yes [id number] 40mg Take 1 tablet by mouth in the morning and 1 tablet in the evening. [facility] pantoprazol e 40 mg EC tablet 2022-0 24 00:00: 00 08-12 00:00 :00 No [id number] 40mg Take 1 tablet by mouth in the morning and 1 tablet in the evening. [facility] pantoprazol e 40 mg EC tablet 2022-0 24 00:00: 00 08-12 00:00 :00 No [id number] 40mg Take 1 tablet by mouth in the morning and 1 tablet in the evening. [facility] PROMETHAZIN E 25 mg tablet 3-0 8-10 00:00: 00 Yes [id number] TAKE 1 TABLET BY MOUTH EVERY 6 HOURS NEEDED FOR NAUSEA AND VOMITING . [facility] PROMETHAZIN E 25 mg tablet 3-0 8-10 00:00: 00 Yes [id number] TAKE 1 TABLET BY MOUTH EVERY 6 HOURS NEEDED FOR NAUSEA AND VOMITING . [facility] PROMETHAZIN E 25 mg tablet 3-0 8-10 00:00: 00 Yes [id number] TAKE 1 TABLET BY MOUTH EVERY 6 HOURS NEEDED FOR NAUSEA AND VOMITING . [facility] PROMETHAZIN E 25 mg tablet 3-0 8-10 00:00: 00 Yes [id number] TAKE 1 TABLET BY MOUTH EVERY 6 HOURS NEEDED FOR NAUSEA AND VOMITING . [facility] PROMETHAZIN E 25 mg tablet 2023-0 8-10 00:00: 00 Yes [id number] TAKE 1 TABLET BY MOUTH EVERY 6 HOURS NEEDED FOR NAUSEA AND VOMITING . [facility] PROMETHAZIN E 25 mg tablet 3-0 8-10 00:00: 00 Yes [id number] TAKE 1 TABLET BY MOUTH EVERY 6 HOURS NEEDED FOR NAUSEA AND VOMITING . [facility] PROMETHAZIN E 25 mg tablet 2023-0 8-10 00:00: 00 Yes [id number] TAKE 1 TABLET BY MOUTH EVERY 6 HOURS NEEDED FOR NAUSEA AND VOMITING . [facility] PROMETHAZIN E 25 mg tablet 3-0 8-10 00:00: 00 Yes [id number] TAKE 1 TABLET BY MOUTH EVERY 6 HOURS NEEDED FOR NAUSEA AND VOMITING . [facility] PROMETHAZIN E 25 mg tablet 3-0 8-10 00:00: 00 Yes [id number] TAKE 1 TABLET BY MOUTH EVERY 6 HOURS NEEDED FOR NAUSEA AND VOMITING . [facility] PROMETHAZIN E 25 mg tablet 3-0 8-10 00:00: 00 Yes [id number] TAKE 1 TABLET BY MOUTH EVERY 6 HOURS NEEDED FOR NAUSEA AND VOMITING . [facility] PROMETHAZIN E 25 mg tablet 3-0 8-10 00:00: 00 Yes [id number] TAKE 1 TABLET BY MOUTH EVERY 6 HOURS NEEDED FOR NAUSEA AND VOMITING . [facility] SUCRALFATE 1 gram tablet 3-0 8-10 00:00: 00 Yes [id number] 1g TAKE 1 TABLET BY MOUTH BEFORE MEALS AND AT BEDTIME [facility] PROMETHAZIN E 25 mg tablet 2023-0 8-10 00:00: 00 Yes [id number] TAKE 1 TABLET BY MOUTH EVERY 6 HOURS NEEDED FOR NAUSEA AND VOMITING . [facility] PROMETHAZIN E 25 mg tablet 2023-0 8-10 00:00: 00 Yes [id number] TAKE 1 TABLET BY MOUTH EVERY 6 HOURS NEEDED FOR NAUSEA AND VOMITING . [facility] PROMETHAZIN E 25 mg tablet 2023-0 8-10 00:00: 00 10-17 00:00 :00 No [id number] TAKE 1 TABLET BY MOUTH EVERY 6 HOURS NEEDED FOR NAUSEA AND VOMITING . [facility] PROMETHAZIN E 25 mg tablet 2022-0 8-10 00:00: 00 09-06 00:00 :00 No [id number] TAKE 1 TABLET BY MOUTH EVERY 6 HOURS NEEDED FOR NAUSEA AND VOMITING . [facility] SUCRALFATE 1 gram tablet 2022-0 8-10 00:00: 00 07-14 00:00 :00 No [id number] 1g TAKE 1 TABLET BY MOUTH BEFORE MEALS AND AT BEDTIME [facility] SUCRALFATE 1 gram tablet 2022-0 8-10 00:00: 00 07-14 00:00 :00 No [id number] 1g TAKE 1 TABLET BY MOUTH BEFORE MEALS AND AT BEDTIME [facility] SUCRALFATE 1 gram tablet 2022-0 8-10 00:00: 00 07-14 00:00 :00 No [id number] 1g TAKE 1 TABLET BY MOUTH BEFORE MEALS AND AT BEDTIME [facility] atorvastati n 40 mg tablet 2022-0 -18 00:00: 00 Yes [id number] 40mg Take 1 tablet by mouth at bedtime. [facility] amLODIPine 5 mg tablet 2022-0 7-18 00:00: 00 Yes [id number] 5mg Take 1 tablet by mouth every day at 1200 (noon). [facility] atorvastati n 40 mg tablet 3-0 7-18 00:00: 00 Yes [id number] 40mg Take 1 tablet by mouth at bedtime. [facility] amLODIPine 5 mg tablet 3-0 7-18 00:00: 00 Yes [id number] 5mg Take 1 tablet by mouth every day at 1200 (noon). [facility] atorvastati n 40 mg tablet 3-0 7-18 00:00: 00 Yes [id number] 40mg Take 1 tablet by mouth at bedtime. [facility] amLODIPine 5 mg tablet 3-0 7-18 00:00: 00 Yes [id number] 5mg Take 1 tablet by mouth every day at 1200 (noon). [facility] atorvastati n 40 mg tablet 2023-0 7-18 00:00: 00 Yes [id number] 40mg Take 1 tablet by mouth at bedtime. [facility] amLODIPine 5 mg tablet 3-0 7-18 00:00: 00 Yes [id number] 5mg Take 1 tablet by mouth every day at 1200 (noon). [facility] atorvastati n 40 mg tablet 2023-0 7-18 00:00: 00 Yes [id number] 40mg Take 1 tablet by mouth at bedtime. [facility] amLODIPine 5 mg tablet 3-0 7-18 00:00: 00 Yes [id number] 5mg Take 1 tablet by mouth every day at 1200 (noon). [facility] atorvastati n 40 mg tablet 3-0 7-18 00:00: 00 Yes [id number] 40mg Take 1 tablet by mouth at bedtime. [facility] amLODIPine 5 mg tablet 3-0 7-18 00:00: 00 Yes [id number] 5mg Take 1 tablet by mouth every day at 1200 (noon). [facility] atorvastati n 40 mg tablet 3-0 7-18 00:00: 00 Yes [id number] 40mg Take 1 tablet by mouth at bedtime. [facility] amLODIPine 5 mg tablet 3-0 7-18 00:00: 00 Yes [id number] 5mg Take 1 tablet by mouth every day at 1200 (noon). [facility] atorvastati n 40 mg tablet 3-0 7-18 00:00: 00 Yes [id number] 40mg Take 1 tablet by mouth at bedtime. [facility] amLODIPine 5 mg tablet 3-0 7-18 00:00: 00 Yes [id number] 5mg Take 1 tablet by mouth every day at 1200 (noon). [facility] atorvastati n 40 mg tablet 2023-0 7-18 00:00: 00 Yes [id number] 40mg Take 1 tablet by mouth at bedtime. [facility] amLODIPine 5 mg tablet 2023-0 7-18 00:00: 00 Yes [id number] 5mg Take 1 tablet by mouth every day at 1200 (noon). [facility] atorvastati n 40 mg tablet 2023-0 7-18 00:00: 00 Yes [id number] 40mg Take 1 tablet by mouth at bedtime. [facility] amLODIPine 5 mg tablet 2023-0 7-18 00:00: 00 Yes [id number] 5mg Take 1 tablet by mouth every day at 1200 (noon). [facility] atorvastati n 40 mg tablet 3-0 7-18 00:00: 00 Yes [id number] 40mg Take 1 tablet by mouth at bedtime. [facility] amLODIPine 5 mg tablet 3-0 7-18 00:00: 00 Yes [id number] 5mg Take 1 tablet by mouth every day at 1200 (noon). [facility] atorvastati n 40 mg tablet 3-0 7-18 00:00: 00 Yes [id number] 40mg Take 1 tablet by mouth at bedtime. [facility] amLODIPine 5 mg tablet 3-0 7-18 00:00: 00 Yes [id number] 5mg Take 1 tablet by mouth every day at 1200 (noon). [facility] atorvastati n 40 mg tablet 3-0 7-18 00:00: 00 Yes [id number] 40mg Take 1 tablet by mouth at bedtime. [facility] amLODIPine 5 mg tablet 2023-0 7-18 00:00: 00 Yes [id number] 5mg Take 1 tablet by mouth every day at 1200 (noon). [facility] atorvastati n 40 mg tablet 2023-0 7-18 00:00: 00 Yes [id number] 40mg Take 1 tablet by mouth at bedtime. [facility] amLODIPine 5 mg tablet 3-0 7-18 00:00: 00 Yes [id number] 5mg Take 1 tablet by mouth every day at 1200 (noon). [facility] atorvastati n 40 mg tablet 2023-0 7-18 00:00: 00 Yes [id number] 40mg Take 1 tablet by mouth at bedtime. [facility] amLODIPine 5 mg tablet 2022-0 18 00:00: 00 Yes [id number] 5mg Take 1 tablet by mouth every day at 1200 (noon). [facility] amLODIPine 5 mg tablet 2022-0 7-18 00:00: 00 Yes [id number] 5mg Take 1 tablet by mouth every day at 1200 (noon). [facility] proMETHazin e 25 mg tablet 2022-0 7-18 00:00: 00 Yes [id number] 25mg Take 1 tablet by mouth every 6 (six) hours as needed for Nausea and Vomiting (N/V). [facility] sucralfate 1 gram tablet 2022-0 18 00:00: 00 Yes [id number] 1g Take 1 tablet by mouth before meals and at bedtime. [facility] atorvastati n 40 mg tablet 2022-0 -18 00:00: 00 Yes [id number] 40mg Take 1 tablet by mouth at bedtime. [facility] amLODIPine 5 mg tablet 2022-0 18 00:00: 00 Yes [id number] 5mg Take 1 tablet by mouth every day at 1200 (noon). [facility] proMETHazin e 25 mg tablet 2022-0 18 00:00: 00 Yes [id number] 25mg Take 1 tablet by mouth every 6 (six) hours as needed for Nausea and Vomiting (N/V). [facility] sucralfate 1 gram tablet 2022-0 18 00:00: 00 Yes [id number] 1g Take 1 tablet by mouth before meals and at bedtime. [facility] atorvastati n 40 mg tablet 3-0 -18 00:00: 00 Yes [id number] 40mg Take 1 tablet by mouth at bedtime. [facility] amLODIPine 5 mg tablet 3-0 7-18 00:00: 00 Yes [id number] 5mg Take 1 tablet by mouth every day at 1200 (noon). [facility] proMETHazin e 25 mg tablet 3-0 7-18 00:00: 00 Yes [id number] 25mg Take 1 tablet by mouth every 6 (six) hours as needed for Nausea and Vomiting (N/V). [facility] sucralfate 1 gram tablet 2022-0 7-18 00:00: 00 Yes [id number] 1g Take 1 tablet by mouth before meals and at bedtime. [facility] atorvastati n 40 mg tablet 3-0 7-18 00:00: 00 Yes [id number] 40mg Take 1 tablet by mouth at bedtime. [facility] amLODIPine 5 mg tablet 2022-0 7-18 00:00: 00 Yes [id number] 5mg Take 1 tablet by mouth every day at 1200 (noon). [facility] atorvastati n 40 mg tablet 2022-0 7-18 00:00: 00 Yes [id number] 40mg Take 1 tablet by mouth at bedtime. [facility] amLODIPine 5 mg tablet 2022-0 7-18 00:00: 00 Yes [id number] 5mg Take 1 tablet by mouth every day at 1200 (noon). [facility] atorvastati n 40 mg tablet 2022-0 7-18 00:00: 00 Yes [id number] 40mg Take 1 tablet by mouth at bedtime. [facility] amLODIPine 5 mg tablet 2022-0 7-18 00:00: 00 Yes [id number] 5mg Take 1 tablet by mouth every day at 1200 (noon). [facility] amLODIPine 5 mg tablet 2022-0 7-18 00:00: 00 09-29 00:00 :00 No [id number] 5mg Take 1 tablet by mouth every day at 1200 (noon). [facility] atorvastati n 40 mg tablet 2022-0 -18 00:00: 00 09-23 00:00 :00 No [id number] 40mg Take 1 tablet by mouth at bedtime. [facility] proMETHazin e 25 mg tablet 2022-0 7-18 00:00: 00 06-30 00:00 :00 No [id number] 25mg Take 1 tablet by mouth every 6 (six) hours as needed for Nausea and Vomiting (N/V). [facility] sucralfate 1 gram tablet 06-07 00:00: 00 06-30 00:00 :00 No [id number] 1g Take 1 tablet by mouth before meals and at bedtime. [facility] amLODIPine 5 mg tablet 06-07 00:00: 00 06-07 00:00 :00 No [id number] 5mg Take 1 tablet by mouth every day at 1200 (noon). [facility] amLODIPine 5 mg tablet 06-07 00:00: 00 06-07 00:00 :00 No [id number] 5mg Take 1 tablet by mouth every day at 1200 (noon). [facility] ATORVASTATI N 40 mg tablet 05-30 00:00: 00 Yes [id number] TAKE 1 TABLET BY MOUTH EVERYDAY AT BEDTIME [facility] ATORVASTATI N 40 mg tablet 05-30 00:00: 00 06-07 00:00 :00 No [id number] TAKE 1 TABLET BY MOUTH EVERYDAY AT BEDTIME [facility] ATORVASTATI N 40 mg tablet 05-30 00:00: 00 06-07 00:00 :00 No [id number] TAKE 1 TABLET BY MOUTH EVERYDAY AT BEDTIME [facility] cloNIDine (CATAPRES) tablet 0.2 mg 05-28 00:15: 00 05-28 00:14 :00 No .2mg 0.2 mg, Oral, ONCE, 1 dose, On Tue05/27/23 at 1915, STAT [facility] iopamidol (ISOVUE 370-500 mL) injection 50 mL 05-27 23:45: 00 05-27 23:08 :00 No [id number] 50mL 50 mL, Intravenou s, ONCE, 1 dose, On Tue05/27/23 at 1845, Routine [facility] morpHINE (4 mg/mL) injection 4 mg 05-27 23:00: 00 05-27 22:13 :00 No 4mg 4 mg, Slow IV Push, ONCE, 1 dose, On Tue05/27/23 at 1800, [facility] NaCl 0.9% (NS) bolus infusion 1,000 mL 05-27 22:00: 00 05-27 23:45 :00 No 1000mL at 999 mL/hr, 1,000 mL, IV Piggyback, ONCE, 1 dose, On Tue05/27/23 at 1700, [facility] metoclopram kieran HCl (REGLAN) injection 10 mg 05-27 22:00: 00 05-27 22:12 :00 No 10mg 10 mg, Slow IV Push, ONCE, 1 dose, On Tue05/27/23 at 1700, [facility] FENTanyl PF (SUBLIMAZE (PF)) injection 50 mcg 05-27 21:00: 00 05-27 20:43 :00 No 50ug 50 mcg, Slow IV Push, ONCE, 1 dose, On Tue05/27/23 at 1600, [facility] ondansetron (ZOFRAN (PF)) injection 4 mg 05-27 21:00: 00 05-27 20:43 :00 No 4mg 4 mg, Slow IV Push, ONCE, 1 dose, On Tue05/27/23 at 1600, [facility] NaCl 0.9% (NS) bolus infusion 1,000 mL 05-27 20:45: 00 05-27 22:13 :00 No 1000mL at 999 mL/hr, 1,000 mL, IV Piggyback, ONCE, 1 dose, On Tue05/27/23 at 1545, [facility] maalox:diph enhydrAMINE :lidocaine 2 % viscous 1:1:1 ([facility]) oral suspension 15 mL 05-27 20:00: 00 05-27 20:43 :00 No 15mL 15 mL, Oral, ONCE, 1 dose, On Tue05/27/23 at 1500, [facility] pantoprazol e 40 mg EC tablet 05-27 00:00: 00 Yes [id number] 40mg Take 1 tablet by mouth in the morning. [facility] sucralfate 1 gram tablet 05-27 00:00: 00 Yes [id number] 1g Take 1 tablet by mouth before meals and at bedtime. [facility] proMETHazin e 25 mg tablet 05-27 00:00: 00 Yes [id number] 25mg Take 1 tablet by mouth every 6 (six) hours as needed for Nausea and Vomiting (N/V). [facility] pantoprazol e 40 mg EC tablet 05-27 00:00: 00 Yes [id number] 40mg Take 1 tablet by mouth in the morning. [facility] sucralfate 1 gram tablet 05-27 00:00: 00 Yes [id number] 1g Take 1 tablet by mouth before meals and at bedtime. [facility] proMETHazin e 25 mg tablet 05-27 00:00: 00 Yes [id number] 25mg Take 1 tablet by mouth every 6 (six) hours as needed for Nausea and Vomiting (N/V). [facility] pantoprazol e 40 mg EC tablet 05-27 00:00: 00 Yes [id number] 40mg Take 1 tablet by mouth in the morning. [facility] pantoprazol e 40 mg EC tablet 05-27 00:00: 00 Yes [id number] 40mg Take 1 tablet by mouth in the morning. [facility] pantoprazol e 40 mg EC tablet 05-27 00:00: 00 Yes [id number] 40mg Take 1 tablet by mouth in the morning. [facility] pantoprazol e 40 mg EC tablet 05-27 00:00: 00 Yes [id number] 40mg Take 1 tablet by mouth in the morning. [facility] pantoprazol e 40 mg EC tablet 05-27 00:00: 00 07-14 00:00 :00 No [id number] 40mg Take 1 tablet by mouth in the morning. [facility] pantoprazol e 40 mg EC tablet 05-27 00:00: 00 07-14 00:00 :00 No [id number] 40mg Take 1 tablet by mouth in the morning. [facility] pantoprazol e 40 mg EC tablet 05-27 00:00: 00 07-14 00:00 :00 No [id number] 40mg Take 1 tablet by mouth in the morning. [facility] sucralfate 1 gram tablet 05-27 00:00: 00 06-07 00:00 :00 No [id number] 1g Take 1 tablet by mouth before meals and at bedtime. [facility] proMETHazin e 25 mg tablet 05-27 00:00: 00 06-07 00:00 :00 No [id number] 25mg Take 1 tablet by mouth every 6 (six) hours as needed for Nausea and Vomiting (N/V). [facility] sucralfate 1 gram tablet 05-27 00:00: 00 06-07 00:00 :00 No [id number] 1g Take 1 tablet by mouth before meals and at bedtime. [facility] proMETHazin e 25 mg tablet 05-27 00:00: 00 06-07 00:00 :00 No [id number] 25mg Take 1 tablet by mouth every 6 (six) hours as needed for Nausea and Vomiting (N/V). [facility] acetaminoph en-codeine 300-30 mg tablet 05-27 00:00: 00 06-04 04:59 :00 No [id number] 2{tbl} Take 2 tablets by mouth every 4 (four) hours as needed for Pain (scale 1-3) for up to 7 days. Indication s: acute pain [facility] acetaminoph en-codeine 300-30 mg tablet 05-27 00:00: 00 06-04 04:59 :00 No [id number] 2{tbl} Take 2 tablets by mouth every 4 (four) hours as needed for Pain (scale 1-3) for up to 7 days. Indication s: acute pain [facility] fexofenadin e (GABE ALLERGY) 180 mg tablet 05-10 15:05: 09 05-10 00:00 :00 No 1 tab(s) [facility] fexofenadin e (GABE ALLERGY) 180 mg tablet 2022-05-10 15:05: 09 05-10 00:00 :00 No 1 tab(s) [facility] Nitrofurant oin&Nit. Macrocryst (MACROBID) 100 mg capsule 2022-0 05-10 00:00: 00 Yes [id number] 100mg Take 1 capsule by mouth in the morning and 1 capsule in the evening. [facility] Nitrofurant oin&Nit. Macrocryst (MACROBID) 100 mg capsule 05-10 00:00: 00 Yes [id number] 100mg Take 1 capsule by mouth in the morning and 1 capsule in the evening. [facility] Nitrofurant oin&Nit. Macrocryst (MACROBID) 100 mg capsule 2022-0 05-10 00:00: 00 Yes [id number] 100mg Take 1 capsule by mouth in the morning and 1 capsule in the evening. [facility] Nitrofurant oin&Nit. Macrocryst (MACROBID) 100 mg capsule 2022-0 05-10 00:00: 00 Yes [id number] 100mg Take 1 capsule by mouth in the morning and 1 capsule in the evening. [facility] Nitrofurant oin&Nit. Macrocryst (MACROBID) 100 mg capsule 2022-0 05-10 00:00: 00 Yes [id number] 100mg Take 1 capsule by mouth in the morning and 1 capsule in the evening. [facility] Nitrofurant oin&Nit. Macrocryst (MACROBID) 100 mg capsule 2022-0 05-10 00:00: 00 Yes [id number] 100mg Take 1 capsule by mouth in the morning and 1 capsule in the evening. [facility] Nitrofurant oin&Nit. Macrocryst (MACROBID) 100 mg capsule 2022-0 05-10 00:00: 00 Yes [id number] 100mg Take 1 capsule by mouth in the morning and 1 capsule in the evening. [facility] Nitrofurant oin&Nit. Macrocryst (MACROBID) 100 mg capsule 2022-0 6-20 00:00: 00 Yes [id number] 100mg Take 1 capsule by mouth in the morning and 1 capsule in the evening. [facility] Nitrofurant oin&Nit. Macrocryst (MACROBID) 100 mg capsule 2022-0 620 00:00: 00 Yes [id number] 100mg Take 1 capsule by mouth in the morning and 1 capsule in the evening. [facility] Nitrofurant oin&Nit. Macrocryst (MACROBID) 100 mg capsule 2022-0 620 00:00: 00 Yes [id number] 100mg Take 1 capsule by mouth in the morning and 1 capsule in the evening. [facility] Nitrofurant oin&Nit. Macrocryst (MACROBID) 100 mg capsule 2022-0 620 00:00: 00 Yes [id number] 100mg Take 1 capsule by mouth in the morning and 1 capsule in the evening. [facility] Nitrofurant oin&Nit. Macrocryst (MACROBID) 100 mg capsule 2022-0 20 00:00: 00 Yes [id number] 100mg Take 1 capsule by mouth in the morning and 1 capsule in the evening. [facility] Nitrofurant oin&Nit. Macrocryst (MACROBID) 100 mg capsule 2022-0 20 00:00: 00 Yes [id number] 100mg Take 1 capsule by mouth in the morning and 1 capsule in the evening. [facility] Nitrofurant oin&Nit. Macrocryst (MACROBID) 100 mg capsule 3-0 620 00:00: 00 Yes [id number] 100mg Take 1 capsule by mouth in the morning and 1 capsule in the evening. [facility] Nitrofurant oin&Nit. Macrocryst (MACROBID) 100 mg capsule 3-0 6-20 00:00: 00 Yes [id number] 100mg Take 1 capsule by mouth in the morning and 1 capsule in the evening. [facility] Nitrofurant oin&Nit. Macrocryst (MACROBID) 100 mg capsule 3-0 6-20 00:00: 00 Yes [id number] 100mg Take 1 capsule by mouth in the morning and 1 capsule in the evening. [facility] Nitrofurant oin&Nit. Macrocryst (MACROBID) 100 mg capsule 3-0 6-20 00:00: 00 08-04 00:00 :00 No [id number] 100mg Take 1 capsule by mouth in the morning and 1 capsule in the evening. [facility] Nitrofurant oin&Nit. Macrocryst (MACROBID) 100 mg capsule 3-0 6-20 00:00: 00 08-04 00:00 :00 No [id number] 100mg Take 1 capsule by mouth in the morning and 1 capsule in the evening. [facility] Nitrofurant oin&Nit. Macrocryst (MACROBID) 100 mg capsule 3-0 6-20 00:00: 00 08-04 00:00 :00 No [id number] 100mg Take 1 capsule by mouth in the morning and 1 capsule in the evening. [facility] Nitrofurant oin&Nit. Macrocryst (MACROBID) 100 mg capsule 2022-0 6-20 00:00: 00 08-04 00:00 :00 No [id number] 100mg Take 1 capsule by mouth in the morning and 1 capsule in the evening. [facility] atorvastati n 40 mg tablet 3-0 6-15 00:00: 00 Yes [id number] 40mg Take 1 tablet by mouth at bedtime. [facility] ezetimibe 10 mg tablet 3-0 6-15 00:00: 00 Yes [id number] 10mg Take 1 tablet by mouth in the morning. [facility] atorvastati n 40 mg tablet 3-0 6-15 00:00: 00 Yes [id number] 40mg Take 1 tablet by mouth at bedtime. [facility] ezetimibe 10 mg tablet 3-0 6-15 00:00: 00 Yes [id number] 10mg Take 1 tablet by mouth in the morning. [facility] atorvastati n 40 mg tablet 2022-0 6-15 00:00: 00 Yes [id number] 40mg Take 1 tablet by mouth at bedtime. [facility] ezetimibe 10 mg tablet 2022-0 6-15 00:00: 00 Yes [id number] 10mg Take 1 tablet by mouth in the morning. [facility] atorvastati n 40 mg tablet 2022-0 6-15 00:00: 00 Yes [id number] 40mg Take 1 tablet by mouth at bedtime. [facility] ezetimibe 10 mg tablet 2022-0 6-15 00:00: 00 Yes [id number] 10mg Take 1 tablet by mouth in the morning. [facility] ezetimibe 10 mg tablet 2022-0 6-15 00:00: 00 Yes [id number] 10mg Take 1 tablet by mouth in the morning. [facility] ezetimibe 10 mg tablet 2022-0 6-15 00:00: 00 06-07 00:00 :00 No [id number] 10mg Take 1 tablet by mouth in the morning. [facility] ezetimibe 10 mg tablet 2022-0 6-15 00:00: 00 06-07 00:00 :00 No [id number] 10mg Take 1 tablet by mouth in the morning. [facility] atorvastati n 40 mg tablet 2022-0 -15 00:00: 00 05-30 00:00 :00 No [id number] 40mg Take 1 tablet by mouth at bedtime. [facility] cloNIDine 0.3 mg tablet 2022-0 -14 10:38: 15 Yes 1 tab(s) [facility] cloNIDine 0.3 mg tablet 2022-0 -14 10:38: 15 Yes 1 tab(s) [facility] cloNIDine 0.3 mg tablet 2022-0 6-14 10:38: 15 Yes 1 tab(s) [facility] cloNIDine 0.3 mg tablet 2022-0 -14 10:38: 15 Yes 1 tab(s) [facility] cloNIDine 0.3 mg tablet 05-04 10:38: 15 Yes 1 tab(s) [facility] cloNIDine 0.3 mg tablet 05-04 10:38: 15 Yes 1 tab(s) [facility] cloNIDine 0.3 mg tablet 05-04 10:38: 15 Yes 1 tab(s) [facility] cloNIDine 0.3 mg tablet 05-04 10:38: 15 Yes 1 tab(s) [facility] cloNIDine 0.3 mg tablet 05-04 10:38: 15 Yes 1 tab(s) [facility] cloNIDine 0.3 mg tablet 05-04 10:38: 15 Yes 1 tab(s) [facility] oxymetazoli ne HCl (AFRIN NASAL) 05-04 10:38: 14 Yes 2 spray(s) [facility] oxymetazoli ne HCl (AFRIN NASAL) 05-04 10:38: 14 Yes 2 spray(s) [facility] oxymetazoli ne HCl (AFRIN NASAL) 05-04 10:38: 14 Yes 2 spray(s) [facility] oxymetazoli ne HCl (AFRIN NASAL) 05-04 10:38: 14 Yes 2 spray(s) [facility] oxymetazoli ne HCl (AFRIN NASAL) 05-04 10:38: 14 Yes 2 spray(s) [facility] oxymetazoli ne HCl (AFRIN NASAL) 05-04 10:38: 14 Yes 2 spray(s) [facility] oxymetazoli ne HCl (AFRIN NASAL) 05-04 10:38: 14 Yes 2 spray(s) [facility] oxymetazoli ne HCl (AFRIN NASAL) 05-04 10:38: 14 Yes 2 spray(s) [facility] oxymetazoli ne HCl (AFRIN NASAL) 05-04 10:38: 14 Yes 2 spray(s) [facility] oxymetazoli ne HCl (AFRIN NASAL) 05-04 10:38: 14 Yes 2 spray(s) [facility] oxymetazoli ne HCl (AFRIN NASAL) 05-04 10:38: 14 Yes 2 spray(s) [facility] oxymetazoli ne HCl (AFRIN NASAL) 05-04 10:38: 14 Yes 2 spray(s) [facility] oxymetazoli ne HCl (AFRIN NASAL) 05-04 10:38: 14 Yes 2 spray(s) [facility] oxymetazoli ne HCl (AFRIN NASAL) 05-04 10:38: 14 Yes 2 spray(s) [facility] oxymetazoli ne HCl (AFRIN NASAL) 05-04 10:38: 14 Yes 2 spray(s) [facility] oxymetazoli ne HCl (AFRIN NASAL) 05-04 10:38: 14 Yes 2 spray(s) [facility] XANAX ORAL 0 05-02 10:28: 57 05-02 00:00 :00 No None Entered [facility] XANAX ORAL 0 05-02 10:28: 57 05-02 00:00 :00 No None Entered [facility] XANAX ORAL 2022-0 05-02 10:28: 57 05-02 00:00 :00 No None Entered [facility] AMBIEN ORAL 2022-0 05-02 10:28: 51 05-02 00:00 :00 No None Entered [facility] AMBIEN ORAL 2022-0 05-02 10:28: 51 05-02 00:00 :00 No None Entered [facility] AMBIEN ORAL 2022-0 05-02 10:28: 51 05-02 00:00 :00 No None Entered [facility] DEPAKOTE ORAL 2022-0 12 10:28: 48 05-02 00:00 :00 No None Entered [facility] DEPAKOTE ORAL 2022-0 12 10:28: 48 05-02 00:00 :00 No None Entered [facility] DEPAKOTE ORAL 2022-0 12 10:28: 48 05-02 00:00 :00 No None Entered [facility] amLODIPine 5 mg tablet 3-0 12 00:00: 00 Yes [id number] 5mg Take 1 tablet by mouth every day at 1200 (noon). [facility] amLODIPine 5 mg tablet 3-0 12 00:00: 00 Yes [id number] 5mg Take 1 tablet by mouth every day at 1200 (noon). [facility] amLODIPine 5 mg tablet 3-0 12 00:00: 00 Yes [id number] 5mg Take 1 tablet by mouth every day at 1200 (noon). [facility] amLODIPine 5 mg tablet 3-0 12 00:00: 00 Yes [id number] 5mg Take 1 tablet by mouth every day at 1200 (noon). [facility] amLODIPine 5 mg tablet 2022-0 12 00:00: 00 Yes [id number] 5mg Take 1 tablet by mouth every day at 1200 (noon). [facility] amLODIPine 5 mg tablet 3-0 12 00:00: 00 Yes [id number] 5mg Take 1 tablet by mouth every day at 1200 (noon). [facility] amLODIPine 5 mg tablet 3-0 12 00:00: 00 Yes [id number] 5mg Take 1 tablet by mouth every day at 1200 (noon). [facility] amLODIPine 5 mg tablet 3-0 -12 00:00: 00 Yes [id number] 5mg Take 1 tablet by mouth every day at 1200 (noon). [facility] amLODIPine 5 mg tablet 3-0 12 00:00: 00 Yes [id number] 5mg Take 1 tablet by mouth every day at 1200 (noon). [facility] 5 mg tablet 3-0 6-12 00:00: 00 Yes [id number] 5mg Take 1 tablet by mouth every day at 1200 (noon). [facility] amLODIPine 5 mg tablet 3-0 6-12 00:00: 00 Yes [id number] 5mg Take 1 tablet by mouth every day at 1200 (noon). [facility] amLODIPine 5 mg tablet 3-0 6-12 00:00: 00 Yes [id number] 5mg Take 1 tablet by mouth every day at 1200 (noon). [facility] amLODIPine 5 mg tablet 3-0 6-12 00:00: 00 06-07 00:00 :00 No [id number] 5mg Take 1 tablet by mouth every day at 1200 (noon). [facility] amLODIPine 5 mg tablet 3-0 6-12 00:00: 00 06-07 00:00 :00 No [id number] 5mg Take 1 tablet by mouth every day at 1200 (noon). [facility] tiZANidine 4 mg tablet 3-0 -23 00:00: 00 Yes TAKE 1 TABLET BY MOUTH TWICE A DAY NEEDED FOR 90 DAYS [facility] tiZANidine 4 mg tablet 3-0 5-23 00:00: 00 Yes TAKE 1 TABLET BY MOUTH TWICE A DAY NEEDED FOR 90 DAYS [facility] tiZANidine 4 mg tablet 3-0 5-23 00:00: 00 Yes TAKE 1 TABLET BY MOUTH TWICE A DAY NEEDED FOR 90 DAYS [facility] tiZANidine 4 mg tablet 3-0 5-23 00:00: 00 Yes TAKE 1 TABLET BY MOUTH TWICE A DAY NEEDED FOR 90 DAYS [facility] tiZANidine 4 mg tablet 3-0 5-23 00:00: 00 Yes TAKE 1 TABLET BY MOUTH TWICE A DAY NEEDED FOR 90 DAYS [facility] tiZANidine 4 mg tablet 3-0 5-23 00:00: 00 Yes TAKE 1 TABLET BY MOUTH TWICE A DAY NEEDED FOR 90 DAYS [facility] tiZANidine 4 mg tablet 3-0 04-12 00:00: 00 Yes TAKE 1 TABLET BY MOUTH TWICE A DAY NEEDED FOR 90 DAYS [facility] tiZANidine 4 mg tablet 3-0 5 00:00: 00 Yes TAKE 1 TABLET BY MOUTH TWICE A DAY NEEDED FOR 90 DAYS [facility] tiZANidine 4 mg tablet 3-0 04-12 00:00: 00 Yes TAKE 1 TABLET BY MOUTH TWICE A DAY NEEDED FOR 90 DAYS [facility] tiZANidine 4 mg tablet 3-0 04-12 00:00: 00 Yes TAKE 1 TABLET BY MOUTH TWICE A DAY NEEDED FOR 90 DAYS [facility] tiZANidine 4 mg tablet 3-0 04-12 00:00: 00 Yes TAKE 1 TABLET BY MOUTH TWICE A DAY NEEDED FOR 90 DAYS [facility] tiZANidine 4 mg tablet 3-0 04-12 00:00: 00 Yes TAKE 1 TABLET BY MOUTH TWICE A DAY NEEDED FOR 90 DAYS [facility] tiZANidine 4 mg tablet 3-0 04-12 00:00: 00 Yes TAKE 1 TABLET BY MOUTH TWICE A DAY NEEDED FOR 90 DAYS [facility] tiZANidine 4 mg tablet 3-0 04-12 00:00: 00 Yes TAKE 1 TABLET BY MOUTH TWICE A DAY NEEDED FOR 90 DAYS [facility] tiZANidine 4 mg tablet 3-0 04-12 00:00: 00 Yes TAKE 1 TABLET BY MOUTH TWICE A DAY NEEDED FOR 90 DAYS [facility] tiZANidine 4 mg tablet 3-0 04-12 00:00: 00 Yes TAKE 1 TABLET BY MOUTH TWICE A DAY NEEDED FOR 90 DAYS [facility] tiZANidine 4 mg tablet 3-0 04-12 00:00: 00 Yes TAKE 1 TABLET BY MOUTH TWICE A DAY NEEDED FOR 90 DAYS [facility] tiZANidine 4 mg tablet 3-0 5- 00:00: 00 Yes TAKE 1 TABLET BY MOUTH TWICE A DAY NEEDED FOR 90 DAYS [facility] tiZANidine 4 mg tablet 3-0 04-12 00:00: 00 Yes TAKE 1 TABLET BY MOUTH TWICE A DAY NEEDED FOR 90 DAYS [facility] tiZANidine 4 mg tablet 3-0 04-12 00:00: 00 Yes TAKE 1 TABLET BY MOUTH TWICE A DAY NEEDED FOR 90 DAYS [facility] tiZANidine 4 mg tablet 3-0 04-12 00:00: 00 Yes TAKE 1 TABLET BY MOUTH TWICE A DAY NEEDED FOR 90 DAYS [facility] tiZANidine 4 mg tablet 3-0 04-12 00:00: 00 Yes TAKE 1 TABLET BY MOUTH TWICE A DAY NEEDED FOR 90 DAYS [facility] tiZANidine 4 mg tablet 3-0 04-12 00:00: 00 Yes TAKE 1 TABLET BY MOUTH TWICE A DAY NEEDED FOR 90 DAYS [facility] tiZANidine 4 mg tablet 3-0 04-12 00:00: 00 Yes TAKE 1 TABLET BY MOUTH TWICE A DAY NEEDED FOR 90 DAYS [facility] tiZANidine 4 mg tablet 3-0 04-12 00:00: 00 Yes TAKE 1 TABLET BY MOUTH TWICE A DAY NEEDED FOR 90 DAYS [facility] tiZANidine 4 mg tablet 3-0 04-12 00:00: 00 Yes TAKE 1 TABLET BY MOUTH TWICE A DAY NEEDED FOR 90 DAYS [facility] tiZANidine 4 mg tablet 3-0 04-12 00:00: 00 Yes TAKE 1 TABLET BY MOUTH TWICE A DAY NEEDED FOR 90 DAYS [facility] tiZANidine 4 mg tablet 3-0 04-12 00:00: 00 Yes TAKE 1 TABLET BY MOUTH TWICE A DAY NEEDED FOR 90 DAYS [facility] tiZANidine 4 mg tablet 3-0 04-12 00:00: 00 Yes TAKE 1 TABLET BY MOUTH TWICE A DAY NEEDED FOR 90 DAYS [facility] tiZANidine 4 mg tablet 3-0 - 00:00: 00 Yes TAKE 1 TABLET BY MOUTH TWICE A DAY NEEDED FOR 90 DAYS [facility] tiZANidine 4 mg tablet 3-0 - 00:00: 00 Yes TAKE 1 TABLET BY MOUTH TWICE A DAY NEEDED FOR 90 DAYS [facility] tiZANidine 4 mg tablet 3-0 04-12 00:00: 00 Yes TAKE 1 TABLET BY MOUTH TWICE A DAY NEEDED FOR 90 DAYS [facility] tiZANidine 4 mg tablet 3-0 5 00:00: 00 Yes TAKE 1 TABLET BY MOUTH TWICE A DAY NEEDED FOR 90 DAYS [facility] tiZANidine 4 mg tablet 3-0 04-12 00:00: 00 Yes TAKE 1 TABLET BY MOUTH TWICE A DAY NEEDED FOR 90 DAYS [facility] tiZANidine 4 mg tablet 3-0 04-12 00:00: 00 Yes TAKE 1 TABLET BY MOUTH TWICE A DAY NEEDED FOR 90 DAYS [facility] tiZANidine 4 mg tablet 3-0 04-12 00:00: 00 Yes TAKE 1 TABLET BY MOUTH TWICE A DAY NEEDED FOR 90 DAYS [facility] tiZANidine 4 mg tablet 3-0 04-12 00:00: 00 Yes TAKE 1 TABLET BY MOUTH TWICE A DAY NEEDED FOR 90 DAYS [facility] tiZANidine 4 mg tablet 3-0 04-12 00:00: 00 Yes TAKE 1 TABLET BY MOUTH TWICE A DAY NEEDED FOR 90 DAYS [facility] tiZANidine 4 mg tablet 3-0 04-12 00:00: 00 Yes TAKE 1 TABLET BY MOUTH TWICE A DAY NEEDED FOR 90 DAYS [facility] tiZANidine 4 mg tablet 3-0 04-12 00:00: 00 Yes TAKE 1 TABLET BY MOUTH TWICE A DAY NEEDED FOR 90 DAYS [facility] tiZANidine 4 mg tablet 3-0 04-12 00:00: 00 Yes TAKE 1 TABLET BY MOUTH TWICE A DAY NEEDED FOR 90 DAYS [facility] tiZANidine 4 mg tablet 3-0 04-12 00:00: 00 Yes TAKE 1 TABLET BY MOUTH TWICE A DAY NEEDED FOR 90 DAYS [facility] tiZANidine 4 mg tablet 3-0 5- 00:00: 00 Yes TAKE 1 TABLET BY MOUTH TWICE A DAY NEEDED FOR 90 DAYS [facility] tiZANidine 4 mg tablet 3-0 04-12 00:00: 00 Yes TAKE 1 TABLET BY MOUTH TWICE A DAY NEEDED FOR 90 DAYS [facility] tiZANidine 4 mg tablet 3-0 5-23 00:00: 00 Yes TAKE 1 TABLET BY MOUTH TWICE A DAY NEEDED FOR 90 DAYS [facility] tiZANidine 4 mg tablet 3-0 5-23 00:00: 00 Yes TAKE 1 TABLET BY MOUTH TWICE A DAY NEEDED FOR 90 DAYS [facility] tiZANidine 4 mg tablet 3-0 5-23 00:00: 00 Yes TAKE 1 TABLET BY MOUTH TWICE A DAY NEEDED FOR 90 DAYS [facility] tiZANidine 4 mg tablet 3-0 5-23 00:00: 00 02-16 00:00 :00 No TAKE 1 TABLET BY MOUTH TWICE A DAY NEEDED FOR 90 DAYS [facility] ibuprofen 600 mg tablet 3-0 4-20 00:00: 00 05-10 00:00 :00 No 600mg Take 1 tablet by mouth every 6 (six) hours as needed. [facility] ibuprofen 600 mg tablet 3-0 4-20 00:00: 00 05-10 00:00 :00 No 600mg Take 1 tablet by mouth every 6 (six) hours as needed. [facility] amLODIPine 10 mg tablet 2021-0 8-05 00:00: 00 07-26 04:59 :00 No [id number] 10mg Take 1 tablet by mouth in the morning for 30 days. [facility] amLODIPine 10 mg tablet 2021-0 8-05 00:00: 00 07-26 04:59 :00 No [id number] 10mg Take 1 tablet by mouth in the morning for 30 days. [facility] amLODIPine 10 mg tablet 2-0 8-05 00:00: 00 07-26 04:59 :00 No [id number] 10mg Take 1 tablet by mouth in the morning for 30 days. [facility] amLODIPine 10 mg tablet 2021-0 8-05 00:00: 00 07-26 04:59 :00 No [id number] 10mg Take 1 tablet by mouth in the morning for 30 days. [facility] amLODIPine 10 mg tablet 06-25 00:00: 00 07-26 04:59 :00 No [id number] 10mg Take 1 tablet by mouth in the morning for 30 days. [facility] DEPAKOTE ORAL 2-0 06-24 14:16: 54 Yes None Entered [facility] AMBIEN ORAL 2-0 8 14:16: 54 Yes None Entered [facility] XANAX ORAL 2021-0 8 14:16: 54 Yes None Entered [facility] DEPAKOTE ORAL 2-0 06-24 14:16: 54 Yes None Entered [facility] AMBIEN ORAL 2-0 06-24 14:16: 54 Yes None Entered [facility] XANAX ORAL 2021-0 06-24 14:16: 54 Yes None Entered [facility] DEPAKOTE ORAL 2021-0 06-24 14:16: 54 Yes None Entered [facility] AMBIEN ORAL 2-0 8 14:16: 54 Yes None Entered [facility] XANAX ORAL 2-0 8 14:16: 54 Yes None Entered [facility] DEPAKOTE ORAL 2021-0 06-24 14:16: 54 Yes None Entered [facility] AMBIEN ORAL 2021-0 06-24 14:16: 54 Yes None Entered [facility] XANAX ORAL 2-0 8 14:16: 54 Yes None Entered [facility] DEPAKOTE ORAL 2022-0 804 14:16: 54 Yes None Entered [facility] AMBIEN ORAL 2-0 804 14:16: 54 Yes None Entered [facility] XANAX ORAL 2-0 804 14:16: 54 Yes None Entered [facility] DEPAKOTE ORAL 2022-0 804 14:16: 54 Yes None Entered [facility] AMBIEN ORAL 2022-0 804 14:16: 54 Yes None Entered [facility] XANAX ORAL 2022-0 8-04 14:16: 54 Yes None Entered [facility] famotidine 20 mg tablet 06-24 00:00: 00 07-25 04:59 :00 No [id number] 20mg Take 1 tablet by mouth in the morning and 1 tablet in the evening. Do all this for 30 days. [facility] famotidine 20 mg tablet 06-24 00:00: 07-25 04:59 :00 No [id number] 20mg Take 1 tablet by mouth in the morning and 1 tablet in the evening. Do all this for 30 days. [facility] famotidine 20 mg tablet 06-24 00:00: 00 07-25 04:59 :00 No [id number] 20mg Take 1 tablet by mouth in the morning and 1 tablet in the evening. Do all this for 30 days. [facility] famotidine 20 mg tablet 06-24 00:00: 00 07-25 04:59 :00 No [id number] 20mg Take 1 tablet by mouth in the morning and 1 tablet in the evening. Do all this for 30 days. [facility] famotidine 20 mg tablet 06-24 00:00: 00 07-25 04:59 :00 No [id number] 20mg Take 1 tablet by mouth in the morning and 1 tablet in the evening. Do all this for 30 days. [facility] insulin glargine (LANTUS U-100) injection 13 Units 06-23 19:00: 37 Yes .15U/kg /d 13 Units (rounded from 12.825 Units = 0.15 Units/kg/d ay ?85.5 kg), Subcutaneo us, Q24H, First dose on Tue06/23/22 at 1401, Until Discontinu ed, Routine [facility] famotidine (PEPCID AC) tablet 20 mg 06-23 01:00: 00 Yes 20mg 20 mg, Oral, BID, First dose on Tue06/22/22 at 2000, Until Discontinu ed, Routine [facility] morpHINE (2 mg/mL) injection 2 mg 06-22 23:37: 00 06-22 23:41 :00 No 2mg 2 mg, Slow IV Push, ONCE, 1 dose, On Tue06/22/22 at 1845, Routine [facility] Sliding Scale Insulin - lispro (humaLOG) + Fsbg Testing 06-22 21:00: 00 Yes Subcutaneo us, Q4H, First dose on Tue06/22/22 at 1600, Until Discontinu ed, Routine [facility] butalbital- acetaminoph en-caff (ESGIC) 50-325-40 mg tablet 1 tablet 06-22 20:13: 25 Yes 1{tbl} 1 tablet, Oral, Q4HPRN, Starting on Tue06/22/22 at 1513, Until Discontinu ed, Routine, Pain (scale 4-6), Pain (scale 7-10) [facility] ketorolac (TORADOL) injection 15 mg 06-22 18:30: 00 06-22 19:07 :00 No 15mg 15 mg, Slow IV Push, ONCE, 1 dose, On Tue06/22/22 at 1330, Routine [facility] hexafluorid e microsphr (LUMASON) injection 5 mL 06-22 15:00: 00 06-22 15:00 :00 No [id number] 5mL 5 mL, Intravenou s, ONCE, 1 dose, On Tue06/22/22 at 1000, Routine
anthropology faculty member approving Restricted medication : DOMONIQUE KEATING [facility] cloNIDine (CATAPRES) tablet 0.2 mg 06-22 02:00: 00 Yes .2mg 0.2 mg, Oral, QHS, First dose (after last modificati on) on Tue06/21/22 at 2100, Until Discontinu ed, Routine [facility] KCL (POTASSIUM CHLORIDE) 40 mEq in NaCl 0.9% (NS) piggyback 06-22 01:45: 00 06-22 06:07 :00 No 40meq 40 mEq, IV Piggyback, ONCE, 1 dose, On Tue06/21/22 at 2045, 250 mL [facility] diphenhydrA MINE (BENADRYL) tablet 25 mg 06-22 00:51: 10 Yes 25mg 25 mg, Oral, Q6HPRN, Starting on Tue06/21/22 at 1951, Until Discontinu ed, Routine, Congestion /Allergies [facility] morpHINE (2 mg/mL) injection 2 mg 06-21 21:23: 17 06-22 18:50 :05 No 2mg 2 mg, Slow IV Push, Q4HPRN, Starting on Tue06/21/22 at 1623, Until Tue06/22/22 at 1350, Routine, Pain (scale 4-6), Pain (scale 7-10) [facility] amLODIPine (NORVASC) tablet 10 mg 06-21 21:15: 00 Yes 10mg 10 mg, Oral, DAILY, First dose on Tue06/21/22 at 1615, Until Discontinu ed, Routine [facility] metoprolol (LOPRESSOR) injection 5 mg 06-21 19:10: 00 06-21 19:18 :00 No 5mg 5 mg, Slow IV Push, ONCE, 1 dose, On Tue06/21/22 at 1415, Routine [facility] insulin regular human (HUMULIN R) 100 Units [...] two hours before stopping insulin infusion.< br> [facility] D5W 0.45% NaCl (1/2NS) IV infusion 1,000 mL 06-21 15:57: 12 06-23 12:45 :54 No 1000mL at 200 mL/hr, 1,000 mL, IV Infusion, PRN - SEE INSTRUCTIO NS, Starting on Tue06/21/22 at 1057, Until Tue06/23/22 at 0745, CARL [facility] ondansetron (ZOFRAN (PF)) injection 8 mg 06-21 15:10: 42 Yes 8mg 8 mg, Slow IV Push, Q6HPRN, Starting on Tue06/21/22 at 1010, Until Discontinu ed, Routine, Nausea and Vomiting (N/V) [facility] HYDROmorpho ne (DILAUDID) injection 0.5 mg 06-21 14:00: 05 06-21 21:24 :02 No .5mg 0.5 mg, Slow IV Push, Q4HPRN, Starting on Tue06/21/22 at 0900, Until Tue06/21/22 at 1624, Routine, Pain (scale 4-6), Pain (scale 7-10)
U se approved by (Faculty): [facility] PROVIDER [facility] enoxaparin (LOVENOX) injection 40 mg 06-21 14:00: 00 Yes 40mg 40 mg, Subcutaneo us, DAILY, First dose on Tue06/21/22 at 0900, Until Discontinu ed, Routine [facility] fluticasone propionate 50 mcg/actuati on nasal spray 2 [place] 06-21 14:00: 00 Yes 2{spray } 2 [place], Nasal, DAILY, First dose on Tue06/21/22 at 0900, Until Discontinu ed [facility] metoprolol succinate XL (TOPROL XL) tablet 100 mg 06-21 14:00: 00 Yes 100mg 100 mg, Oral, DAILY, First dose on Tue06/21/22 at 0900, Until Discontinu ed, Routine [facility] docusate (COLACE) capsule 100 mg 06-21 13:00: 00 Yes 100mg 100 mg, Oral, BID, First dose on Tue06/21/22 at 0800, Until Discontinu ed, Routine [facility] famotidine (PEPCID (PF)) injection 20 mg 06-21 13:00: 00 06-22 20:23 :24 No 20mg 20 mg, Slow IV Push, Q12H, First dose on Tue06/21/22 at 0800, Until Discontinu ed, Routine [facility] cloNIDine (CATAPRES) tablet 0.2 mg 06-21 13:00: 00 06-21 21:06 :15 No .2mg 0.2 mg, Oral, TID, First dose (after last modificati on) on Tue06/21/22 at 0800, Until Discontinu ed, Routine [facility] potassium chloride 20 mEq/100 mL (KCL) 20 mEq/100 mL RTU IVPB 20 mEq 06-21 09:15: 00 06-21 11:50 :00 No 20meq 20 mEq, IV Piggyback, ONCE, 1 dose, On Tue06/21/22 at 0415, 100 mL [facility] magnesium sulfate in water 2 gram/50 mL (4 %) infusion 2 g 06-21 09:15: 00 06-21 09:19 :00 No 2g 2 g, IV Piggyback, Administer over 60 Minutes, ONCE, 1 dose, On Tue06/21/22 at 0415, Routine [facility] labetaloL (NORMODYNE) 200 mg in NaCl [...] at maximum allowed dose, contact prescriber .
[facility] lactated ringers IV infusion 1,000 mL 06-21 08:30: 00 06-21 17:03 :57 No 1000mL at 150 mL/hr, 1,000 mL, IV Infusion, CONTINUOUS , Starting on Tue06/21/22 at 0330, Until Tue06/21/22 at 1203, Routine [facility] FENTanyl PF (SUBLIMAZE (PF)) injection 100 mcg 06-21 07:45: 00 06-21 07:01 :00 No 100ug 100 mcg, Slow IV Push, ONCE, 1 dose, On Tue06/21/22 at 0245, Routine [facility] ondansetron (ZOFRAN (PF)) injection 4 mg 06-21 07:23: 15 06-21 13:52 :35 No 4mg 4 mg, Slow IV Push, Q6HPRN, Starting on Tue06/21/22 at 0223, Until Tue06/21/22 at 0852, Routine, Nausea and Vomiting (N/V) [facility] morpHINE (4 mg/mL) injection 4 mg 06-21 07:23: 09 06-21 14:01 :34 No 4mg 4 mg, Slow IV Push, Q4HPRN, Starting on Tue06/21/22 at 0223, Until Tue06/21/22 at 0901, Routine, Pain (scale 7-10) [facility] acetaminoph en (TYLENOL) tablet 650 mg 06-21 07:23: 04 Yes 650mg 650 mg, Oral, Q6HPRN, Starting on Tue06/21/22 at 0223, Until Discontinu ed, Routine, Pain (scale 1-3) [facility] diazePAM (VALIUM) tablet 10 mg 06-21 07:18: 16 Yes 10mg 10 mg, Oral, TIDPRN, Starting on Tue06/21/22 at 0218, Until Discontinu ed, Routine, anxiety [facility] hydralAZINE (APRESOLINE ) injection 10 mg 06-21 06:00: 00 06-21 05:39 :00 No 10mg 10 mg, Slow IV Push, ONCE, 1 dose, On Tue06/21/22 at 0100, STAT [facility] diazePAM (VALIUM) injection 5 mg 06-21 05:45: 00 06-21 06:17 :00 No 5mg 5 mg, Slow IV Push, ONCE, 1 dose, On Tue06/21/22 at 0045, STAT [facility] iopamidol (ISOVUE 370-500 mL) injection 100 mL 06-21 05:45: 00 06-21 05:45 :00 No [id number] 100mL 100 mL, Intravenou s, ONCE, 1 dose, On Tue06/21/22 at 0045, Routine [facility] vancomycin 1,250 mg in NaCl 0.9% (NS) [...] Soft tissue
Duration of therapy: 72 hours [facility] NaCl 0.9% (NS) bolus infusion 1,000 mL 06-21 04:45: 00 06-21 05:20 :00 No 1000mL at 999 mL/hr, 1,000 mL, IV Infusion, ONCE, 1 dose, On 06/20/22 at 2345, CARL [facility] morpHINE (4 mg/mL) injection 4 mg 06-21 03:45: 00 06-21 03:49 :00 No 4mg 4 mg, Slow IV Push, ONCE, 1 dose, On Tue06/20/22 at 2245, STAT [facility] piperacilli n-tazobacta m (ZOSYN) 3.375 g in NaCl 0.9% (NS) 50 mL MINI-BAG 06-21 03:45: 00 06-21 05:03 :00 No 3.375g 3.375 g, IV Piggyback, ONCE, 1 dose, On 06/20/22 at 2245, Administer over 30 Minutes, 50 mL
Reas on for Anti-Infec tive: Empiric Therapy for Suspected Infection< br>Empiric Therapy Site: Skin / Soft tissue
Duration of therapy: 72 hours [facility] methylpredn isolone sod succ (SOLU-MEDRO L) injection 125 mg 06-21 03:45: 00 06-21 02:54 :00 No 125mg 125 mg, Intravenou s, ONCE, 1 dose, On 06/20/22 at 2245, 2 mL [facility] LORazepam (ATIVAN) injection 1 mg 06-21 03:30: 00 06-21 03:30 :00 No 1mg 1 mg, Slow IV Push, ONCE, 1 dose, On 06/20/22 at 2230, STAT
Is the medication being used for status epilepticu s? No [facility] diphenhydrA MINE (BENADRYL) injection 50 mg 06-21 02:45: 00 06-21 02:53 :00 No 50mg 50 mg, Slow IV Push, ONCE, 1 dose, On 06/20/22 at 2145, STAT [facility] ondansetron (ZOFRAN (PF)) injection 4 mg 06-21 02:45: 00 06-21 02:53 :00 No 4mg 4 mg, Slow IV Push, ONCE, 1 dose, On Tue06/20/22 at 2145, CARL [facility] labetaloL 20 mg/4 mL (5 mg/mL) syringe 06-21 00:00: 00 06-22 04:59 :00 No [id number] 20mg Inject 4 mL as directed once now for 1 dose. [facility] triamcinolo ne 55 mcg nasal inhaler 03-24 00:00: 00 Yes [id number] 1{spray } Use 1 [place] in each nostril 2 (two) times daily. Get over the counter if not covered [facility] azelastine 137 mcg (0.1 %) nasal spray 03-24 00:00: 00 Yes [id number] 1{spray } Use 1 [place] in each nostril 2 (two) times daily. Use in each nostril as directed [facility] triamcinolo ne 55 mcg nasal inhaler 03-24 00:00: 00 Yes [id number] 1{spray } Use 1 [place] in each nostril 2 (two) times daily. Get over the counter if not covered [facility] azelastine 137 mcg (0.1 %) nasal spray 03-24 00:00: 00 Yes [id number] 1{spray } Use 1 [place] in each nostril 2 (two) times daily. Use in each nostril as directed [facility] triamcinolo ne 55 mcg nasal inhaler 03-24 00:00: 00 Yes [id number] 1{spray } Use 1 [place] in each nostril 2 (two) times daily. Get over the counter if not covered [facility] azelastine 137 mcg (0.1 %) nasal spray 03-24 00:00: 00 Yes [id number] 1{spray } Use 1 [place] in each nostril 2 (two) times daily. Use in each nostril as directed [facility] mcg nasal inhaler 03-24 00:00: 00 Yes [id number] 1{spray } Use 1 [place] in each nostril 2 (two) times daily. Get over the counter if not covered [facility] azelastine 137 mcg (0.1 %) nasal spray 03-24 00:00: 00 Yes [id number] 1{spray } Use 1 [place] in each nostril 2 (two) times daily. Use in each nostril as directed [facility] mcg nasal inhaler 03-24 00:00: 00 Yes [id number] 1{spray } Use 1 [place] in each nostril 2 (two) times daily. Get over the counter if not covered [facility] azelastine 137 mcg (0.1 %) nasal spray 03-24 00:00: 00 Yes [id number] 1{spray } Use 1 [place] in each nostril 2 (two) times daily. Use in each nostril as directed [facility] mcg nasal inhaler 03-24 00:00: 00 Yes [id number] 1{spray } Use 1 [place] in each nostril 2 (two) times daily. Get over the counter if not covered [facility] mcg nasal inhaler 03-24 00:00: 00 Yes [id number] 1{spray } Use 1 [place] in each nostril 2 (two) times daily. Get over the counter if not covered [facility] 55 mcg nasal inhaler 2022-0 5-04 00:00: 00 Yes [id number] 1{spray } Use 1 [place] in each nostril 2 (two) times daily. Get over the counter if not covered [facility] 55 mcg nasal inhaler 2-0 5-04 00:00: 00 Yes [id number] 1{spray } Use 1 [place] in each nostril 2 (two) times daily. Get over the counter if not covered [facility] 55 mcg nasal inhaler 2-0 5-04 00:00: 00 Yes [id number] 1{spray } Use 1 [place] in each nostril 2 (two) times daily. Get over the counter if not covered [facility] ne 55 mcg nasal inhaler 2-0 - 00:00: 00 Yes [id number] 1{spray } Use 1 [place] in each nostril 2 (two) times daily. Get over the counter if not covered [facility] ne 55 mcg nasal inhaler 2-0 - 00:00: 00 Yes [id number] 1{spray } Use 1 [place] in each nostril 2 (two) times daily. Get over the counter if not covered [facility] ne 55 mcg nasal inhaler 2-0 - 00:00: 00 Yes [id number] 1{spray } Use 1 [place] in each nostril 2 (two) times daily. Get over the counter if not covered [facility] ne 55 mcg nasal inhaler 2-0 5-04 00:00: 00 Yes [id number] 1{spray } Use 1 [place] in each nostril 2 (two) times daily. Get over the counter if not covered [facility] 55 mcg nasal inhaler 2-0 5-04 00:00: 00 Yes [id number] 1{spray } Use 1 [place] in each nostril 2 (two) times daily. Get over the counter if not covered [facility] 55 mcg nasal inhaler 2022-0 5-04 00:00: 00 Yes [id number] 1{spray } Use 1 [place] in each nostril 2 (two) times daily. Get over the counter if not covered [facility] mcg nasal inhaler 2022-0 5-04 00:00: 00 Yes [id number] 1{spray } Use 1 [place] in each nostril 2 (two) times daily. Get over the counter if not covered [facility] 55 mcg nasal inhaler 2022-0 5-04 00:00: 00 Yes [id number] 1{spray } Use 1 [place] in each nostril 2 (two) times daily. Get over the counter if not covered [facility] mcg nasal inhaler 2022-0 5-04 00:00: 00 Yes [id number] 1{spray } Use 1 [place] in each nostril 2 (two) times daily. Get over the counter if not covered [facility] 55 mcg nasal inhaler 2022-0 5-04 00:00: 00 Yes [id number] 1{spray } Use 1 [place] in each nostril 2 (two) times daily. Get over the counter if not covered [facility] mcg nasal inhaler 2022-0 5-04 00:00: 00 Yes [id number] 1{spray } Use 1 [place] in each nostril 2 (two) times daily. Get over the counter if not covered [facility] mcg nasal inhaler 2-0 5-04 00:00: 00 Yes [id number] 1{spray } Use 1 [place] in each nostril 2 (two) times daily. Get over the counter if not covered [facility] mcg nasal inhaler 2022-0 5-04 00:00: 00 Yes [id number] 1{spray } Use 1 [place] in each nostril 2 (two) times daily. Get over the counter if not covered [facility] [facility] [place] [facility] mcg nasal inhaler 2022-0 5-04 00:00: 00 Yes [id number] 1{spray } Use 1 [place] in each nostril 2 (two) times daily. Get over the counter if not covered [facility] m[facility] nasal inhaler 2022-0 5-04 00:00: 00 Yes [id number] 1{spray } Use 1 [place] in each nostril 2 (two) times daily. Get over the counter if not covered [facility] 2022-0 5-04 00:00: 00 Yes [id number] 1{spray } Use 1 [place] in each nostril 2 (two) times daily. Get over the counter if not covered [facility] [place] 55 mcg nasal inhaler 2022-0 5-04 00:00: 00 Yes [id number] 1{spray } Use 1 [place] in each nostril 2 (two) times daily. Get over the counter if not covered [facility] [place] 55 mcg nasal inhaler 2-0 5-04 00:00: 00 Yes [id number] 1{spray } Use 1 [place] in each nostril 2 (two) times daily. Get over the counter if not covered [facility] [place] 55 mcg nasal inhaler 2-0 5-04 00:00: 00 Yes [id number] 1{spray } Use 1 [place] in each nostril 2 (two) times daily. Get over the counter if not covered [facility] [place] 55 mcg nasal inhaler 2-0 5-04 00:00: 00 Yes [id number] 1{spray } Use 1 [place] in each nostril 2 (two) times daily. Get over the counter if not covered [facility] [place] 55 mcg nasal inhaler 2022-0 5-04 00:00: 00 Yes [id number] 1{spray } Use 1 [place] in each nostril 2 (two) times daily. Get over the counter if not covered [facility] [place] [facility] mcg nasal inhaler 2022-0 5-04 00:00: 00 Yes [id number] 1{spray } Use 1 [place] in each nostril 2 (two) times daily. Get over the counter if not covered [facility] [place] [facility] m[facility] nasal inhaler 2022-0 5-04 00:00: 00 Yes [id number] 1{spray } Use 1 [place] in each nostril 2 (two) times daily. Get over the counter if not covered [facility] [place] 55 mcg nasal inhaler 03-24 00:00: 00 Yes [id number] 1{spray } Use 1 [place] in each nostril 2 (two) times daily. Get over the counter if not covered [facility] [place] 55 mcg nasal inhaler 03-24 00:00: 00 Yes [id number] 1{spray } Use 1 [place] in each nostril 2 (two) times daily. Get over the counter if not covered [facility] m[facility] nasal inhaler 03-24 00:00: 00 Yes [id number] 1{spray } Use 1 [place] in each nostril 2 (two) times daily. Get over the counter if not covered [facility] azelastine 137 mcg (0.1 %) nasal spray 03-24 00:00: 00 Yes [id number] 1{spray } Use 1 [place] in each nostril 2 (two) times daily. Use in each nostril as directed [facility] [place] 55 mcg nasal inhaler 03-24 00:00: 00 Yes [id number] 1{spray } Use 1 [place] in each nostril 2 (two) times daily. Get over the counter if not covered [facility] [place] [facility] mcg nasal inhaler 03-24 00:00: 00 Yes [id number] 1{spray } Use 1 [place] in each nostril 2 (two) times daily. Get over the counter if not covered [facility] 55 mcg nasal inhaler 2021-03-24 00:00: 00 Yes [id number] 1{spray } Use 1 [place] in each nostril 2 (two) times daily. Get over the counter if not covered [facility] mcg nasal inhaler 2021-03-24 00:00: 00 Yes [id number] 1{spray } Use 1 [place] in each nostril 2 (two) times daily. Get over the counter if not covered [facility] 55 mcg nasal inhaler 03-24 00:00: 00 Yes [id number] 1{spray } Use 1 [place] in each nostril 2 (two) times daily. Get over the counter if not covered [facility] azelastine 137 mcg (0.1 %) nasal spray 03-24 00:00: 00 Yes [id number] 1{spray } Use 1 [place] in each nostril 2 (two) times daily. Use in each nostril as directed [facility] 55 mcg nasal inhaler 03-24 00:00: 00 Yes [id number] 1{spray } Use 1 [place] in each nostril 2 (two) times daily. Get over the counter if not covered [facility] azelastine 137 mcg (0.1 %) nasal spray 03-24 00:00: 00 Yes [id number] 1{spray } Use 1 [place] in each nostril 2 (two) times daily. Use in each nostril as directed [facility] [place] 55 mcg nasal inhaler 03-24 00:00: 00 Yes [id number] 1{spray } Use 1 [place] in each nostril 2 (two) times daily. Get over the counter if not covered [facility] azelastine 137 mcg (0.1 %) nasal spray 03-24 00:00: 00 Yes [id number] 1{spray } Use 1 [place] in each nostril 2 (two) times daily. Use in each nostril as directed [facility] 55 mcg nasal inhaler 03-24 00:00: 00 Yes [id number] 1{spray } Use 1 [place] in each nostril 2 (two) times daily. Get over the counter if not covered [facility] azelastine 137 mcg (0.1 %) nasal spray 03-24 00:00: 00 Yes [id number] 1{spray } Use 1 [place] in each nostril 2 (two) times daily. Use in each nostril as directed [facility] [place] 55 mcg nasal inhaler 03-24 00:00: 00 Yes [id number] 1{spray } Use 1 [place] in each nostril 2 (two) times daily. Get over the counter if not covered [facility] azelastine 137 mcg (0.1 %) nasal spray 03-24 00:00: 00 Yes [id number] 1{spray } Use 1 [place] in each nostril 2 (two) times daily. Use in each nostril as directed [facility] [place] 55 mcg nasal inhaler 03-24 00:00: 00 Yes [id number] 1{spray } Use 1 [place] in each nostril 2 (two) times daily. Get over the counter if not covered [facility] azelastine 137 mcg (0.1 %) nasal spray 03-24 00:00: 00 Yes [id number] 1{spray } Use 1 [place] in each nostril 2 (two) times daily. Use in each nostril as directed [facility] [place] 55 mcg nasal inhaler 03-24 00:00: 00 Yes [id number] 1{spray } Use 1 [place] in each nostril 2 (two) times daily. Get over the counter if not covered [facility] azelastine 137 mcg (0.1 %) nasal spray 03-24 00:00: 00 Yes [id number] 1{spray } Use 1 [place] in each nostril 2 (two) times daily. Use in each nostril as directed [facility] 55 mcg nasal inhaler 03-24 00:00: 00 Yes [id number] 1{spray } Use 1 [place] in each nostril 2 (two) times daily. Get over the counter if not covered [facility] azelastine 137 mcg (0.1 %) nasal spray 03-24 00:00: 00 Yes [id number] 1{spray } Use 1 [place] in each nostril 2 (two) times daily. Use in each nostril as directed [facility] 55 mcg nasal inhaler 03-24 00:00: 00 Yes [id number] 1{spray } Use 1 [place] in each nostril 2 (two) times daily. Get over the counter if not covered [facility] azelastine 137 mcg (0.1 %) nasal spray 03-24 00:00: 00 Yes [id number] 1{spray } Use 1 [place] in each nostril 2 (two) times daily. Use in each nostril as directed [facility] 55 mcg nasal inhaler 03-24 00:00: 00 Yes [id number] 1{spray } Use 1 [place] in each nostril 2 (two) times daily. Get over the counter if not covered [facility] azelastine 137 mcg (0.1 %) nasal spray 03-24 00:00: 00 Yes [id number] 1{spray } Use 1 [place] in each nostril 2 (two) times daily. Use in each nostril as directed [facility] 55 mcg nasal inhaler 03-24 00:00: 00 Yes [id number] 1{spray } Use 1 [place] in each nostril 2 (two) times daily. Get over the counter if not covered [facility] azelastine 137 mcg (0.1 %) nasal spray 03-24 00:00: 00 Yes [id number] 1{spray } Use 1 [place] in each nostril 2 (two) times daily. Use in each nostril as directed [facility] [place] 55 mcg nasal inhaler 03-24 00:00: 00 Yes [id number] 1{spray } Use 1 [place] in each nostril 2 (two) times daily. Get over the counter if not covered [facility] azelastine 137 mcg (0.1 %) nasal spray 03-24 00:00: 00 Yes [id number] 1{spray } Use 1 [place] in each nostril 2 (two) times daily. Use in each nostril as directed [facility] [place] 55 mcg nasal inhaler 03-24 00:00: 00 Yes [id number] 1{spray } Use 1 [place] in each nostril 2 (two) times daily. Get over the counter if not covered [facility] azelastine 137 mcg (0.1 %) nasal spray 03-24 00:00: 00 Yes [id number] 1{spray } Use 1 [place] in each nostril 2 (two) times daily. Use in each nostril as directed [facility] [place] 55 mcg nasal inhaler 03-24 00:00: 00 Yes [id number] 1{spray } Use 1 [place] in each nostril 2 (two) times daily. Get over the counter if not covered [facility] azelastine 137 mcg (0.1 %) nasal spray 03-24 00:00: 00 Yes [id number] 1{spray } Use 1 [place] in each nostril 2 (two) times daily. Use in each nostril as directed [facility] [place] [facility] mcg nasal inhaler 03-24 00:00: 00 Yes [id number] 1{spray } Use 1 [place] in each nostril 2 (two) times daily. Get over the counter if not covered [facility] azelastine 137 mcg (0.1 %) nasal spray 03-24 00:00: 00 Yes [id number] 1{spray } Use 1 [place] in each nostril 2 (two) times daily. Use in each nostril as directed [facility] [place] 55 mcg nasal inhaler 03-24 00:00: 00 Yes [id number] 1{spray } Use 1 [place] in each nostril 2 (two) times daily. Get over the counter if not covered [facility] azelastine 137 mcg (0.1 %) nasal spray 03-24 00:00: 00 Yes [id number] 1{spray } Use 1 [place] in each nostril 2 (two) times daily. Use in each nostril as directed [facility] 55 mcg nasal inhaler 03-24 00:00: 00 Yes [id number] 1{spray } Use 1 [place] in each nostril 2 (two) times daily. Get over the counter if not covered [facility] azelastine 137 mcg (0.1 %) nasal spray 03-24 00:00: 00 Yes [id number] 1{spray } Use 1 [place] in each nostril 2 (two) times daily. Use in each nostril as directed [facility] 55 mcg nasal inhaler 03-24 00:00: 00 Yes [id number] 1{spray } Use 1 [place] in each nostril 2 (two) times daily. Get over the counter if not covered [facility] azelastine 137 mcg (0.1 %) nasal spray 03-24 00:00: 00 Yes [id number] 1{spray } Use 1 [place] in each nostril 2 (two) times daily. Use in each nostril as directed [facility] [place] 55 mcg nasal inhaler 03-24 00:00: 00 Yes [id number] 1{spray } Use 1 [place] in each nostril 2 (two) times daily. Get over the counter if not covered [facility] azelastine 137 mcg (0.1 %) nasal spray 03-24 00:00: 00 Yes [id number] 1{spray } Use 1 [place] in each nostril 2 (two) times daily. Use in each nostril as directed [facility] [place] 55 mcg nasal inhaler 03-24 00:00: 00 Yes [id number] 1{spray } Use 1 [place] in each nostril 2 (two) times daily. Get over the counter if not covered [facility] azelastine 137 mcg (0.1 %) nasal spray 03-24 00:00: 00 Yes [id number] 1{spray } Use 1 [place] in each nostril 2 (two) times daily. Use in each nostril as directed [facility] 55 mcg nasal inhaler 03-24 00:00: 00 Yes [id number] 1{spray } Use 1 [place] in each nostril 2 (two) times daily. Get over the counter if not covered [facility] azelastine 137 mcg (0.1 %) nasal spray 03-24 00:00: 00 Yes [id number] 1{spray } Use 1 [place] in each nostril 2 (two) times daily. Use in each nostril as directed [facility] 55 mcg nasal inhaler 03-24 00:00: 00 Yes [id number] 1{spray } Use 1 [place] in each nostril 2 (two) times daily. Get over the counter if not covered [facility] azelastine 137 mcg (0.1 %) nasal spray 03-24 00:00: 00 Yes [id number] 1{spray } Use 1 [place] in each nostril 2 (two) times daily. Use in each nostril as directed [facility] 55 mcg nasal inhaler 03-24 00:00: 00 Yes [id number] 1{spray } Use 1 [place] in each nostril 2 (two) times daily. Get over the counter if not covered [facility] azelastine 137 mcg (0.1 %) nasal spray 03-24 00:00: 00 Yes [id number] 1{spray } Use 1 [place] in each nostril 2 (two) times daily. Use in each nostril as directed [facility] [place] 55 mcg nasal inhaler 03-24 00:00: 00 Yes [id number] 1{spray } Use 1 [place] in each nostril 2 (two) times daily. Get over the counter if not covered [facility] azelastine 137 mcg (0.1 %) nasal spray 03-24 00:00: 00 Yes [id number] 1{spray } Use 1 [place] in each nostril 2 (two) times daily. Use in each nostril as directed [facility] azelastine 137 mcg (0.1 %) nasal spray 5-04 00:00: 00 08-04 00:00 :00 No [id number] 1{spray } Use 1 [place] in each nostril 2 (two) times daily. Use in each nostril as directed [facility] azelastine 137 mcg (0.1 %) nasal spray 5 00:00: 00 08-04 00:00 :00 No [id number] 1{spray } Use 1 [place] in each nostril 2 (two) times daily. Use in each nostril as directed [facility] azelastine 137 mcg (0.1 %) nasal spray 03-24 00:00: 00 08-04 00:00 :00 No [id number] 1{spray } Use 1 [place] in each nostril 2 (two) times daily. Use in each nostril as directed [facility] azelastine 137 mcg (0.1 %) nasal spray 03-24 00:00: 00 08-04 00:00 :00 No [id number] 1{spray } Use 1 [place] in each nostril 2 (two) times daily. Use in each nostril as directed [facility] doxycycline hyclate 50 mg capsule 03-24 00:00: 00 04-15 04:59 :00 No [id number] 50mg Take 1 capsule by mouth 2 (two) times daily for 21 days. Get goodRx coupon if not covered [facility] diazePAM 10 mg tablet 03-09 00:00: 00 Yes TAKE 1 TABLET BY MOUTH THREE TIMES A DAY NEEDED [facility] diazePAM 10 mg tablet 03-09 00:00: 00 Yes TAKE 1 TABLET BY MOUTH THREE TIMES A DAY NEEDED [facility] diazePAM 10 mg tablet 03-09 00:00: 00 Yes TAKE 1 TABLET BY MOUTH THREE TIMES A DAY NEEDED [facility] diazePAM 10 mg tablet 03-09 00:00: 00 Yes TAKE 1 TABLET BY MOUTH THREE TIMES A DAY NEEDED [facility] diazePAM 10 mg tablet 2-0 19 00:00: 00 Yes TAKE 1 TABLET BY MOUTH THREE TIMES A DAY NEEDED [facility] diazePAM 10 mg tablet 2-0 19 00:00: 00 Yes TAKE 1 TABLET BY MOUTH THREE TIMES A DAY NEEDED [facility] diazePAM 10 mg tablet 2-0 19 00:00: 00 Yes TAKE 1 TABLET BY MOUTH THREE TIMES A DAY NEEDED [facility] diazePAM 10 mg tablet 2-0 19 00:00: 00 Yes TAKE 1 TABLET BY MOUTH THREE TIMES A DAY NEEDED [facility] diazePAM 10 mg tablet 2-0 19 00:00: 00 Yes TAKE 1 TABLET BY MOUTH THREE TIMES A DAY NEEDED [facility] diazePAM 10 mg tablet 2-0 19 00:00: 00 Yes TAKE 1 TABLET BY MOUTH THREE TIMES A DAY NEEDED [facility] diazePAM 10 mg tablet 2-0 03-09 00:00: 00 Yes TAKE 1 TABLET BY MOUTH THREE TIMES A DAY NEEDED [facility] diazePAM 10 mg tablet 2-0 19 00:00: 00 Yes TAKE 1 TABLET BY MOUTH THREE TIMES A DAY NEEDED [facility] diazePAM 10 mg tablet 2-0 19 00:00: 00 Yes TAKE 1 TABLET BY MOUTH THREE TIMES A DAY NEEDED [facility] diazePAM 10 mg tablet 2-0 19 00:00: 00 Yes TAKE 1 TABLET BY MOUTH THREE TIMES A DAY NEEDED [facility] diazePAM 10 mg tablet 2-0 19 00:00: 00 Yes TAKE 1 TABLET BY MOUTH THREE TIMES A DAY NEEDED [facility] diazePAM 10 mg tablet 2-0 19 00:00: 00 Yes TAKE 1 TABLET BY MOUTH THREE TIMES A DAY NEEDED [facility] diazePAM 10 mg tablet 2-0 19 00:00: 00 Yes TAKE 1 TABLET BY MOUTH THREE TIMES A DAY NEEDED [facility] diazePAM 10 mg tablet 2-0 19 00:00: 00 Yes TAKE 1 TABLET BY MOUTH THREE TIMES A DAY NEEDED [facility] diazePAM 10 mg tablet 2021-0 19 00:00: 00 Yes TAKE 1 TABLET BY MOUTH THREE TIMES A DAY NEEDED [facility] diazePAM 10 mg tablet 2-0 19 00:00: 00 Yes TAKE 1 TABLET BY MOUTH THREE TIMES A DAY NEEDED [facility] diazePAM 10 mg tablet 2-0 19 00:00: 00 Yes TAKE 1 TABLET BY MOUTH THREE TIMES A DAY NEEDED [facility] diazePAM 10 mg tablet 2-0 19 00:00: 00 Yes TAKE 1 TABLET BY MOUTH THREE TIMES A DAY NEEDED [facility] diazePAM 10 mg tablet 2-0 19 00:00: 00 Yes TAKE 1 TABLET BY MOUTH THREE TIMES A DAY NEEDED [facility] diazePAM 10 mg tablet 2-0 19 00:00: 00 Yes TAKE 1 TABLET BY MOUTH THREE TIMES A DAY NEEDED [facility] diazePAM 10 mg tablet 2-0 19 00:00: 00 Yes TAKE 1 TABLET BY MOUTH THREE TIMES A DAY NEEDED [facility] diazePAM 10 mg tablet 2-0 19 00:00: 00 Yes TAKE 1 TABLET BY MOUTH THREE TIMES A DAY NEEDED [facility] diazePAM 10 mg tablet 2-0 19 00:00: 00 Yes TAKE 1 TABLET BY MOUTH THREE TIMES A DAY NEEDED [facility] diazePAM 10 mg tablet 2-0 19 00:00: 00 Yes TAKE 1 TABLET BY MOUTH THREE TIMES A DAY NEEDED [facility] diazePAM 10 mg tablet 2-0 19 00:00: 00 Yes TAKE 1 TABLET BY MOUTH THREE TIMES A DAY NEEDED [facility] diazePAM 10 mg tablet 2-0 19 00:00: 00 Yes TAKE 1 TABLET BY MOUTH THREE TIMES A DAY NEEDED [facility] diazePAM 10 mg tablet 2-0 19 00:00: 00 Yes TAKE 1 TABLET BY MOUTH THREE TIMES A DAY NEEDED [facility] diazePAM 10 mg tablet 2-0 -19 00:00: 00 Yes TAKE 1 TABLET BY MOUTH THREE TIMES A DAY NEEDED [facility] diazePAM 10 mg tablet 2-0 4-19 00:00: 00 Yes TAKE 1 TABLET BY MOUTH THREE TIMES A DAY NEEDED [facility] diazePAM 10 mg tablet 2-0 19 00:00: 00 Yes TAKE 1 TABLET BY MOUTH THREE TIMES A DAY NEEDED [facility] diazePAM 10 mg tablet 2-0 19 00:00: 00 Yes TAKE 1 TABLET BY MOUTH THREE TIMES A DAY NEEDED [facility] diazePAM 10 mg tablet 2-0 19 00:00: 00 Yes TAKE 1 TABLET BY MOUTH THREE TIMES A DAY NEEDED [facility] diazePAM 10 mg tablet 2-0 19 00:00: 00 Yes TAKE 1 TABLET BY MOUTH THREE TIMES A DAY NEEDED [facility] diazePAM 10 mg tablet 2-0 19 00:00: 00 Yes TAKE 1 TABLET BY MOUTH THREE TIMES A DAY NEEDED [facility] diazePAM 10 mg tablet 2-0 19 00:00: 00 Yes TAKE 1 TABLET BY MOUTH THREE TIMES A DAY NEEDED [facility] diazePAM 10 mg tablet 2-0 19 00:00: 00 Yes TAKE 1 TABLET BY MOUTH THREE TIMES A DAY NEEDED [facility] diazePAM 10 mg tablet 2-0 19 00:00: 00 Yes TAKE 1 TABLET BY MOUTH THREE TIMES A DAY NEEDED [facility] diazePAM 10 mg tablet 2-0 19 00:00: 00 Yes TAKE 1 TABLET BY MOUTH THREE TIMES A DAY NEEDED [facility] diazePAM 10 mg tablet 2-0 19 00:00: 00 Yes TAKE 1 TABLET BY MOUTH THREE TIMES A DAY NEEDED [facility] diazePAM 10 mg tablet 2-0 19 00:00: 00 Yes TAKE 1 TABLET BY MOUTH THREE TIMES A DAY NEEDED [facility] diazePAM 10 mg tablet 2-0 19 00:00: 00 Yes TAKE 1 TABLET BY MOUTH THREE TIMES A DAY NEEDED [facility] diazePAM 10 mg tablet 2-0 -19 00:00: 00 Yes TAKE 1 TABLET BY MOUTH THREE TIMES A DAY NEEDED [facility] diazePAM 10 mg tablet 2-0 19 00:00: 00 Yes TAKE 1 TABLET BY MOUTH THREE TIMES A DAY NEEDED [facility] diazePAM 10 mg tablet 2-0 19 00:00: 00 Yes TAKE 1 TABLET BY MOUTH THREE TIMES A DAY NEEDED [facility] diazePAM 10 mg tablet 2-0 19 00:00: 00 Yes TAKE 1 TABLET BY MOUTH THREE TIMES A DAY NEEDED [facility] diazePAM 10 mg tablet 2-0 19 00:00: 00 Yes TAKE 1 TABLET BY MOUTH THREE TIMES A DAY NEEDED [facility] diazePAM 10 mg tablet 2-0 19 00:00: 00 Yes TAKE 1 TABLET BY MOUTH THREE TIMES A DAY NEEDED [facility] diazePAM 10 mg tablet 2-0 19 00:00: 00 Yes TAKE 1 TABLET BY MOUTH THREE TIMES A DAY NEEDED [facility] diazePAM 10 mg tablet 2-0 19 00:00: 00 Yes TAKE 1 TABLET BY MOUTH THREE TIMES A DAY NEEDED [facility] diazePAM 10 mg tablet 2-0 19 00:00: 00 Yes TAKE 1 TABLET BY MOUTH THREE TIMES A DAY NEEDED [facility] diazePAM 10 mg tablet 2-0 19 00:00: 00 Yes TAKE 1 TABLET BY MOUTH THREE TIMES A DAY NEEDED [facility] diazePAM 10 mg tablet 2-0 19 00:00: 00 Yes TAKE 1 TABLET BY MOUTH THREE TIMES A DAY NEEDED [facility] diazePAM 10 mg tablet 2-0 19 00:00: 00 Yes TAKE 1 TABLET BY MOUTH THREE TIMES A DAY NEEDED [facility] diazePAM 10 mg tablet 2-0 19 00:00: 00 Yes TAKE 1 TABLET BY MOUTH THREE TIMES A DAY NEEDED [facility] diazePAM 10 mg tablet 2-0 19 00:00: 00 Yes TAKE 1 TABLET BY MOUTH THREE TIMES A DAY NEEDED [facility] diazePAM 10 mg tablet 2-0 -19 00:00: 00 Yes TAKE 1 TABLET BY MOUTH THREE TIMES A DAY NEEDED [facility] diazePAM 10 mg tablet 2-0 -19 00:00: 00 Yes TAKE 1 TABLET BY MOUTH THREE TIMES A DAY NEEDED [facility] diazePAM 10 mg tablet 2021-0 4-19 00:00: 00 Yes TAKE 1 TABLET BY MOUTH THREE TIMES A DAY NEEDED [facility] diazePAM 10 mg tablet 2021-0 4-19 00:00: 00 Yes TAKE 1 TABLET BY MOUTH THREE TIMES A DAY NEEDED [facility] diazePAM 10 mg tablet 2-0 4-19 00:00: 00 Yes TAKE 1 TABLET BY MOUTH THREE TIMES A DAY NEEDED [facility] dextroamphe tamine-amph etamine 30 mg tablet 2021-0 4-18 00:00: 00 Yes 30mg Take 1 tablet by mouth in the morning and 1 tablet in the evening. [facility] dextroamphe tamine-amph etamine 30 mg tablet 2021-0 -18 00:00: 00 Yes 30mg Take 1 tablet by mouth in the morning and 1 tablet in the evening. [facility] dextroamphe tamine-amph etamine 30 mg tablet 2021-0 -18 00:00: 00 Yes 30mg Take 1 tablet by mouth in the morning and 1 tablet in the evening. [facility] dextroamphe tamine-amph etamine 30 mg tablet 2-0 4-18 00:00: 00 Yes 30mg Take 1 tablet by mouth in the morning and 1 tablet in the evening. [facility] dextroamphe tamine-amph etamine 30 mg tablet 2-0 4-18 00:00: 00 Yes 30mg Take 1 tablet by mouth in the morning and 1 tablet in the evening. [facility] dextroamphe tamine-amph etamine 30 mg tablet 2-0 4-18 00:00: 00 Yes 30mg Take 1 tablet by mouth in the morning and 1 tablet in the evening. [facility] dextroamphe tamine-amph etamine 30 mg tablet 2-0 4-18 00:00: 00 Yes 30mg Take 1 tablet by mouth in the morning and 1 tablet in the evening. [facility] dextroamphe tamine-amph etamine 30 mg tablet 2-0 4-18 00:00: 00 Yes 30mg Take 1 tablet by mouth in the morning and 1 tablet in the evening. [facility] dextroamphe tamine-amph etamine 30 mg tablet 2-0 4-18 00:00: 00 Yes 30mg Take 1 tablet by mouth in the morning and 1 tablet in the evening. [facility] dextroamphe tamine-amph etamine 30 mg tablet 2-0 4-18 00:00: 00 Yes 30mg Take 1 tablet by mouth in the morning and 1 tablet in the evening. [facility] dextroamphe tamine-amph etamine 30 mg tablet 2-0 4-18 00:00: 00 Yes 30mg Take 1 tablet by mouth in the morning and 1 tablet in the evening. [facility] dextroamphe tamine-amph etamine 30 mg tablet 2-0 4-18 00:00: 00 Yes 30mg Take 1 tablet by mouth in the morning and 1 tablet in the evening. [facility] dextroamphe tamine-amph etamine 30 mg tablet 2-0 4-18 00:00: 00 Yes 30mg Take 1 tablet by mouth in the morning and 1 tablet in the evening. [facility] dextroamphe tamine-amph etamine 30 mg tablet 2-0 4-18 00:00: 00 Yes 30mg Take 1 tablet by mouth in the morning and 1 tablet in the evening. [facility] dextroamphe tamine-amph etamine 30 mg tablet 2-0 4-18 00:00: 00 Yes 30mg Take 1 tablet by mouth in the morning and 1 tablet in the evening. [facility] dextroamphe tamine-amph etamine 30 mg tablet 2-0 4-18 00:00: 00 Yes 30mg Take 1 tablet by mouth in the morning and 1 tablet in the evening. [facility] dextroamphe tamine-amph etamine 30 mg tablet 2-0 4-18 00:00: 00 Yes 30mg Take 1 tablet by mouth in the morning and 1 tablet in the evening. [facility] dextroamphe tamine-amph etamine 30 mg tablet 2-0 4-18 00:00: 00 Yes 30mg Take 1 tablet by mouth in the morning and 1 tablet in the evening. [facility] dextroamphe tamine-amph etamine 30 mg tablet 2-0 4-18 00:00: 00 Yes 30mg Take 1 tablet by mouth in the morning and 1 tablet in the evening. [facility] dextroamphe tamine-amph etamine 30 mg tablet 2-0 4-18 00:00: 00 Yes 30mg Take 1 tablet by mouth in the morning and 1 tablet in the evening. [facility] dextroamphe tamine-amph etamine 30 mg tablet 2-0 4-18 00:00: 00 Yes 30mg Take 1 tablet by mouth in the morning and 1 tablet in the evening. [facility] dextroamphe tamine-amph etamine 30 mg tablet 2-0 4-18 00:00: 00 Yes 30mg Take 1 tablet by mouth in the morning and 1 tablet in the evening. [facility] dextroamphe tamine-amph etamine 30 mg tablet 2-0 4-18 00:00: 00 Yes 30mg Take 1 tablet by mouth in the morning and 1 tablet in the evening. [facility] dextroamphe tamine-amph etamine 30 mg tablet 2-0 4-18 00:00: 00 Yes 30mg Take 1 tablet by mouth in the morning and 1 tablet in the evening. [facility] dextroamphe tamine-amph etamine 30 mg tablet 2-0 4-18 00:00: 00 Yes 30mg Take 1 tablet by mouth in the morning and 1 tablet in the evening. [facility] dextroamphe tamine-amph etamine 30 mg tablet 2-0 4-18 00:00: 00 Yes 30mg Take 1 tablet by mouth in the morning and 1 tablet in the evening. [facility] dextroamphe tamine-amph etamine 30 mg tablet 2-0 4-18 00:00: 00 Yes 30mg Take 1 tablet by mouth in the morning and 1 tablet in the evening. [facility] dextroamphe tamine-amph etamine 30 mg tablet 2-0 4-18 00:00: 00 Yes 30mg Take 1 tablet by mouth in the morning and 1 tablet in the evening. [facility] dextroamphe tamine-amph etamine 30 mg tablet 2-0 4-18 00:00: 00 Yes 30mg Take 1 tablet by mouth in the morning and 1 tablet in the evening. [facility] dextroamphe tamine-amph etamine 30 mg tablet 2-0 4-18 00:00: 00 Yes 30mg Take 1 tablet by mouth in the morning and 1 tablet in the evening. [facility] dextroamphe tamine-amph etamine 30 mg tablet 2021-0 4-18 00:00: 00 Yes 30mg Take 1 tablet by mouth in the morning and 1 tablet in the evening. [facility] dextroamphe tamine-amph etamine 30 mg tablet 2021-0 4-18 00:00: 00 Yes 30mg Take 1 tablet by mouth in the morning and 1 tablet in the evening. [facility] dextroamphe tamine-amph etamine 30 mg tablet 2021-0 4-18 00:00: 00 Yes 30mg Take 1 tablet by mouth in the morning and 1 tablet in the evening. [facility] dextroamphe tamine-amph etamine 30 mg tablet 2021-0 4-18 00:00: 00 Yes 30mg Take 1 tablet by mouth in the morning and 1 tablet in the evening. [facility] dextroamphe tamine-amph etamine 30 mg tablet 2-0 4-18 00:00: 00 Yes 30mg Take 30 mg by mouth 2 (two) times daily. [facility] dextroamphe tamine-amph etamine 30 mg tablet 2-0 4-18 00:00: 00 Yes 30mg Take 1 tablet by mouth in the morning and 1 tablet in the evening. [facility] dextroamphe tamine-amph etamine 30 mg tablet 2-0 4-18 00:00: 00 Yes 30mg Take 1 tablet by mouth in the morning and 1 tablet in the evening. [facility] dextroamphe tamine-amph etamine 30 mg tablet 2-0 4-18 00:00: 00 Yes 30mg Take 1 tablet by mouth in the morning and 1 tablet in the evening. [facility] dextroamphe tamine-amph etamine 30 mg tablet 2021-0 4-18 00:00: 00 Yes 30mg Take 1 tablet by mouth in the morning and 1 tablet in the evening. [facility] dextroamphe tamine-amph etamine 30 mg tablet 2021-0 4-18 00:00: 00 Yes 30mg Take 30 mg by mouth 2 (two) times daily. [facility] dextroamphe tamine-amph etamine 30 mg tablet 2021-0 4-18 00:00: 00 Yes 30mg Take 30 mg by mouth 2 (two) times daily. [facility] dextroamphe tamine-amph etamine 30 mg tablet 0 18 00:00: 00 Yes 30mg Take 30 mg by mouth 2 (two) times daily. [facility] dextroamphe tamine-amph etamine 30 mg tablet 2021-0 -18 00:00: 00 Yes 30mg Take 30 mg by mouth 2 (two) times daily. [facility] dextroamphe tamine-amph etamine 30 mg tablet 2021-0 18 00:00: 00 Yes 30mg Take 30 mg by mouth 2 (two) times daily. [facility] dextroamphe tamine-amph etamine 30 mg tablet 2021-0 -18 00:00: 00 Yes 30mg Take 30 mg by mouth 2 (two) times daily. [facility] dextroamphe tamine-amph etamine 30 mg tablet 2021-0 4-18 00:00: 00 Yes 30mg Take 30 mg by mouth 2 (two) times daily. [facility] dextroamphe tamine-amph etamine 30 mg tablet 2021-0 4-18 00:00: 00 Yes 30mg Take 30 mg by mouth 2 (two) times daily. [facility] dextroamphe tamine-amph etamine 30 mg tablet 2021-0 4-18 00:00: 00 Yes 30mg Take 30 mg by mouth 2 (two) times daily. [facility] dextroamphe tamine-amph etamine 30 mg tablet 2021-0 4-18 00:00: 00 Yes 30mg Take 30 mg by mouth 2 (two) times daily. [facility] dextroamphe tamine-amph etamine 30 mg tablet 2021-0 4-18 00:00: 00 Yes 30mg Take 30 mg by mouth 2 (two) times daily. [facility] dextroamphe tamine-amph etamine 30 mg tablet 2021-0 4-18 00:00: 00 Yes 30mg Take 30 mg by mouth 2 (two) times daily. [facility] dextroamphe tamine-amph etamine 30 mg tablet 2021-0 4-18 00:00: 00 Yes 30mg Take 30 mg by mouth 2 (two) times daily. [facility] dextroamphe tamine-amph etamine 30 mg tablet 0 -18 00:00: 00 Yes 30mg Take 30 mg by mouth 2 (two) times daily. [facility] dextroamphe tamine-amph etamine 30 mg tablet 2021-0 4-18 00:00: 00 Yes 30mg Take 30 mg by mouth 2 (two) times daily. [facility] dextroamphe tamine-amph etamine 30 mg tablet 2021-0 4-18 00:00: 00 Yes 30mg Take 30 mg by mouth 2 (two) times daily. [facility] dextroamphe tamine-amph etamine 30 mg tablet 2021-0 4-18 00:00: 00 Yes 30mg Take 30 mg by mouth 2 (two) times daily. [facility] dextroamphe tamine-amph etamine 30 mg tablet 2021-0 4-18 00:00: 00 Yes 30mg Take 30 mg by mouth 2 (two) times daily. [facility] dextroamphe tamine-amph etamine 30 mg tablet 2021-0 4-18 00:00: 00 Yes 30mg Take 30 mg by mouth 2 (two) times daily. [facility] dextroamphe tamine-amph etamine 30 mg tablet 2021-0 4-18 00:00: 00 Yes 30mg Take 30 mg by mouth 2 (two) times daily. [facility] dextroamphe tamine-amph etamine 30 mg tablet 2021-0 418 00:00: 00 Yes 30mg Take 30 mg by mouth 2 (two) times daily. [facility] dextroamphe tamine-amph etamine 30 mg tablet 0 4-18 00:00: 00 Yes 30mg Take 30 mg by mouth 2 (two) times daily. [facility] dextroamphe tamine-amph etamine 30 mg tablet 2021-0 4-18 00:00: 00 Yes 30mg Take 30 mg by mouth 2 (two) times daily. [facility] dextroamphe tamine-amph etamine 30 mg tablet 2021-0 18 00:00: 00 Yes 30mg Take 1 tablet by mouth in the morning and 1 tablet in the evening. [facility] dextroamphe tamine-amph etamine 30 mg tablet 18 00:00: 00 02-16 00:00 :00 No 30mg Take 1 tablet by mouth in the morning and 1 tablet in the evening. [facility] metoprolol succinate XL 100 mg 24 hr tablet 2021-0 05 00:00: 00 Yes 100mg Take 1 tablet by mouth in the morning. [facility] metoprolol succinate XL 100 mg 24 hr tablet 0 05 00:00: 00 Yes 100mg Take 1 tablet by mouth in the morning. [facility] metoprolol succinate XL 100 mg 24 hr tablet 0 405 00:00: 00 Yes 100mg Take 1 tablet by mouth in the morning. [facility] metoprolol succinate XL 100 mg 24 hr tablet 2021-0 4-05 00:00: 00 Yes 100mg Take 1 tablet by mouth in the morning. [facility] metoprolol succinate XL 100 mg 24 hr tablet 2021-0 4-05 00:00: 00 Yes 100mg Take 1 tablet by mouth in the morning. [facility] metoprolol succinate XL 100 mg 24 hr tablet 2021-0 4-05 00:00: 00 Yes 100mg Take 1 tablet by mouth in the morning. [facility] metoprolol succinate XL 100 mg 24 hr tablet 2021-0 4-05 00:00: 00 Yes 100mg Take 1 tablet by mouth in the morning. [facility] metoprolol succinate XL 100 mg 24 hr tablet 2021-0 4-05 00:00: 00 Yes 100mg Take 1 tablet by mouth in the morning. [facility] metoprolol succinate XL 100 mg 24 hr tablet 2021-0 4-05 00:00: 00 Yes 100mg Take 1 tablet by mouth in the morning. [facility] metoprolol succinate XL 100 mg 24 hr tablet 2021-0 4-05 00:00: 00 Yes 100mg Take 1 tablet by mouth in the morning. [facility] metoprolol succinate XL 100 mg 24 hr tablet 2021-0 405 00:00: 00 Yes 100mg Take 1 tablet by mouth in the morning. [facility] metoprolol succinate XL 100 mg 24 hr tablet 2021-0 405 00:00: 00 Yes 100mg Take 1 tablet by mouth in the morning. [facility] metoprolol succinate XL 100 mg 24 hr tablet 2021-0 405 00:00: 00 Yes 100mg Take 1 tablet by mouth in the morning. [facility] metoprolol succinate XL 100 mg 24 hr tablet 2021-0 405 00:00: 00 Yes 100mg Take 1 tablet by mouth in the morning. [facility] metoprolol succinate XL 100 mg 24 hr tablet 2021-0 405 00:00: 00 Yes 100mg Take 1 tablet by mouth in the morning. [facility] metoprolol succinate XL 100 mg 24 hr tablet 2021-0 4-05 00:00: 00 Yes 100mg Take 1 tablet by mouth in the morning. [facility] metoprolol succinate XL 100 mg 24 hr tablet 2021-0 4-05 00:00: 00 Yes 100mg Take 1 tablet by mouth in the morning. [facility] metoprolol succinate XL 100 mg 24 hr tablet 2021-0 4-05 00:00: 00 Yes 100mg Take 1 tablet by mouth in the morning. [facility] metoprolol succinate XL 100 mg 24 hr tablet 2021-0 4-05 00:00: 00 Yes 100mg Take 1 tablet by mouth in the morning. [facility] metoprolol succinate XL 100 mg 24 hr tablet 2021-0 405 00:00: 00 Yes 100mg Take 1 tablet by mouth in the morning. [facility] metoprolol succinate XL 100 mg 24 hr tablet 2021-0 02-23 00:00: 00 Yes 100mg Take 1 tablet by mouth in the morning. [facility] metoprolol succinate XL 100 mg 24 hr tablet 2021-0 02-23 00:00: 00 Yes 100mg Take 1 tablet by mouth in the morning. [facility] metoprolol succinate XL 100 mg 24 hr tablet 2021-0 02-23 00:00: 00 Yes 100mg Take 1 tablet by mouth in the morning. [facility] metoprolol succinate XL 100 mg 24 hr tablet 2021-0 02-23 00:00: 00 Yes 100mg Take 1 tablet by mouth in the morning. [facility] metoprolol succinate XL 100 mg 24 hr tablet 2021-0 02-23 00:00: 00 Yes 100mg Take 1 tablet by mouth in the morning. [facility] metoprolol succinate XL 100 mg 24 hr tablet 2021-0 02-23 00:00: 00 Yes 100mg Take 1 tablet by mouth in the morning. [facility] metoprolol succinate XL 100 mg 24 hr tablet 2021-0 02-23 00:00: 00 Yes 100mg Take 1 tablet by mouth in the morning. [facility] metoprolol succinate XL 100 mg 24 hr tablet 2021-0 02-23 00:00: 00 Yes 100mg Take 1 tablet by mouth in the morning. [facility] metoprolol succinate XL 100 mg 24 hr tablet 2021-0 05 00:00: 00 Yes 100mg Take 1 tablet by mouth in the morning. [facility] metoprolol succinate XL 100 mg 24 hr tablet 2021-0 05 00:00: 00 Yes 100mg Take 1 tablet by mouth in the morning. [facility] metoprolol succinate XL 100 mg 24 hr tablet 2021-0 05 00:00: 00 Yes 100mg Take 1 tablet by mouth in the morning. [facility] metoprolol succinate XL 100 mg 24 hr tablet 0 02-23 00:00: 00 Yes 100mg Take 1 tablet by mouth in the morning. [facility] metoprolol succinate XL 100 mg 24 hr tablet 0 02-23 00:00: 00 Yes 100mg Take 1 tablet by mouth in the morning. [facility] metoprolol succinate XL 100 mg 24 hr tablet 0 02-23 00:00: 00 Yes 100mg Take 1 tablet by mouth in the morning. [facility] metoprolol succinate XL 100 mg 24 hr tablet 0 02-23 00:00: 00 Yes 100mg Take 100 mg by mouth daily. [facility] metoprolol succinate XL 100 mg 24 hr tablet 0 02-23 00:00: 00 Yes 100mg Take 1 tablet by mouth in the morning. [facility] metoprolol succinate XL 100 mg 24 hr tablet 0 02-23 00:00: 00 Yes 100mg Take 1 tablet by mouth in the morning. [facility] metoprolol succinate XL 100 mg 24 hr tablet 0 02-23 00:00: 00 Yes 100mg Take 100 mg by mouth daily. [facility] metoprolol succinate XL 100 mg 24 hr tablet 0 02-23 00:00: 00 Yes 100mg Take 100 mg by mouth daily. [facility] metoprolol succinate XL 100 mg 24 hr tablet 0 02-23 00:00: 00 Yes 100mg Take 100 mg by mouth daily. [facility] metoprolol succinate XL 100 mg 24 hr tablet 0 02-23 00:00: 00 Yes 100mg Take 100 mg by mouth daily. [facility] metoprolol succinate XL 100 mg 24 hr tablet 0 02-23 00:00: 00 Yes 100mg Take 100 mg by mouth daily. [facility] metoprolol succinate XL 100 mg 24 hr tablet 2021-0 405 00:00: 00 Yes 100mg Take 100 mg by mouth daily. [facility] metoprolol succinate XL 100 mg 24 hr tablet 0 4 00:00: 00 Yes 100mg Take 100 mg by mouth daily. [facility] metoprolol succinate XL 100 mg 24 hr tablet 0 4 00:00: 00 Yes 100mg Take 100 mg by mouth daily. [facility] metoprolol succinate XL 100 mg 24 hr tablet 0 4 00:00: 00 Yes 100mg Take 100 mg by mouth daily. [facility] metoprolol succinate XL 100 mg 24 hr tablet 0 4 00:00: 00 Yes 100mg Take 100 mg by mouth daily. [facility] metoprolol succinate XL 100 mg 24 hr tablet 02-23 00:00: 00 Yes 100mg Take 100 mg by mouth daily. [facility] metoprolol succinate XL 100 mg 24 hr tablet 2021 02-23 00:00: 00 Yes 100mg Take 100 mg by mouth daily. [facility] metoprolol succinate XL 100 mg 24 hr tablet 0 02-23 00:00: 00 Yes 100mg Take 100 mg by mouth daily. [facility] metoprolol succinate XL 100 mg 24 hr tablet 0 02-23 00:00: 00 Yes 100mg Take 100 mg by mouth daily. [facility] metoprolol succinate XL 100 mg 24 hr tablet 0 02-23 00:00: 00 Yes 100mg Take 100 mg by mouth daily. [facility] metoprolol succinate XL 100 mg 24 hr tablet 0 4 00:00: 00 Yes 100mg Take 100 mg by mouth daily. [facility] metoprolol succinate XL 100 mg 24 hr tablet 0 4 00:00: 00 Yes 100mg Take 100 mg by mouth daily. [facility] metoprolol succinate XL 100 mg 24 hr tablet 0 4 00:00: 00 Yes 100mg Take 100 mg by mouth daily. [facility] metoprolol succinate XL 100 mg 24 hr tablet 0 405 00:00: 00 Yes 100mg Take 100 mg by mouth daily. [facility] metoprolol succinate XL 100 mg 24 hr tablet 2021-0 405 00:00: 00 Yes 100mg Take 100 mg by mouth daily. [facility] metoprolol succinate XL 100 mg 24 hr tablet 2021-0 405 00:00: 00 Yes 100mg Take 100 mg by mouth daily. [facility] metoprolol succinate XL 100 mg 24 hr tablet 2021-0 405 00:00: 00 Yes 100mg Take 100 mg by mouth daily. [facility] metoprolol succinate XL 100 mg 24 hr tablet 2021-0 405 00:00: 00 Yes 100mg Take 100 mg by mouth daily. [facility] metoprolol succinate XL 100 mg 24 hr tablet 2021-0 05 00:00: 00 Yes 100mg Take 1 tablet by mouth in the morning. [facility] cloNIDine 0.2 mg tablet 2021-0 317 00:00: 00 Yes TAKE 1 TABLET BY MOUTH EVERY DAY AT NIGHT [facility] cloNIDine 0.2 mg tablet 2021-0 317 00:00: 00 Yes TAKE 1 TABLET BY MOUTH EVERY DAY AT NIGHT [facility] cloNIDine 0.2 mg tablet 2-0 317 00:00: 00 Yes TAKE 1 TABLET BY MOUTH EVERY DAY AT NIGHT [facility] cloNIDine 0.2 mg tablet 2-0 317 00:00: 00 Yes TAKE 1 TABLET BY MOUTH EVERY DAY AT NIGHT [facility] cloNIDine 0.2 mg tablet 2-0 317 00:00: 00 Yes TAKE 1 TABLET BY MOUTH EVERY DAY AT NIGHT [facility] cloNIDine 0.2 mg tablet 2-0 317 00:00: 00 Yes TAKE 1 TABLET BY MOUTH EVERY DAY AT NIGHT [facility] cloNIDine 0.2 mg tablet 2-0 3-17 00:00: 00 Yes TAKE 1 TABLET BY MOUTH EVERY DAY AT NIGHT [facility] cloNIDine 0.2 mg tablet 2-0 317 00:00: 00 Yes TAKE 1 TABLET BY MOUTH EVERY DAY AT NIGHT [facility] cloNIDine 0.2 mg tablet 2-0 3-17 00:00: 00 Yes TAKE 1 TABLET BY MOUTH EVERY DAY AT NIGHT [facility] cloNIDine 0.2 mg tablet 2021-0 3-17 00:00: 00 Yes TAKE 1 TABLET BY MOUTH EVERY DAY AT NIGHT [facility] cloNIDine 0.2 mg tablet 2021-0 3-17 00:00: 00 05-04 00:00 :00 No TAKE 1 TABLET BY MOUTH EVERY DAY AT NIGHT [facility] cloNIDine 0.2 mg tablet 2021-0 3-17 00:00: 00 05-04 00:00 :00 No TAKE 1 TABLET BY MOUTH EVERY DAY AT NIGHT [facility] cloNIDine 0.2 mg tablet 2021-0 3-17 00:00: 00 05-04 00:00 :00 No TAKE 1 TABLET BY MOUTH EVERY DAY AT NIGHT [facility] mirtazapine 45 mg disintegrat ing tablet 2021-0 2-23 00:00: 00 Yes TAKE 1 TABLET BY MOUTH EVERY DAY AT NIGHT [facility] mirtazapine 45 mg disintegrat ing tablet 2021-0 2-23 00:00: 00 Yes TAKE 1 TABLET BY MOUTH EVERY DAY AT NIGHT [facility] mirtazapine 45 mg disintegrat ing tablet 2-0 2-23 00:00: 00 Yes TAKE 1 TABLET BY MOUTH EVERY DAY AT NIGHT [facility] mirtazapine 45 mg disintegrat ing tablet 2-0 2-23 00:00: 00 Yes TAKE 1 TABLET BY MOUTH EVERY DAY AT NIGHT [facility] mirtazapine 45 mg disintegrat ing tablet 2021-0 2-23 00:00: 00 Yes TAKE 1 TABLET BY MOUTH EVERY DAY AT NIGHT [facility] mirtazapine 45 mg disintegrat ing tablet 2-0 2-23 00:00: 00 Yes TAKE 1 TABLET BY MOUTH EVERY DAY AT NIGHT [facility] mirtazapine 45 mg disintegrat ing tablet 2-0 2-23 00:00: 00 Yes TAKE 1 TABLET BY MOUTH EVERY DAY AT NIGHT [facility] mirtazapine 45 mg disintegrat ing tablet 2-0 2-23 00:00: 00 Yes TAKE 1 TABLET BY MOUTH EVERY DAY AT NIGHT [facility] mirtazapine 45 mg disintegrat ing tablet 2-0 2-23 00:00: 00 Yes TAKE 1 TABLET BY MOUTH EVERY DAY AT NIGHT [facility] mirtazapine 45 mg disintegrat ing tablet 2-0 2- 00:00: 00 Yes TAKE 1 TABLET BY MOUTH EVERY DAY AT NIGHT [facility] mirtazapine 45 mg disintegrat ing tablet 2-0 2- 00:00: 00 Yes TAKE 1 TABLET BY MOUTH EVERY DAY AT NIGHT [facility] mirtazapine 45 mg disintegrat ing tablet 2021-0 2- 00:00: 00 Yes TAKE 1 TABLET BY MOUTH EVERY DAY AT NIGHT [facility] mirtazapine 45 mg disintegrat ing tablet 2021-0 - 00:00: 00 Yes TAKE 1 TABLET BY MOUTH EVERY DAY AT NIGHT [facility] mirtazapine 45 mg disintegrat ing tablet 2021-0 2- 00:00: 00 Yes TAKE 1 TABLET BY MOUTH EVERY DAY AT NIGHT [facility] mirtazapine 45 mg disintegrat ing tablet 2021-0 2- 00:00: 00 Yes TAKE 1 TABLET BY MOUTH EVERY DAY AT NIGHT [facility] mirtazapine 45 mg disintegrat ing tablet 2021-0 01-13 00:00: 00 Yes TAKE 1 TABLET BY MOUTH EVERY DAY AT NIGHT [facility] mirtazapine 45 mg disintegrat ing tablet 2021-0 - 00:00: 00 Yes TAKE 1 TABLET BY MOUTH EVERY DAY AT NIGHT [facility] mirtazapine 45 mg disintegrat ing tablet 2021-0 2- 00:00: 00 Yes TAKE 1 TABLET BY MOUTH EVERY DAY AT NIGHT [facility] mirtazapine 45 mg disintegrat ing tablet 2-0 2- 00:00: 00 Yes TAKE 1 TABLET BY MOUTH EVERY DAY AT NIGHT [facility] mirtazapine 45 mg disintegrat ing tablet 2-0 2- 00:00: 00 Yes TAKE 1 TABLET BY MOUTH EVERY DAY AT NIGHT [facility] mirtazapine 45 mg disintegrat ing tablet 2-0 2- 00:00: 00 Yes TAKE 1 TABLET BY MOUTH EVERY DAY AT NIGHT [facility] mirtazapine 45 mg disintegrat ing tablet 2-0 2- 00:00: 00 Yes TAKE 1 TABLET BY MOUTH EVERY DAY AT NIGHT [facility] mirtazapine 45 mg disintegrat ing tablet 2021-0 2- 00:00: 00 Yes TAKE 1 TABLET BY MOUTH EVERY DAY AT NIGHT [facility] mirtazapine 45 mg disintegrat ing tablet 2-0 2- 00:00: 00 Yes TAKE 1 TABLET BY MOUTH EVERY DAY AT NIGHT [facility] mirtazapine 45 mg disintegrat ing tablet 2021-0 2- 00:00: 00 Yes TAKE 1 TABLET BY MOUTH EVERY DAY AT NIGHT [facility] mirtazapine 45 mg disintegrat ing tablet 2021-0 2- 00:00: 00 Yes TAKE 1 TABLET BY MOUTH EVERY DAY AT NIGHT [facility] mirtazapine 45 mg disintegrat ing tablet 2021-0 2- 00:00: 00 Yes TAKE 1 TABLET BY MOUTH EVERY DAY AT NIGHT [facility] mirtazapine 45 mg disintegrat ing tablet 2021-0 2 00:00: 00 Yes TAKE 1 TABLET BY MOUTH EVERY DAY AT NIGHT [facility] mirtazapine 45 mg disintegrat ing tablet 2021-0 01-13 00:00: 00 Yes TAKE 1 TABLET BY MOUTH EVERY DAY AT NIGHT [facility] mirtazapine 45 mg disintegrat ing tablet 2021-0 2- 00:00: 00 Yes TAKE 1 TABLET BY MOUTH EVERY DAY AT NIGHT [facility] mirtazapine 45 mg disintegrat ing tablet 2021-0 2- 00:00: 00 Yes TAKE 1 TABLET BY MOUTH EVERY DAY AT NIGHT [facility] mirtazapine 45 mg disintegrat ing tablet 2021-0 2- 00:00: 00 Yes TAKE 1 TABLET BY MOUTH EVERY DAY AT NIGHT [facility] mirtazapine 45 mg disintegrat ing tablet 2-0 2- 00:00: 00 Yes TAKE 1 TABLET BY MOUTH EVERY DAY AT NIGHT [facility] mirtazapine 45 mg disintegrat ing tablet 2021-0 2- 00:00: 00 Yes TAKE 1 TABLET BY MOUTH EVERY DAY AT NIGHT [facility] mirtazapine 45 mg disintegrat ing tablet 2-0 2-23 00:00: 00 Yes TAKE 1 TABLET BY MOUTH EVERY DAY AT NIGHT [facility] mirtazapine 45 mg disintegrat ing tablet 2021-0 2- 00:00: 00 Yes TAKE 1 TABLET BY MOUTH EVERY DAY AT NIGHT [facility] mirtazapine 45 mg disintegrat ing tablet 2-0 2- 00:00: 00 Yes TAKE 1 TABLET BY MOUTH EVERY DAY AT NIGHT [facility] mirtazapine 45 mg disintegrat ing tablet 2021-0 2- 00:00: 00 Yes TAKE 1 TABLET BY MOUTH EVERY DAY AT NIGHT [facility] mirtazapine 45 mg disintegrat ing tablet 2021-0 2- 00:00: 00 Yes TAKE 1 TABLET BY MOUTH EVERY DAY AT NIGHT [facility] mirtazapine 45 mg disintegrat ing tablet 2021-0 2- 00:00: 00 Yes TAKE 1 TABLET BY MOUTH EVERY DAY AT NIGHT [facility] mirtazapine 45 mg disintegrat ing tablet 2021-0 2- 00:00: 00 Yes TAKE 1 TABLET BY MOUTH EVERY DAY AT NIGHT [facility] mirtazapine 45 mg disintegrat ing tablet 2021-0 2- 00:00: 00 Yes TAKE 1 TABLET BY MOUTH EVERY DAY AT NIGHT [facility] mirtazapine 45 mg disintegrat ing tablet 2-0 2- 00:00: 00 Yes TAKE 1 TABLET BY MOUTH EVERY DAY AT NIGHT [facility] mirtazapine 45 mg disintegrat ing tablet 2021-0 2-23 00:00: 00 Yes TAKE 1 TABLET BY MOUTH EVERY DAY AT NIGHT [facility] mirtazapine 45 mg disintegrat ing tablet 2-0 2- 00:00: 00 Yes TAKE 1 TABLET BY MOUTH EVERY DAY AT NIGHT [facility] mirtazapine 45 mg disintegrat ing tablet 2-0 2- 00:00: 00 Yes TAKE 1 TABLET BY MOUTH EVERY DAY AT NIGHT [facility] mirtazapine 45 mg disintegrat ing tablet 2-0 2- 00:00: 00 Yes TAKE 1 TABLET BY MOUTH EVERY DAY AT NIGHT [facility] mirtazapine 45 mg disintegrat ing tablet 2021-0 2 00:00: 00 Yes TAKE 1 TABLET BY MOUTH EVERY DAY AT NIGHT [facility] mirtazapine 45 mg disintegrat ing tablet 2021-0 2- 00:00: 00 10-17 00:00 :00 No TAKE 1 TABLET BY MOUTH EVERY DAY AT NIGHT [facility] mirtazapine 45 mg disintegrat ing tablet 2021-0 2 00:00: 00 10-17 00:00 :00 No TAKE 1 TABLET BY MOUTH EVERY DAY AT NIGHT [facility] mirtazapine 45 mg disintegrat ing tablet 2021-0 01-13 00:00: 00 10-17 00:00 :00 No TAKE 1 TABLET BY MOUTH EVERY DAY AT NIGHT [facility] DEPAKOTE ORAL 2006-11 09:24: 58 Yes None Entered [facility] AMBIEN ORAL 2006-11 09:24: 58 Yes None Entered [facility] XANAX ORAL 2006-11 09:24: 56 Yes None Entered [facility] Immunizations Ordered Immunization Name Filled Immunization Name Date Status Comments Source SARS-COV-2 COVID-19 VACCINE - (MODERNA) 2021-05-07 00:00:00 Completed [facility] SARS-COV-2 COVID-19 VACCINE - (MODERNA) 2021-05-07 00:00:00 Completed [facility] SARS-COV-2 COVID-19 VACCINE - (MODERNA) 2021-05-07 00:00:00 Completed [facility] SARS-COV-2 COVID-19 VACCINE - (MODERNA) 2021-05-07 00:00:00 Completed [facility] SARS-COV-2 COVID-19 VACCINE - (MODERNA) 2021-05-07 00:00:00 Completed [facility] SARS-COV-2 COVID-19 VACCINE - (MODERNA) 2021-05-07 00:00:00 Completed [facility] SARS-COV-2 COVID-19 VACCINE - (MODERNA) 2021-05-07 00:00:00 Completed [facility] SARS-COV-2 COVID-19 VACCINE - (MODERNA) 2021-05-07 00:00:00 Completed [facility] SARS-COV-2 COVID-19 VACCINE - (MODERNA) 2021-05-07 00:00:00 Completed [facility] SARS-COV-2 COVID-19 VACCINE - (MODERNA) 2021-05-07 00:00:00 Completed [facility] SARS-COV-2 COVID-19 VACCINE - (MODERNA) 2021-05-07 00:00:00 Completed [facility] SARS-COV-2 COVID-19 VACCINE - (MODERNA) 2021-05-07 00:00:00 Completed [facility] SARS-COV-2 COVID-19 VACCINE - (MODERNA) 2021-05-07 00:00:00 Completed [facility] SARS-COV-2 COVID-19 VACCINE - (MODERNA) 2021-05-07 00:00:00 Completed [facility] SARS-COV-2 COVID-19 VACCINE - (MODERNA) 2021-05-07 00:00:00 Completed [facility] SARS-COV-2 COVID-19 VACCINE - (MODERNA) 2021-05-07 00:00:00 Completed [facility] SARS-COV-2 COVID-19 VACCINE - (MODERNA) 2021-05-07 00:00:00 Completed [facility] SARS-COV-2 COVID-19 VACCINE - (MODERNA) 2021-05-07 00:00:00 Completed [facility] SARS-COV-2 COVID-19 VACCINE - (MODERNA) 2021-05-07 00:00:00 Completed [facility] SARS-COV-2 COVID-19 VACCINE - (MODERNA) 2021-05-07 00:00:00 Completed [facility] SARS-COV-2 COVID-19 VACCINE - (MODERNA) 2021-05-07 00:00:00 Completed [facility] SARS-COV-2 COVID-19 VACCINE - (MODERNA) 2021-05-07 00:00:00 Completed [facility] SARS-COV-2 COVID-19 VACCINE - (MODERNA) 2021-05-07 00:00:00 Completed [facility] SARS-COV-2 COVID-19 VACCINE - (MODERNA) 2021-05-07 00:00:00 Completed [facility] SARS-COV-2 COVID-19 VACCINE - (MODERNA) 2021-04-08 00:00:00 Completed [facility] SARS-COV-2 COVID-19 VACCINE - (MODERNA) 2021-04-08 00:00:00 Completed [facility] SARS-COV-2 COVID-19 VACCINE - (MODERNA) 2021-04-08 00:00:00 Completed [facility] SARS-COV-2 COVID-19 VACCINE - (MODERNA) 2021-04-08 00:00:00 Completed [facility] SARS-COV-2 COVID-19 VACCINE - (MODERNA) 2021-04-08 00:00:00 Completed [facility] SARS-COV-2 COVID-19 VACCINE - (MODERNA) 2021-04-08 00:00:00 Completed [facility] SARS-COV-2 COVID-19 VACCINE - (MODERNA) 2021-04-08 00:00:00 Completed [facility] SARS-COV-2 COVID-19 VACCINE - (MODERNA) 2021-04-08 00:00:00 Completed [facility] SARS-COV-2 COVID-19 VACCINE - (MODERNA) 2021-04-08 00:00:00 Completed [facility] SARS-COV-2 COVID-19 VACCINE - (MODERNA) 2021-04-08 00:00:00 Completed [facility] SARS-COV-2 COVID-19 VACCINE - (MODERNA) 2021-04-08 00:00:00 Completed [facility] SARS-COV-2 COVID-19 VACCINE - (MODERNA) 2021-04-08 00:00:00 Completed [facility] SARS-COV-2 COVID-19 VACCINE - (MODERNA) 2021-04-08 00:00:00 Completed [facility] SARS-COV-2 COVID-19 VACCINE - (MODERNA) 2021-04-08 00:00:00 Completed [facility] SARS-COV-2 COVID-19 VACCINE - (MODERNA) 2021-04-08 00:00:00 Completed [facility] SARS-COV-2 COVID-19 VACCINE - (MODERNA) 2021-04-08 00:00:00 Completed [facility] SARS-COV-2 COVID-19 VACCINE - (MODERNA) 2021-04-08 00:00:00 Completed [facility] SARS-COV-2 COVID-19 VACCINE - (MODERNA) 2021-04-08 00:00:00 Completed [facility] SARS-COV-2 COVID-19 VACCINE - (MODERNA) 2021-04-08 00:00:00 Completed [facility] SARS-COV-2 COVID-19 VACCINE - (MODERNA) 2021-04-08 00:00:00 Completed [facility] SARS-COV-2 COVID-19 VACCINE - (MODERNA) 2021-04-08 00:00:00 Completed [facility] SARS-COV-2 COVID-19 VACCINE - (MODERNA) 2021-04-08 00:00:00 Completed [facility] SARS-COV-2 COVID-19 VACCINE - (MODERNA) 2021-04-08 00:00:00 Completed [facility] SARS-COV-2 COVID-19 VACCINE - (MODERNA) 2021-04-08 00:00:00 Completed [facility] SARS-COV-2 COVID-19 VACCINE - (MODERNA) Unknown Completed [facility] SARS-COV-2 COVID-19 VACCINE - (MODERNA) Unknown Completed [facility] SARS-COV-2 COVID-19 VACCINE - (MODERNA) Unknown Completed [facility] SARS-COV-2 COVID-19 VACCINE - (MODERNA) Unknown Completed [facility] SARS-COV-2 COVID-19 VACCINE - (MODERNA) Unknown Completed [facility] SARS-COV-2 COVID-19 VACCINE - (MODERNA) Unknown Completed [facility] SARS-COV-2 COVID-19 VACCINE - (MODERNA) Unknown Completed [facility] SARS-COV-2 COVID-19 VACCINE - (MODERNA) Unknown Completed [facility] SARS-COV-2 COVID-19 VACCINE - (MODERNA) Unknown Completed [facility] SARS-COV-2 COVID-19 VACCINE - (MODERNA) Unknown Completed [facility] SARS-COV-2 COVID-19 VACCINE - (MODERNA) Unknown Completed [facility] SARS-COV-2 COVID-19 VACCINE - (MODERNA) Unknown Completed [facility] SARS-COV-2 COVID 19 CHERELLE SUCROSE VACCINE 12+, , 0.3 ML (30 MCG), IM PFIZER (RAMIREZ TOP) Unknown Completed [facility] SARS-COV-2 COVID-19 VACCINE - (MODERNA) Unknown Completed [facility] SARS-COV-2 COVID-19 VACCINE - (MODERNA) Unknown Completed [facility] SARS-COV-2 COVID 19 CHERELLE SUCROSE VACCINE , , 0.3 ML (30 MCG), IM PFIZER (RAMIREZ TOP) Unknown Completed [facility] SARS-COV-2 COVID-19 VACCINE - (MODERNA) Unknown Completed [facility] SARS-COV-2 COVID-19 VACCINE - (MODERNA) Unknown Completed [facility] SARS-COV-2 COVID 19 CHERELLE SUCROSE VACCINE +, , 0.3 ML (30 MCG), IM PFIZER (RAMIREZ TOP) Unknown Completed [facility] SARS-COV-2 COVID-19 VACCINE - (MODERNA) Unknown Completed [facility] SARS-COV-2 COVID-19 VACCINE - (MODERNA) Unknown Completed [facility] SARS-COV-2 COVID 19 CHERELLE SUCROSE VACCINE +, , 0.3 ML (30 MCG), IM PFIZER (RAMIREZ TOP) Unknown Completed [facility] SARS-COV-2 COVID-19 VACCINE - (MODERNA) Unknown Completed [facility] SARS-COV-2 COVID-19 VACCINE - (MODERNA) Unknown Completed [facility] SARS-COV-2 COVID 19 CHERELLE SUCROSE VACCINE +, , 0.3 ML (30 MCG), IM PFIZER (RAMIREZ TOP) Unknown Completed [facility] SARS-COV-2 COVID-19 VACCINE - (MODERNA) Unknown Completed [facility] SARS-COV-2 COVID-19 VACCINE - (MODERNA) Unknown Completed [facility] SARS-COV-2 COVID 19 CHERELLE SUCROSE VACCINE 12+, , 0.3 ML (30 MCG), IM PFIZER (RAMIREZ TOP) Unknown Completed [facility] SARS-COV-2 COVID-19 VACCINE - (MODERNA) Unknown Completed [facility] SARS-COV-2 COVID-19 VACCINE - (MODERNA) Unknown Completed [facility] SARS-COV-2 COVID 19 CHERELLE SUCROSE VACCINE , , 0.3 ML (30 MCG), IM PFIZER (RAMIREZ TOP) Unknown Completed [facility] SARS-COV-2 COVID-19 VACCINE - (MODERNA) Unknown Completed [facility] SARS-COV-2 COVID-19 VACCINE - (MODERNA) Unknown Completed [facility] SARS-COV-2 COVID 19 CHERELLE SUCROSE VACCINE +, , 0.3 ML (30 MCG), IM PFIZER (RAMIREZ TOP) Unknown Completed [facility] SARS-COV-2 COVID-19 VACCINE - (MODERNA) Unknown Completed [facility] SARS-COV-2 COVID-19 VACCINE - (MODERNA) Unknown Completed [facility] SARS-COV-2 COVID 19 CHERELLE SUCROSE VACCINE , , 0.3 ML (30 MCG), IM PFIZER (RAMIREZ TOP) Unknown Completed [facility] SARS-COV-2 COVID-19 VACCINE - (MODERNA) Unknown Completed [facility] SARS-COV-2 COVID-19 VACCINE - (MODERNA) Unknown Completed [facility] SARS-COV-2 COVID 19 CHERELLE SUCROSE VACCINE +, , 0.3 ML (30 MCG), IM PFIZER (RAMIREZ TOP) Unknown Completed [facility] SARS-COV-2 COVID-19 VACCINE - (MODERNA) Unknown Completed [facility] SARS-COV-2 COVID-19 VACCINE - (MODERNA) Unknown Completed [facility] SARS-COV-2 COVID 19 CHERELLE SUCROSE VACCINE 12+, , 0.3 ML (30 MCG), IM PFIZER (RAMIREZ TOP) Unknown Completed [facility] SARS-COV-2 COVID-19 VACCINE - (MODERNA) Unknown Completed [facility] SARS-COV-2 COVID-19 VACCINE - (MODERNA) [facility] 19 CHERELLE SUCROSE VACCINE 12+, , 0.3 ML (30 MCG), IM PFIZER (RAMIREZ TOP) Unknown Completed [facility] SARS-COV-2 COVID-19 VACCINE - (MODERNA) Unknown Completed [facility] SARS-COV-2 COVID-19 VACCINE - (MODERNA) Unknown [facility] 19 CHERELLE SUCROSE VACCINE +, , 0.3 ML (30 MCG), IM PFIZER (RAMIREZ TOP) Unknown Completed [facility] SARS-COV-2 COVID-19 VACCINE - (MODERNA) Unknown [facility] COVID-19 VACCINE - (MODERNA) Unknown Completed [facility] SARS-COV-2 COVID 19 CHERELLE SUCROSE VACCINE , , 0.3 ML (30 MCG), IM PFIZER (RAMIREZ TOP) Unknown Completed [facility] SARS-COV-2 COVID-19 VACCINE - (MODERNA) Unknown [facility] COVID-19 VACCINE - (MODERNA) Unknown Completed [facility] SARS-COV-2 COVID 19 CHERELLE SUCROSE VACCINE +, , 0.3 ML (30 MCG), IM PFIZER (RAMIREZ TOP) Unknown Completed [facility] SARS-COV-2 COVID-19 VACCINE - (MODERNA) Unknown Completed [facility] SARS-COV-2 COVID-19 VACCINE - (MODERNA) Unknown [facility] SARS-COV-[facility] COVID 19 CHERELLE SUCROSE VACCINE 12+, , 0.3 ML (30 MCG), IM PFIZER (RAMIREZ TOP) Unknown Completed [facility] SARS-COV-2 COVID-19 VACCINE - (MODERNA) Unknown Completed [facility] SARS-COV-2 COVID-19 VACCINE - (MODERNA) Unknown [facility]OV[facility] COVID 19 CHERELLE SUCROSE VACCINE 12+, [id number], 0.3 ML (30 MCG), IM PFIZER (RAMIREZ TOP) Unknown Completed [facility] SARS-COV-2 COVID-19 VACCINE - (MODERNA) Unknown Completed [facility] SARS-COV-2 COVID-19 VACCINE - (MODERNA) Unknown Completed [facility] SARS-COV-2 COVID 19 CHERELLE SUCROSE VACCINE 12+, , 0.3 ML (30 MCG), IM PFIZER (RAMIREZ TOP) Unknown Completed [facility] SARS-COV-2 COVID-19 VACCINE - (MODERNA) Unknown Completed [facility] SARS-COV-2 COVID-19 VACCINE - (MODERNA) Unknown [facility]OV[facility] COVID 19 CHERELLE SUCROSE VACCINE 12+, , 0.3 ML (30 MCG), IM PFIZER (RAMIREZ TOP) Unknown Completed [facility] SARS-COV-2 COVID-19 VACCINE - (MODERNA) Unknown [facility]OV[facility] COVID-19 VACCINE - (MODERNA) Unknown Completed [facility] SARS-COV-2 COVID 19 CHERELLE SUCROSE VACCINE 12+, , 0.3 ML (30 MCG), IM PFIZER (ARMIREZ TOP) Unknown Completed [facility] SARS-COV-2 COVID-19 VACCINE - (MODERNA) Unknown Completed [facility] SARS-COV-2 COVID-19 VACCINE - (MODERNA) Unknown [facility]-COV-[facility] COVID 19 CHERELLE SUCROSE VACCINE 12+, , 0.3 ML (30 MCG), IM PFIZER (RAMIREZ TOP) Unknown Completed [facility] SARS-COV-2 COVID-19 VACCINE - (MODERNA) Unknown Completed [facility] SARS-COV-2 COVID-19 VACCINE - (MODERNA) Unknown Completed [facility] SARS-COV-2 COVID 19 CHERELLE SUCROSE VACCINE , , 0.3 ML (30 MCG), IM PFIZER (RAMIREZ TOP) Unknown Completed [facility] SARS-COV-2 COVID-19 VACCINE - (MODERNA) Unknown Completed [facility] SARS-COV-2 COVID-19 VACCINE - (MODERNA) Unknown Completed [facility] SARS-COV-2 COVID 19 CHERELLE SUCROSE VACCINE , , 0.3 ML (30 MCG), IM PFIZER (RAMIREZ TOP) Unknown Completed [facility] SARS-COV-2 COVID-19 VACCINE - (MODERNA) Unknown Completed [facility] SARS-COV-2 COVID-19 VACCINE - (MODERNA) Unknown Completed [facility] SARS-COV-2 COVID 19 CHERELLE SUCROSE VACCINE , , 0.3 ML (30 MCG), IM PFIZER (RAMIREZ TOP) Unknown Completed [facility] SARS-COV-2 COVID-19 VACCINE - (MODERNA) Unknown Completed [facility] SARS-COV-2 COVID-19 VACCINE - (MODERNA) Unknown Completed [facility] SARS-COV-2 COVID 19 CHERELLE SUCROSE VACCINE , , 0.3 ML (30 MCG), IM PFIZER (RAMIREZ TOP) Unknown Completed [facility] Vital Signs Vital Name Observation Time Observation Value Comments S ource Systolic blood pressure 2024-02-17 21:30:00 156 mm[Hg] [facility] Diastolic blood pressure 2024-02-17 21:30:00 107 mm[Hg] [facility] Heart rate 2024-02-17 21:30:00 105 /min [facility] Body temperature 2024-02-17 21:30:00 37.11 Nina [facility] Respiratory rate 2024-02-17 21:30:00 16 /min [facility] Oxygen saturation in Arterial blood by Pulse oximetry 2024-02-17 21:30:00 100 /min [facility] Body height 2024-02-14 14:07:00 170.2 cm [facility] Body weight 2024-02-14 14:07:00 95.255 kg [facility] BMI 2024-02-14 14:07:00 32.89 kg/m2 [facility] Systolic blood pressure 2024-01-03 20:22:00 123 mm[Hg] [facility] Diastolic blood pressure 2024-01-03 20:22:00 70 mm[Hg] [facility] Heart rate 2024-01-03 20:20:00 110 /min [facility] Body temperature 2024-01-03 20:20:00 36.61 Nina [facility] Respiratory rate 2024-01-03 20:20:00 20 /min [facility] Body height 2024-01-03 20:20:00 170.2 cm [facility] Body weight 2024-01-03 20:20:00 92.534 kg [facility] BMI 2024-01-03 20:20:00 31.95 kg/m2 [facility] Oxygen saturation in Arterial blood by Pulse oximetry 2024-01-03 20:20:00 97 /min [facility] Systolic blood pressure 2023-10-17 19:05:00 127 mm[Hg] [facility] Diastolic blood pressure 2023-10-17 19:05:00 85 mm[Hg] [facility] Heart rate 2023-10-17 19:05:00 79 /min [facility] Body temperature 2023-10-17 19:05:00 36.67 Nina [facility] Respiratory rate 2023-10-17 19:05:00 18 /min [facility] Body height 2023-10-17 19:05:00 170.2 cm [facility] Body weight 2023-10-17 19:05:00 82.237 kg [facility] BMI 2023-10-17 19:05:00 28.40 kg/m2 [facility] Oxygen saturation in Arterial blood by Pulse oximetry 2023-10-17 19:05:00 98 /min [facility] Systolic blood pressure 2023-10-08 14:44:00 109 mm[Hg] [facility] Diastolic blood pressure 2023-10-08 14:44:00 66 mm[Hg] [facility] Heart rate 2023-10-08 13:14:00 94 /min [facility] Body temperature 2023-10-08 13:14:00 36.83 Nina [facility] Respiratory rate 2023-10-08 13:14:00 18 /min [facility] Oxygen saturation in Arterial blood by Pulse oximetry 2023-10-08 13:14:00 94 /min [facility] Body height 2023-10-04 13:12:00 170.2 cm [facility] Body weight 2023-10-04 13:12:00 84.823 kg [facility] BMI 2023-10-04 13:12:00 29.29 kg/m2 [facility] Systolic blood pressure 2023-09-06 20:00:00 120 mm[Hg] home readings [facility] Diastolic blood pressure 2023-09-06 20:00:00 80 mm[Hg] home readings [facility] Heart rate 2023-09-06 19:24:00 117 /min [facility] Body temperature 2023-09-06 19:24:00 37.56 Nina [facility] Respiratory rate 2023-09-06 19:24:00 18 /min [facility] Body height 2023-09-06 19:24:00 167.6 cm [facility] Body weight 2023-09-06 19:24:00 85.14 kg [facility] BMI 2023-09-06 19:24:00 30.30 kg/m2 [facility] Oxygen saturation in Arterial blood by Pulse oximetry 2023-09-06 19:24:00 98 /min [facility] Systolic blood pressure 2023-07-19 18:56:00 131 mm[Hg] [facility] Diastolic blood pressure 2023-07-19 18:56:00 84 mm[Hg] [facility] Heart rate 2023-07-19 18:56:00 56 /min [facility] Body temperature 2023-07-19 18:56:00 36.22 Nina [facility] Respiratory rate 2023-07-19 18:56:00 18 /min [facility] Body height 2023-07-19 18:56:00 167.6 cm [facility] Body weight 2023-07-19 18:56:00 88.179 kg [facility] BMI 2023-07-19 18:56:00 31.38 kg/m2 [facility] Oxygen saturation in Arterial blood by Pulse oximetry 2023-07-19 18:56:00 99 /min [facility] Systolic blood pressure 2023-07-14 13:09:00 112 mm[Hg] [facility] Diastolic blood pressure 2023-07-14 13:09:00 76 mm[Hg] [facility] Heart rate 2023-07-14 13:09:00 90 /min [facility] Body temperature 2023-07-14 13:09:00 36.39 Nina [facility] Respiratory rate 2023-07-14 13:09:00 18 /min [facility] Body height 2023-07-14 13:09:00 167.6 cm [facility] Body weight 2023-07-14 13:09:00 87.59 kg [facility] BMI 2023-07-14 13:09:00 31.17 kg/m2 [facility] Oxygen saturation in Arterial blood by Pulse oximetry 2023-07-14 13:09:00 97 /min [facility] Systolic blood pressure 2023-06-07 14:47:00 104 mm[Hg] [facility] Diastolic blood pressure 2023-06-07 14:47:00 68 mm[Hg] [facility] Heart rate 2023-06-07 14:47:00 76 /min [facility] Body temperature 2023-06-07 14:47:00 36.17 Nina [facility] Respiratory rate 2023-06-07 14:47:00 12 /min [facility] Body height 2023-06-07 14:47:00 167.6 cm [facility] Body weight 2023-06-07 14:47:00 86.909 kg [facility] BMI 2023-06-07 14:47:00 30.93 kg/m2 [facility] Oxygen saturation in Arterial blood by Pulse oximetry 2023-06-07 14:47:00 97 /min [facility] Systolic blood pressure 2023-05-28 00:39:26 161 mm[Hg] [facility] Diastolic blood pressure 2023-05-28 00:39:26 106 mm[Hg] [facility] Heart rate 2023-05-28 00:39:26 102 /min [facility] Body temperature 2023-05-28 00:39:26 36.67 Nina [facility] Respiratory rate 2023-05-28 00:39:26 16 /min [facility] Oxygen saturation in Arterial blood by Pulse oximetry 2023-05-28 00:39:26 100 /min [facility] Body weight 2023-05-27 19:46:00 87.091 kg [facility] BMI 2023-05-27 19:46:00 30.99 kg/m2 [facility] Systolic blood pressure 2023-05-10 18:23:00 130 mm[Hg] [facility] Diastolic blood pressure 2023-05-10 18:23:00 87 mm[Hg] [facility] Heart rate 2023-05-10 18:23:00 80 /min [facility] Body temperature 2023-05-10 18:23:00 36.78 Nina [facility] Respiratory rate 2023-05-10 18:23:00 18 /min [facility] Body height 2023-05-10 18:23:00 167.6 cm [facility] Body weight 2023-05-10 18:23:00 87.408 kg [facility] BMI 2023-05-10 18:23:00 31.10 kg/m2 [facility] Oxygen saturation in Arterial blood by Pulse oximetry 2023-05-10 18:23:00 98 /min [facility] Systolic blood pressure 2023-05-02 18:12:00 155 mm[Hg] [facility] Diastolic blood pressure 2023-05-02 18:12:00 103 mm[Hg] [facility] Heart rate 2023-05-02 18:08:00 81 /min [facility] Body temperature 2023-05-02 18:08:00 36.33 Nina [facility] Respiratory rate 2023-05-02 18:08:00 16 /min [facility] Body height 2023-05-02 18:08:00 167.6 cm [facility] Body weight 2023-05-02 18:08:00 88.179 kg [facility] BMI 2023-05-02 18:08:00 31.38 kg/m2 [facility] Oxygen saturation in Arterial blood by Pulse oximetry 2023-05-02 18:08:00 98 /min [facility] Systolic blood pressure 2022-06-24 16:30:00 143 mm[Hg] [facility] Diastolic blood pressure 2022-06-24 16:30:00 96 mm[Hg] [facility] Heart rate 2022-06-24 16:30:00 78 /min [facility] Body temperature 2022-06-24 16:30:00 36.61 [facility] [facility] Respiratory rate 2022-06-24 16:30:00 18 /min [facility] Oxygen saturation in Arterial blood by Pulse oximetry 2022-06-24 16:30:00 97 /min [facility] Body weight 2022-06-24 08:59:00 65.998 kg [facility] BMI 2022-06-24 08:59:00 23.48 kg/m2 [facility] Body height 2022-06-21 17:12:00 167.6 cm [facility] Systolic blood pressure 2022-04-14 17:48:00 135 mm[Hg] [facility] Diastolic blood pressure 2022-04-14 17:48:00 103 mm[Hg] [facility] Heart rate 2022-04-14 17:48:00 85 /min [facility] Body temperature 2022-04-14 17:46:00 36.17 Nina [facility] Body height 2022-04-14 17:46:00 168.9 cm [facility] Body weight 2022-04-14 17:46:00 86.229 kg [facility] BMI 2022-04-14 17:46:00 30.22 kg/m2 [facility] Oxygen saturation in Arterial blood by Pulse oximetry 2022-04-14 17:46:00 98 /min [facility] Procedures Procedure Date / Time Performed Performing Clinician Source POTASSIUM SERUM 2024-02-17 21:00:00 Fabi Diehl [facility] PHOSPHORUS 2024-02-17 10:36:00 Fabi Diehl [facility] MAGNESIUM 2024-02-17 10:36:00 Fabi Diehl [facility] BASIC METABOLIC PANEL (NA, K, CL, CO2, GLUCOSE, BUN, CREATININE, CA) 2024-02-17 10:36:00 Tresa Diehlmaine [facility] CBC WITH DIFF 2024-02-17 10:36:00 Fabi Diehl Un [facility] PHOSPHORUS 2024-02-15 07:46:00 Alanna Arenas [facility] MAGNESIUM 2024-02-15 07:46:00 Alanna Arenas [facility] FREE T4 2024-02-15 07:46:00 Dagoberto [place] COMP. METABOLIC PANEL (48271) 2024-02-15 07:46:00 [facility] DIFF 2024-02-15 07:46:00 Alanna Arenas [facility] SERUM DRUG (IMMUNOASSAY) - COMPREHENSIVE DRUG SCREEN 2024-02-15 01:21:00 Alanna Arenas [facility] BLOOD CULTURE SCREEN 2024-02-14 19:07:00 Cuba Adams [facility] LACTIC ACID WHOLE BLOOD 2024-02-14 18:43:00 Migel Adams [facility] BLOOD CULTURE SCREEN 2024-02-14 18:41:00 Cuba Adams [facility] URINE CULTURE 2024-02-14 18:31:00 [place] [facility] 2024-02-14 18:31:00 Alanna Arenas [facility] EKG-12 LEAD 2024-02-14 18:21:53 Cuba Adams [facility] CT ABDOMEN PELVIS W CONTRAST 2024-02-14 17:25:50 Cuba Adams [facility] URINALYSIS 2024-02-14 17:06:00 Cuba Adams [facility] EXTRA TUBE URINE CULTURE 2024-02-14 17:06:00 Ebony Adams [facility] LIPASE 2024-02-14 14:40:00 Cuba Adams [facility] TEST, SERUM 2024-02-14 14:40:00 Ed Adams [facility] TROPONIN I 2024-02-14 14:40:00 Cuba Adams [facility] THYROID STIMULATING HORMONE 2024-02-14 14:40:00 Alanna Arneas [facility] COMP. METABOLIC PANEL ([id number]) 2024-02-14 14:40:00 Cuba Adams [facility] IRON PANEL 2024-02-14 14:40:00 Alanna Arenas [facility] ETHANOL 2024-02-14 14:40:00 Alanna Arenas [facility] CBC WITH DIFF 2024-02-14 14:40:00 Cuba Adams [facility] RETICULOCYTES AUTOMATED 2024-02-14 14:40:00 Ashlee Arenas [facility] EXTRA TUBE LT. GREEN 2024-02-14 14:40:00 Cuba Adams [facility] VITAMIN B12, LEVEL 2024-02-10 16:31:00 [facility] FOL[facility] 2024-02-10 16:31:00 Alanna Arenas [facility] POCT SARS-COV-2 ANTIGEN (BINAX NOW) 2024-01-03 21:10:00 Antonio [facility] POCT MOLECULAR FLU 2024-01-03 20:59:00 Antonio [facility] MAGNESIUM 2023-10-08 10:06:00 Giovanna Olvera [facility] BASIC METABOLIC PANEL (NA, K, CL, CO2, GLUCOSE, BUN, CREATININE, CA) 2023-10-08 10:06:00 Shmuel Menendez [facility] XR KUB 2023-10-07 15:30:28 Giovanna Olvera [facility] BASIC METABOLIC PANEL (NA, K, CL, CO2, GLUCOSE, BUN, CREATININE, CA) 2023-10-07 11:57:00 Freddie [facility] CBC WITHOUT DIFF 2023-10-07 11:57:00 Freddie [facility] BASIC METABOLIC PANEL (NA, K, CL, CO2, GLUCOSE, BUN, CREATININE, CA) 2023-10-06 11:11:00 Giovanna Olvera [facility] CBC WITHOUT DIFF 2023-10-06 11:11:00 Freddie [facility] TROPONIN I 2023-10-05 12:25:00 Freddie [facility] ACTIVATED PARTIAL THRMPLAS LEAH 2023-10-05 12:25:00 Freddie [facility] CBC WITH DIFF 2023-10-05 06:31:00 Inez Nilda [facility] BLOOD CULTURE SCREEN 2023-10-05 06:26:00 [facility] MAGNESIUM 2023-10-05 06:25:00 Inez [facility] TROPONIN I 2023-10-05 06:25:00 Freddie [facility] BASIC METABOLIC PANEL (NA, K, CL, CO2, GLUCOSE, BUN, CREATININE, CA) 2023-10-05 06:25:00 Inez [facility] PROTHROMBIN TIME / INR 2023-10-05 06:25:00 John Menendez [facility] ACTIVATED PARTIAL THRMPLAS LEAH 2023-10-05 06:25:00 Freddie [facility] TROPONIN I 2023-10-05 02:45:00 Inez [facility] BASIC METABOLIC PANEL (NA, K, CL, CO2, GLUCOSE, BUN, CREATININE, CA) 2023-10-05 02:45:[address] [facility] ABDOMEN PELVIS WO CONTRAST 2023-10-04 18:37:39 Edinson Leonard [facility] URINALYSIS 2023-10-04 18:18:00 Edinson Leonard [facility] POCT TEST 2023-10-04 18:08:00 Edinson Leonard [facility] HB ECG ROUTINE & RHYTHM STRIP 2023-10-04 17:30:07 Edinson Leonard [facility] LIPASE 2023-10-04 15:57:00 Edinson Leonard [facility] COMP. METABOLIC PANEL ([id number]) 2023-10-04 15:57:00 Edinson Leonard [facility] TROPONIN I 2023-10-04 14:47:00 Edinson Leonard [facility] CBC WITH DIFF 2023-10-04 14:47:00 Edinson [facility] SARS-COV-2 COVID 19 CHERELLE SUCROSE VACCINE 12+, , 0.3 ML (30 MCG), IM PFIZER (RAMIREZ TOP) 2023-09-06 20:05:18 Hernán Alvarez [facility] POCT URINALYSIS 2023-07-19 00:00:00 Hernán Alvarez [facility] EXTERNAL PROVIDER RECORDS 2023-06-16 05:01:00 Do ctor Unassigned, Rienzi [facility] LACTIC ACID WHOLE BLOOD 2023-05-27 23:57:00 Zay Reed [facility] URINALYSIS 2023-05-27 22:14:00 Karo Reed [facility] TEST, SERUM 2023-05-27 22:13:00 Ivette Reed [facility] URINE DRUG (IMMUNOASSAY) - COMPREHENSIVE DRUG SCREEN 2023-05-27 22:13:00 Karo Reed [facility] LACTIC ACID WHOLE BLOOD 2023-05-27 20:35:00 Zay Reed [facility] LIPASE 2023-05-27 20:34:00 Karo Reed [facility] COMP. METABOLIC PANEL ([id number]) 2023-05-27 20:34:00 Karo Reed [facility] CBC WITH DIFF 2023-05-27 20:34:00 Karo Reed [facility] XR CHEST 1 VW 2023-05-27 20:05:00 Karo Reed [facility] THYROID STIMULATING HORMONE 2023-05-04 20:13:00 Antonio [facility] COMP. METABOLIC PANEL ([id number]) 2023-05-04 20:13:00 Hernán Alvarez [facility] LIPID PANEL ([id number])(TOTAL CHOLESTEROL, TRIGLYCERIDES, HDL) 2023-05-04 20:13:00 Antonio [facility] CBC WITH DIFF 2023-05-04 20:13:00 Hernán Alvarez [facility] ASSIGNMENT OF BENEFITS 2023-05-02 18:00:24 Docto r Unassigned, Rienzi [facility] AUTHORIZATION FOR RELEASE OF PHI 2022-12-22 06:01:00 Doctor Unassigned, Rienzi [facility] INSURANCE CORRESPONDENCE 2022-06-30 05:01:00 Doc tor Unassigned, Rienzi [facility] POCT GLUCOSE (AUTOMATED) 2022-06-24 16:45:00 Terminell a [facility] POCT GLUCOSE (AUTOMATED) 2022-06-24 13:08:00 Terminell deisi [facility] MAGNESIUM 2022-06-24 09:04:00 Grisel Menendez [facility] BASIC METABOLIC PANEL (NA, K, CL, CO2, GLUCOSE, BUN, CREATININE, CA) 2022-06-24 09:04:00 [facility]FF 2022-06-24 09:04:00 Grisel Menendez [facility] POCT GLUCOSE (AUTOMATED) 2022-06-24 09:01:00 Terminell a [facility] POCT GLUCOSE (AUTOMATED) 2022-06-24 04:55:00 Terminell a [facility] POCT GLUCOSE (AUTOMATED) 2022-06-24 02:04:00 Terminell a [facility] POCT GLUCOSE (AUTOMATED) 2022-06-23 23:08:00 Terminell a, [facility] POCT GLUCOSE (AUTOMATED) 2022-06-23 17:21:00 Terminell a [facility] POCT GLUCOSE (AUTOMATED) 2022-06-23 12:53:00 Albanne [facility] MAGNESIUM 2022-06-23 09:14:00 Grisel Menendez [facility] BASIC METABOLIC PANEL (NA, K, CL, CO2, GLUCOSE, BUN, CREATININE, CA) 2022-06-23 09:14:00 Jonah [facility] CBC WITH DIFF 2022-06-23 09:14:00 [facility]SE (AUTOMATED) 2022-06-23 09:13:00 [facility]OM[facility]) 2022-06-23 04:57:00 [facility] POCT GLUCOSE (AUTOMATED) 2022-06-23 01:03:00 [facility] PO[facility] GLUCOSE (AUTOMATED) 2022-06-22 23:36:00 Eliseo [facility] MAGNESIUM 2022-06-22 23:34:00 Jonah [facility] BASIC METABOLIC PANEL (NA, K, CL, CO2, GLUCOSE, BUN, CREATININE, CA) 2022-06-22 23:34:00 Jonah [facility] POCT GLUCOSE (AUTOMATED) 2022-06-22 22:32:00 [facility] POCT GLUCOSE (AUTOMATED) 2022-06-22 20:05:00 Eliseo [facility] POCT GLUCOSE (AUTOMATED) 2022-06-22 17:39:00 [facility] POCT GLUCOSE (AUTOMATED) 2022-06-22 16:37:00 [facility] POCT GLUCOSE (AUTOMATED) 2022-06-22 15:25:00 [facility] TRANSTHORACIC ECHO (TTE) COMPLETE W/ CONTRAST 2022-06-22 14:41:00 [facility] BASIC METABOLIC PANEL (NA, K, CL, CO2, GLUCOSE, BUN, CREATININE, CA) 2022-06-22 14:17:00 Brian Mckenzie [facility] POCT GLUCOSE (AUTOMATED) 2022-06-22 14:17:00 Albanne [facility] POCT GLUCOSE (AUTOMATED) 2022-06-22 12:34:00 [facility] PO[facility]SE (AUTOMATED) 2022-06-22 11:01:00 [facility] PO[facility] GLUCOSE (AUTOMATED) 2022-06-22 10:01:00 Albustami , [facility] MAGNESIUM 2022-06-22 08:59:00 [facility] COMP. METABOLIC PANEL ([id number]) 2022-06-22 08:59:00 Freddie [facility] CBC WITH DIFF 2022-06-22 08:59:00 [facility]OM[facility]) 2022-06-22 08:56:00 Albustami [facility] POCT GLUCOSE (AUTOMATED) 2022-06-22 07:59:00 [facility] PO[facility] GLUCOSE (AUTOMATED) 2022-06-22 06:55:00 [facility] POCT GLUCOSE (AUTOMATED) 2022-06-22 06:00:00 [facility] PO[facility]UCOSE (AUTOMATED) 2022-06-22 05:00:00 [facility] BASIC METABOLIC PANEL (NA, K, CL, CO2, GLUCOSE, BUN, CREATININE, CA) 2022-06-22 04:17:00 Freddie [facility] POCT GLUCOSE (AUTOMATED) 2022-06-22 04:01:00 Albustami , [facility] POCT GLUCOSE (AUTOMATED) 2022-06-22 02:51:00 [facility] PO[facility]SE (AUTOMATED) 2022-06-22 01:37:00 [facility] BASIC METABOLIC PANEL (NA, K, CL, CO2, GLUCOSE, BUN, CREATININE, CA) 2022-06-22 00:25:00 Freddie [facility] POCT GLUCOSE (AUTOMATED) 2022-06-22 00:24:00 Eliseo [facility] POCT GLUCOSE (AUTOMATED) 2022-06-21 22:58:00 Eliseo [facility] POCT GLUCOSE (AUTOMATED) 2022-06-21 21:11:00 Eliseo [facility] POCT GLUCOSE (AUTOMATED) 2022-06-21 19:58:00 Eliseo [facility] BASIC METABOLIC PANEL (NA, K, CL, CO2, GLUCOSE, BUN, CREATININE, CA) 2022-06-21 19:57:00 Freddie [facility] LACTIC ACID WHOLE BLOOD 2022-06-21 19:57:00 Freddie [facility] POCT GLUCOSE (AUTOMATED) 2022-06-21 18:45:00 Eliseo [facility] PHOSPHORUS 2022-06-21 17:27:00 [facility] MAGNESIUM 2022-06-21 17:27:00 [facility] TROPONIN I 2022-06-21 17:27:00 [facility] BASIC METABOLIC PANEL (NA, K, CL, CO2, GLUCOSE, BUN, CREATININE, CA) 2022-06-21 17:27:00 Freddie [facility] POCT GLUCOSE (AUTOMATED) 2022-06-21 17:27:00 Eliseo [facility] MRSA / MSSA SCREEN BY PCRTONI 2022-06-21 17:21:00 [facility] OSMOLALITY, SERUM OR PLASMA 2022-06-21 13:42:00 Freddie [facility] BASIC METABOLIC PANEL (NA, K, CL, CO2, GLUCOSE, BUN, CREATININE, CA) 2022-06-21 13:42:00 Freddie [facility] BETA HYDROXY-BUTYRATE 2022-06-21 11:04:00 Freddie [facility] TROPONIN I 2022-06-21 11:04:00 Finesse [facility] FREE T4 2022-06-21 11:04:00 Finesse [facility] CRITICAL CARE 2022-06-21 09:32:38 Leeann [facility] LACTIC ACID WHOLE BLOOD 2022-06-21 08:09:00 Leeann [facility] URINALYSIS 2022-06-21 06:01:[address] [facility] URINE CULTURE 2022-06-21 06:00:00 Leeann [facility] URINE DRUG (IMMUNOASSAY) - COMPREHENSIVE DRUG SCREEN W/O REFLEX 2022-06-21 05:59:[address] [facility] [address] ABDOMEN PELVIS W CONTRAST 2022-06-21 04:32:[address] [facility] [address] HEAD WO CONTRAST 2022-06-21 04:32:[address] [facility] [place] CT CHEST PULMONARY ANGIOGRAM 2022-06-21 04:30:00 Leeann [facility] PROCALCITONIN 2022-06-21 04:11:00 Leeann [facility] LACTIC ACID WHOLE BLOOD 2022-06-21 04:10:00 Leeann [facility] BLOOD CULTURE SCREEN 2022-06-21 04:09:00 Leeann [facility] LIPASE 2022-06-21 03:05:00 [facility] MAGNESIUM 2022-06-21 03:05:00 [facility] TROPONIN I 2022-06-21 03:05:[address] [facility] THYROID STIMULATING HORMONE 2022-06-21 03:05:00 Leeann [facility] COMP. METABOLIC PANEL (11912) 2022-06-21 03:05:00 Leeann [facility] LIPID PANEL ([id number])(TOTAL CHOLESTEROL, TRIGLYCERIDES, HDL) 2022-06-21 03:05:00 Eliseo [facility] CBC WITH DIFF 2022-06-21 03:05:00 Leeann [facility] GLYCOSYLATED HEMOGLOBIN (A1C) 2022-06-21 03:05:00 Finesse [facility] N-TERMINAL PRO-BNP 2022-06-21 03:05:00 Leeann [facility] COVID-19 (ID NOW RAPID TESTING) 2022-06-21 03:05:00 Leeann [facility] LAB ONLY COVID INTERPRETATION 2022-06-21 03:05:00 Leeann [facility] XR CHEST 1 VW 2022-06-21 02:56:00 Leeann [facility] HOSPITAL ADMISSION 2022-06-20 05:01:00 Doctor Un assigned, Rienzi [facility] Encounters Start Date/Time End Date/Time Encounter Type Admission Type Attending Clinicians Care Facility Care Department Encounter ID Source 2023-10-05 15:17:49 Outpatient RYLAND SPARKS [facility] [id number] [facility] 2023-05-23 06:05:30 Outpatient [facility] [id number] [facility] 2024-02-14 09:10:00 2024-02-17 17:51:00 Inpatient [facility] [id number] [facility] 2024-02-14 09:10:00 2024-02-17 17:51:00 Hospital Encounter Cuba Adams Rachel Mougouris [facility] ([facility]) 1.840.114 350.1.13.10 4.2.7.2.686 [id number] [facility] 2024-02-14 00:00:00 2024-02-14 00:00:00 Transition of Care Bhupinder Gomez 1.2.840.114 350.1.13.10 4.2.7.2.686 [id number] [facility] 2024-02-08 18:21:00 2024-02-13 11:22:00 Inpatient FRANCIE GAYTAN, FRANCIE [facility] [id number] [facility] 2024-02-10 08:07:00 2024-02-10 23:59:00 Hospital Encounter Dung Hall 1.2.840.114 350.1.13.10 4.2.7.2.686 [id number] [facility] 2024-01-03 14:30:00 2024-01-03 15:00:00 Office Visit AntonioHernán [facility] 1.2.840.114 350.1.13.10 4.2.7.2.686 [id number] [facility] 2024-01-03 14:30:00 2024-01-03 14:30:00 Outpatient R HERNÁN ALVAREZ [facility] [id number] [facility] 2023-12-09 00:00:00 2023-12-09 00:00:00 Refill AntonioHernán [facility] 1.2.840.114 350.1.13.10 4.2.7.2.686 [id number] [facility] 2023-11-29 00:00:00 2023-11-29 00:00:00 Letter (Out) [facility] 1.2.840.114 350.1.13.10 4.2.7.2.686 [id number] [facility] 2023-11-28 00:00:00 2023-11-28 00:00:00 Telephone AntonioHernán [facility] 1.2.840.114 350.1.13.10 4.2.7.2.686 [id number] [facility] 2023-11-17 00:00:00 2023-11-17 00:00:00 Patient Secure Msg Doctor Unassigned, Rienzi [facility] 1.2.840.114 350.1.13.10 4.2.7.2.686 [id number] [facility] 2023-10-26 00:00:00 2023-10-26 00:00:00 Letter (Out) [facility] 1.2.840.114 350.1.13.10 4.2.7.2.686 [id number] [facility] 2023-10-17 13:00:00 2023-10-17 13:30:00 Office Visit Hernán Alvarez [facility] [place] 1.2.840.114 350.1.13.10 4.2.7.2.686 [id number] [facility] 2023-10-17 13:00:00 2023-10-17 13:00:00 Outpatient R HERNÁN ALVAREZ [facility] [id number] [facility] 2023-10-11 00:00:00 2023-10-11 00:00:00 Patient Secure Msg Doctor Unassigned, Rienzi [facility] 1.2.840.114 350.1.13.10 4.2.7.2.686 [id number] [facility] 2023-10-10 00:00:00 2023-10-10 00:00:00 Transition of Care Bhupinder Gomez 1.2.840.114 350.1.13.10 4.2.7.2.686 [id number] [facility] 2023-10-10 00:00:00 2023-10-10 00:00:00 Patient Secure Msg Doctor Unassigned, Rienzi [facility] 1.2.840.114 350.1.13.10 4.2.7.2.686 [id number] [facility] 2023-10-04 07:16:00 2023-10-08 14:20:00 Inpatient GIOVANNA MARROQUIN STEVEN [facility] [id number] [facility] 2023-10-04 07:16:00 2023-10-08 14:20:00 Hospital Encounter Edinson Leonard Steven [facility] ([facility]) 1.2.840.114 350.1.13.10 4.2.7.2.686 [id number] [facility] 2023-10-06 00:00:00 2023-10-06 00:00:00 Patient Secure Msg Doctor Unassigned, Rienzi [facility] 1.2.840.114 350.1.13.10 4.2.7.2.686 [id number] [facility] 2023-10-05 00:00:00 2023-10-05 00:00:00 Telephone Lito Branch [facility] 1.2.840.114 350.1.13.10 4.2.7.2.686 [id number] [facility] 2023-09-29 00:00:00 2023-09-29 00:00:[address] [facility] 1.2.840.114 350.1.13.10 4.2.7.2.686 [id number] [facility] 2023-09-23 00:00:00 2023-09-23 00:00:[address] [facility] 1.2.840.114 350.1.13.10 4.2.7.2.686 [id number] [facility] 2023-09-10 00:00:00 2023-09-10 00:00:00 Deion Calderon [facility] 1.2.840.114 350.1.13.10 4.2.7.2.686 [id number] [facility] 2023-09-06 14:30:00 2023-09-06 15:00:00 Office Visit Hernán Alvarez [facility] 1.2.840.114 350.1.13.10 4.2.7.2.686 [id number] [facility] 2023-09-06 14:30:00 2023-09-06 14:30:00 Outpatient R HERNÁN ALVAREZ [facility] [id number] [facility] 2023-09-06 00:00:00 2023-09-06 00:00:00 Telephone Hernán Alvarez [facility] 1.2.840.114 350.1.13.10 4.2.7.2.686 [id number] [facility] 2023-09-06 00:00:00 2023-09-06 00:00:00 Telephone Hernán Alvarez [facility] 1.2.840.114 350.1.13.10 4.2.7.2.686 [id number] [facility] 2023-08-12 00:00:00 2023-08-12 00:00:00 Liana Cortez [facility] 1.2.840.114 350.1.13.10 4.2.7.2.686 [id number] [facility] 2023-07-28 00:00:00 2023-07-28 00:00:00 Patient Secure Msg Doctor Unassigned, Rienzi [facility] 1.2.840.114 350.1.13.10 4.2.7.2.686 [id number] [facility] 2023-07-27 00:00:00 2023-07-27 00:00:00 Telephone Hernán Alvarez [facility] 1.2.840.114 350.1.13.10 4.2.7.2.686 [id number] [facility] 2023-07-22 00:00:00 2023-07-22 00:00:00 Patient Secure Msg Doctor Unassigned, Rienzi [facility] 1.840.114 350.1.13.10 4.2.7.2.686 [id number] [facility] 2023-07-20 13:30:00 2023-07-20 13:45:00 Valve Inserter Visit Lab, [facility] Hernán Alvarez [facility] 1..114 350.1.13.10 4.2.7.2.686 [id number] [facility] 2023-07-20 13:30:00 2023-07-20 13:30:00 Outpatient HERNÁN WRIGHT [facility] [id number] [facility] 2023-07-19 14:00:00 2023-07-19 14:30:00 Office Visit Hernán Alvarez [facility] [place] 1..114 350.1.13.10 4.2.7.2.686 [id number] [facility] 2023-07-19 14:00:00 2023-07-19 14:00:00 Outpatient HERNÁN WRIGHT [facility] [id number] [facility] 2023-07-19 00:00:00 2023-07-19 00:00:00 Patient Secure Msg Doctor Unassigned, Rienzi [facility] [employer] [facility] 1..114 350.1.13.10 4.2.7.2.686 [id number] [facility] 2023-07-14 08:30:00 2023-07-14 09:00:00 Office Visit Deion Cortez Joseph Marc [facility] 1..114 350.1.13.10 4.2.7.2.686 [id number] [facility] 2023-07-14 08:30:00 2023-07-14 08:30:00 Outpatient Rivas WILKINSONJillianLITO [facility] [id number] [facility] 2023-06-29 00:00:00 2023-06-29 00:00:[address] [facility] [place] 1.2.840.114 350.1.13.10 4.2.7.2.686 [id number] [facility] 2023-06-16 00:00:00 2023-06-16 00:00:00 Orders Only Doctor Unassigned, Rienzi [facility] 1.2.840.114 350.1.13.10 4.2.7.2.686 [id number] [facility] 2023-06-13 15:00:00 2023-06-13 15:00:00 Outpatient Rivas AMARILIS ERICIVAN [facility] [id number] [facility] 2023-06-07 10:00:00 2023-06-07 10:30:00 Office Visit Hernán Alvarez [facility] 1.2.840.114 350.1.13.10 4.2.7.2.686 [id number] [facility] 2023-06-07 10:00:00 2023-06-07 10:00:00 Outpatient HERNÁN WRIGHT [facility] [id number] [facility] 2023-05-29 00:00:00 2023-05-29 00:00:00 Parmjitbrian Hernán Alvarez [facility] 1.2.840.114 350.1.13.10 4.2.7.2.686 [id number] [facility] 2023-05-27 14:48:00 2023-05-27 19:42:00 Emergency X [facility]ARO [facility] [place] [id number] [facility] 2023-05-27 14:48:00 2023-05-27 19:42:00 Emergency Karo Reed [facility] ([facility]) 1.2.840.114 350.1.13.10 4.2.7.2.686 [id number] [facility] 2023-05-24 00:00:00 2023-05-24 00:00:00 Refill Hernán Alvarez [facility] [place] 1.2.840.114 350.1.13.10 4.2.7.2.686 [id number] [facility] 2023-05-21 11:00:00 2023-05-21 11:00:00 Outpatient [facility] [id number] [facility] 2023-05-19 00:00:00 2023-05-19 00:00:00 Patient Secure Msg Doctor Unassigned, Rienzi [facility] 1.2.840.114 350.1.13.10 4.2.7.2.686 [id number] [facility] 2023-05-10 13:30:00 2023-05-10 14:00:00 Office Visit AntonioHernán [facility] 1.2.840.114 350.1.13.10 4.2.7.2.686 [id number] [facility] 2023-05-10 13:30:00 2023-05-10 13:30:00 Outpatient R ANTONIOHERNÁN [facility] [id number] [facility] 2023-05-06 00:00:00 2023-05-06 00:00:00 Patient Secure Msg Doctor Unassigned, Rienzi [facility] 1.2.840.114 350.1.13.10 4.2.7.2.686 [id number] [facility] 2023-05-04 15:00:00 2023-05-04 15:15:00 Valve Inserter Visit Lab, [facility] Antonio Hernán [facility] 1.2.840.114 350.1.13.10 4.2.7.2.686 [id number] [facility] 2023-05-04 15:00:00 2023-05-04 15:00:00 Outpatient R HERNÁN ALVAREZ [facility] [id number] [facility] 2023-05-04 00:00:00 2023-05-04 00:00:00 Telephone Hernán Alvarez [facility] SPECIAL[facility] [place] 1.2840.114 350.1.13.10 4.2.7.2.686 [id number] [facility] 2023-05-03 10:15:00 2023-05-03 10:15:00 Outpatient R HERNÁN ALVAREZ [facility] [id number] [facility] 2023-05-02 13:00:00 2023-05-02 13:30:00 Office Visit Hernán Alvarez [facility] [place] 1.2840.114 350.1.13.10 4.2.7.2.686 [id number] [facility] 2023-05-02 13:00:00 2023-05-02 13:00:00 Outpatient R HERNÁN ALVAREZ [facility] [id number] [facility] 2023-05-02 00:00:00 2023-05-02 00:00:00 Orders Only Doctor Unassigned, Rienzi [facility] 1.2840.114 350.1.13.10 4.2.7.2.686 [id number] [facility] 2022-12-22 00:00:00 2022-12-22 00:00:00 Orders Only Doctor Unassigned, Rienzi [facility] 1.2840.114 350.1.13.10 4.2.7.2.686 [id number] [facility] 2022-07-08 20:00:00 2022-07-08 22:30:00 Valve Inserter Visit Lab, Web Sleep Kashif Hampton [facility] 1.2.840.114 350.1.13.10 4.2.7.2.686 [id number] [facility] 2022-07-08 20:00:00 2022-07-08 20:00:00 [facility]patient [facility] [id number] [facility] 2022-07-08 20:00:00 2022-07-08 20:00:00 [facility] [id number] [facility] 2022-07-06 15:00:00 2022-07-06 15:15:00 Laboratory Only Only, Lcc Test Amira Felix [facility] 1..114 350.1.13.10 4.2.7.2.686 [id number] [facility] 2022-07-06 15:00:00 2022-07-06 15:00:00 Outpatient Rivas FELIX [facility] [id number] [facility] 2022-07-06 15:00:00 2022-07-06 15:00:00 Outpatient Rivas FELIX [facility] [id number] [facility] 2022-06-30 00:00:00 2022-06-30 00:00:00 Orders Only Doctor Unassigned, Rienzi [facility] ..114 350.1.13.10 4.2.7.2.686 [id number] [facility] 2022-06-25 00:00:00 2022-06-25 00:00:00 Transition of Care Aliyah Crawford 1..114 350.1.13.10 4.2.7.2.686 [id number] [facility] 2022-06-20 21:07:00 2022-06-24 14:16:00 Inpatient X GONZALO VAZQUEZ [facility] [id number] [facility] 2022-06-20 21:07:00 2022-06-24 14:16:00 Hospital Encounter Juan Bradshaw, Finesse Mckenzie, Gonzalo Dominguez [facility] ([facility]) 1.2.840.114 350.1.13.10 4.2.7.2.686 [id number] [facility] 2022-04-14 13:00:00 2022-04-14 13:30:00 Office Visit Kashif Hampton [facility] 1.0.114 350.1.13.10 4.2.7.2.686 [id number] [facility] 2022-04-14 13:00:00 2022-04-14 13:00:00 Outpatient R KASHIF HAMPTON [facility] [id number] [facility] 2022-04-12 00:00:00 2022-04-12 00:00:00 Refill Amira [facility] 1.840.114 350.1.13.10 4.2.7.2.686 [id number] [facility] 2022-04-05 00:00:00 2022-04-05 00:00:00 Patient Secure Msg Doctor Unassigned, Rienzi [facility] 1.2.840.114 350.1.13.10 4.2.7.2.686 [id number] [facility] 2022-03-29 14:59:30 2022-03-29 23:59:00 Outpatient R AMIRA FELIX [facility] [id number] [facility] 2022-03-29 14:59:30 2022-03-29 23:59:00 Hospital Encounter Amira Felix [facility] 1.2.840.114 350.1.13.10 4.2.7.2.686 [id number] [facility] 2022-03-24 16:30:00 2022-03-24 16:45:00 Valve Inserter Visit [facility] 1.2.840.114 350.1.13.10 4.2.7.2.686 [id number] [facility] 2022-03-24 16:30:00 2022-03-24 16:30:00 Outpatient R ELVIRA [facility] [id number] [facility] 2022-03-24 14:15:00 2022-03-24 14:30:00 Office Visit Elvira [facility] 1.2.840.114 350.1.13.10 4.2.7.2.686 [id number] [facility] 2022-03-24 14:15:00 2022-03-24 14:15:00 Outpatient R ELVIRA [facility] [id number] [facility] 2022-03-24 00:00:00 2022-03-24 00:00:00 Orders Only Doctor Unassigned, Rienzi [facility] 1.2.840.114 350.1.13.10 4.2.7.2.686 [id number] [facility] Results Test Description Test Time Test Comments Results Resul t Comments Source Ethanol 2024-01-21 7 00:32:29 ALCOHOL<10mg/dL 7:32 PM [facility]oxic Greater than or equal to 80 mg/dL. NOTE: Whole blood values are approximately 10% to 15% lower than serum and plasma. [facility] CenterReticulocytes Cgfdbyuxk3109-08-48 21:49:29* Test Item Value Reference Range Interpretation Comme nts RETIC Count Automated (test code = 8036971593) 3.62 % 0.51-1.90 H RETIC Absolute Count (test c ode = 4465780929) 0.1687 0.0230-0.0950 H IRF % (test code = 6329312958) 30.00 % 2.10-12.60 H RETIC-HE (test code = 9759673549) 27.7 pg 28.1-35.8 L Lab Interpretation (test cod e = 76881-6) Abnormal [facility] HospitalThyroid Stimulating Fcpcffr7682-58-34 21:46:28 * Test Item Value Reference Range Interpretation Comme nts TSH (test code = 6374239931) 0.82 0.45-4.70 Lab Interpretation (test cod e = 24585-3) Normal [facility] HospitalFolate2024-03-26 21:30:42* Test Item Value Reference Range Interpretation Comme nts FOLATE SER (test code = 5845910776) 3.5 ng/mL 3.0-20.0 Biotin has been reported to cause a positive bias, interpret results relative to patient's use of biotin. Lab Interpretation (test code = 93237-6) Normal [facility] HospitalIron Xyzls6120-57-89 21:22:43* Test Item Value Reference Range Interpretation Comme nts IRON (test code = 4300320690) 31 ug/dL 50-160 L TIBC (test code = 1897234212) 492 ug/dL 250-410 H % FE SAT (test code = 8571039723) 6 % 20-50 L Lab Interpretation (test cod e = 75005-2) Abnormal [facility] HospitalLactic Acid Whole Plkqf0192-78-98 18:53:31* Test Item Value Reference Range Interpretation Comme nts LACTIC ACID (test code = 2169366377) 1.21 mmol/L 0.50-2.20 Lab Interpretation (test cod e = 70442-3) Normal [facility] HospitalCT ABDOMEN PELVIS W [id number] 17:54:36EXAM: CT ABDOMEN PELVIS W CONTRAST HISTORY: [...] sclerotic bony lesions. Lateral breast implants are notedGonzales Memorial HospitalTROPONIN I 2024-02-14 17:53:42* Test Item Value Reference Range Interpretation Comme nts TROPONIN I (test code = 2552996746) 0.011 ng/mL <=0.034 RENEE (test code = [...] of biotin. Lab Interpretation (test code = 36819-7) Normal [facility] HospitalLIPASE2024-03-26 15:08:44* Test Item Value Reference Range Interpretation Comme nts LIPASE (test code = 5210822541) 70 U/L 0-220 Lab Interpretation (test cod e = 41922-9) Normal [facility] HospitalCOMP. METABOLIC PANEL (53874)2024-02-14 15:08:43* Test Item Value Reference Range Interpretation Comme nts NA (test code = 5455354769) 138 mmol/L 135-145 K (test code = 7887580773) 3.8 mmol/L 3.5-5.0 CL (test code = 6686036698) 101 mmol/L 98-108 CO2 TOTAL (test code = 7124302641) 23 mmol/L 23-31 AGAP (test code = 8313366669) 14 2-16 BUN (test code = 6018365594) 13 mg/dL 7-23 GLUCOSE (test code = 6317709992) 120 mg/dL 70-110 H CREATININE (test code = 2160-0) 0.65 mg/dL 0.50-1.04 TOTAL BILI (test code = 1709249542) 0.7 mg/dL 0.1-1.1 CALCIUM (test code = 6626694335) 9.6 mg/dL 8.6-10.6 T PROTEIN (test code = 2000070101) 7.5 g/dL 6.3-8.2 ALBUMIN (test code = 3925487115) 4.7 g/dL 3.5-5.0 ALK PHOS (test code = 3216830576) 93 U/L 34-122 ALTv (test code = 1742-6) 49 U/L 5-35 H AST(SGOT) (test code = 4164947112) 44 U/L 13-40 H eGFR (test code = 77968-2) 110.8 mL/min/1.73m2 CKD-EPI eGFR (2020). Assuming creatinine has been stable day-to-day for at least three months, the eGFR indicates Category G1 (>= 90 mL/min/1.73 m2) Lab Interpretation (test code = 89176-5) Abnormal [facility] HospitalPREGNANCY TEST, [id number] 15:05:20* Test Item Value Reference Range Interpretation Comme nts PREG SERUM (test code = 6239727331) Negative RENEE (test code = RENEE) Less than 10 IU/L. ?If low titer or ectopic is suspected, resubmit specimen in 48-72 hours. [facility] WITH FDRX1990-09-76 14:51:38* Test Item Value Reference Range Interpretation [...] g/dL 31.6-35.1 L RDW-SD (test code = 37249-6) 48.5 fL 39.0-49.9 RDW-CV (test code = 788-0) 20.1 % 12.0-15.5 H PLT (test code = 777-3) 547 166-358 H MPV (test code = 61691-8) 8.9 fL 9.5-12.9 L NRBC/100 WBC (test code = 5506905448) 0.0 0.0-10.0 NRBC x10^3 (test code = 3525727235) See_Comment [Automated messa ge] The system which generated this result transmitted reference range: 10*3/?L. The reference range was not used to interpret this result as normal/abnormal. GRAN MAT (NEUT) % (test code = 770-8) 77.8 % IMM GRAN % (test code = 6632998784) 0.90 % LYMPH % (test code = 736-9) 13.3 % MONO % (test code = 5905-5) 7.5 % EOS % (test code = 713-8) 0.2 % BASO % (test code = 706-2) 0.3 % GRAN MAT x10^3(ANC) (test code = 6589263773) 9.99 10*3/uL 1.88-7.09 H IMM GRAN x10^3 (test code = 6705529571) 0.11 10*3/uL 0.00-0.06 H LYMPH x10^3 (test code = 731-0) 1.71 10*3/uL 1.32-3.29 MONO x10^3 (test code = 742-7) 0.96 10*3/uL 0.33-0.92 H EOS x10^3 (test code = 711-2) 0.03-0.39 L BASO x10^3 (test code = 704-7) 0.04 10*3/uL 0.01-0.07 Lab Interpretation (test code = 54838-2) Abnormal [facility] Molecular Iyo0556-97-71 21:10:55* Test Item Value Reference Range Interpretation Comme nts POCT Molecular FluA (test co de = 55222-7) Negative Negative POCT Molecular FluB (test co de = 48663-8) Negative Negative Lab Interpretation (test cod e = 28150-6) Normal [facility] Molecular Ozm1842-35-73 21:10:55* Test Item Value Reference Range Interpretation Comme nts POCT Molecular FluA (test co de = 57562-5) Negative Negative POCT Molecular FluB (test co de = 07055-9) Negative Negative Lab Interpretation (test cod e = 10987-8) Normal [facility] SARS-COV-2 ANTIGEN (BINAX NOW)2024-01-03 21:10:00* Test Item Value Reference Range Interpretation Comme [facility] POCT SARS-COV-2 ANTIGEN (moraima t code = 37233-4) Not Detected Not Detected On board controls acceptable with C Line (test code = 3574) Yes [facility] SARS-COV-2 ANTIGEN (BINAX NOW)2024-01-03 21:10:00* Test Item Value Reference Range Interpretation Comme [facility] POCT SARS-COV-2 ANTIGEN (moraima t code = 23856-2) Not Detected Not Detected On board controls acceptable with C Line (test code = 3574) Yes [facility] 15:48:54* Test Item Value Reference Range Interpretation Comme nts MAGNESIUM (test code = 2653688737) 2.0 mg/dL 1.7-2.4 Lab Interpretation (test cod e = 96570-6) Normal [facility] METABOLIC PANEL (NA, K, CL, CO2, GLUCOSE, BUN, CREATININE, CA)2023-10-08 10:44:09* Test Item Value Reference Range Interpretation Comme nts NA (test code = 9233414266) 141 mmol/L 135-145 K (test code = 9046169924) 3.0 mmol/L 3.5-5.0 L CL (test code = 2892101527) 105 mmol/L 98-108 CO2 TOTAL (test code = 3042058926) 22 mmol/L 23-31 L AGAP (test code = 1183161699) 14 2-16 BUN (test code = 0401278548) 4 mg/dL 7-23 L GLUCOSE (test code = 9542069682) 88 mg/dL 70-110 CREATININE (test code = 9709874535) 0.67 mg/dL 0.50-1.04 CALCIUM (test code = 9327542804) 8.9 mg/dL 8.6-10.6 eGFR (test code = 56264-7) 110.7 mL/min/1.73m2 CKD-EPI eGFR (2020). Assuming creatinine has been stable day-to-day for at least three months, the eGFR indicates Category G1 (>= 90 mL/min/1.73 m2) Lab Interpretation (test code = 74907-0) Abnormal [facility] METABOLIC PANEL (NA, K, CL, CO2, GLUCOSE, BUN, CREATININE, CA)2023-10-06 12:12:41* Test Item Value Reference Range Interpretation Comme nts NA (test code = 7739468144) 137 mmol/L 135-145 K (test code = 9296585861) 3.3 mmol/L 3.5-5.0 L Slight hemolysis CL (test code = 6299691107) 112 mmol/L 98-108 H CO2 TOTAL (test code = 7536404151) 21 mmol/L 23-31 L AGAP (test code = 3679823035) 4 2-16 BUN (test code = 3471082551) 10 mg/dL 7-23 Slight hemolysis GLUCOSE (test code = 1954935142) 100 mg/dL 70-110 CREATININE (test code = 1278100181) 0.68 mg/dL 0.50-1.04 CALCIUM (test code = 8405987248) 7.6 mg/dL 8.6-10.6 L eGFR (test code = 49039-2) 110.3 mL/min/1.73m2 CKD-EPI eGFR (2020). Assuming creatinine has been stable day-to-day for at least three months, the eGFR indicates Category G1 (>= 90 mL/min/1.73 m2) Lab Interpretation (test code = 61282-0) Abnormal [facility] Without DEIO8202-17-41 11:54:39* Test Item Value Reference Range Interpretation [...] result as normal/abnormal. MPV (test code = 30571-8) 10.3 fL 9.5-12.9 RDW-CV (test code = 788-0) 18.1 % 12.0-15.5 H RDW-SD (test code = 08809-5) 50.8 fL 39.0-49.9 H NRBC x10^3 (test code = 7051194183) See_Comment [Automated [employer]] The system which generated this result transmitted reference range: 10*3/?L. The reference range was not used to interpret this result as normal/abnormal. NRBC/100 WBC (test code = 1746034630) 0.0 See_Comment [Automated [employer]] The system which generated this result transmitted reference range: 0.0 - 10.0 /100 WBCs. The reference range was not used to interpret this result as normal/abnormal. IPF % (test code = 2536151274) Lab Interpretation (test code = 50000-4) Abnormal [facility] HospitalaPTT2023-11-15 13:20:10* Test Item Value Reference Range Interpretation Comme nts APTT Patient (test code = 3173-2) See_Comment HH [Automated [employer]] The system which generated this result transmitted reference range: 26 - 36 Seconds. The reference range was not used to interpret this result as normal/abnormal. Lab Interpretation (test code = 78494-9) Abnormal [facility] [id number] 13:12:33* Test Item Value Reference Range Interpretation Comme nts TROPONIN I (test code = 5216367222) 0.073 ng/mL <=0.034 H RENEE (test code [...] of biotin. Lab Interpretation (test code = 30503-4) Abnormal [facility] [id number] 11:35:05* Test Item Value Reference Range Interpretation Comme nts TROPONIN I (test code = 9956818559) 0.110 ng/mL <=0.034 H RENEE (test code [...] of biotin. Lab Interpretation (test code = 94711-9) Abnormal [facility] with Dgxahkggungh8934-38-00 08:02:44* Test Item Value Reference Range Interpretation [...] 32.1 g/dL 31.6-35.1 RDW-SD (test code = 41716-2) 47.3 fL 39.0-49.9 RDW-CV (test code = 788-0) 17.4 % 12.0-15.5 H PLT (test code = 777-3) 463 See_Comment H [Automated message] The system which generated this result transmitted reference range: 166 - 358 10*3/?L. The reference range was not used to interpret this result as normal/abnormal. MPV (test code = 75080-8) 9.8 fL 9.5-12.9 NRBC/100 WBC (test code = 0378301841) 0.0 See_Comment [Automated message] The system which generated this result transmitted reference range: 0.0 - 10.0 /100 WBCs. The reference range was not used to interpret this result as normal/abnormal. NRBC x10^3 (test code = 7022619621) See_Comment [Automated message] The system which generated this result transmitted reference range: 10*3/?L. The reference range was not used to interpret this result as normal/abnormal. GRAN MAT (NEUT) % (test code = 770-8) 76.6 % IMM GRAN % (test code = 8915055885) 0.80 % LYMPH % (test code = 736-9) 10.8 % MONO % (test code = 5905-5) 11.7 % EOS % (test code = 713-8) 0.0 % BASO % (test code = 706-2) 0.1 % GRAN MAT x10^3(ANC) (test code = 5113831708) 15.62 10*3/uL 1.88-7.09 H IMM GRAN x10^3 (test code = 8745791877) 0.16 10*3/uL 0.00-0.06 H LYMPH x10^3 (test code = 731-0) 2.21 10*3/uL 1.32-3.29 MONO x10^3 (test code = 742-7) 2.39 10*3/uL 0.33-0.92 H EOS x10^3 (test code = 711-2) 0.03-0.39 L BASO x10^3 (test code = 704-7) 0.03 10*3/uL 0.01-0.07 Lab Interpretation (test code = 42182-1) Abnormal [facility] HospitalMagnesium Wkrqu8374-84-11 07:16:35* Test Item Value Reference Range Interpretation Comme nts MAGNESIUM (test code = 1720797550) 2.0 mg/dL 1.7-2.4 Lab Interpretation (test cod e = 97225-6) Normal [facility] HospitalBaj[facility] Metabolic Panel (NA, K, CL, CO2, GLUCOSE, BUN, CREATININE, CA)2023-10-05 07:16:35* Test Item Value Reference Range Interpretation Comme [facility] NA (test code = 1571330504) 144 mmol/L 135-145 K (test code = 0636592723) 3.2 mmol/L 3.5-5.0 L CL (test code = 1722310873) 112 mmol/L 98-108 H CO2 TOTAL (test code = 8007380126) 19 mmol/L 23-31 L AGAP (test code = 3162445805) 13 2-16 BUN (test code = 6591942015) 9 mg/dL 7-23 GLUCOSE (test code = 8388204131) 110 mg/dL 70-110 CREATININE (test code = 6299703708) 0.64 mg/dL 0.50-1.04 CALCIUM (test code = 6431082963) 9.0 mg/dL 8.6-10.6 eGFR (test code = 84182-9) 111.9 mL/min/1.73m2 CKD-EPI eGFR (2020). Assuming creatinine has been stable day-to-day for at least three months, the eGFR indicates Category G1 (>= 90 mL/min/1.73 m2) Lab Interpretation (test code = 57057-9) Abnormal [facility] HospitalaPTT2023-11-15 06:58:12* Test Item Value Reference Range Interpretation Comme [facility] APTT Patient (test code = 3173-2) 95 See_Comment H [Automated [employer]] The system which generated this result transmitted reference range: 26 - 36 Seconds. The reference range was not used to interpret this result as normal/abnormal. Lab Interpretation (test code = 22384-5) Abnormal [facility] HospitalProthrombin Time (PT) / [id number] 06:58:12 * Test Item Value Reference Range Interpretation Comme [facility] PROTIME PATIENT (test code = 5964-2) 13.5 See_Comment H [Automated messa ge] The system which generated this result transmitted reference range: 10.1 - 12.6 Seconds. The reference range was not used to interpret this result as normal/abnormal. INR (test code = 6301-6) 1.2 Normal INR <1.1; Warfarin Therapeutic range 2.0 to 3.0 or 2.5 to 3.5, depending upon the indications. Lab Interpretation (test code = 96112-7) Abnormal [facility] HospitalPOCT PANN0460-36-17 18:08:00* Test Item Value Reference Range Interpretation Comme nts POCT PREG (test code = 1605) Negative On board controls acceptable with C Line (test code = 3574) Yes POCT PREG LOT # (test code = 3575) 114840 POCT PREG TEST DATE ( test code = 3576) 11/23/2024 Lab Interpretation (test cod e = 91858-6) Normal [facility]. METABOLIC PANEL (71923)2023-10-04 16:46:54* Test Item Value Reference Range Interpretation Comme nts NA (test code = 0314829142) 144 mmol/L 135-145 K (test code = 6087575963) 4.8 mmol/L 3.5-5.0 Slight hemolysis CL (test code = 9866103278) 120 mmol/L 98-108 H CO2 TOTAL (test code = 4494485469) 6 mmol/L 23-31 L AGAP (test code = 9700042913) 18 2-16 H BUN (test code = 0719793886) 6 mg/dL 7-23 L Slight hemolysis GLUCOSE (test code = 4761767367) 135 mg/dL 70-110 H CREATININE (test code = 4943265940) 0.56 mg/dL 0.50-1.04 TOTAL BILI (test code = 9385173514) 1.0 mg/dL 0.1-1.1 CALCIUM (test code = 4849401926) 8.3 mg/dL 8.6-10.6 L T PROTEIN (test code = 6738284691) 8.7 g/dL 6.3-8.2 H ALBUMIN (test code = 7104522376) 4.8 g/dL 3.5-5.0 ALK PHOS (test code = 2396687858) 98 U/L 34-122 Slight hemolysis ALTv (test code = 1742-6) 45 U/L 5-35 H AST(SGOT) (test code = 3909071953) 44 U/L 13-40 H Slight hemolysis eGFR (test code = 75874-5) 115.6 mL/min/1.73m2 CKD-EPI eGFR (2020). Assuming creatinine has been stable day-to-day for at least three months, the eGFR indicates Category G1 (>= 90 mL/min/1.73 m2) Lab Interpretation (test code = 01959-3) Abnormal [facility] HospitalLIPASE2023-11-14 16:40:13* Test Item Value Reference Range Interpretation Comme nts LIPASE (test code = 9159830915) 25 U/L 0-220 Lab Interpretation (test cod e = 94658-4) Normal [facility] HospitalPOCA URINALYSIS W SPECIFIC BJQGNAG5956-18-05 19:40:00* Test Item Value Reference Range Interpretation [...] U APPEAR (test code = 3267) cloudy [facility] URINALYSIS W SPECIFIC [id number] 19:40:00* Test Item Value Reference Range Interpretation [...] U APPEAR (test code = 3267) cloudy [facility]CIFIC [id number] 19:40:00* Test Item Value Reference Range Interpretation [...] U APPEAR (test code = 3267) cloudy [facility]Law[facility] Whole [id number] 00:37:10* Test Item Value Reference Range Interpretation Comme nts LACTIC ACID (test code = 0548765647) 1.34 mmol/L 0.50-2.20 Lab Interpretation (test cod e = 25326-4) [facility], [id number] 22:43:49* Test Item Value Reference Range Interpretation Comme nts PREG SERUM (test code = 4072588939) Negative RENEE (test code = RENEE) Less than 10 IU/L. ?If low titer or ectopic is suspected, resubmit specimen in 48-72 hours. [facility] WITH [id number] 21:16:16* Test Item Value Reference Range Interpretation [...] 33.0 g/dL 31.6-35.1 RDW-SD (test code = 42806-0) 45.9 fL 39.0-49.9 RDW-CV (test code = 788-0) 15.4 % 12.0-15.5 PLT (test code = 777-3) 468 See_Comment H [Automated message] The system which generated this result transmitted reference range: 166 - 358 10*3/?L. The reference range was not used to interpret this result as normal/abnormal. MPV (test code = 51454-9) 9.5 fL 9.5-12.9 NRBC/100 WBC (test code = 7142431892) 0.0 See_Comment [Automated message] The system which generated this result transmitted reference range: 0.0 - 10.0 /100 WBCs. The reference range was not used to interpret this result as normal/abnormal. NRBC x10^3 (test code = 2938010771) See_Comment [Automated message] The system which generated this result transmitted reference range: 10*3/?L. The reference range was not used to interpret this result as normal/abnormal. GRAN MAT (NEUT) % (test code = 770-8) 79.3 % IMM GRAN % (test code = 5628858435) 0.70 % LYMPH % (test code = 736-9) 12.5 % MONO % (test code = 5905-5) 7.1 % EOS % (test code = 713-8) 0.1 % BASO % (test code = 706-2) 0.3 % GRAN MAT x10^3(ANC) (test code = 2270894191) 12.11 10*3/uL 1.88-7.09 H IMM GRAN x10^3 (test code = 3380266817) 0.10 10*3/uL 0.00-0.06 H LYMPH x10^3 (test code = 731-0) 1.91 10*3/uL 1.32-3.29 MONO x10^3 (test code = 742-7) 1.08 10*3/uL 0.33-0.92 H EOS x10^3 (test code = 711-2) 0.03-0.39 L BASO x10^3 (test code = 704-7) 0.05 10*3/uL 0.01-0.07 Lab Interpretation (test code = 52067-9) [facility][id number][facility]-27 21:00:52* Test Item Value Reference Range Interpretation Comme nts NA (test code = 5942112306) 137 mmol/L 135-145 K (test code = 1855221011) 3.7 mmol/L 3.5-5.0 CL (test code = 7645130808) 96 mmol/L 98-108 L CO2 TOTAL (test code = 5717715453) 26 mmol/L 23-31 AGAP (test code = 9150947547) 15 2-16 BUN (test code = 8070782735) 13 mg/dL 7-23 GLUCOSE (test code = 3490674701) 101 mg/dL 70-110 CREATININE (test code = 3467442792) 0.70 mg/dL 0.50-1.04 TOTAL BILI (test code = 4494572202) 0.9 mg/dL 0.1-1.1 CALCIUM (test code = 4863263997) 10.0 mg/dL 8.6-10.6 T PROTEIN (test code = 7997509569) 8.9 g/dL 6.3-8.2 H ALBUMIN (test code = 4820100870) 4.9 g/dL 3.5-5.0 ALK PHOS (test code = 4384834896) 85 U/L 34-122 ALTv (test code = 1742-6) 37 U/L 5-35 H AST(SGOT) (test code = 8022063815) 46 U/L 13-40 H eGFR (test code = 2515325478) 90.9 mL/min/1.73m2 RENEE (test code = RENEE) [...] imaging tests). Lab Interpretation (test code = 23373-6) [facility]:52* Test Item Value Reference Range Interpretation Comme nts LIPASE (test code = 9131305854) 124 U/L 0-220 Lab Interpretation (test cod e = 93835-8) Normal [facility] HospitalL[facility] Acid Whole [id number] 20:39:10* Test Item Value Reference Range Interpretation Comme nts LACTIC ACID (test code = 5192174887) 2.91 mmol/L 0.50-2.20 H Lab Interpretation (test cod e = 02141-8) Abnormal [facility] GLUCOSE (AUTOMATED)2022-06-24 16:49:01* Test Item Value Reference Range Interpretation Comme nts POCT GLU (test code = 6649536693) 115 mg/dL 70-110 H Notified Provide r Lab Interpretation (test code = 65354-4) Abnormal [facility] GLUCOSE (AUTOMATED)2022-06-24 13:14:04* Test Item Value Reference Range Interpretation Comme nts POCT GLU (test code = 7144088523) 89 mg/dL 70-110 Notified Provide r Lab Interpretation (test code = 46252-4) Normal [facility] METABOLIC PANEL (NA, K, CL, CO2, GLUCOSE, BUN, CREATININE, CA)2022-06-24 10:13:52* Test Item Value Reference Range Interpretation Comme nts NA (test code = 7371686765) 135 mmol/L 135-145 K (test code = 6726194081) 4.0 mmol/L 3.5-5 Slight hemolysis CL (test code = 4604152671) 105 mmol/L 98-108 CO2 TOTAL (test code = 2829944044) 23 mmol/L 23-31 AGAP (test code = 1382866824) 2-16 BUN (test code = 2446546189) 19 mg/dL 7-23 Slight hemolysis GLUCOSE (test code = 9046443818) 93 mg/dL 70-110 CREATININE (test code = 1046932182) 0.94 mg/dL 0.5-1.04 CALCIUM (test code = 1843354064) 8.6 mg/dL 8.6-10.6 eGFR (test code = 3078635428) mL/min/1.73m2 RENEE (test code = RENEE) Association [...] or urine or abnormalities in imaging tests). [facility] 10:13:52* Test Item Value Reference Range Interpretation Comme nts MAGNESIUM (test code = 7159914083) 2.3 mg/dL 1.7-2.4 Lab Interpretation (test cod e = 99965-8) Normal [facility] WITH [id number] 09:20:23* Test Item Value Reference Range Interpretation Comme nts WBC (test code = 6690-2) See_Comment [Automated [facility] [employer]] The system which generated this result transmitted reference range: 4.30 - 11.10 10*3/?L. The reference range was not used to interpret this result as normal/abnormal. RBC (test code = 789-8) See_Comment L [Automated [facility] [employer]] The system which generated this result transmitted [...] 33.5 g/dL 31.6-35.1 RDW-SD (test code = 49049-2) 47.5 fL 39-49.9 RDW-CV (test code = 788-0) 15.9 % 12-15.5 H PLT (test code = 777-3) See_Comment [Automated messa ge] The system which generated this result transmitted reference range: 166 - 358 10*3/?L. The reference range was not used to interpret this result as normal/abnormal. MPV (test code = 45244-6) 9.8 fL 9.5-12.9 NRBC/100 WBC (test code = 6174239693) See_Comment [Automated [employer]] The system which generated this result transmitted reference range: 0.0 - 10.0 /100 WBCs. The reference range was not used to interpret this result as normal/abnormal. NRBC x10^3 (test code = 9774963612) See_Comment [Automated messa ge] The system which generated this result transmitted reference range: 10*3/?L. The reference range was not used to interpret this result as normal/abnormal. GRAN MAT (NEUT) % (test code = 770-8) 55.2 % IMM GRAN % (test code = 5049723209) 0.40 % LYMPH % (test code = 736-9) 34.0 % MONO % (test code = 5905-5) 8.2 % EOS % (test code = 713-8) 1.9 % BASO % (test code = 706-2) 0.3 % GRAN MAT x10^3(ANC) (test code = 8601366947) 3.98 10*3/uL 1.88-7.09 IMM GRAN x10^3 (test code = 9981197582) 0.03 10*3/uL 0-0.06 LYMPH x10^3 (test code = 731-0) 2.45 10*3/uL 1.32-3.29 MONO x10^3 (test code = 742-7) 0.59 10*3/uL 0.33-0.92 EOS x10^3 (test code = 711-2) 0.14 10*3/uL 0.03-0.39 BASO x10^3 (test code = 704-7) 0.01-0.07 Lab Interpretation (test code = 61218-2) Abnormal [facility] GLUCOSE (AUTOMATED)2022-06-24 09:02:53* Test Item Value Reference Range Interpretation Comme nts POCT GLU (test code = 6544866624) 90 mg/dL 70-110 Lab Interpretation (test cod e = 78205-7) Normal [facility] GLUCOSE (AUTOMATED)2022-06-24 04:56:48* Test Item Value Reference Range Interpretation Comme nts POCT GLU (test code = 9721787357) 85 mg/dL 70-110 Lab Interpretation (test cod e = 22812-3) Normal [facility] GLUCOSE (AUTOMATED)2022-06-24 02:05:56* Test Item Value Reference Range Interpretation Comme nts POCT GLU (test code = 1021850313) 100 mg/dL 70-110 Lab Interpretation (test cod e = 59368-4) Normal [facility] GLUCOSE (AUTOMATED)2022-06-23 23:12:36* Test Item Value Reference Range Interpretation Comme nts POCT GLU (test code = 8057532156) 99 mg/dL 70-110 Notified Provide r Lab Interpretation (test code = 94992-5) Normal [facility] GLUCOSE (AUTOMATED)2022-06-23 17:31:06* Test Item Value Reference Range Interpretation Comme nts POCT GLU (test code = 0213379968) 86 mg/dL 70-110 Notified Provide r Lab Interpretation (test code = 35170-0) Normal [facility] GLUCOSE (AUTOMATED)2022-06-23 12:57:16* Test Item Value Reference Range Interpretation Comme nts POCT GLU (test code = 5907878883) 90 mg/dL 70-110 Lab Interpretation (test cod e = 11849-5) Normal [facility] METABOLIC PANEL (NA, K, CL, CO2, GLUCOSE, BUN, CREATININE, CA)2022-06-23 09:54:05* Test Item Value Reference Range Interpretation Comme nts NA (test code = 9848882063) 138 mmol/L 135-145 K (test code = 5402730555) 3.9 mmol/L 3.5-5 CL (test code = 3771622368) 105 mmol/L 98-108 CO2 TOTAL (test code = 2035863755) 22 mmol/L 23-31 L AGAP (test code = 9536113177) 2-16 BUN (test code = 5750266617) 11 mg/dL 7-23 GLUCOSE (test code = 4323634610) 97 mg/dL 70-110 CREATININE (test code = 3788476762) 0.77 mg/dL 0.5-1.04 CALCIUM (test code = 2744808219) 8.8 mg/dL 8.6-10.6 eGFR (test code = 1003906064) mL/min/1.73m2 RENEE (test code = RENEE) Association [...] imaging tests). Lab Interpretation (test code = 78952-7) [facility]normal [facility] 09:54:05* Test Item Value Reference Range Interpretation Comme nts MAGNESIUM (test code = 3199465748) 2.2 mg/dL 1.7-2.4 Lab Interpretation (test cod e = 85973-4) Normal [facility] WITH [id number] 09:25:45* Test Item Value Reference Range Interpretation Comme nts WBC (test code = 6690-2) See_Comment [Automated messa ge] The system which generated this result transmitted reference range: 4.30 - 11.10 10*3/?L. The reference range was not used to interpret this result as normal/abnormal. RBC (test code = 789-8) See_Comment [Automated messa ge] The system which [...] 33.6 g/dL 31.6-35.1 RDW-SD (test code = 95554-2) 49.5 fL 39-49.9 RDW-CV (test code = 788-0) 16.4 % 12-15.5 H PLT (test code = 777-3) See_Comment [Automated messa ge] The system which generated this result transmitted reference range: 166 - 358 10*3/?L. The reference range was not used to interpret this result as normal/abnormal. MPV (test code = 97977-1) 9.7 fL 9.5-12.9 NRBC/100 WBC (test code = 8994519264) See_Comment [Automated [employer]] The system which generated this result transmitted reference range: 0.0 - 10.0 /100 WBCs. The reference range was not used to interpret this result as normal/abnormal. NRBC x10^3 (test code = 9133693894) See_Comment [Automated messa ge] The system which generated this result transmitted reference range: 10*3/?L. The reference range was not used to interpret this result as normal/abnormal. GRAN MAT (NEUT) % (test code = 770-8) 67.4 % IMM GRAN % (test code = 4191043810) 0.30 % LYMPH % (test code = 736-9) 23.0 % MONO % (test code = 5905-5) 8.5 % EOS % (test code = 713-8) 0.4 % BASO % (test code = 706-2) 0.4 % GRAN MAT x10^3(ANC) (test code = 6622998514) 6.66 10*3/uL 1.88-7.09 IMM GRAN x10^3 (test code = 4129194230) 0.03 10*3/uL 0-0.06 LYMPH x10^3 (test code = 731-0) 2.27 10*3/uL 1.32-3.29 MONO x10^3 (test code = 742-7) 0.84 10*3/uL 0.33-0.92 EOS x10^3 (test code = 711-2) 0.04 10*3/uL 0.03-0.39 BASO x10^3 (test code = 704-7) 0.04 10*3/uL 0.01-0.07 Lab Interpretation (test code = 07207-5) Abnormal [facility] GLUCOSE (AUTOMATED)2022-06-23 09:14:23* Test Item Value Reference Range Interpretation Comme nts POCT GLU (test code = 8857558396) 88 mg/dL 70-110 Lab Interpretation (test cod e = 42806-7) Normal [facility] GLUCOSE (AUTOMATED)2022-06-23 04:58:21* Test Item Value Reference Range Interpretation Comme nts POCT GLU (test code = 9316420157) 91 mg/dL 70-110 Lab Interpretation (test cod e = 07722-1) Normal [facility] GLUCOSE (AUTOMATED)2022-06-23 01:22:12* Test Item Value Reference Range Interpretation Comme nts POCT GLU (test code = 9437311995) 82 mg/dL 70-110 Lab Interpretation (test cod e = 72600-6) Normal [facility] GLUCOSE (AUTOMATED)2022-06-22 23:36:56* Test Item Value Reference Range Interpretation Comme nts POCT GLU (test code = 3124348631) 93 mg/dL 70-110 Lab Interpretation (test cod e = 43477-9) Normal [facility] GLUCOSE (AUTOMATED)2022-06-22 22:33:50* Test Item Value Reference Range Interpretation Comme nts POCT GLU (test code = 2710462127) 106 mg/dL 70-110 Lab Interpretation (test cod e = 00010-4) Normal [facility] GLUCOSE (AUTOMATED)2022-06-22 20:07:16* Test Item Value Reference Range Interpretation Comme nts POCT GLU (test code = 8085480165) 125 mg/dL 70-110 H Lab Interpretation (test cod e = 64980-7) Abnormal [facility] GLUCOSE (AUTOMATED)2022-06-22 17:41:06* Test Item Value Reference Range Interpretation Comme nts POCT GLU (test code = 2281130515) 125 mg/dL 70-110 H Lab Interpretation (test cod e = 33330-0) [facility]normal [facility] ([facility]E)2022-06-22 16:49:15* Test Item Value Reference Range Interpretation Comme nts Height (test code = 5346863508) in Weight (test code = 6304385235) lbs Systolic BP (test code = 2360276514) mmHg Diastolic BP (test code = 7347995111) mmHg Heart Rate (test code = 3078004807) bpm LVIDD (test code = 9153131931) 3.70 cm Interventricular Septum Diastolic Thickness by 2D (test code = 9314350) 1.01 cm PW (test code = 6482701709) 1.08 cm 0.6-1.1 LVIDS (test code = 6535617467) 2.36 cm LA volume (BP) (test code = 9400856732) 28.8 mL LA size (test code = 1569120421) 3.5 cm LVPWD (test code = 7275734451) 1.08 cm AV LVOT peak gradient (test code = 4604050344) mmHg E/A ratio (test code = 7757435557) ratio E wave decelartion time (test code = 6540192990) 0.17 s LVOT diameter (test code = 0126848546) 2.05 cm LVOT peak VTI (test code = 7419559856) 24.9 cm LVOT stroke volume (test code = 1210904570) 82.40 cm3 MV Peak E Fátima (test code = 8029743776) 106.2 cm/s MV Peak A Fátima (test code = 0659710180) 82.5 cm/s LA Volume Index (BP) (test code = 6980319563) 14.8 mL/m2 IVS (test code = 1251517866) 1.01 cm Aortic root (test code = 2731708108) 3.1 cm Tapse (test code = 3873810040) 2.22 cm EF - 2D (test code = 80025208) 66.60 % Ao root annulus (test code = 0142765129) 3.1 cm FS (test code = 4167628525) 36 % LVOT mn grad (test code = 2289488966) mmHg LVOT peak fátima (test code = 1539866440) 125.5 cm/s BSA (test code = 4881135993) 1.95 m2 Ao root diam (test code = 9725734378) 3.10 cm EF(Teich) (test code = 5138211074) 66.60 % LAV(MOD-sp2) (test code = 5828908549) 22.00 mL LAV(MOD-sp4) (test code = 1077403018) 30.10 mL LV V1 mean (test code = 1310852259) 80.40 cm/s MV Prop V (test code = 8142271715) 63.00 cm/s Radiology Study observation (narrative) (test code = 99295-1) RENEE (test code = RENEE) Formatting of [...] mL of Lumason ultrasound enhancing agent used. [facility] GLUCOSE (AUTOMATED)2022-06-22 16:38:25* Test Item Value Reference Range Interpretation Comme nts POCT GLU (test code = 8877431329) 125 mg/dL 70-110 H Lab Interpretation (test cod e = 66800-5) Abnormal [facility] GLUCOSE (AUTOMATED)2022-06-22 15:28:09* Test Item Value Reference Range Interpretation Comme nts POCT GLU (test code = 3866201408) 101 mg/dL 70-110 Lab Interpretation (test cod e = 76065-2) Normal [facility] GLUCOSE (AUTOMATED)2022-06-22 14:31:03* Test Item Value Reference Range Interpretation Comme nts POCT GLU (test code = 2516045228) 126 mg/dL 70-110 H Lab Interpretation (test cod e = 61096-6) Abnormal [facility] GLUCOSE (AUTOMATED)2022-06-22 12:36:24* Test Item Value Reference Range Interpretation Comme nts POCT GLU (test code = 5226582504) 133 mg/dL 70-110 H Lab Interpretation (test cod e = 22398-8) Abnormal [facility] GLUCOSE (AUTOMATED)2022-06-22 11:02:27* Test Item Value Reference Range Interpretation Comme nts POCT GLU (test code = 5432084986) 129 mg/dL 70-110 H Lab Interpretation (test cod e = 13198-0) [facility]normal [facility]OL[facility] PAN[facility] ([id number])2022-06-22 10:53:30* Test Item Value Reference Range Interpretation Comme nts NA (test code = 8333871863) 137 mmol/L 135-145 K (test code = 5669039711) 3.6 mmol/L 3.5-5 CL (test code = 8458952343) 108 mmol/L 98-108 CO2 TOTAL (test code = 4354116361) 21 mmol/L 23-31 L AGAP (test code = 3220334401) 2-16 BUN (test code = 8654832892) 3 mg/dL 7-23 L GLUCOSE (test code = 0353845362) 125 mg/dL 70-110 H CREATININE (test code = 0729814901) 0.66 mg/dL 0.5-1.04 TOTAL BILI (test code = 1609016166) 0.5 mg/dL 0.1-1.1 CALCIUM (test code = 7462061802) 7.6 mg/dL 8.6-10.6 L T PROTEIN (test code = 8041593070) 6.3 g/dL 6.3-8.2 ALBUMIN (test code = 9181362109) 3.5 g/dL 3.5-5 ALK PHOS (test code = 0544358737) 61 U/L 34-122 ALTv (test code = 1742-6) 25 U/L 5-35 AST(SGOT) (test code = 9226317091) 44 U/L 13-40 H eGFR (test code = 6230843114) mL/min/1.73m2 RENEE (test code = RENEE) Association [...] imaging tests). Lab Interpretation (test code = 29908-5) [facility]normal [facility] 10:53:30* Test Item Value Reference Range Interpretation Comme nts MAGNESIUM (test code = 5210329056) 2.4 mg/dL 1.7-2.4 Lab Interpretation (test cod e = 21007-6) [facility]2022-[facility]-22 10:03:10* Test Item Value Reference Range Interpretation Comme nts POCT GLU (test code = 8789934446) 120 mg/dL 70-110 H Lab Interpretation (test cod e = 46272-8) [facility]normal [facility] WITH [id number] 09:38:43* Test Item Value Reference Range Interpretation [...] 32.6 g/dL 31.6-35.1 RDW-SD (test code = 83439-9) 49.3 fL 39-49.9 RDW-CV (test code = 788-0) 16.4 % 12-15.5 H PLT (test code = 777-3) See_Comment [Automated message] The system which generated this result transmitted reference range: 166 - 358 10*3/?L. The reference range was not used to interpret this result as normal/abnormal. MPV (test code = 17664-5) 9.5 fL 9.5-12.9 NRBC/100 WBC (test code = 2248740599) See_Comment [Automated message] The system which generated this result transmitted reference range: 0.0 - 10.0 /100 WBCs. The reference range was not used to interpret this result as normal/abnormal. NRBC x10^3 (test code = 3890807264) See_Comment [Automated message] The system which generated this result transmitted reference range: 10*3/?L. The reference range was not used to interpret this result as normal/abnormal. GRAN MAT (NEUT) % (test code = 770-8) 74.8 % IMM GRAN % (test code = 9345381509) 0.40 % LYMPH % (test code = 736-9) 16.4 % MONO % (test code = 5905-5) 8.3 % EOS % (test code = 713-8) 0.0 % BASO % (test code = 706-2) 0.1 % GRAN MAT x10^3(ANC) (test code = 1936761269) 10.01 10*3/uL 1.88-7.09 H IMM GRAN x10^3 (test code = 1148514888) 0.06 10*3/uL 0-0.06 LYMPH x10^3 (test code = 731-0) 2.19 10*3/uL 1.32-3.29 MONO x10^3 (test code = 742-7) 1.11 10*3/uL 0.33-0.92 H EOS x10^3 (test code = 711-2) 0.03-0.39 L BASO x10^3 (test code = 704-7) 0.01-0.07 Lab Interpretation (test code = 64675-6) Abnormal [facility] GLUCOSE (AUTOMATED)2022-06-22 08:57:26* Test Item Value Reference Range Interpretation Comme nts POCT GLU (test code = 9220547460) 123 mg/dL 70-110 H Lab Interpretation (test cod e = 33152-3) Abnormal [facility] GLUCOSE (AUTOMATED)2022-06-22 07:59:58* Test Item Value Reference Range Interpretation Comme nts POCT GLU (test code = 9391548700) 126 mg/dL 70-110 H Lab Interpretation (test cod e = 09064-6) Abnormal [facility] GLUCOSE (AUTOMATED)2022-06-22 06:56:43* Test Item Value Reference Range Interpretation Comme nts POCT GLU (test code = 5409498791) 129 mg/dL 70-110 H Lab Interpretation (test cod e = 23255-1) Abnormal [facility] GLUCOSE (AUTOMATED)2022-06-22 06:01:01* Test Item Value Reference Range Interpretation Comme nts POCT GLU (test code = 5528522007) 78 mg/dL 70-110 Lab Interpretation (test cod e = 63319-4) Normal [facility] GLUCOSE (AUTOMATED)2022-06-22 05:01:40* Test Item Value Reference Range Interpretation Comme nts POCT GLU (test code = 2604630865) 102 mg/dL 70-110 Lab Interpretation (test cod e = 20042-7) Normal [facility] Metabolic Panel (Na, K, Cl, CO2, Glucose, BUN, Creatinine, Ca)2022-06-22 04:53:30* Test Item Value Reference Range Interpretation Comme nts NA (test code = 7396792089) 138 mmol/L 135-145 K (test code = 5858475299) 3.8 mmol/L 3.5-5 CL (test code = 4313393741) 107 mmol/L 98-108 CO2 TOTAL (test code = 2618459594) 23 mmol/L 23-31 AGAP (test code = 6780426734) 2-16 BUN (test code = 2869103326) 5 mg/dL 7-23 L GLUCOSE (test code = 2412119046) 121 mg/dL 70-110 H CREATININE (test code = 8692387517) 0.69 mg/dL 0.5-1.04 CALCIUM (test code = 0265801875) 7.7 mg/dL 8.6-10.6 L eGFR (test code = 1848287832) mL/min/1.73m2 RENEE (test code = RENEE) Association [...] imaging tests). Lab Interpretation (test code = 97646-4) Abnormal [facility] GLUCOSE (AUTOMATED)2022-06-22 04:02:22* Test Item Value Reference Range Interpretation Comme [facility] POCT GLU (test code = 2676975493) 99 mg/dL 70-110 Lab Interpretation (test cod e = 15662-3) Normal [facility] GLUCOSE (AUTOMATED)2022-06-22 02:52:45* Test Item Value Reference Range Interpretation Comme nts POCT GLU (test code = 5369046535) 111 mg/dL 70-110 H Lab Interpretation (test cod e = 42460-8) Abnormal [facility] GLUCOSE (AUTOMATED)2022-06-22 01:39:10* Test Item Value Reference Range Interpretation Comme nts POCT GLU (test code = 8950996091) 89 mg/dL 70-110 Lab Interpretation (test cod e = 45757-6) Normal [facility] GLUCOSE (AUTOMATED)2022-06-22 00:25:45* Test Item Value Reference Range Interpretation Comme nts POCT GLU (test code = 8847128089) 102 mg/dL 70-110 Lab Interpretation (test cod e = 99318-6) Normal [facility] GLUCOSE (AUTOMATED)2022-06-21 23:10:01* Test Item Value Reference Range Interpretation Comme nts POCT GLU (test code = 2239714087) 106 mg/dL 70-110 Lab Interpretation (test cod e = 71172-1) Normal [facility] GLUCOSE (AUTOMATED)2022-06-21 21:12:57* Test Item Value Reference Range Interpretation Comme nts POCT GLU (test code = 7381633001) 127 mg/dL 70-110 H Lab Interpretation (test cod e = 11928-5) Abnormal [facility] HospitalLawyic Acid Whole [id number] 20:14:30* Test Item Value Reference Range Interpretation Comme nts LACTIC ACID (test code = 3802997164) 2.28 mmol/L 0.5-2.2 H Lab Interpretation (test cod e = 58031-1) Abnormal [facility] GLUCOSE (AUTOMATED)2022-06-21 20:10:46* Test Item Value Reference Range Interpretation Comme nts POCT GLU (test code = 1372177264) 141 mg/dL 70-110 H Lab Interpretation (test cod e = 57681-2) Abnormal [facility] HospitalBETA TIVYRYW-[id number] 19:49:22* Test Item Value Reference Range Interpretation Comme nts BOH (test code = 9961230194) 0.6 mmol/L RENEE (test code = RENEE) Normal Ranges: ? ? Nonfasting ? Less than 0.1 mmol/L ? ? Overnight Fast ? ? ? Less than 0.4 mmol/L ? ? Fasting (1-2 weeks) ?6-8 mmol/L Test developed and characteristics determined by [facility] Laboratory Services. [facility] GLUCOSE (AUTOMATED)2022-06-21 18:45:58* Test Item Value Reference Range Interpretation Comme nts POCT GLU (test code = 1441682954) 135 mg/dL 70-110 H Lab Interpretation (test cod e = 38221-7) Abnormal [facility] GLUCOSE (AUTOMATED)2022-06-21 17:47:32* Test Item Value Reference Range Interpretation Comme nts POCT GLU (test code = 4823976605) 120 mg/dL 70-110 H Lab Interpretation (test cod e = 96032-8) [facility]normal [facility] HospitalPROCALCITONIN2022-08-01 16:49:58* Test Item Value Reference Range Interpretation Comments Procalcitonin (test code = 6370458910) 0.05 ng/mL See_Comment [Automated message] The system [...] lung abscess/empyema. For further information please refer to:[email or web address] Lab Interpretation (test code = 82102-6) Normal [facility] HospitalFR [id number] 16:30:41* Test Item Value Reference Range Interpretation Comme nts FREE T4 (test code = 5797632823) See_Comment [Automated [employer]] The system which generated this result transmitted reference range: 0.78 - 2.20 ng/dL:. The reference range was not used to interpret this result as normal/abnormal. Lab Interpretation (test code = 99167-4) Normal [facility] HospitalOsmolality Mffsk8555-48-31 16:14:18* Test Item Value Reference Range Interpretation Comme nts OSMOLALITY (test code = 2692-2) See_Comment [Automated messa ge] The system which generated this result transmitted reference range: 278 - 305 mOsm/kg. The reference range was not used to interpret this result as normal/abnormal. Lab Interpretation (test code = 71771-4) [facility] (NA, K, CL, CO2, GLUCOSE, BUN, CREATININE, CA)2022-06-21 14:45:32* Test Item Value Reference Range Interpretation Comme nts NA (test code = 8286403010) 142 mmol/L 135-145 K (test code = 3844203584) 4.3 mmol/L 3.5-5 CL (test code = 2176342006) 108 mmol/L 98-108 CO2 TOTAL (test code = 0204890267) 18 mmol/L 23-31 L AGAP (test code = 7049225794) 2-16 BUN (test code = 9088633016) 8 mg/dL 7-23 GLUCOSE (test code = 7615050027) 174 mg/dL 70-110 H CREATININE (test code = 7102380165) 0.76 mg/dL 0.5-1.04 CALCIUM (test code = 7938739699) 8.9 mg/dL 8.6-10.6 eGFR (test code = 8820898094) mL/min/1.73m2 RENEE (test code = RENEE) Association [...] imaging tests). Lab Interpretation (test code = 22731-9) [facility]normal [facility]TR[facility] [id number] 11:51:22* Test Item Value Reference Range Interpretation Comments TROPONIN I (test code = 4562450832) 0.030 ng/mL See_Comment [Automated message] The system [...] of biotin. Lab Interpretation (test code = 30240-9) [facility]GLOBIN (A1C)2022-06-21 08:43:44* Test Item Value Reference Range Interpretation Comme nts HGB A1C (test code = 4548-4) 5.4 % 4-5.7 RENEE (test code = RENEE) Reference RangesNormal: <5.7%Prediabetes: 5.7 - 6.4%Diabetes: > 6.5% Lab Interpretation (test code = 67415-2) Normal [facility] HospitalLIPID PANEL (61084)(TOTAL CHOLESTEROL, TRIGLYCERIDES, HDL)2022-06-21 08:35:47* Test Item Value Reference Range Interpretation Comme nts CHOL (test code = 2984525705) 354 mg/dL 120-200 H HDL (test code = 9695054763) 52 mg/dL See_Comment [Automated [employer]] The system which generated this result transmitted reference range: >=50. The reference range was not used to interpret this result as normal/abnormal. HDLC RATIO (test code = 0600730378) See_Comment H [Automated [employer]] The system which generated this result transmitted reference range: <=4.5. The reference range was not used to interpret this result as normal/abnormal. TRIG (test code = 2217003191) 129 mg/dL 30-170 LDL CHOL (test code = 90774-2) 276 mg/dL See_Comment H [Automated [employer]] The system which generated this result transmitted reference range: <=160. The reference range was not used to interpret this result as normal/abnormal. VLDL (test code = 2365826812) 26 mg/dL 5-60 Lab Interpretation (test code = 17532-3) Abnormal [facility] HospitalLactic Acid Whole Fkhof0068-11-95 08:15:40* Test Item Value Reference Range Interpretation Comme nts LACTIC ACID (test code = 9430619937) 3.91 mmol/L 0.5-2.2 H Lab Interpretation (test cod e = 44836-9) [facility]normal [facility]MAGN[facility]IUM2022-08-01 08:06:48* Test Item Value Reference Range Interpretation Comme nts MAGNESIUM (test code = 5362919106) 2.1 mg/dL 1.7-2.4 Lab Interpretation (test cod e = 79275-8) Normal [facility] HospitalTHYROID STIMULATING IMSTZIR0376-61-68 06:22:03 * Test Item Value Reference Range Interpretation Comme nts TSH (test code = 0267150257) See_Comment Biotin has been reported to cause a negative bias, interpret results relative to patient's use of biotin. [Automated message] The system which generated this result transmitted reference range: 0.45 - 4.70 mIU/L. The reference range was not used to interpret this result as normal/abnormal. Lab Interpretation (test code = 77428-7) Normal [facility] HospitalLactic Acid Whole Thaan8113-49-00 04:41:28* Test Item Value Reference Range Interpretation Comme nts LACTIC ACID (test code = 6583485905) 5.21 mmol/L 0.5-2.2 H Lab Interpretation (test cod e = 65847-0) Abnormal [facility] HospitalTROPONIN T5801-71-49 04:20:31* Test Item Value Reference Range Interpretation Comments TROPONIN I (test code = 5380136159) 0.005 ng/mL See_Comment [Automated message] The system [...] of biotin. Lab Interpretation (test code = 51468-2) Normal [facility] HospitalN-TERMINAL OAA-JYV6368-88-01 04:20:31* Test Item Value Reference Range Interpretation Comme nts NT-proBNP (test code = 3498475827) 158 pg/mL See_Comment H [Automated message] The system which generated this result transmitted reference range: <=125. The reference range was not used to interpret this result as normal/abnormal. RENEE (test code = RENEE) Biotin has been reported to cause a negative bias, interpret results relative to patient's use of biotin. Lab Interpretation (test code = 95104-1) Abnormal [facility] HospitalCOMP. METABOLIC PANEL (60847)2022-06-21 04:08:54* Test Item Value Reference Range Interpretation Comme nts NA (test code = 3426499645) 141 mmol/L 135-145 K (test code = 5065422998) 3.7 mmol/L 3.5-5 CL (test code = 2120913120) 106 mmol/L 98-108 CO2 TOTAL (test code = 6482390818) 15 mmol/L 23-31 L AGAP (test code = 3577973499) 2-16 H BUN (test code = 8847691861) 11 mg/dL 7-23 GLUCOSE (test code = 5824266415) 126 mg/dL 70-110 H CREATININE (test code = 5628406467) 0.82 mg/dL 0.5-1.04 TOTAL BILI (test code = 9604645592) 0.8 mg/dL 0.1-1.1 CALCIUM (test code = 0346872706) 10.0 mg/dL 8.6-10.6 T PROTEIN (test code = 3992539575) 9.1 g/dL 6.3-8.2 H ALBUMIN (test code = 8429438370) 5.4 g/dL 3.5-5 H ALK PHOS (test code = 8684093567) 124 U/L 34-122 H ALTv (test code = 1742-6) 48 U/L 5-35 H AST(SGOT) (test code = 5754581868) 44 U/L 13-40 H eGFR (test code = 5677850468) mL/min/1.73m2 RENEE (test code = RENEE) Association [...] imaging tests). Lab Interpretation (test code = 63841-1) Abnormal [facility] HospitalLIPASE2022-08-01 04:08:54* Test Item Value Reference Range Interpretation Comme nts LIPASE (test code = 6092690152) 73 U/L 0-220 Lab Interpretation (test cod e = 15865-3) Normal [facility] WITH XPSX4466-69-78 03:42:54* Test Item Value Reference Range Interpretation [...] 33.3 g/dL 31.6-35.1 RDW-SD (test code = 88842-2) 43.6 fL 39-49.9 RDW-CV (test code = 788-0) 15.4 % 12-15.5 PLT (test code = 777-3) See_Comment H [Automated message] The system which generated this result transmitted reference range: 166 - 358 10*3/?L. The reference range was not used to interpret this result as normal/abnormal. MPV (test code = 19360-5) 10.1 fL 9.5-12.9 NRBC/100 WBC (test code = 6054539274) See_Comment [Automated message] The system which generated this result transmitted reference range: 0.0 - 10.0 /100 WBCs. The reference range was not used to interpret this result as normal/abnormal. NRBC x10^3 (test code = 2268061197) See_Comment [Automated message] The system which generated this result transmitted reference range: 10*3/?L. The reference range was not used to interpret this result as normal/abnormal. GRAN MAT (NEUT) % (test code = 770-8) 86.5 % IMM GRAN % (test code = 2020491070) 0.40 % LYMPH % (test code = 736-9) 10.2 % MONO % (test code = 5905-5) 2.7 % EOS % (test code = 713-8) 0.0 % BASO % (test code = 706-2) 0.2 % GRAN MAT x10^3(ANC) (test code = 7731491946) 13.58 10*3/uL 1.88-7.09 H IMM GRAN x10^3 (test code = 2775457659) 0.07 10*3/uL 0-0.06 H LYMPH x10^3 (test code = 731-0) 1.60 10*3/uL 1.32-3.29 MONO x10^3 (test code = 742-7) 0.43 10*3/uL 0.33-0.92 EOS x10^3 (test code = 711-2) 0.03-0.39 L BASO x10^3 (test code = 704-7) 0.03 10*3/uL 0.01-0.07 Lab Interpretation (test code = 47304-6) Abnormal [facility] Consult Notes Date/Time Note Provider Source 2024-02-15 10:57:10 zivqrlBKsvYqXeIgYm9GH3gNFxeAiu1IC1lemCpR 4+ iIwXZ+oyGFoeiSsffD9s0352-88-86K60:57:10Assoc iated Order(s): CONSULT GASTROENTEROLOGY Images from the original note were not included.Department of Gastroenterology & Hepatology Consult NoteRequesting Physician: LUKAS Araizaervice: JONATHAN- [facility] for Consultation: abdominal painDate of Service: 4CHIEF COMPLAINT:Nausea and VomitingHistory of Present Uycidcv16/F PMH GERD with LA D esophagitis seen on EGD 05/2023 on PPI BID (seen in clinic 06/2023), HTN, ADHD (amphetamines), Anxiety (Valium) who presented again for intractable nausea vomiting after being discharged after recent hospitalization from 02/09/2024 to 02/13/2024 for nausea vomiting.Things for her began when she went to [facility] 05/2023 for N/V and questionable hematemesis where in underwent EGD showing LA D esophagitis and a hiatal hernia. Discharged on Protonix and sucralfateSoon thereafter presented to [facility] ED 05/2023 with similar symptoms and underwent CT that showed no acute process in the abdomen hiatal hernia normal small bowel without obstruction and normal colon discharged from the ED.Admitted [facility] 10/04/23-10/08/23 for n/V. This was attributed to Wegovy dose increase, increased stool burden in the proximal colon. She was treated symptomatically with suppositories and antiemetics and improvement in symptoms.She was admitted to [facility] 02/08-02/12 for flu like symptoms [...] per Session: 30 minStress: Stress Concern Present (05/08/2023)[place] [facility] [employer] - Occupational Stress QuestionnaireFeeling of Stress : To some extentSocial Connections: Socially Isolated (02/14/2024)Social Connection and Isolation Panel [NHANES]Frequency of Communication with Friends and Family: More than three times a weekFrequency of Social Gatherings with Friends and Family: Once a weekAttends Hindu Services: NeverActive Member of Clubs or Organizations: [...] evidence of acute cholecystitis.Gallbladder adenomyomatosis.CT abd pelvis 02/09/2467TIHKTHHUIW3. Mild urothelial enhancement of the urinary bladder, [...] MDPGY-4 Gastroenterology and hepatologyContact information available through [facility]ARKOlectronically signed by Albert Phan MD at 02/15/2024 3:26 PM CDTAssociated attestation - Albert Phan MD - 02/15/2024 3:26 PM CDT I personally examined the patient on 02/15/[address] Cortez's note as written . I actively participated in the decision-making process. Please see the fellow's note for additional details.Albert Phan MDAssleat ProfessorDivision of Gastroenterology & Ffnpyrvbvm40219-5Gkvuzhv [id number]-Wypmo, Yamam1.2.840.878009.1.13.104.2.7.2.194925Wl- PicinDsacqRQ5961-53-15W37:26:14Consult noteTXT1.2.840.475564.1.13.104.2.7.2.437055| [id number] for patient dyno98133-0Wrofnvq noteLNNARRATIVEFormatted C-CDA narrative textUTSHIPROCK-NORTHERN NAVAJO MEDICAL CENTERB - [address] BgtrXivvdqngsXnzwmzgkrVSDY1172818174DSFNTCWF FGJIAYNISINRVK6607-32-21A09:26:141.2.840.114 350.1.72.3.15|1.2.840.968780.1.13.104.2.7.2. 727879_[id number] [facility] - [facility] History and Physical Notes Date/Time Note Provider Source 2024-02-14 14:17:05 vvQL942U8kaRmwkapSPTEhzOJo6KqlLtrLX14YnF F 5PyVwzhlLL2AmTve0x/aBED3532-88-25B20:17:0 5 XpertMD History & PhysicalDATE: 02/14/2024SERVICE: Internal MedicineCHIEF COMPLAINT: Nausea and VomitingHISTORY OF PRESENT ILLNESSSocorro Sigala is a 43 year old female with a PMH as below. Patient presents to [facility] on 02/14/2024 with nausea, vomiting, [...] needed for Allergies or Itching., Disp: , Rfl:ibekyrsihndwvqp-hrreklcmzqivdwe-FO (BROMFED DM) 2-30-10 mg/5 mL syrup, Take [...] Rfl:triamcinolone 55 mcg nasal inhaler, Use 1 [place] in each nostril 2 (two) times daily. Get over the counter if not covered, Disp: 16.9 g, Rfl: 11Patient's MedicationsSTART taking these medicationsNo medications on fileCONTINUE taking these medications which have NOT CHANGEDAMLODIPINE 10 MG TABLET Take 1 tablet by mouth every day at 1200 (noon).ATORVASTATIN 40 MG TABLET TAKE 1 TABLET BY MOUTH EVERYDAY AT FJBFZXLPSLXZBMSMUPWRHW-NLYEZLWIMJVISVB-TN (BROMFED DM) 2-30-10 MG/5 ML SYRUP Take [...] hours.TRIAMCINOLONE 55 MCG NASAL INHALER Use 1 [place] in each nostril 2 (two) times daily. [...] per Session: 30 minStress: Stress Concern Present (05/08/2023)[place] [employer] - Occupational Stress QuestionnaireFeeling of Stress : To some extentSocial Connections: Socially Isolated (02/14/2024)Social Connection and Isolation Panel [NHANES]Frequency of Communication with Friends and Family: More than three times a weekFrequency of Social Gatherings with Friends and Family: Once a weekAttends Hindu Services: NeverActive Member of Clubs or Organizations: [...] and are negative except as listed above.PHYSICAL EXAMINATIONVitals:03/26/24 0907 02/14/24 0940 02/14/24 1305 02/14/24 1400BP: [...] 0.04 0.01 - 0.07 10*3/uLCOMP. METABOLIC PANEL (72787)Collection Time: 02/14/24 9:40 AMResult Value Ref RangeNA [...] 44 (H) 13 - 40 U/LeGFR 110.8 mL/min/1.29i8TEIVXXKdwohsuubh Time: 02/14/24 9:40 AMResult Value Ref RangeLIPASE [...] pelvic findings. Preliminary Report Dictated by Resident: Ирина Lara I, Galo Shirley MD., have reviewed this study and agree [...] during last admission as well-Continue metoprolol 100 gqrdv-Ihnrbjoxitji-Ditfmabq amlodipine and metoprololanemia with thrombocytosis-Send iron olpxz-Qteuhnwweezo-Bvueai reactive in the setting of nausea vomiting-Negative lactic acid-Start fluids and repeat CBC in the a.m.-If patient has infectious symptoms start-Consult painmanagement- Events, notes, labs, and vital signs during the past 24 hours reviewed.-discussed patient case in morning rounds with nursing staff and patient case coordinator-- Meds per above- Check a.m. labs, replete electrolytes if needed. Monitor kidney function. Transfuse PRBC if hemoglobin less than 7.- As needed pain and nausea medications.DVT ppx: LovenoxGI ppx: PPICode status: FullDiscussed the case with:[ x ] energy consultant [x ] nursing staff and career development coordinator[x ] [place] [address]-9Rjfiuod and physical pbvmRR4091-24-30K67:58:23History and physical noteTXT1.2.840.447664.1.13.104.2.7.2.7278 79|[id number] for patient kgxu24441-7Prcnyqg and physical noteLNNARRATIVEFormatted C-CDA narrative textIM-INTERNAL MEDICINE STAFFIM-INTERNAL MEDICINE STAFF[address] Dn[id number] ETRIQOCFAUEDDMPQE5867-21-45E02:58:231.2.8 40.188490.1.72.3.15|1.2.840.648657.1.13.1 04.2.7.2.727879_[id number] IM-INTERNAL MEDICINE STAFF [facility] Notes Date/Time Note Provider Source 2024-02-17 17:32:17 +8uLzNntef4eyaRYlEDPEU4eDS74me3t36P3hNMF SaNLnUOyV/197wCZ7FNYWo8459-09-07M98:32:17F ormatting of this note might be different from the original.Problem: PainGoal: Control of pain at or below patient's documented comfort goalOutcome: Adequate for dischargeGoal: Reduction in pain sensationOutcome: Adequate for dischargeProblem: Discharge PlanningGoal: Adequate for dischargeOutcome: Adequate for dischargeGoal: Effective communicationOutcome: Adequate for dischargeProblem: Nausea/VomitingGoal: Absence of nausea/vomitingOutcome: Adequate for discharge 64304-2Qvpi of care byjfLH5367-73-26Q16:32:20Plan of care noteTXT1.2.840.848973.1.13.104.2.7.2.66320 9|[id number] for patient odie13350-8QkjeLPRBPEXHDBOViqrohbei C-CDA narrative [id number] McKimmy RN[address] LvhuBlvrsdzsnTcggicflwFPAH7157883261LLBQWP ZJHKJYPHQYERDTZQ2558-65-89O74:32:201.2.840 .295491.1.72.3.15|1.2.840.678180.1.13.104. 2.7.2.727879_[id number] Shikha Dodge RN [facility] 2024-02-16 07:24:55 nKdDnKVq4WBOTr82a5LqVqw9FAW081+Pf+eJVFx9 8K U+0RMqtchimGskS0qbyrl85266-99-28A05:24:55F ormatting of this note might be different from the original.Problem: PainGoal: Control of pain at or below patient's documented comfort goal02/16/2024723 by Chelsea Lopez RNOutcome: Progressing as expectedGoal: Reduction in pain sensation02/16/2024723 by Chelsea Lopez RNOutcome: Progressing as expectedProblem: Discharge PlanningGoal: Adequate for discharge02/16/2024723 by Chelsea Lopez RNOutcome: Progressing as expectedGoal: Effective communication02/16/2024723 by Chelsea Lopez RNOutcome: Progressing as expectedProblem: Nausea/VomitingGoal: Absence of nausea/vomitingOutcome: Progressing as expected 49625-8Dvhe of care aqjdMN7845-24-88C62:25:21Plan of care noteTXT1.2.840.230582.1.13.104.2.7.2.42359 9|[id number] for patient xdtj15502-3EpyzDJQSPRKCGFQGdmmaosma C-CDA narrative iktw851832061Ecln Mobarak RN[address] [id number] RPOTEEAXBHJVFGLG3064-15-64D47:25:211.2.840 .487793.1.72.3.15|1.2.840.590157.1.13.104. 2.7.2.727879_[id number] Chelsea Lopez RN [facility] 2024-02-15 18:00:00 6GEM34/N2wkokjF6N+qpEEGm3Xr0eAZcTry08uZf qa QFZ9JUmjFxb+0OBhszlrGu6612-43-79C66:00:00F ormatting of this note might be different from the original.Pt called me in room to tell me that she is in pain and that she needs a narcotic pain medication. She states that she received dilaudid last night and that's the only thing that is helping her. Pt stated that if she doesn't get pain medication, she will "get loud." 85531-4Qmqeu OaalSC9756-26-59P31:46:21Nurse NoteTXT1.2.840.383076.1.13.104.2.7.2.96896 9|[id number] for patient zhry37995-8Zxguz NoteLNNARRATIVEFormatted C-CDA narrative [id number] S Khan RN[id number] RUBIOSZJCVOOJPCTVBFXV0965-30-30I18:46:211.2.840 .082703.1.72.3.15|1.2.840.180989.1.13.104. 2.7.2.727879_[id number] Nicolette Cuenca RN [facility] 2024-02-15 10:27:32 YSGkn8FR04FUcxIa+kUTuc9q5fsdP81brppNYh1t ID +uayHP1ofsFZ+slCiyyjOf9901-23-18D41:27:32F ormatting of this note might be different from the original.Problem: PainGoal: Control of pain at or below patient's documented comfort goalOutcome: Progressing as expectedGoal: Reduction in pain sensationOutcome: Progressing as expectedProblem: Discharge PlanningGoal: Adequate for dischargeOutcome: Progressing as expectedGoal: Effective communicationOutcome: Progressing as expected 49935-2Qjes of care tftfXG7249-85-97U64:27:37Plan of care noteTXT1.2.840.785946.1.13.104.2.7.2.00204 9|7806532907WFQtjwnfvem for patient epuk40129-1TevnVFQOFMPYJLDAtxjarxvk C-CDA narrative text[address] StreetVxqoKzdsktodgAzlwdypseYHRY6251121753BWKVRD KCZRFWNQMTSUPDVC3091-52-09Q34:27:371.2.840 .858683.1.72.3.15|1.2.840.936505.1.13.104. 2.7.2.727879_[id number] [facility] 2024-02-14 18:49:44 EpcParLVbfi6zZy9F3lSTckmju53GWzQPtLk1Qdx Vr mKa9QKWhxjU2vCGeEYSu4S4550-90-21Q66:49:44F ormatting of this note might be different from the original.Problem: PainGoal: Control of pain at or below patient's documented comfort goalOutcome: Progressing as expectedGoal: Reduction in pain sensationOutcome: Progressing as expectedProblem: Discharge PlanningGoal: Adequate for dischargeOutcome: Progressing as expectedGoal: Effective communicationOutcome: Progressing as expected 12756-6Cumw of care bmlfXC0616-83-49J79:49:47Plan of care noteTXT1.2.840.622438.1.13.104.2.7.2.36138 9|[id number] for patient sfxg99987-2ElrkGPWIYLCPZMNYhmbdscge C-CDA narrative [id number] L Morales RN[address] OgpcZcuhqltpxQerfffbmaZDJB4161704686YTNVAI TXSNKKZCSBCLNDLW7934-07-57K35:49:471.2.840 .538708.1.72.3.15|1.2.840.471608.1.13.104. 2.7.2.727879_[id number] Jeaneth Hickey RN [facility] 2024-02-14 15:05:18 9GMRgCTlrCKP9zkP1DTM/yrqooIBKAkgkVkU9R+4 6Z Fl27KIKaKFLUdDaJSjqmBb4998-62-24R50:05:18F ormatting of this note might be different from the original.Pt awaken from rest by visitors at and now c/o 10/10 abdominal pain and nausea. Pt is refusing [place] and zofran. Pt is requesting to have [...] her IVF or ABX. Pt verbalized understanding. 48919-1Wiehpptgn department CofpSD0421-05-62S21:14:24[facility] department NoteTXT1.2.840.095080.1.13.104.2.7.2.72953 9|[id number] for patient hggw39098-6KcguRXJKEPOPWLBUyvbojfxl C-CDA narrative textUT[address] RxeoMudzzanmkKdghbpzfuAPIV9302564613LOTADD MHLOADFVKODFQNUJ9002-95-61A55:14:241.2.840 .097681.1.72.3.15|1.2.840.211264.1.13.104. 2.7.2.727879_[id number] [facility] 2024-02-14 14:25:00 z/DKztkplmM60rrduGIbzYUiYIxd50BNOuqJ+kdI yg sdTzX5k0+RZJuf2XVnX8W03021-60-32U43:25:00F ormatting of this note might be different from the original.Nurse ReportReport given to JON Winchester. Chief complaint, assessment findings, infusion verify and orders reviewed. Plan of care discussed at bedside with patient and both nurses. Patient/family [place] [address]-9Gfsxsdmlf[address] GwpsTO5115-77-89V85:31:22[facility] NoteTXT1.2.840.140422.1.13.104.2.7.2.15149 9|[id number] for patient sgpa25379-1JrjfJTGIIAPBXHUWkvxajcnp C-CDA narrative kowh579269012Zbkvxnrh J Ford RNJAVON[address] WirqTnbkuixydKjhacqzaqFTRY1064044440JXAJPI DGCPZQZBEWHEUSMD6056-31-63V26:31:221.2.840 .694500.1.72.3.15|1.2.840.388851.1.13.104. 2.7.2.727879_[id number] Annabella Vee RN [facility] 2024-02-14 14:20:26 XChteTDPWwUZYhNkmA0cIunNPj4QXYO6U8Yt7p3r HW ULY8vVPCoNtAn467V8zEuj2373-24-31H12:20:26F ormatting of this note is different from the original.TRANSITIONAL CARE MANAGEMENT ASSESSMENT4Cjayesh Sigala924133QChrlan Sigala is a 43 year old /White female was admitted on 02/08/24 to [facility]), [facility] ICU/ACUITY ADPT F2. She was discharged on 02/13/24 with discharge disposition of HR- Routine Discharge.Admitting Physician: Kojo Menendez Diagnosis: #Substance Withdrawal#Sinus Tachycardia-improved#HTN#Hypophosphatemia- resolved#Hypokalemia#History of Gastritis#History of Gastroparesis#Abdominal Pain-resolved#Chronic PainNo linked episodesTCM Dys-rchb-lr-face outreach documentation:Discharge AssessmentChart Assessed: 02/14/24Chart Reviewed - Post Discharge Call Deferred due to Change in Discharge Status.: (Pt is currently admitted to [facility].)TCM Outreach Completed: 02/14/24Future Appointments:Future AppointmentsProvider Department Dept Phone02/20/2024 10:00 AM Hernán Alvarez NP [facility], [facility] [phone] signed by Bhupinder Gomez RN at 02/14/2024 2:21 PM EJR85819-8Zlgpkpvxa encounter HcupVQ5226-85-23H67:21:12Telephone encounter NoteTXT1.2.840.654752.1.13.104.2.7.2.90279 9|[id number] for patient kuhy91506-8UelrBAWULGMECBTMnuceuaoj C-CDA narrative niel517269095Sthbshw A Gaudet RNJAVON[address] [id number] NZZKCQQYPFZGSSYD7419-35-25Q82:21:121.2.840 .844335.1.72.3.15|1.2.840.498740.1.13.104. 2.7.2.727879_[id number] Bhupinder Gomez RN [facility] 2024-02-14 12:22:21 lmjMZB2wLbPTiGR5PD5M2faCgdFUKOnOuZ1/ZUZ1 S3 UAh9D9lbdsamxsdH58SaLt8380-83-68M21:22:21F ormatting of this note might be different from the original.Pt to CT [place] tech [address]122-8Xxblvkati department RayrNU4005-40-70S35:23:25Emergency department NoteTXT1.2.840.958616.1.13.104.2.7.2.52038 9|[id number] for patient zdrv51823-3EehxGXCOLJHXCWMVbmpahzuu C-CDA narrative textUT85 Gray [id number] CGXGUWAWACSEQDDA0741-85-16O40:23:251.2.840 .772062.1.72.3.15|1.2.840.428802.1.13.104. 2.7.2.727879_[id number] [facility] 2024-02-14 12:19:35 Ghu9v+RqoP3emkOvnkuaax92x4BVlNvjj1dtZhKx x2 a2UBskfD/mzRBVJWh3buSJ3318-65-95I53:19:35F ormatting of this note might be different from the original.Pt to CT via wheelchair. NAD noted. 46681-7Jcnhayxrd department VahoMC6806-70-42T04:19:47[facility] NoteTXT1.2.840.051922.1.13.104.2.7.2.42182 9|[id number] for patient eucv12784-9UwisGGSLITDAYKXGisbcgvpd C-CDA narrative wscb713821896Kkbjvvg Mendoza [id number] JAIZDOVPGWGUBKXP1086-70-26G96:19:471.2.840 .179237.1.72.3.15|1.2.840.247022.1.13.104. 2.7.2.727879_[id number] Riley Ulrich RN [facility] 2024-02-14 09:44:54 AtixArY7A5xF9r90m58I6tkxh+QqfzcD9xc7hZ4T n1 S+6nRWPFjVHPfdnF4WCYxH2011-07-47A16:44:54F ormatting of this note might be different from the original.Dr. Adams at bedside 63186-6Xvugdjtoi department WsjyVY4683-96-32A55:45:10[facility] NoteTXT1.2.840.268102.1.13.104.2.7.2.07042 9|[id number] for patient qbtc16986-7SgiaBGHMPRFAYLWCpyinggpd C-CDA narrative textUT[address] Gray [id number] LMTAIKCOXYDLVWAJ7663-57-74J74:45:101.2.840 .834647.1.72.3.15|1.2.840.636537.1.13.104. 2.7.2.727879_[id number] [facility] 2024-02-14 09:15:00 pA8U91XNyohUVlml9Ts++EzxICiHWrmq0b9b2J+U QK ANnY8xALsUG103ZtVZAq5a0923-49-66A23:15:00F ormatting of this note might be different from the original.Socorro Sigala is a 43 year old female presenting to the ED today via EMS with c/o severe abdominal pain with nausea and vomiting. Patient reports being discharged from [facility] ICU yesterday at 3pm. Patient reports she has been vomiting and having severe abdominal pain ever since.VSS, AOX4, equal chest rise and fall 60492-9Igfyxmnsu department MubcIP1957-85-84V58:50:29[facility] NoteTXT1.2.840.153136.1.13.104.2.7.2.57533 9|[id number] for patient eeie16620-4CmeaOZKUNCWNLUKYkolerhrp C-CDA narrative text[address] [id number] LEBANON COMMUNITY HOSPITALCLOHOUDWYVHMSEXE5081-69-59D35:50:291.2.840 .523580.1.72.3.15|1.2.840.749655.1.13.104. 2.7.2.727879_[id number] [facility] 2024-02-14 09:07:46 ZoEpnXp0WSj+0OJWAVisFYsuorE+J66s7gZqtZDq Ni KJayPq6GBSwt8KigYLYbcu8913-03-07H01:07:46F ormatting of this note might be different from the original.Pt to er via ems for eval of nausea, vomiting, abd pain starting yesterday. Reports that she was discharged yesterday from hospital after being admitted for the same thing. Today began experiencing more vomiting. Hx of htn. Received 25mg phenergan IM ORTHOPEDICS NURSE. 77660-1Wqucaztpm department Triage fnuvCC2318-78-34K67:09:29[facility] Triage noteTXT1.2.840.327299.1.13.104.2.7.2.61811 9|[id number] for patient nyos02497-5Znzahqxsl department NoteLNNARRATIVEFormatted C-CDA narrative [id number] Alonso RN[address] Lv[id number] KRDCRIRWNJLZFTIB9548-57-42F53:09:291.2.840 .237661.1.72.3.15|1.2.840.232461.1.13.104. 2.7.2.727879_[id number] Luis Alonso RN [facility] 2024-02-14 09:04:00 9yxZuK4UhVxoBO4sUVsRsxmmQP/J+nGjmO8f4p7S UO 9Qmfg4SGaAte6yIqvzLLET0755-02-55O58:04:00A ssociated Order(s): EKG-12 Lead ROUTINE ONCEPre-Procedure Diagnose(s): Chest pain, unspecified typePost-Procedure Diagnose(s): Chest pain, unspecified type [facility] Emergency Department NotePatient Name: Socorro Grijalva of : 1980 43 year old femaleTreatment Room: Room/bed info not foundMedical Record Number: [id number] Care Physician: Hernán HomanPatient Escorted by: Self [9]Mode of Arrival: EMS - [place] [32]EMS Treatment Prior to ED Arrival:ORTHOPEDICS NURSE treatment comments: phenergan 25 IM via EMSTravel [...] 90 tablets/month, long-term; Dr Wilfrido Pierce in [place], [place]). CT Abd/Pel: (1) Mild urothelial enhancement [...] 0.04 0.01 - 0.07 10*3/uLCOMP. METABOLIC PANEL (99889) - AbnormalNA 138 135 - 145 mmol/LK [...] 44 (*) 13 - 40 U/LeGFR 110.8 mL/min/1.99g7HSURJCWANO - AbnormalAPPEARANCE Hazy (*) ClearCOLOR Yellow YellowPH [...] PELVIS W CONTRASTCBC WITH DIFFCOMP. METABOLIC PANEL (49465)LIPASEPREGNANCY TEST, SERUMURINALYSISTROPONIN IURINE CULTUREBLOOD CULTURE SCREENBLOOD CULTURE [...] 1,000 mLFirst Provider Eval:ED EventsDate/Time Event User Vjuepntp72/26/24 0909 Medical Screening Begins CUBA ADAMS MD --02/14/24 0909 First Provider Evaluation CUBA ADAMS MD --AdmissionCareGuideline: [...] department careAdmissionCare documentation entered by: Cuba Romeo [facility] Aunt Bertha, 27 edition, Copyright ? 2022 [facility] [employer] All Rights Reserved.5438-17-10N19:17:53-05:00ED COURSEED Course as of 02/14/24 1321Tue Feb [...] ED Physician in the absence of a emergency dispatcher: yesPrevious ECG:Previous ECG: Compared to currentComparison ECG [...] 90 tablets/month, long-term; Dr Wilfrido Pierce in [place], [place]). CT Abd/Pel: (1) Mild urothelial enhancement [...] TAKE 1 TABLET BY MOUTH EVERYDAY AT LJSSYYQBTHKJXZLDEGQIDX-TWEEFRGKAKQYGNM-LZ (BROMFED DM) 2-30-10 MG/5 ML SYRUP Take [...] hours.TRIAMCINOLONE 55 MCG NASAL INHALER Use 1 [place] in each nostril 2 (two) times daily. Get over the counter if not coveredSTART taking Modified Medications as PrescribedNo medications on fileSTOP taking these medicationsNo medications on fileFollow-up:N/aElectronically signed by:Cuba Adams MD02/14/24 1321 18461-0Fawqgwaif Emergency department QnsnOZ0950-29-04S60:21:52Physician Emergency department NoteTXT1.2.840.299383.1.13.104.2.7.2.84196 9|[id number] for patient ihal45455-2Gmwbyblgd department NoteLNNARRATIVEFormatted C-CDA narrative text[address] Hd[id number] TKSVRSBLZOHESHRX2537-48-41M76:21:521.2.840 .908478.1.72.3.15|1.2.840.012739.1.13.104. 2.7.2.727879_[id number] [facility] 2024-02-14 09:04:00 kJuTDhu4Qfcss/509VGbAcs2cXHpxG1jvjCe2Z8u Pq S2tk5u1MlOys4ulVFq+GEJ2081-53-63V01:04:00F ormatting of this note might be different [...] department careAdmissionCare documentation entered by: Cuba Romeo [facility], 27th edition, Copyright ? 2022 [facility] [employer] [facility] All Rights Reserved.2702-27-18S49:17:53-05:00Electron ically signed by Cuba Adams MD at 02/14/2024 1:17 PM [id number] Admission Criteria1.2.840.237477.1.13.104.2.7.4.7378 80.99939629-91-74A01:17:54EC Admission CriteriaTXT1.2.840.683226.1.13.104.2.7.2.7 04971|[id number] for patient ghbu74939-9DmirINEXPJOQPVFLfvkwpifn C-CDA narrative textUT[address] QvtpM[id number] JAAJBASLDKMZRAUE2198-29-24H49:17:541.2.840 .052236.1.72.3.15|1.2.840.295253.1.13.104. 2.7.2.727879_[id number] [facility] 2023-11-28 16:23:20 wGxfvfS5VjX6L/eKjDX8z47tappuScY1bvxFfQdB /x yp5xsMhbPXmmdeVoA2zCDz1057-90-67G56:23:20F ormatting of this note might be different from the original.Referral placed and faxed 70898-3Picafwyfj encounter JwwqDK0964-84-86S94:24:38Telephone encounter NoteTXT1.2.840.818844.1.13.104.2.7.2.94141 9|[id number] for patient xmrc19363-2WtxrAIIAUTYPNNNKinpjccjz C-CDA narrative text[id number] FQQJKNNZTCPUTVWH7086-90-68I50:24:381.2.840 .740274.1.72.3.15|1.2.840.655721.1.13.104. 2.7.2.727879_[id number] [facility] 2023-11-28 10:46:58 tgSO7Sclkvw4ID9b5vOCzBxuaaHVwhmXpZND9Vf+ g/ oiTkqL6e1UFO9HfNSMDo7v9220-78-35Z69:46:58F ormatting of this note might be different from the original.Pt calling back to give information for sending referralDr. Mendiola at Your CenterFAX: [phone] signed by Tuyet Mahoney at 11/28/2023 10:48 AM ENU82346-7Nmbfaltrz encounter QeycBV5201-85-65S45:48:52Telephone encounter NoteTXT1.2.840.740002.1.13.104.2.7.2.25028 9|[id number] for patient dbwp97630-3BqdmYKBMGHBJJYIWhtbwekcj C-CDA narrative oglo674428696Hzxd A Kay[id number] BKIGIBDICRXBCPTR0533-96-49D12:48:521.2.840 .638562.1.72.3.15|1.2.840.350096.1.13.104. 2.7.2.727879_[id number] Tuyet Mahoney [facility] 2023-11-28 10:23:51 jbSyb5G/bssyoedBFcesElyXy3yebi+WTtqw+OwZ /l LDOc/98muFRm6eidjTcZ9R2051-50-16M93:23:51F ormatting of this note might be different from the original.Per ARLENE AdenPPt seen for GI issuesNeeds to see GISpoke with the ptShe states they facilities she's called is a 2 month wait listAdvised can change the referral to [facility] and can send to GI of the pts choosingAdvised pt to reach out to insurance to obtain list of in network providers and get back with the clinic to send the referralPended referral below 23441-5Glhdzgtzj encounter BnbfCJ2753-76-92J47:27:45Telephone encounter NoteTXT1.2.840.250342.1.13.104.2.7.2.83354 9|[id number] for patient ulvd67942-6BbxvNYNWIHNXPGELltluccqp C-CDA narrative textUT01 Short StreetMnsiEgjjstyfbKmuacflojZCAW6762312674ZFVUYL QTLAFAXLSQOUPWAT6471-09-43J24:27:451.2.840 .754653.1.72.3.15|1.2.840.969982.1.13.104. 2.7.2.727879_[id number] [facility] 2023-07-27 11:53:58 1ZKhKyyHH2cQlYzF0ixQusAJqdexQjHLZcGus8Aa lknBUHXFChh/CcLNEtFZwV9879-01-24N02:53:58F ormatting of this note might be different from the original.[employer] was not approved by insurance. [...] are any questions or concerns. Thank you 81858-0Fawqlaadd encounter KjimFU2644-84-94C49:56:32Telephone encounter NoteTXT1.2.840.141229.1.13.104.2.7.2.17047 9|[id number] for patient gsgf29657-7NehzJP194091617Xavmjq[address] VfxyNxtdkstszAyypvcfaqCAJK7534683745ZAHVLL GJFEEBXLBPPDTWOU6675-35-95Q02:56:321.2.840 .909945.1.72.3.15|1.2.840.002800.1.13.104. 2.7.2.727879_[id number] [facility] 2023-07-22 15:07:17 flZ7pgH7sAZOr9bZC+2Wklm1773us1RU5NZfOjNo aM UySAlTuvp2hXkhr4+Ttdd63792-69-07E38:07:17F ormatting of this note might be different from the original.Please review patient message. 41115-7Lkskwpkvj encounter XitdZI0895-62-13M92:08:12Telephone encounter NoteTXT1.2.840.969722.1.13.104.2.7.2.28777 9|[id number] for patient puyc65847-6ArzhWG465800069Wfepqkxns Rocha [address] [id number] EMKCWIMBFIKXZDNU6914-06-02F89:08:121.2.840 .766395.1.72.3.15|1.2.840.771628.1.13.104. 2.7.2.727879_[id number] Bess Lombardo [facility] 2023-07-20 13:30:00 iX/Ss9vBWqrYOw1FvTFAF8GnUxxcM+EKvfQVewJt 2w xNe+XGnfV2oNTTLb/B2qj26271-32-55P13:30:00F ormatting of this note is different from the original.Images from the original note were not included.Venipuncture collection performed by clean technique on the back of left hand. Total of 1 attempts were made. Slight pressure and a bandage/dressing were applied to the site(s). The patient experienced no complications. The following specimens were processed according to instructions and sent to [facility] laboratories per lab order on 07/20/23: LT BLUE SST 1 RED LAV 2 PPT DK GREEN (LiHep) DK GREEN (SodH) RAMIREZ DK BLUE (K2) DK BLUE (S) ACD Blood Culture NIPT/NTD 91263-7Dtrui RerfLZ5881-36-75R00:45:42Nurse NoteTXT1.2.840.870802.1.13.104.2.7.2.74691 9|[id number] for patient fdvv25252-4Lrexc [id number] BGZOJXLIHUXBSYAV7859-83-64Y99:45:421.2.840 .670753.1.72.3.15|1.2.840.887265.1.13.104. 2.7.2.727879_[id number] [facility] 2023-07-19 14:00:00 FC6o1xVnHxrpew9t29hIk/nWGgPbWkIWn3+ZDl31 w8 mUUW20F8raG+W8TxR4E1vB3378-51-93B34:00:00 Addended by: HERNÁN LAVAREZ NP on: 07/26/2023 12:15 PM Modules accepted: Orders 50794-4Qdvtllma TxzltietMV4329-84-08E73:15:36Addendum DocumentTXT1.2.840.096509.1.13.104.2.7.2.7 69390|[id number] for patient main49228-8SgedQKGBGEINGY[address] StreetMjogAnlqobbkmQapdndkmdZJIX5601773425EREFXS PCTZFABSUSHAJVGL8159-25-46Z26:15:361.2.840 .968883.1.72.3.15|1.2.840.364011.1.13.104. 2.7.2.727879_[id number] [facility] 2023-06-30 11:30:24 qJZDTcZVIgKeTtxwoEHgF4VzCz/cNJw7ENJ64Zl6 3B NkV51bEdkhu0lSqEQvuJsq1271-61-28W31:30:24F ormatting of this note is different from the original.Last ov 06/07/23Noted to follow up in 3 monthsFuture Appointments Date Time Provider Department Center 07/14/2023 8:30 AM Deion Cortez MB[facility] 09/06/2023 1:00 PM Hernán Alvarez NP [facility] She is supposed to see GI on 07/14/23Do you want to refill the meds or have her get these meds managed by GI? 09799-5Tnafbnvba encounter CarbAJ6085-45-51H17:34:59Telephone encounter NoteTXT1.2.840.527360.1.13.104.2.7.2.26167 9|[id number] for patient renp05497-0EcvxJJFLYDVVFV[address] HewpOytxgnhmmWhfyhhnchPDOS8262352671VLVBLX FETRKPIUSQIMXIEN8348-33-52M15:34:591.2.840 .708493.1.72.3.15|1.2.840.153457.1.13.104. 2.7.2.727879_[id number] [facility]
[2024-02-19] MEDS ORDERED: NA CHLORIDE 0.9% 1,000 ML ONE (21:50)
[2024-02-19] MEDS ORDERED: FAMOTIDINE 20 MG/2 ML VIAL IV ONE (21:50)
[2024-02-19] MEDS ORDERED: MORPHINE 4 MG/ML SYR ONE (22:09)
[2024-02-19 22:13] LABS: Absolute Basophils 0.1 K/uL (0-0.5); Absolute Lymphocytes (CBC) 1.5 K/uL (0.7-4.9); Absolute Neutrophil 8.6 K/uL (1.8-8.0); Basophils % 0.9 % (0-1.3); Eosinophils % 0.3 % (0-4.4); Hematocrit 29.2 % (36.0-45.0); Hemoglobin 9.1 g/dL (12.0-15.0); Lymphocytes % 13.4 % (15.3-44.8); MCH 22.9 pg (27.0-35.0); MCHC 31.3 g/dL (32.0-36.0); MCV 73.2 fL (80-100); MPV 7.9 fL (7.6-11.3); Monocytes % 8.9 % (3.3-12.3); Neutrophils % 76.5 % (41.7-73.7); Platelets 543 thou/uL (152-406); RBC Red Blood Cell Count 3.99 M/uL (3.86-4.86); Red Cell Distribution Width 19.5 % (12.1-15.2)
[2024-02-19 22:59] LABS: Albumin 3.9 g/dL (3.4-5.0); Albumin/Globulin Ratio 1.1 (1.1-1.8); Anion Gap 14.7 mEq/L (5.0-15.0); Bilirubin Total 0.5 mg/dL (0.2-1.0); Globulin 3.7 g/dL (2.3-3.5); Potassium 2.7 mEq/L (3.5-5.1); Protein, Total 7.6 g/dL (6.4-8.2)
[2024-02-19] MEDS ORDERED: KCL 20 MEQ/100 mL IVPB 100 ML IV ONE (23:37)
[2024-02-19] MEDS ORDERED: HYDRALAZINE HCL 20 MG/ML VIAL ONE (23:56)
--- NOTE | 2024-02-20 02:03 | ER ---
Nurse's Notes [facility] Name: Socorro Sigala Age: 43 yrs Sex: Female : 1980 Arrival Date: 02/19/2024 Time: 21:13 Bed 20 Private MD: Diagnosis: Abdominal pain, Generalized Presentation: 02/18 21:24 Chief complaint: Patient states: burning chest and abdominal pain with nausea and as6 vomiting. pt has been seen for this multiple times but states that today has been the worse. Coronavirus screen: At this time, the client does not indicate any symptoms associated with coronavirus-19. Ebola Screen: No symptoms or risks identified at this time. Initial Sepsis Screen: Does the patient meet any 2 criteria? No. Patient's initial sepsis screen is negative. Does the patient have a suspected source of infection? No. Patient's initial sepsis screen is negative. Risk Assessment: Do you want to hurt yourself or someone else? Patient reports no desire to harm self or others. Onset of symptoms was February 19, 2024. 21:24 Acuity: TOMY 2 as6 21:24 Method Of Arrival: Ambulatory as6 Historical: - Allergies: 21:24 Codeine; as6 - PMHx: 21:24 Anxiety; Hypertensive disorder; as6 - Immunization history:: Adult Immunizations up to date. - Social history:: Smoking status: Reported history of juuling and/or vaping. - Family history:: not pertinent. - Hospitalizations: : No recent hospitalization is reported. Screenin:30 [facility] ED Fall Risk Assessment (Adult) History of falling in the last 3 months, rv including since admission No falls in past 3 months (0 pts) Score/Fall Risk Level 0 - 2 = Low Risk Oriented to surroundings, Maintained a safe environment, Educated pt \T\ family on fall prevention, incl call for assistance when getting out of bed, Assessed \T\ reinforced patient's understanding of fall precautions. Abuse screen: Denies threats or abuse. Denies injuries from another. Nutritional screening: No deficits noted. Tuberculosis screening: No symptoms or risk factors identified. Assessment: 21:30 General: Appears uncomfortable, ill, Behavior is agitated. rv 21:30 Pain: Complains of pain in chest. Neuro: Level of Consciousness is awake, alert, obeys rv commands, Oriented to person, place, time, situation. Cardiovascular: Capillary refill < 3 seconds Patient's skin is warm and dry. Respiratory: Airway is patent Respiratory effort is even, unlabored. GI: Bowel sounds present X 4 quads. Abd is soft and non tender X 4 quads. Reports nausea, vomiting. Derm: Skin is intact. Vital Signs: 21:23 BP 170 / 108; Pulse 118; Resp 20 S; Temp 97.8(O); Pulse Ox 100% on R/A; Weight 86.18 kg as6 (R); Height 5 ft. 7 in. ; Pain 10/10; 23:46 BP 203 / 122; Pulse 120; Resp 20; Pulse Ox 100% on R/A; rv 02/19 00:00 BP 173 / 98; Pulse 128; Resp 20; Pulse Ox 100% on R/A; rv 00:30 BP 153 / 87; Pulse 124; Resp 16; Pulse Ox 100% on R/A; rv 01:00 BP 135 / 83; Pulse 115; Resp 18; Pulse Ox 100% on R/A; rv 02:08 BP 120 / 72; Pulse 102; Resp 18; Temp 98; Pulse Ox 99% on R/A; rv 02/18 21:23 Body Mass Index 29.76 (86.18 kg, 170.18 cm) as6 02/18 21:23 Pain Scale: Adult as6 [place] Coma Score: 01:00 Eye Response: spontaneous(4). Motor Response: obeys commands(6). Verbal Response: rv oriented(5). Total: 15. ED Course: 02/18 21:18 Patient arrived in ED. gm2 21:21 Imer Tran MD is Attending Physician. rn 21:24 Arm band placed on. as6 21:26 Triage completed. as6 21:30 Patient has correct armband on for positive identification. Client placed on continuous rv cardiac and pulse oximetry monitoring. NIBP monitoring applied. equipment monitor phototypesetting on. 21:30 No provider procedures requiring assistance completed. rv 22:03 Inserted saline lock: 20 gauge in left upper arm, using aseptic technique. Blood rv collected. ultrasound guided. 23:10 CT Abd/Pelvis - IV Contrast Only In Process Unspecified. EDMS 23:45 Wilbur Rao RN is Primary Nurse. rv 23:52 US Abdomen Limited In Process Unspecified. EDMS 02/19 02:02 Obdulio Mendiola MD is Referral Physician. rn 02:08 IV discontinued, intact, bleeding controlled, No redness/swelling at site. Pressure rv dressing applied. Administered Medications: 02/18 22:05 Drug: Droperidol IVP 2.5 mg IVP once Route: IVP; Site: left upper arm; rv 02/19 02:08 Follow up: Response: No adverse reaction; Marked relief of symptoms rv 02/18 22:05 Drug: NS 0.9% IV 1000 ml IV at 1 bolus Per protocol; 1000 mL bolus Route: IV; Rate: 1 rv bolus; Site: left upper arm; 02/19 02:08 Follow up: IV Status: Completed infusion; IV Intake: 1000ml rv 02/18 22:05 Drug: Famotidine IVP 20 mg IVP once; dilute with 10 mL 0.9% NaCl; give over 2 minutes rv Route: IVP; Site: left upper arm; 02/19 02:07 Follow up: Response: No adverse reaction; Marked relief of symptoms rv 02/18 22:15 Drug: morphine IVP or IV 4 mg IVP once over 4 mins Route: IVP; Infused Over: 4 mins; rv Site: left upper arm; 02/19 02:07 Follow up: Response: No adverse reaction; Marked relief of symptoms rv 02/18 23:43 Drug: Potassium Chloride IV 20 mEq IV at calculated rate once; administer over 1-2 rv hours Route: IV; Rate: calculated rate; Site: left upper arm; 02/19 02:07 Follow up: IV Status: Completed infusion; IV Intake: 100ml rv 00:00 Drug: hydrALAZINE IVP 10 mg IVP once Route: IVP; Site: left upper arm; rv 02:07 Follow up: Response: No adverse reaction; Marked relief of symptoms rv Medication: 02/18 21:30 VIS not applicable for this client. rv Intake: 02/19 02:07 IV: 100ml; Total: 100ml. rv 02:08 IV: 1000ml; Total: 1100ml. rv Outcome: 02:02 Discharge ordered by . rn 02:08 Discharged to home ambulatory, with family, rv 02:08 Condition: good 02:08 Discharge instructions given to patient, family, Instructed on discharge instructions, follow up and referral plans. Demonstrated understanding of instructions, follow-up care, 02:09 Patient left the ED. rv Signatures: Dispatcher [employer] Imer Limon MD MD rn Vicente, Ronaldo, RN RN Edmond Liz RN RN asMalena Orozco [facility]
--- NOTE | 2024-02-20 02:03 | EDPHYS ---
Physician Documentation [facility] Name: Socorro Sigala Age: 43 yrs Sex: Female : 1980 Arrival Date: 02/19/2024 Time: 21:13 Bed 20 Private MD: ED Physician Imer Tran HPI: 02/18 21:30 This 43 yrs old Female presents to ER via Ambulatory with complaints of Abdominal Pain, rn Chest Pain, Vomiting. 21:31 The patient presents with abdominal pain in the epigastric area, in the upper abdomen. rn 21:31 Onset: The symptoms/episode began/occurred at an unknown time. The symptoms radiate to rn chest. Associated signs and symptoms: Pertinent positives: nausea and vomiting, Pertinent negatives: blood in stools, fever, shortness of breath, vomiting blood. The symptoms are described as crampy, intermittent. Modifying factors: The symptoms are alleviated by nothing, the symptoms are aggravated by touching the area. Severity of pain: At its worst the pain was moderate in the emergency department the pain is unchanged. The patient has experienced similar episodes in the past. Patient reports chronic abdominal pain, sees Dr. Mendiola, this is happened multiple times in the past and was just seen yesterday here. No acute findings and workup yesterday so discharged home. States went home and took medication not working. Vomiting has persisted. Reports upper abdominal pain that radiates to chest. Has history of hiatal hernia. No hematemesis or blood in stool. No fever.. Historical: - Allergies: 21:24 Codeine; as6 - PMHx: 21:24 Anxiety; Hypertensive disorder; as6 - Immunization history:: Adult Immunizations up to date. - Social history:: Smoking status: Reported history of juuling and/or vaping. - Family history:: not pertinent. - Hospitalizations: : No recent hospitalization is reported. ROS: 21:31 Constitutional: Negative for fever, chills, and weight loss, Eyes: Negative for injury, rn pain, redness, and discharge, Neck: Negative for injury, pain, and swelling, Cardiovascular: Positive for chest pain Respiratory: Negative for shortness of breath, cough, wheezing, and pleuritic chest pain, Abdomen/GI: Positive for abdominal pain with nausea and vomiting MS/Extremity: Negative for injury and deformity, Skin: Negative for injury, rash, and discoloration, Neuro: Negative for headache, numbness, tingling, and seizure, Exam: 21:31 Constitutional: This is a well developed, well nourished patient who is awake, alert, rn actively vomiting into trash can Head/Face: Normocephalic, atraumatic. ENT: Dry mucous membranes Cardiovascular: Tachycardic, regular. Respiratory: Lungs have equal breath sounds bilaterally, clear to auscultation and percussion. No rales, rhonchi or wheezes noted. No increased work of breathing, no retractions or nasal flaring. Abdomen/GI: Soft, tender epigastrium and right upper quadrant. Negative Ellis. No rebound. Skin: Warm, dry MS/ Extremity: Pulses equal, no cyanosis. Neuro: Awake and alert, GCS 15 23:16 ECG was reviewed by the Attending Physician. rn Vital Signs: 21:23 BP 170 / 108; Pulse 118; Resp 20 S; Temp 97.8(O); Pulse Ox 100% on R/A; Weight 86.18 kg as6 (R); Height 5 ft. 7 in. ; Pain 10/10; 23:46 BP 203 / 122; Pulse 120; Resp 20; Pulse Ox 100% on R/A; rv 04 00:00 BP 173 / 98; Pulse 128; Resp 20; Pulse Ox 100% on R/A; rv 00:30 BP 153 / 87; Pulse 124; Resp 16; Pulse Ox 100% on R/A; rv 01:00 BP 135 / 83; Pulse 115; Resp 18; Pulse Ox 100% on R/A; rv 02:08 BP 120 / 72; Pulse 102; Resp 18; Temp 98; Pulse Ox 99% on R/A; rv 02/18 21:23 Body Mass Index 29.76 (86.18 kg, 170.18 cm) as6 02/18 21:23 Pain Scale: Adult as6 Cheryl Coma Score: 01:00 Eye Response: spontaneous(4). Motor Response: obeys commands(6). Verbal Response: rv oriented(5). Total: 15. MDM: 02/18 21:21 Patient medically screened. rn 02/19 02:00 Differential diagnosis: bowel obstruction, cholecystitis, Cholelithiasis, rn diverticulitis, gastritis, gastroesophageal reflux disease, non-specific abd pain, pancreatitis, Peptic Ulcer Disease, Perf. Duodenal Ulcer, Perf. Gastric Ulcer. Data reviewed: vital signs, nurses notes, lab test result(s), radiologic studies, CT scan, ultrasound, and as a result, I will discharge patient. Counseling: I had a detailed discussion with the patient and/or guardian regarding the historical points, exam findings, and any diagnostic results supporting the discharge/admit diagnosis, lab results, radiology results, the need for outpatient follow up, to return to the emergency department if symptoms worsen or persist or if there are any questions or concerns that arise at home. Special discussion: I discussed with the patient/guardian in detail that at this point there is no indication for admission to the hospital. It is understood, however, that if the symptoms persist or worsen the patient needs to return immediately for re-evaluation. ED course: Patient feels much better, requesting to go home. No acute changes or new findings in today's evaluation. Patient reports chronic abdominal pain and hiatal hernia that she knows about, prefers to follow-up with her GI doctor Dr. Mendiloa. No longer vomiting and pain controlled.. 02/18 21:28 Order name: CBC with Diff; Complete Time: 22:39 rn 02/18 21:28 Order name: CMP; Complete Time: 23:14 rn 02/18 21:28 Order name: Lipase; Complete Time: 23:14 rn 02/18 21:30 Order name: US Abdomen Limited rn 02/18 22:39 Order name: CT Abd/Pelvis - IV Contrast Only rn 02/18 21:29 Order name: EKG; Complete Time: 21:30 rn 02/18 21:28 Order name: IV Saline Lock; Complete Time: 21:48 rn 02/18 21:28 Order name: Labs collected and sent; Complete Time: 21:48 rn 02/18 21:29 Order name: EKG - Nurse/Tech; Complete Time: 21:32 rn EC/31 23:16 Rate is 120 beats/min. Rhythm is regular. QRS [place] is Normal. [place] interval is normal. rn QRS interval is normal. QT interval is normal. No Q waves. T waves are Normal. No ST changes noted. Clinical impression: Sinus tachycardia. Reviewed by me. Administered Medications: 22:05 Drug: Droperidol IVP 2.5 mg IVP once Route: IVP; Site: left upper arm; rv 02/19 02:08 Follow up: Response: No adverse reaction; Marked relief of symptoms rv 02/18 22:05 Drug: NS 0.9% IV 1000 ml IV at 1 bolus Per protocol; 1000 mL bolus Route: IV; Rate: 1 rv bolus; Site: left upper arm; 02/19 02:08 Follow up: IV Status: Completed infusion; IV Intake: 1000ml rv 02/18 22:05 Drug: Famotidine IVP 20 mg IVP once; dilute with 10 mL 0.9% NaCl; give over 2 minutes rv Route: IVP; Site: left upper arm; 02/19 02:07 Follow up: Response: No adverse reaction; Marked relief of symptoms rv 02/18 22:15 Drug: morphine IVP or IV 4 mg IVP once over 4 mins Route: IVP; Infused Over: 4 mins; rv Site: left upper arm; 02/19 02:07 Follow up: Response: No adverse reaction; Marked relief of symptoms rv 02/18 23:43 Drug: Potassium Chloride IV 20 mEq IV at calculated rate once; administer over 1-2 rv hours Route: IV; Rate: calculated rate; Site: left upper arm; 02/19 02:07 Follow up: IV Status: Completed infusion; IV Intake: 100ml rv 00:00 Drug: hydrALAZINE IVP 10 mg IVP once Route: IVP; Site: left upper arm; rv 02:07 Follow up: Response: No adverse reaction; Marked relief of symptoms rv Disposition Summary: 02/20/24 02:02 Discharge Ordered Notes: Location: Home rn Problem: chronic rn Symptoms: have improved rn Condition: Stable rn Diagnosis - Abdominal pain, Generalized rn Followup: rn - With: Obdulio Mendiola MD - When: As needed - Reason: Recheck today's complaints, Re-evaluation by your physician Discharge Instructions: - Discharge Summary Sheet rn - Abdominal Pain, Adult rn - Nausea and Vomiting, Adult rn Forms: - Medication Reconciliation Form rn - Thank You Letter rn - Antibiotic overnight cashier - Prescription Opioid Use rn - Patient Portal Instructions rn - Leadership Thank You Letter rn Signatures: Dispatcher [employer] Imer Limon MD MD rn Vicente, Ronaldo, RN RN rv Slawson, Ashby, RN RN as6 Corrections: (The following items were deleted from the chart) 02/18 21: 21:29 CBC+H.LAB.BRZ ordered. EDMS EDMS 21: COMPREHENSIVE METABOLIC PANEL+C.LAB.BRZ ordered. EDMS EDMS : LIPASE+C.LAB.BRZ ordered. EDMS EDMS : Urinalysis+U.LAB.BRZ ordered. EDMS EDMS : Abdomen Limited+US.RAD.BRZ ordered. EDMS EDMS
--- NOTE | 2024-02-20 07:38 | RAD REPORT ---
EXAM DESCRIPTION: US - Abdomen Exam Limited - 02/19/2024 11:50 pm CLINICAL HISTORY: ABD PAIN COMPARISON: Abdomen Pelvis W Contrast dated 02/19/2024; Chest Abdomen Pelvis W Cont dated 02/18/2024 FINDINGS: The gallbladder demonstrates no gallstones. No pericholecystic fluid or gallbladder wall t hickening. The common bile duct is normal measuring 4 mm. The liver demonstrates no findings of intrahepatic biliary dilatation. IMPRESSION: Unremarkable examination. Negative for cholelithiasis, acute cholecystitis, or biliary duct dilatation.
[2024-02-20 08:29] VITALS: BP 120/72; TEMP 98; O2SAT 99
--- NOTE | 2024-02-20 13:21 | RAD REPORT ---
EXAM DESCRIPTION: CT - Abdomen Pelvis W Contrast - 02/20/2024 6:49 am CLINICAL HISTORY: The patient is 43 years old and is Female; worsening abd pain, vomiting TECHNIQUE: Axial computed tomography images of the abdomen and pelvis with intravenous contrast. S agittal and coronal reformatted images were created and reviewed. This CT exam was performed using one or more of the following dose reduction techniques: automated exposure control, adjustment of t he mA and/or kV according to patient size, and/or use of iterative reconstruction technique. DLP: 1266 mGy*cm COMPARISON: CT chest, abdomen and pelvis dated 02/18/2024. FINDINGS: LUNG BASES: Unremarkable. No mass. No consolidation. MEDIASTINUM: Small hiatal hernia. ABDOMEN: LIVER: Unremarkable. No mass. GALLBLADDER AND BILE DUCTS: Unremarkable. No calcified stones. No ductal dilation. PANCREAS: Unremarkable. No mass. No ductal dilation. SPLEEN: Unremarkable. No splenomegaly. ADRENALS: Unremarkable. No mass. KIDNEYS AND URETERS: Multiple left renal cysts measuring up to 9 mm. No hydronephrosis. STOMACH AND BOWEL: Unremarkable. No obstruction. No mucosal thickening. PELVIS: APPENDIX: The appendix is seen and is within normal limits. BLADDER: Unremarkable. No mass. REPRODUCTIVE: Unremarkable as visualized. ABDOMEN and PELVIS: INTRAPERITONEAL SPACE: Unremarkable. No free air. No significant fluid collection. BONES/JOINTS: No acute fracture. No dislocation. SOFT TISSUES: Small fat-containing umbilical hernia. Partially seen bilateral breast implants. VASCULATURE: Unremarkable. No abdominal aortic aneurysm. LYMPH NODES: Unremarkable. No enlarged lymph nodes. IMPRESSION: 1. No acute abdominal or pelvic abnormality. 2. Small hiatal hernia. 3. Multiple left renal cysts measuring up to 9 mm. No follow-up imaging is recommended. JACR 2018 Dec; 264-273, Management of the Incidental Renal Mass on CT, [employer] 2020; 814-848, B osniak Classification of Cystic Renal Masses, Version 2019. Electronically signed by: Fernandez Cai DO 02/19/2024 11:28 PM CDT Due to temporary technical issues with the PACS/Fluency reporting system, reports are being signed by the in house radiologist without review as a courtesy to ensure prompt reporting. The interpreting r adiologist is fully responsible for the content of the report.
--- NOTE | 2024-02-20 13:39 | EKG ---
Test Date: 2024-02-19 Test Time: 20:22:03 Center Punch Operator: ELLIOT MEASUREMENT RESULTS: Intervals: Rate: 120 SC: 160 QRSD: 78 QT: 332 QTc: 469 [place]: P: 64 SC: 160 QRS: 17 T: 52 INTERPRETIVE STATEMENTS: Sinus tachycardia Septal infarct, age undetermined Abnormal ECG No previous ECG available for comparison Electronically Signed On 02-20-24 13:36:19 CDT by Weston Collins
== END 2024-02-20 02:09 | disposition home or self-care (01) ==
LOC: ER 21:13
DX: R10.84 Generalized abdominal pain (principal); R11.2 Nausea with vomiting, unspecified; I10 Essential (primary) hypertension; Z88.5 Allergy status to narcotic agent
CPT/HCPCS: 96365; 96361; 93005 ×2; 85025; 36415; 83690; 80053; 74177; 76705; 96375; 99285; 96366; Q9967; J3480; J0360; J7030